=== PATIENT | female | born 1955 | race Caucasian/White ===

== ENCOUNTER 2017-04-06 12:18 | Emergency (ER) | payer OTHER, SELFPAY ==
[2017-04-06 12:22] VITALS: BP 198/96; PULSE 69; RESP 18; TEMP 36.8; O2SAT 99; BMI 41.8
--- NOTE | 2017-04-06 12:25 | RAD_ITS ---
STUDY: X-RAY CHEST REASON FOR EXAM: Female, 61 years old. Chest pain. Dizziness and nausea. TECHNIQUE: AP and lateral views of the chest. COMPARISON: None. FINDINGS: Elevation of the right hemidiaphragm. Mild increased markings at the right lung base suggestive of right basilar atelectasis. There is no demonstrated pleural abnormality. There is borderline cardiomegaly. Normal mediastinum and evelio. Normal visualized pulmonary arteries. There is atherosclerotic tortuosity of the aortic arch and descending thoracic aorta. There are diffuse degenerative changes of the visualized thoracic spine. Normal visualized ribs, clavicles, and shoulders. There is no demonstrated abnormality of the visualized soft tissue structures of the upper abdomen. RAD/Chest PA and Lateral IMPRESSION: Borderline cardiomegaly. Mild degree of increased markings at the right lung base suggestive of linear atelectasis. Electronically Signed: Davey Schmitz MD at 13:45 EST Tel [phone], Service support ,
--- NOTE | 2017-04-06 12:25 | EKG12_ITS ---
Test Reason : CP Blood Pressure : / mmHG Vent. Rate : 068 BPM Atrial Rate : 068 BPM P-R Int : 168 ms QRS Dur : 088 ms QT Int : 416 ms P-R-T Axes : 100 006 016 degrees QTc Int : 442 ms Normal sinus rhythm Normal ECG Confirmed by THEA RAYMOND ([id number]), photographic editor AISHWARYA SUNG ([id number]) on 04/10/2017 9:44:50 AM Referred By: CASIMIRO Confirmed By:THEA RAYMOND
[2017-04-06 13:02] LABS: Absolute Lymphocyte Count 1.95 X10^3/ul (0.83-4.51); Absolute Neutrophil Count 8.5 X10^3/uL (2.0-7.7); Basophil# 0.06 X10^3/uL; Basophil% 0.5 % (0-1); Eosinophil# 0.36 X10^3/uL; Eosinophils% 3.1 % (0-5); Hematocrit 43.7 % (37-47); Hemoglobin 14.2 g/dl (12.0-15.0); Lymphocyte # 1.95 X10^3/ul (4.0); Lymphocyte % 16.5 % (19-41); Mean Corp Hgb Conc 32.5 g/gl (32-36); Mean Corpuscular Hgb 29.2 pg (27.0-32.0); Mean Corpuscular Volume 89.7 fL (81-99); Mean Platelet Vol. 10.1 fl (6.2-12.0); Monocyte% 7.6 % (0-10); Neutrophil # 8.51 X10^3/uL (2.7-7.7); Neutrophil % 72.1 % (47-70); Platelet Count 276 K/mm3 (150-450); RBC Distribution Width CV 12.6 % (11.6-14.6); RBC Distribution Width SD 41.2 fl (35.1-43.9); Red Blood Count 4.87 M/mm3 (4.2-5.4); White Blood Count 11.8 K/mm3 (4.4-11.0)
[2017-04-06 13:04] LABS: POSITIVE COUNT NO; POSITIVE DIFFERENTIAL NO; POSITIVE MORPHOLOGY NO
[2017-04-06 13:20] LABS: Anion Gap 10 (5-15); BUN 23 mg/dL (7-18); Calcium,Total 9.2 mg/dL (8.5-10.1); Chloride 103 mmol/L (98-107); Creatinine, Serum 0.58 mg/dL (0.55-1.02); EST Glomerular Filtration Rate 113 mL/min (>60); Est Glom Filt Rate - Afr Amer 137 mL/min (>60); Estimated Creatinine Clearance 83.19 ml/min; Glucose 98 mg/dL (70-110); Potassium 3.6 mmol/L (3.5-5.1); Sodium Level 140 mmol/L (136-145)
--- NOTE | 2017-04-06 13:52 | NURSING ---
NO OLD EKGS
--- NOTE | 2017-04-06 14:16 | CT_ITS ---
STUDY: CT BRAIN WITHOUT CONTRAST REASON FOR EXAM: Female, 61 years old. Dizziness. Nausea and vomiting. Hypertension. RADIATION DOSAGE (If Supplied By Facility): CTDIvol = ( 44.99 ) mGy, DLP = ( 2042.94 ) mGycm TECHNIQUE: Transaxial CT imaging of the brain was performed without administration of intravenous contrast material. Individualized dose optimization techniques were used for this CT. COMPARISON: None. FINDINGS: Normal soft tissue structures. Normal calvarium. Normal size ventricles and extra-axial spaces for the patient's age. Normal white matter tracts of the cerebral hemispheres. There are small punctate calcifications of the basal ganglia which are seen in the aging brain as a normal variant. Normal brainstem. Normal cerebellum. There is no intracranial hemorrhage. There are no findings of an acute ischemic infarction. There is a 1.6 cm retention cyst or polyp along the anterior aspect of the left maxillary sinus. Mucosal thickening of left ethmoid sinus. CT/Brain/Head without Contrast IMPRESSION: No acute abnormality is seen. Electronically Signed: Davey Schmitz MD at 15:36 EST Tel [phone], Service support ,
[2017-04-06 14:31] VITALS: BP 145/77; PULSE 74; RESP 18; O2SAT 96
[2017-04-06] MEDS: Meclizine 12.5 MG Tablet 25 MG PO (14:40)
[2017-04-06] MEDS: Ondansetron 4 MG/2 ML Vial IV (14:40)
[2017-04-06] MEDS: 0.9% Normal Saline 1,000 ML 1000 ML IV (14:40)
[2017-04-06 15:09] VITALS: BP 141/83; PULSE 73; RESP 20; O2SAT 97
[2017-04-06 16:14] VITALS: BP 161/104; PULSE 87; RESP 18; O2SAT 98
--- NOTE | 2017-04-06 16:45 | ED.VISSUMM ---
- ER Visit Summary Date of Service: 04/06/17 Chief Complaint: Vertigo History of Present Illness: The patient is a [address] Gay. She reports that she has vertigo that began at 530 yesterday evening. Happened when she walked in the door to home. Last approximately an hour. She became very nauseated and diaphoretic with it. She vomited. No blood or emesis. Patient reports that she slept without difficulty last night and went to work today. 930 this morning she developed vertigo again while she was at rest. States that it is worsened by moving her head or standing up. She does feel off balance. She denies any slurred speech or double vision. No ear pain, ringing or roaring in her ears. No change in hearing. No headache. She has not had this previously. Physical Examination: Vitals: Stable. Afebrile. General: Well-nourished and well-developed. Head: Normocephalic atraumatic. Neck: Supple, no lymphadenopathy. No JVD. Nontender. Cardiovascular: Regular rate and rhythm. No murmurs. Respiratory: No respiratory distress. Clear to auscultation bilaterally. Abdominal: Soft, nontender, nondistended, normal bowel sounds. No guarding, rebound, or peritoneal signs. Back: Nontender. Extremities: Nontender, no edema. Skin: Normal color, no rash. Neurologic: Alert and oriented ?3. Cranial nerves II through XII are intact. Normal strength and sensation. Normal isyxoz-bwmo-mfbjux and erjt-pgsb-hagj bilaterally. No appreciable nystagmus. Psych: Normal affect. Test Results: EKG is sinus at 68 with no acute changes. Troponin is negative. Chem-7 is more for BUN of 23. CBC is marked for white count 11.8, segment neutrophils 72, lymphocytes of 17. Chest x-ray shows atelectasis with a poor inspiration. CT the brain shows no acute disease. Emergency Department Course and Treatment: Patient was treated with Antivert p.o. and Zofran IV. She reports that her vertigo has resolved. She is able to ambulate without any difficulty. Treatment Plan: I discussed with patient possible etiologies of vertigo. At this time I am unable to rule out a stroke. However, she is ambulate without any difficulty and feels well. She would like to go home. She is instructed if she has any worsening symptoms to return to the hospital and that she would likely require an MRI. Otherwise follow-up her primary care physician in 3-5 days for another exam. She be given prescription for Antivert and Zofran at home. Disposition: To home in improved and stable condition. Impression: 1. Vertigo, acute. This note was generated with [employer] dictation software. It may contain incorrect words, spelling, and punctuation that were not noted in review of the chart prior to signing ED Disposition - Plan for ED Patient: Chief Complaint: Dizziness Instructions: ED Vertigo Unspecified Prescriptions: Ondansetron [Zofran Odt] 4 mg PO Q8H PRN PRN #10 tablet PRN Reason: Nausea Meclizine HCl [Antivert] 25 mg PO 4X/DAY PRN PRN #20 tablet PRN Reason: Dizziness Referrals: Phillip Gay Chi, MD [Primary Care Provider] - 1-2 Days if not improving
[2017-04-06 17:24] VITALS: BP 149/88; PULSE 79; RESP 16; O2SAT 95
== END 2017-04-06 17:27 | disposition home or self-care (01) ==
PROVIDERS: Emergency Provider Emergency Medicine; Family Provider Family Medicine Geriatric Medicine; PCP Family Medicine Geriatric Medicine
DX: R42 Dizziness and giddiness (principal); J98.11 Atelectasis; I10 Essential (primary) hypertension; E78.00 Pure hypercholesterolemia, unspecified; G47.30 Sleep apnea, unspecified; Z79.899 Other long term (current) drug therapy
CPT/HCPCS: 70450; 71046; 80048; 84484; 85025; 93005; 96361; 96374; 99285; J7030; J2405

== ENCOUNTER 2017-05-02 09:28 | Inpatient (IN) | payer OTHER, SELFPAY ==
[2017-04-16 15:26] VITALS: BP 157/93; PULSE 81; RESP 16; TEMP 36.9; O2SAT 97; BMI 43.1
[2017-05-02] VITALS (8 sets, daily range): BP systolic 127–173; BP diastolic 64–98; PULSE 74–93; RESP 16–20; TEMP 36.3–36.9; O2SAT 92–98; BMI 43.1
[2017-05-02] MEDS: Celecoxib 200 MG Capsule 400 MG PO (10:05)
[2017-05-02] MEDS: oxyCODONE HCl Cr 10 MG Tablet PO (10:06)
[2017-05-02] MEDS: Acetaminophen 500 MG Tablet 1000 MG PO ×2 (10:06→20:51)
[2017-05-02] MEDS: Scopolamine 1mg/72hr Patch 1 PATCH TD (10:30)
[2017-05-02] MEDS: Lactated Ringers 1,000 ML 999 ML IV (10:35)
[2017-05-02] MEDS: Cefazolin 2 GM in 0.9% Normal Saline 100 ML IV (12:58)
--- NOTE | 2017-05-02 14:42 | PCM.OPRPT ---
Report of Operation Date of Procedure: 05/02/17 Pre-Operative Diagnosis: Left Primary Knee Osteoarthritis Post-Operative Diagnosis: Left Primary Knee Osteoarthritis Surgery/Procedure Performed:: Left posterior stabilized total knee replacement Description of Surgical Findings:: Stable knee with good patella tracking concrete swimming pool installer: Terell Middleton Type of Anesthesia:: Spinal Anesthesiologist: Mitchel Mchugh Special Medications: 2 g Ancef, 1 g TXA at incision, 1 g TXA closure, 10 mg Decadron, joint cocktail (5 mg Duramorph, 30 mL of 0.5% Ropivicaine, 1000 units of epinephrine, 30 mg of Toradol) Specimen's removed: Bony cuts Estimated Blood Loss (mL): 25 Fluids Replaced: 800 mL crystalloid Description of Procedure: Implants used: 1. Warner triathlon left posterior stabilized size 3 distal femoral component 2. Vikki triathlon universal tibial baseplate size 4 3. Vikki triathlon posterior stabilized X3 polyethylene insert 9 mm 4. Vikki triathlon X3 35 a patella Brief history operative indications: 81-year-old female who failed conservative treatment for left knee osteoarthritis. Patient's x-rays were consistent with subchondral sclerosis, valgus alignment, joint space narrowing and osteophyte formation. Risks and benefits of left total knee replacement were discussed the patient including but not limited to blood loss, DVTs, PEs, neurovascular damage, infection, general risk of anesthesia. Patient showed understanding and wished to proceed with left total knee replacement. Procedure: On the date of procedure patient's left lower extremity was marked in the preoperative area. The patient was then taken back to the operating room where the patient was placed on the table in the supine position. All bony prominences were identified a well-padded. Anesthesia assumed control of the C-spine and airway and remained controlled throughout the remainder of the procedure. A tourniquet was placed on the left upper thigh and the leg was prepped in a sterile fashion. The surgeon then scrubbed at this time .Upon reentering the room left lower extremity was draped in a standard orthopedic fashion. A timeout was then called and everyone agreed upon the side, the site, the procedure to be performed, patient's identity and antibiotics given. A midline skin incision was made and sharp dissection was taken down through skin subcutaneous tissue and fat. The standard medial parapatellar incision was made and the patella was subluxed laterally. The standard deep MCL release was done and the fat pad was resected. Next our attention was directed to the femur. The entry reamer was used to enter the femoral canal. A flexible intramedullary guide was used and the distal femoral cutting block was pinned into place and 10 mm of distal femur resection was completed. The knee was then placed in deep flexion in the standard Familiar sizing guide was used to place the femoral component in 3? external rotation based on the posterior condyles. A size 3 4-in-1 cutting block was selected and pinned into place. The anterior cut was then made and checked for notching. The subsequent anterior chamfer cuts, posterior condylar cuts and posterior chamfer cuts were made while ensuring the MCL and LCL were protected. Our attention was then turned to the tibia where the [employer] tibial cutting guide was used to make the appropriate tibial cut 90 degrees from the mechanical axis. A drop juan was then used to verify the cut. A size 4 tibial base plate was selected. the knee was flexed to 90 degrees and the soft tissues and posterior osteophytes were removed from the joint. A portion of the periarticular injection was then administered in the posterior medial knee. Our attention was then turned back to the femur where the notch cutting guide was impacted in the appropriate position, and pinned into place. The chisel and saw were then used to complete the notch cut. Rogeur was used to remove any residual osteophytes. The appropriate trials were then placed on the femur and tibia. A trial polyethylene was trialed to ensure proper balancing and stability of the knee. Patella tracking, was then verified and corrected appropriately as needed. The appropriate tibial internal rotation was then marked with a bovie. Our attention was then directed to the patella. The patella was everted and a flat resection was made. The lug holes were drilled and the patella trial was placed. Patellar tracking was checked and deemed appropriate. Once we were happy lug holes were drilled for the femur and trial components were removed. the tibia was subluxed and pinned into place and the keel was punched and the canal was reamed. Final components were verified and opened, and cement was mixed in a vacuum. Familiar Simplex cement was used. The wound was copiously irrigated with normal saline. When the cement was ready the components were cemented into place starting with the tibia, femur and finally the patella. The trial poly component was placed and the knee was placed in full extension. All excess cement was removed in the process. Once the cement had cured the tracking, alignment and balance were verified and a size 9mm polyethylene component was placed. Once the final components were placed a 500 mL dilute Betadine 3 minute lavage was performed and the wound was copiously irrigated with normal saline solution and the remainder of the periarticular injection was given. The wound was closed in a layer ramos fashion using #1 vicryl interrupted sutures for the arthrotomy, 2-0 interrupted Vicryl for the subcuticular layer and haven for final skin closure. A sterile compressive dressing was then placed. The patient was then awakened from anesthesia, transferred to the [place] and transferred to the PACU for recovery. Post op plan DVT ppx: ASA 325mg BID , thigh high compression stockings Follow up: in office in 2 weeks for wound check PT: to start POD #0 at hospital, outpatient PT should be arranged. My physician administrative personal assistant was a vital part of this case. He was important in appropriate retraction during the case, and protection of soft tissues during bony cuts. His intimate knowledge of the case and my steps aided in safe and expedient completion of the procedure as well as appropriate position of the leg during the case. He was also vital in assisting with closure under my direct supervision. Grafts/Implants Used: Warner triathlon total knee - Complications none - Admit VTE Documentation VTE Present on Admission: No VTE Mechan Device Prophylaxis: SCD's, Thigh High RANJAN Hose VTE Pharm Prophylaxis ordered?: Yes
--- NOTE | 2017-05-02 14:46 | OP.PCM_ITS ---
Report of Operation Date of Procedure: 05/02/17 Pre-Operative Diagnosis: Left Primary Knee Osteoarthritis Post-Operative Diagnosis: Left Primary Knee Osteoarthritis Surgery/Procedure Performed:: Left posterior stabilized total knee replacement Description of Surgical Findings:: Stable knee with good patella tracking client service coordinator: Terell Middleton Type of Anesthesia:: Spinal Anesthesiologist: Mitchel Mchugh Special Medications: 2 g Ancef, 1 g TXA at incision, 1 g TXA closure, 10 mg Decadron, joint cocktail (5 mg Duramorph, 30 mL of 0.5% Ropivicaine, 1000 units of epinephrine, 30 mg of Toradol) Specimen's removed: Bony cuts Estimated Blood Loss (mL): 25 Fluids Replaced: 800 mL crystalloid Description of Procedure: Implants used: 1. Sulphur triathlon left posterior stabilized size 3 distal femoral component 2. Vikki triathlon universal tibial baseplate size 4 3. Vikki triathlon posterior stabilized X3 polyethylene insert 9 mm 4. Vikki triathlon X3 35 a patella Brief history operative indications: 81-year-old female who failed conservative treatment for left knee osteoarthritis. Patient's x-rays were consistent with subchondral sclerosis, valgus alignment, joint space narrowing and osteophyte formation. Risks and benefits of left total knee replacement were discussed the patient including but not limited to blood loss, DVTs, PEs, neurovascular damage, infection, general risk of anesthesia. Patient showed understanding and wished to proceed with left total knee replacement. Procedure: On the date of procedure patient's left lower extremity was marked in the preoperative area. The patient was then taken back to the operating room where the patient was placed on the table in the supine position. All bony prominences were identified a well-padded. Anesthesia assumed control of the C- spine and airway and remained controlled throughout the remainder of the procedure. A tourniquet was placed on the left upper thigh and the leg was prepped in a sterile fashion. The surgeon then scrubbed at this time .Upon reentering the room left lower extremity was draped in a standard orthopedic fashion. A timeout was then called and everyone agreed upon the side, the site, the procedure to be performed, patient's identity and antibiotics given. A midline skin incision was made and sharp dissection was taken down through skin subcutaneous tissue and fat. The standard medial parapatellar incision was made and the patella was subluxed laterally. The standard deep MCL release was done and the fat pad was resected. Next our attention was directed to the femur. The entry reamer was used to enter the femoral canal. A flexible intramedullary guide was used and the distal femoral cutting block was pinned into place and 10 mm of distal femur resection was completed. The knee was then placed in deep flexion in the standard [employer] sizing guide was used to place the femoral component in 3? external rotation based on the posterior condyles. A size 3 4-in-1 cutting block was selected and pinned into place. The anterior cut was then made and checked for notching. The subsequent anterior chamfer cuts, posterior condylar cuts and posterior chamfer cuts were made while ensuring the MCL and LCL were protected. Our attention was then turned to the tibia where the [employer] tibial cutting guide was used to make the appropriate tibial cut 90 degrees from the mechanical axis. A drop juan was then used to verify the cut. A size 4 tibial base plate was selected. the knee was flexed to 90 degrees and the soft tissues and posterior osteophytes were removed from the joint. A portion of the periarticular injection was then administered in the posterior medial knee. Our attention was then turned back to the femur where the notch cutting guide was impacted in the appropriate position, and pinned into place. The chisel and saw were then used to complete the notch cut. Rogeur was used to remove any residual osteophytes. The appropriate trials were then placed on the femur and tibia. A trial polyethylene was trialed to ensure proper balancing and stability of the knee. Patella tracking, was then verified and corrected appropriately as needed. The appropriate tibial internal rotation was then marked with a bovie. Our attention was then directed to the patella. The patella was everted and a flat resection was made. The lug holes were drilled and the patella trial was placed. Patellar tracking was checked and deemed appropriate. Once we were happy lug holes were drilled for the femur and trial components were removed. the tibia was subluxed and pinned into place and the keel was punched and the canal was reamed. Final components were verified and opened, and cement was mixed in a vacuum. [employer] Simplex cement was used. The wound was copiously irrigated with normal saline. When the cement was ready the components were cemented into place starting with the tibia, femur and finally the patella. The trial poly component was placed and the knee was placed in full extension. All excess cement was removed in the process. Once the cement had cured the tracking, alignment and balance were verified and a size 9mm polyethylene component was placed. Once the final components were placed a 500 mL dilute Betadine 3 minute lavage was performed and the wound was copiously irrigated with normal saline solution and the remainder of the periarticular injection was given. The wound was closed in a layer ramos fashion using #1 vicryl interrupted sutures for the arthrotomy, 2-0 interrupted Vicryl for the subcuticular layer and haven for final skin closure. A sterile compressive dressing was then placed. The patient was then awakened from anesthesia, transferred to the [place] and transferred to the PACU for recovery. Post op plan DVT ppx: ASA 325mg BID , thigh high compression stockings Follow up: in office in 2 weeks for wound check PT: to start POD #0 at hospital, outpatient PT should be arranged. My physician therapist's assistant was a vital part of this case. He was important in appropriate retraction during the case, and protection of soft tissues during bony cuts. His intimate knowledge of the case and my steps aided in safe and expedient completion of the procedure as well as appropriate position of the leg during the case. He was also vital in assisting with closure under my direct supervision. Grafts/Implants Used: Sulphur triathlon total knee - Complications none - Admit VTE Documentation VTE Present on Admission: No VTE Mechan Device Prophylaxis: SCD's, Thigh High RANJAN Hose VTE Pharm Prophylaxis ordered?: Yes
--- NOTE | 2017-05-02 15:38 | RAD_ITS ---
STUDY: X-RAY - LEFT KNEE REASON FOR EXAM: Female, 61 years old. Postoperative evaluation of knee arthroplasty. TECHNIQUE: 2 view(s) of the knee. COMPARISON: Prior left knee radiographs of January 26, 2017 FINDINGS: The patient is status post a total knee arthroplasty. The standard femoral and tibial components are normally located without migration or disruption of the hardware. The patella is resurfaced and is anatomically located. Normal postoperative soft tissue changes. Anterior incision closed with haven. RAD/Knee 1 or 2 Views IMPRESSION: Status post total knee arthroplasty with no untoward bone, joint or hardware findings. Electronically Signed: Jeanette Batista MD at 16:42 EST , Service support ,
[2017-05-02] MEDS: Lactated Ringers 1,000 ML 125 ML IV (16:42)
[2017-05-02] MEDS: Ketorolac 15 MG/ML Vial IV (17:18)
[2017-05-02] MEDS: Pravastatin 40 MG Tablet PO (20:52)
[2017-05-02] MEDS: Senna/Docusate Sodium 1 Tablet 2 TABLET PO (20:52)
[2017-05-02] MEDS: Aspirin 325 MG Tablet PO (20:53)
[2017-05-02] MEDS: Lisinopril 40 MG Tablet PO (20:53)
[2017-05-02] MEDS: Cefazolin 1 GM/50 ML BAG IV (22:35)
[2017-05-03 02:38] VITALS: BP 136/75; PULSE 87; RESP 18; TEMP 36.6; O2SAT 96
[2017-05-03] MEDS: Cefazolin 1 GM/50 ML BAG IV (05:39)
[2017-05-03] MEDS: Acetaminophen 500 MG Tablet 1000 MG PO ×2 (05:39→13:53)
[2017-05-03 06:58] LABS: Hematocrit 37.7 % (37-47); Hemoglobin 12.2 g/dl (12.0-15.0); Mean Corp Hgb Conc 32.4 g/gl (32-36); Mean Corpuscular Hgb 28.6 pg (27.0-32.0); Mean Corpuscular Volume 88.3 fL (81-99); Mean Platelet Vol. 10.2 fl (6.2-12.0); Platelet Count 260 K/mm3 (150-450); RBC Distribution Width CV 12.3 % (11.6-14.6); RBC Distribution Width SD 39.2 fl (35.1-43.9); Red Blood Count 4.27 M/mm3 (4.2-5.4); White Blood Count 15.7 K/mm3 (4.4-11.0)
[2017-05-03 07:01] LABS: Scan Indicated on CBC? Y/N NO
--- NOTE | 2017-05-03 07:08 | PN.ORTHO_ITS ---
Subjective: The patient was sitting in bedside chair upon examination. Patient denies any chest pain, shortness of breath, dizziness, lightheadedness, nausea or vomiting , or calf pain. Pain is controlled on medications. No adverse overnight events. Overall patient is doing well and pain is very well controlled at this time. Patient did receive a block postoperatively. Patient does wish to go home upon discharge. Objective: Vital signs stable and afebrile. Patient is able to plantarflex and dorsiflex actively. Sensation is intact to light touch to saphenous, sural, superficial and deep peroneal, and tibial distribution. Dressing is clean dry and intact. Negative Homans bilaterally, negative signs and symptoms of DVT. - Physical Exam General: Alert, Oriented x3, Cooperative, No apparent distress Vital Signs Temp Pulse Resp BP Pulse Ox 98 F 87 18 136/75 H 96 05/03/17 02:38 05/03/17 02:38 05/03/17 02:38 05/03/17 02:38 05/03/17 02:38 Oxygen Delivery Method CPAP Weight: 107.048 kg Body Mass Index (BMI) 43.1 Intake and Output for Last 24 Hours 05/01/17 05/02/17 05/03/17 23:59 23:59 23:59 Intake Total 2267 / 2267 2278 / 2278 Output Total 700 / 700 Balance 2267 / 2267 1578 / 1578 Laboratory Tests Past 24 Hrs 05/03/17 05/03/17 06:30 06:30 WBC 15.7 H RBC 4.27 Hgb 12.2 Hct 37.7 MCV 88.3 MCH 28.6 MCHC 32.4 RDW 12.3 RDW Differential 39.2 Plt Count 260 MPV 10.2 Sodium Pending Potassium Pending Chloride Pending Carbon Dioxide Pending Anion Gap Pending BUN Pending Creatinine Pending Est GFR (MDRD) Af Amer Pending Est GFR (MDRD) Non-Af Pending BUN/Creatinine Ratio Pending Glucose Pending Calcium Pending Assessment/Plan 1. S/P left total knee arthroplasty POD #1 2. Continue Pain Medications: Tylenol and OxyIR 3. DVT Prophylaxis: Aspirin 325 mg twice daily 4. PT/OT: Weightbearing as tolerated 5. H & H: 12.2/37.7, asymptomatic 6. Leukocytosis: Currently 15.7, afebrile. Patient did receive Decadron intraoperatively 7. Encouraged Incentive Spirometry 8. Disposition: Plan will be for possible discharge home today if pain is controlled on medications and patient tolerates physical therapy. Prescriptions will be E scribed to drug trisha and Briseida. Patient will follow- up per postop instructions.
[2017-05-03 07:12] LABS: Anion Gap 9 (5-15); BUN 15 mg/dL (7-18); BUN/Creat Ratio 21.3 RATIO (10-20); Calcium,Total 8.7 mg/dL (8.5-10.1); Chloride 101 mmol/L (98-107); EST Glomerular Filtration Rate 89 mL/min (>60); Est Glom Filt Rate - Afr Amer 108 mL/min (>60); Estimated Creatinine Clearance 65.91 ml/min; Glucose 183 mg/dL (74-106); Potassium 4.1 mmol/L (3.5-5.1); Sodium Level 136 mmol/L (136-145)
--- NOTE | 2017-05-03 07:13 | DCINST_ITS ---
Discharge Diet: No Restrictions Discharge Activity: May Not Drive May shower in (days): 1 - Turned dressing away from water Ice area for (Minutes): 20 - every hour while awake. Weight Bearing Status: Weight bearing as tolerated Elevate: Operative Extremity Additional Activity Instructions:: Wear elastic stockings for 2 weeks after your surgery. Call your doctor if your incision/area has: Continuous Slow Oozing, Sudden Increased Bleeding, Increased Pain/ Swelling, Increased Redness, Foul Smelling Discharge Call your doctor if you observe: Fever of 101 or Higher, Coldness, Increased Pain, Numbness or Tingling, Change in Color, Calf discomfort, Uncontrolled pain Remove Dressing in (days):: 4 - Okay to remove dressing on May 07, 2017 Additional Instructions: Follow [facility] postop instructions Allergies/Adverse Reactions: Allergies No Known Allergies Allergy (Verified 04/16/17 15:15) Medications to take at Discharge Lisinopril [Zestril] 40 mg PO QHS 09/26/16 Pravastatin [Pravachol] 40 mg PO QHS 09/26/16 Acetaminophen [Tylenol] 1,000 mg PO Q8 #90 tab 05/03/17 Aspirin 325 mg PO BID #30 tab 05/03/17 Famotidine [Pepcid] 20 mg PO DAILY #30 tab 05/03/17 Oxycodone [Oxyir] 5 - 10 mg PO Q4H PRN PRN 7 Days #80 tablet 05/03/17 Senna/Docusate Sodium [Senokot-S] 2 tab PO BID #20 tab 05/03/17 The following prescriptions were given: Oxycodone [Oxyir] 5 - 10 mg PO Q4H PRN PRN 7 Days #80 tablet PRN Reason: Mod-Severe Pain (-12/19) Acetaminophen [Tylenol] 1,000 mg PO Q8 #90 tab Famotidine [Pepcid] 20 mg PO DAILY #30 tab Aspirin 325 mg PO BID #30 tab Senna/Docusate Sodium [Senokot-S] 2 tab PO BID #20 tab Primary Care Physician: Phillip Gay Chi, MD [Primary Care Provider] - Please Follow Up With: Physical therapy When: 05/07/17 @ 10:00 am Please Follow Up With: Terell Middleton PA-C When: 05/16/17 @ 9:45 am
[2017-05-03] MEDS: oxyCODONE 5 MG Tablet PO (08:26)
[2017-05-03] MEDS: Famotidine 20 MG Tablet PO (09:18)
[2017-05-03] MEDS: Senna/Docusate Sodium 1 Tablet 2 TABLET PO (09:19)
[2017-05-03] MEDS: Aspirin 325 MG Tablet PO (09:19)
[2017-05-03 09:20] VITALS: BP 165/76; PULSE 67; RESP 18; TEMP 36.8; O2SAT 98
--- NOTE | 2017-05-03 09:28 | CASEMGMT ---
JAI CONNER reviewed chart and note patient was adm for joint surgery. JAI CONNER met with patient to discuss transition planning and care coordination. The patient reports she lives with her spouse who will be staying home with her to help for the first week, then her dtrs will be there week 2 and son will come week 3. Patient reports she has a wheeled walker which she did bring with her to the hospital. Patient also reports a cpap and toilet riser. The patient intends to complete PT/OT at [facility]. The patient does have transportation and follow-up appnts are scheduled. Disposition Plan: Home with support of family and with follow-up plans in place. NAVID Rosado, RN-BC, CCM
[2017-05-03 14:00] VITALS: BP 151/57; BP 151/87; PULSE 65; RESP 18; TEMP 36.8; O2SAT 97
== END 2017-05-03 14:24 | disposition home or self-care (01) | DRG 470 ==
LOC: ACINP 09:29 → MS3 14:28
PROVIDERS: Admitting Provider Specialist; Family Provider Family Medicine Geriatric Medicine; PCP Family Medicine Geriatric Medicine; Visit Provider Specialist
PROC: 0SRD0J9 Replacement of Left Knee Joint with Synthetic Substitute, Cemented, Open Approach (ICD-10-PCS; CPT 27447; principal; 2017-05-02 11:15)
DX: M17.12 Unilateral primary osteoarthritis, left knee (principal); E78.00 Pure hypercholesterolemia, unspecified; G47.30 Sleep apnea, unspecified; I10 Essential (primary) hypertension; Z87.891 Personal history of nicotine dependence
CPT/HCPCS: 36415; 73560; 80048; 85027; 87081; 97110; 97162; 97165; 97535; 99251; J7120; G0463; J2405

== ENCOUNTER → 2017-09-07 08:35 | Outpatient (CLI) | payer OTHER, SELFPAY ==
[2017-09-07 12:35] LABS: Absolute Lymphocyte Count 1.54 X10^3/ul (0.83-4.51); Basophil# 0.05 X10^3/uL; Basophil% 0.7 % (0-1); Eosinophil# 0.28 X10^3/uL; Eosinophils% 3.8 % (0-5); Hematocrit 41.7 % (37-47); Hemoglobin 13.3 g/dl (12.0-15.0); Lymphocyte # 1.54 X10^3/ul (4.0); Lymphocyte % 20.9 % (19-41); Mean Corp Hgb Conc 31.9 g/gl (32-36); Mean Corpuscular Hgb 27.6 pg (27.0-32.0); Mean Corpuscular Volume 86.5 fL (81-99); Mean Platelet Vol. 10.7 fl (6.2-12.0); Monocyte# 0.51 X10^3/uL; Monocyte% 6.9 % (0-10); Neutrophil # 4.99 X10^3/uL (2.7-7.7); Neutrophil % 67.6 % (47-70); Platelet Count 275 K/mm3 (150-450); RBC Distribution Width CV 13.6 % (11.6-14.6); RBC Distribution Width SD 42.9 fl (35.1-43.9); Red Blood Count 4.82 M/mm3 (4.2-5.4); White Blood Count 7.4 K/mm3 (4.4-11.0)
[2017-09-07 12:38] LABS: POSITIVE COUNT NO; POSITIVE DIFFERENTIAL NO; POSITIVE MORPHOLOGY NO
[2017-09-07 12:50] LABS: ALB/GLOB Ratio 0.9 RATIO (0.9-2.4); AST(SGOT) 41 U/L (15-37); Alanine Aminotransfer ALT/SGPT 54 U/L (13-56); Albumin, Serum 3.8 g/dL (3.2-5.0); Alkaline Phosphatase 69 U/L (45-117); Anion Gap 8 (5-15); BUN 18 mg/dL (7-18); BUN/Creat Ratio 26.1 RATIO (10-20); Calcium,Total 9.4 mg/dL (8.5-10.1); Chloride 105 mmol/L (98-107); Creatinine, Serum 0.69 mg/dL (0.55-1.02); EST Glomerular Filtration Rate 91 mL/min (>60); Est Glom Filt Rate - Afr Amer 110 mL/min (>60); Globulin 4.1 g/dL (2.2-4.2); Glucose 100 mg/dL (74-106); Potassium 4.3 mmol/L (3.5-5.1); Protein, Total 7.9 g/dL (6.4-8.2); Sodium Level 139 mmol/L (136-145); Thyroid Stim Hormone (TSH) 0.79 uIU/mL (0.358-3.74)
[2017-09-08 08:01] LABS: Hep C Antibodies 0.1 s/co ratio (0.0-0.9)
== END ==
PROVIDERS: Family Provider Family Medicine Geriatric Medicine; PCP Family Medicine Geriatric Medicine; Visit Provider Family Medicine Geriatric Medicine
DX: I10 Essential (primary) hypertension (principal); Z13.89 Encounter for screening for other disorder
CPT/HCPCS: 36415; 80053; 84443; 85025; 86803

== ENCOUNTER → 2018-01-01 10:25 | Outpatient (CLI) | payer OTHER, SELFPAY ==
--- NOTE | 2018-01-01 10:29 | RAD_ITS ---
STUDY: X-RAY - LUMBAR SPINE REASON FOR EXAM: Female, 62 years old. Back pain TECHNIQUE: 4 view(s) of the lumbar spine were obtained. COMPARISON: Prior study of 11/02/2016 FINDINGS: Normal lumbar lordosis. There is no substantial scoliosis. There is a grade 2 anterolisthesis of L3 relative to L4, and a minimal grade 1 anterolisthesis of L4 relative to L5. Normal vertebral bodies and endplates. There is severe narrowing of the L3-4 disc space with sclerosis of the adjacent endplates. There is mild narrowing of the L2-3, L4-5, and L5-S1 disc spaces. There are bilateral degenerative facet changes throughout the mid to lower lumbar region. There are calcified plaques of the abdominal aorta. RAD/L/S Spine Min 4 Views IMPRESSION: Degenerative changes as detailed above, increased in severity from the previous study. Electronically Signed: Channing Donis MD at 23:24 EDT , Service support ,
== END ==
PROVIDERS: Family Provider Family Medicine Geriatric Medicine; PCP Family Medicine Geriatric Medicine; Referring Provider Orthopaedic Surgery; Visit Provider Orthopaedic Surgery
DX: M54.5 Low back pain (principal)
CPT/HCPCS: 72110

== ENCOUNTER → 2018-01-03 10:24 | Outpatient (CLI) | payer OTHER, SELFPAY ==
--- NOTE | 2018-01-03 10:26 | BI_ITS ---
MAMMOGRAPHY - BILATERAL SCREENING REASON FOR EXAM: Female, 62 years old. Routine annual screening examination. PERTINENT HISTORY: Aunt with breast cancer. TECHNIQUE: Digital bilateral breast ga (3D mammographic acquisition) in the CC and MLO projections. 2-D mediolateral oblique (MLO) and craniocaudad (CC) views of both breasts were obtained. CAD: Full Field Digital Mammography with Computer Added Detection was performed. COMPARISON: Comparison is made with prior study dated July 21, 2016 and July 10, 2014. FINDINGS: Breast Composition: The breasts are almost entirely fatty. There is a 8.1 mm x 8.6 mm well-defined nodular density in the retroareolar region of the left breast. Correlation with ultrasound is recommended. Stable small bilateral axillary lymph nodes. No other significant abnormalities are identified. BI/SCREENING MAMM (CAD), BILAT IMPRESSION: 8.1 mm x 8.6 mm well-defined nodular density in the retroareolar region of the left breast as described. Correlation with ultrasound is recommended. ASSESSMENT CATEGORY: BIRADS Category 0: Incomplete. Need additional imaging evaluation. A letter regarding these results will be sent to the patient by the facility within 30 days. Approximately 10% of breast cancers are not detected by mammography. A normal mammogram should not delay biopsy of a clinically suspicious abnormality. [id number] Electronically Signed: Davey Schmitz MD at 14:12 EDT Tel [phone], Service support ,
[2018-01-08 10:45] LABS: HPV APTIMA, High Risk Negative (Negative)
== END ==
PROVIDERS: Family Provider Family Medicine Geriatric Medicine; PCP Family Medicine Geriatric Medicine; Referring Provider Family Medicine Geriatric Medicine; Visit Provider Family Medicine Geriatric Medicine
DX: Z12.31 Encounter for screening mammogram for malignant neoplasm of breast (principal)
CPT/HCPCS: 77063; 77067; 87624; 88175; G0145

== ENCOUNTER → 2018-01-08 07:58 | Outpatient (CLI) | payer OTHER, SELFPAY ==
--- NOTE | 2018-01-08 08:09 | US_ITS ---
STUDY: ULTRASOUND BREAST - LEFT REASON FOR EXAM: Female, 62 years old. Abnormal screening mammogram. TECHNIQUE: Axial and longitudinal images of the LEFT breast were performed with a high resolution ultrasound transducer. COMPARISON: Comparison is made with prior mammogram dated January 03, 2018. FINDINGS: LEFT Breast: There is a 7 mm x 6 mm x 5 mm cyst with low-level echoes within it at the 12:00 position of the breast at 4 cm from nipple. This corresponds to the mammographic findings. This most likely represents an hemorrhagic cyst. A follow-up sonogram in 4 months is recommended for further evaluation. US/Breast Limited Unilateral IMPRESSION: The mammographic abnormality corresponds to a 7 mm x 6 mm x 5 mm cyst with low-level echoes. This most likely represents an hemorrhagic cyst. A follow-up sonogram is recommended in 4 months. ASSESSMENT CATEGORY: BIRADS Category 3: Probably Benign - Short-Interval Follow-up Suggested. A letter regarding these results will be sent to the patient by the facility within 30 days. Electronically Signed: Davey Schmitz MD at 8:52 EDT Tel [phone], Service support ,
== END ==
PROVIDERS: Family Provider Family Medicine Geriatric Medicine; PCP Family Medicine Geriatric Medicine; Referring Provider Family Medicine Geriatric Medicine; Visit Provider Family Medicine Geriatric Medicine
DX: R92.8 Other abnormal and inconclusive findings on diagnostic imaging of breast (principal)
CPT/HCPCS: 76642

== ENCOUNTER 2018-05-15 17:30 | Outpatient (RCR) | payer OTHER, SELFPAY ==
[2018-03-19 14:57] VITALS: BMI 43.1
--- NOTE | 2018-04-30 17:12 | HP.PTEVAL_ITS ---
Patient's Visit Information CHELSIE HERNANDEZ is a 62 year old F referred to Physical Therapy by Phillip Gay MD with a diagnosis of L sciatica. Date of Evaluation: 04/24/18 Physical Therapist: Ruddy Hill DPT - Visit Plan Frequency: 2x /Week Duration: 4 Weeks Plan: Start with US to lumbar spine/L hip. Neutral spine core stability, HS stretching (light), trial modalties to reduce symptoms - Subjective Findings: Pt. is here today for her initial evaluation with diagnosis of L sided sciatica. Pt. reports having increased pain for some time. Pt. reports pain in LLE down to her knee. Pt. denies N/T in either LE. Pt. 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 Pt. has increased pain with walknig, standing, work like movements, bending, twisting and lifting. 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 Pt. denies any mechanism of injury. Pt. has been to a chiropractor wtih minimal relief. Pt. has had a consult with ortho who recommended an L3-L4 and L4-L5 dcompression and fusion. Pt. did not desire to take this course of action at this point in time. Pt. has been having continued pain since. Pt. is hopeful to reduce symptoms in order to get back to all recreational and work activities without limitation. - Pain LLE Pain Intensity (Out of 10): 6 Pain Intensity Range: 4, 8 - Objective POSTURE: Pt. had generally flexed posture. Pt. is over wt. Pt. is has no lateral shift. Pt. had normal posture otherwise. PALPATION: Pt. has increased tenderness along her lumbar spine and gluteal region on L side. NEURO: Pt. has normal sensation in bilateral LEs. Pt. has 2+ achilles, but 1+ patellar DTR on L side. Pt. is able to rise on heels and toes without issues. MMT: RLE- 4/5 through. LLE- ankle 5/5 throughout;knee/hip 4/5 throghout. Core strength- poor. GAIT: Pt. ambulates with flexed posture, and increased lateral hip sway. STAIRS: heavy use of BHR. - Goals Goal 1:: Pt. to be I with HEP Goal Time Frame: 4-6 Weeks Goal 2:: Pt. to have increased core strength by 1/2 grade to reduce stress applid to lumbar spine. Goal Time Frame: 4-6 Weeks Goal 3:: Pt. to walk community level distances with normal gait pattern and 0- 2/10 pain in lumbar spine. Goal Time Frame: 4-6 Weeks Goal 4:: Pt. to sleep throughout the night without increase in symptoms. Goal Time Frame: 4-6 Weeks Goal 5:: Pt. to complete all work activities without increase in symptoms. Goal Time Frame: 4-6 Weeks - Rehabilitation Potential Physical Therapy Diagnosis: Pt. has signs and symptoms consistent with L sided sciatica. Pt. has increased pain with all movements of her symptoms. Pt. would benefit from PT to reduce stress applied at lumbar spine and increase core stability in order to get back to all recerational activities without issues. Rehabilitation Potential: Fair - Anticipated Interventions Patient/Client Instruction: Educate patient on: Condition, Plan of Care, Risk Factors, Benefits of Fitness Program For the Purpose of:: To improve decision making, To facilitate caregiver knowledge, To improve self management, To prevent re-injury, To improve ability to perform tasks related to life management, To improve tolerance to ADL's Therapeutic Exercise to Include: Strength training, Power training, Endurance training, Postural training, Flexibilty training, Gait and locomotor training, In an aquatic setting, Passive ROM, Active ROM, Dynamic Lumbar Stabilization For the Purpose of:: To decrease pain, To decrease swelling/inflammation, To increase ROM, To improve nutrient delivery to tissue, To increase oxygenation perfusion, To improve muscle performance and motor function Manual Therapy Techniques to Include: Trigger point massage, Passive ROM, Functional dry needling, Soft tissue mobilization For the Purpose of:: To decrease pain, To decrease swelling/inflammation, To increase ROM IF ES: Yes Cryotherapy (ice pack, ice massage): Yes Thermo therapy (hot pack): Yes Ultrasound (thermal/non thermal): Yes For the Purpose of:: To decrease pain, To decrease swelling/inflammation Thank you for the opportunity to evaluate your patient. For Medicare and Medicare HMO plans, please review the plan of care and approve it. It will need to be FAXED BACK to us at [phone] for Medicare purposes. For Medicare only, by signing this I certify the plan of care. Please let me know if there are questions or concerns regarding this plan of care. Physician Signature: Date:
--- NOTE | 2018-05-20 12:42 | HP.PTDCSUM_ITS ---
HP - PT D/C Summary It has been my pleasure to treat CHELSIE HERNANDEZ under orders from Phillip Gay MD, for the diagnosis of L sciatica for a total of 4 visit(s). Discharge Date: 05/15/18 Please see the following information for a summary of their discharge status. - Subjective Subjective: Pt. followed up with a neurologist who also recommended surgical intervention at this point in time. Pt. reprots having some relief with PT, but minimal. She continues to have increased pain in her leg and having her leg give out on her at times. - Pain LLE Pain Intensity (Out of 10): 6 - Overall Improvement % Improvement: 25 - Objective Objective/Function: pt. continues to have increased pain in her leg. Pt. has increased pain with walking. Pt. has increased postural awareness, but increased difficulty with walking and minimal change with core/BLE strength. Pt. desires to contiune with exercises on her own at this point in time. - Goals Goal 1:: Pt. to be I with HEP Goal Progress: Goal Met Goal 2:: Pt. to have increased core strength by 1/2 grade to reduce stress applid to lumbar spine. Goal Progress: Progressing Goal 3:: Pt. to walk community level distances with normal gait pattern and 0- 2/10 pain in lumbar spine. Goal Progress: Not Progressing Goal 4:: Pt. to sleep throughout the night without increase in symptoms. Goal Progress: Not Progressing Goal 5:: Pt. to complete all work activities without increase in symptoms. Goal Progress: Not Progressing - Plan Plan: Pt. to be DC from PT at this point intime and to follow up with physician to determine best course of action. - D/C Information Discharge Comments: Pt. was treated with neutral spine core stability, US and stretching. Pt. has been given exercises to complete independently. Pt. had minimal porgress with PT and plans to continue with HEP tessie her own and follow up with physician as needed. If there are questions or concerns regarding this patient's physical therapy, please feel free to call me at [phone]. Thank you for the referral of this patient. Sincerely, Ruddy Hill DPT
== END 2018-05-15 19:00 | disposition home or self-care (01) ==
LOC: PT 17:30
PROVIDERS: Family Provider Family Medicine Geriatric Medicine; PCP Family Medicine Geriatric Medicine; Visit Provider Family Medicine Geriatric Medicine
DX: M54.32 Sciatica, left side (principal)
CPT/HCPCS: 97035; 97110; 97161; 97530

== ENCOUNTER → 2018-06-14 07:46 | Outpatient (CLI) | payer OTHER, SELFPAY ==
[2018-06-04 13:25] VITALS: BMI 45.3
--- NOTE | 2018-06-14 07:48 | US_ITS ---
STUDY: ULTRASOUND BREAST - LEFT REASON FOR EXAM: Female, 62 years old. 4 month follow-up examination. TECHNIQUE: Axial and longitudinal images of the LEFT breast were performed with a high resolution ultrasound transducer. COMPARISON: Comparison is made with prior ultrasound left breast dated January 08, 2018. FINDINGS: LEFT Breast: There is a 6 mm x 6 mm x 6 mm mixed solid and cystic well-defined nodular density at the 12:00 position of the breast at 4 cm from the nipple. This is essentially unchanged. A biopsy is recommended at this time. US/Breast Limited Unilateral IMPRESSION: Stable findings. A biopsy is recommended at this time. ASSESSMENT CATEGORY: BIRADS Category 4: Suspicious - Biopsy Should Be Considered. A letter regarding these results will be sent to the patient by the facility within 30 days. Electronically Signed: Davey Schmitz, at 8:32 EDT , Service support ,
== END ==
PROVIDERS: Family Provider Family Medicine Geriatric Medicine; PCP Family Medicine Geriatric Medicine; Referring Provider Family Medicine Geriatric Medicine; Visit Provider Family Medicine Geriatric Medicine
DX: N60.02 Solitary cyst of left breast (principal)
CPT/HCPCS: 76642

== ENCOUNTER → 2018-06-25 | Outpatient (CLI) | payer OTHER, SELFPAY ==
--- NOTE | 2018-06-24 | BRBX_PTH ---
PATIENT: CHELSIE HERNANDEZ LOC: [facility] U#:[id number] AGE/SX: 62/F ROOM: RE06/25/[address]: Dr. Teo Cho MD : [id number] BED: DIS: 06/25/2018 SPEC #: [id number] RECD: 06/25/18 14:07 STATUS: LINUS BRIDGET #: [id number] MARISELA: 06/24/18 00:[address]: Teo Cho DEPT: SURGICAL PATHOLOGY RECD BY: Александр Gallegos ENTERED: 06/25/18 14:07 SP TYPE: BREAST BX OTHR DR: Dr. Phillip Gay MD Tissues: Left breast, NOS Procedures: Surgery Specimen Level IV HEADER OPERATION: Left breast biopsy PRE-OP DIAGNOSIS: Left breast abnormal ultrasound TISSUE SUBMITTED: Left breast tissue MICROSCOPIC DIAGNOSIS Left breast tissue, core biopsy: Fragments of fibroadipose tissue with fat necrosis. Negative for atypia or malignancy. Breast tissue is not identified in the submitted specimen. CORINA:kendy 06/26/18 COMMENT Correlation with clinical, radiologic findings and appropriate follow up are necessary. MICROSCOPIC DESCRIPTION Slides are reviewed. GROSS DESCRIPTION Received in fixative is one container labeled with the patient's name and designated left breast. The specimen consists of multiple fragments of chance-yellow fibroadipose tissue that in aggregate measure 0.7 x 0.4 x 0.1 cm. The entire specimen is submitted in one cassette. / CORINA:kendy 06/25/18 TC:5 CPT: 38332
[2018-06-24 12:51] VITALS: BMI 45.3
== END | disposition home or self-care (01) ==
LOC: LABSPEC 10:22
PROVIDERS: Family Provider Family Medicine Geriatric Medicine; PCP Family Medicine Geriatric Medicine; Referring Provider Surgery; Visit Provider Surgery
DX: R92.8 Other abnormal and inconclusive findings on diagnostic imaging of breast (principal)
CPT/HCPCS: 88305

== ENCOUNTER → 2018-09-17 | Outpatient (CLI) | payer OTHER, SELFPAY ==
[2018-09-17 12:45] VITALS: BMI 45.3
--- NOTE | 2018-09-17 12:52 | RAD_ITS ---
STUDY: X-RAY - LUMBAR SPINE REASON FOR EXAM: Female, 63 years old. Pain TECHNIQUE: 2 view(s) of the lumbar spine were obtained. COMPARISON: None FINDINGS: Normal vertebral body height at each level. Slight anterior listhesis L4-L5. Posterior juan and screw fixation L4-S1. Next line mild distended L3-L4. Slight scoliosis. No acute intra-abdominal process is evident. Prominent aortoiliac atherosclerotic calcifications. Lower ribs, upper medial pelvis and sacrum exhibit no acute process. RAD/Lumbar Spine 2 or 3 Views IMPRESSION: Surgical construct of the lumbar spine appears intact. Mild scoliosis. Mild disc narrowing L3-L4. Electronically Signed: Ji Chow MD at 14:29 EDT Tel , Service support ,
== END | disposition home or self-care (01) ==
LOC: HPRAD 12:51
PROVIDERS: Family Provider Family Medicine Geriatric Medicine; PCP Family Medicine Geriatric Medicine; Referring Provider Orthopaedic Surgery; Visit Provider Orthopaedic Surgery
DX: M54.16 Radiculopathy, lumbar region (principal); M43.10 Spondylolisthesis, site unspecified; R20.0 Anesthesia of skin; R20.2 Paresthesia of skin
CPT/HCPCS: 72100

== ENCOUNTER → 2018-10-22 10:18 | Outpatient (CLI) | payer OTHER, SELFPAY ==
[2018-10-22 10:17] VITALS: BMI 45.3
--- NOTE | 2018-10-22 10:21 | RAD_ITS ---
STUDY: X-RAY - LUMBAR SPINE REASON FOR EXAM: Female, 63 years old. Postop fusion TECHNIQUE: 2 view(s) of the lumbar spine were obtained. COMPARISON: Prior study of 09/17/2018 FINDINGS: Normal lumbar lordosis. There is no substantial scoliosis. There are posterior spinal fusion changes with rods and interpedicular screws from L3 to L5. There is a grade 1 anterolisthesis of L4 relative to L5. Disc spacers are present at the L3-4 and L4-5 levels. Normal vertebral bodies and endplates. There is mild narrowing of the L2-3, L3-4, and 4-5 disc spaces. There are calcified plaques of the abdominal aorta. RAD/Lumbar Spine 2 or 3 Views IMPRESSION: Posterior spinal fusion changes with rods and interpeduncular screws from L3 to L5. Disc spacers are present at the L3-4 and L4-5 levels. There is a grade 1 anterolisthesis of L4 relative to L5. There is mild narrowing of the L2-3, L3-4, and L4-5 levels. Findings are similar to the previous study. Electronically Signed: Channing Donis MD at 17:02 EDT , Service support ,
== END ==
PROVIDERS: Family Provider Family Medicine Geriatric Medicine; PCP Family Medicine Geriatric Medicine; Referring Provider Orthopaedic Surgery; Visit Provider Orthopaedic Surgery
DX: Z98.1 Arthrodesis status (principal)
CPT/HCPCS: 72100

== ENCOUNTER → 2018-10-28 | Outpatient (CLI) | payer OTHER, SELFPAY ==
[2018-08-06 08:49] VITALS: BMI 45.3
[2018-10-22 10:17] VITALS: BMI 45.3
--- NOTE | 2018-10-28 12:33 | VDLE_ITS ---
Reason For Study: EDEMA RIGHT LEFT GSV is normal. GSV is normal. CFV is compressible, spontaneous, phasic, CFV is compressible, spontaneous, phasic, competent and demonstrates normal competent, and demonstrates normal augmentation. augmentation. FV is compressible, spontaneous, phasic, FV is compressible, spontaneous, phasic, competent and demonstrates normal competent and demonstrates normal augmentation. augmentation. POP V is compressible, spontaneous, phasic, POP V is compressible, spontaneous, phasic, competent and demonstrates normal competent and demonstrates normal augmentation. augmentation. T/P Trunk is compressible. T/P Trunk is compressible. PTV is compressible. PTV is compressible. RT PerV is compressible. LT PerV is compressible. Procedure Exam performed in department. The exam was diagnostic. A preliminary report was called and/or faxed to Dr. Gay @ 1:25 pm. Interpretation Summary Deep veins of the lower extremities are bilaterally patent and compressible segmentally. There is no evidence of deep vein thrombosis on either side. Valvular competence appears intact within the proximal deep venous systems bilaterally. The great saphenous veins appear bilaterally patent and compressible segmentally. Ordering Physician: Phillip Gay Referring Physician: Phillip Gay Chi Performed By: Marley Julien, BILL, RVT
[2018-10-28 13:10] LABS: ALB/GLOB Ratio 0.9 RATIO (0.9-2.4); AST(SGOT) 80 U/L (15-37); Alanine Aminotransfer ALT/SGPT 69 U/L (13-56); Albumin, Serum 3.5 g/dL (3.2-5.0); Alkaline Phosphatase 72 U/L (45-117); Anion Gap 7 (5-15); BUN 16 mg/dL (7-18); BUN/Creat Ratio 24.7 RATIO (10-20); Calcium,Total 9.2 mg/dL (8.5-10.1); Chloride 107 mmol/L (98-107); Creatinine, Serum 0.65 mg/dL (0.55-1.02); EST Glomerular Filtration Rate 98 mL/min (>60); Est Glom Filt Rate - Afr Amer 118 mL/min (>60); Globulin 4.1 g/dL (2.2-4.2); Glucose 125 mg/dL (74-106); Potassium 4.4 mmol/L (3.5-5.1); Protein, Total 7.6 g/dL (6.4-8.2); Sodium Level 139 mmol/L (136-145)
== END | disposition home or self-care (01) ==
LOC: LAB.FUTURE 11:40 → CVS 12:31
PROVIDERS: Family Provider Family Medicine Geriatric Medicine; PCP Family Medicine Geriatric Medicine; Referring Provider Family Medicine Geriatric Medicine; Visit Provider Family Medicine Geriatric Medicine
DX: I10 Essential (primary) hypertension (principal); R60.0 Localized edema
CPT/HCPCS: 36415; 80053; 84443; 93970

== ENCOUNTER → 2018-10-31 | Outpatient (CLI) | payer OTHER, SELFPAY ==
[2018-10-22 10:17] VITALS: BMI 45.3
[2018-10-31 12:27] LABS: Absolute Lymphocyte Count 1.54 X10^3/uL (0.83-4.51); Absolute Neutrophil Count 7.2 X10^3/uL (2.0-7.7); Basophil# 0.05 X10^3/uL; Basophil% 0.5 % (0-1); Eosinophil# 0.22 X10^3/uL; Eosinophils% 2.3 % (0-5); Hematocrit 40.7 % (37-47); Hemoglobin 13.2 g/dL (12.0-15.0); Lymphocyte # 1.54 X10^3/ul (4.0); Lymphocyte % 15.9 % (19-41); Mean Corp Hgb Conc 32.4 g/dL (32-36); Mean Corpuscular Hgb 27.7 pg (27.0-32.0); Mean Corpuscular Volume 85.3 fL (81-99); Mean Platelet Vol. 10.8 fl (6.2-12.0); Monocyte# 0.65 X10^3/uL; Monocyte% 6.7 % (0-10); NRBC Flagged by Analyzer 0 % (0-5); Neutrophil # 7.22 X10^3/uL (2.7-7.7); Neutrophil % 74.4 % (47-70); Platelet Count 252 K/mm3 (150-450); RBC Distribution Width CV 13.2 % (11.6-14.6); RBC Distribution Width SD 41.6 fl (35.1-43.9); Red Blood Count 4.77 M/mm3 (4.2-5.4); White Blood Count 9.7 K/mm3 (4.4-11.0)
== END | disposition home or self-care (01) ==
LOC: POLAB3 11:21
PROVIDERS: Family Provider Family Medicine Geriatric Medicine; PCP Family Medicine Geriatric Medicine; Visit Provider Family Medicine Geriatric Medicine
DX: I10 Essential (primary) hypertension (principal)
CPT/HCPCS: 85025

== ENCOUNTER 2018-11-06 11:00 | Outpatient (RCR) | payer OTHER, SELFPAY ==
[2018-10-22 10:17] VITALS: BMI 45.3
--- NOTE | 2018-10-29 11:31 | HP.PTEVAL_ITS ---
Patient's Visit Information CHELSIE HERNANDEZ is a 63 year old F referred to Physical Therapy by Hodan Fang MD with a diagnosis of s/p L3-L5 lami/fusion 07/22/18. Date of Evaluation: 10/29/18 Physical Therapist: ISIAH Guido - Visit Plan Frequency: 1-2x /Week Duration: 4 Weeks Plan: 1-2X/ week plus I HEP/ gum memebership if pt choses for L hip and knee strength, core stability, postural exercises with HEP and modalities if needed. - Subjective Findings: Pt had back surgery July 22, 2018 and L TKR last Apr. Major complaint is leg weakness. She has been on the cane since her knee surgery. She has no restrictions at this point and said to do what she needs to do..... said to work her way up. 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 SHe is not sure when she will be going back to work. Main goals: walk without the cane and increase LE strength. She is able to get up out of a chair witout the use of her arms. Stairs: she goes down sideways. SHe hgoes step 2 pattern. She feels that her R knee is bent and throwing off her gait. SHe needs a TKR on the R side. Her back gets stiff at night.... it takes her about 30 min in the morning to feel to where she can function. - Objective Trunk AROM: flexion 50%, ext 50%, SB B 50%. Gait: walks with decrease stance time on the L LE, increase valgus on the R side. LE MMT: R hip flex 4+/5 and L hip flex 4-/5, R knee ext 4/5 and L 4-/5, R knee flex 4-/5 and L 4-/5, Able to 3/4 normal ROM bridge, R hip abd 4/5 and L 3+/5. Pt is able to heel and toe raise with UE support. Step: needs UE support to ascend the stairs with 2 hand rails with a step 2 pattern. SLR B negative. Tight HS, gastrc B - Goals Goal 1:: I HEP Goal Time Frame: 4-6 Weeks Goal 2:: Be able to go up and down the stairs recip with a railing Goal Time Frame: 4-6 Weeks Goal 3:: Be able to walk 150 feet + without her cane with SBA and no LOB. Goal Time Frame: 4-6 Weeks Goal 4:: Increase L LE strength by 1/2 muscle grade ( At time of eval: LE MMT: R hip flex 4+/5 and L hip flex 4-/5, R knee ext 4/5 and L 4-/5, R knee flex 4-/5 and L 4-/5, Able to 3/4 normal ROM bridge, R hip abd 4/5 and L 3+/5. Pt is able to heel and toe raise with UE support). Goal Time Frame: 4-6 Weeks - Rehabilitation Potential Rehabilitation Potential: Good - Anticipated Interventions Patient/Client Instruction: Educate patient on: Condition, Plan of Care For the Purpose of:: To decrease pain, To increase ROM, To improve nutrient delivery to tissue, To improve muscle performance and motor function, To improve ability to perform ADL's, To increase tolerance to activity/condition/position, To improve performance and independence with ADL's, To improve gait and loc omotor functions, To improve health of tissue, To increase flexibility/ROM Therapeutic Exercise to Include: Strength training, Endurance training, Balance training, Postural training, Flexibilty training, Gait and locomotor training, Active ROM, Dynamic Lumbar Stabilization For the Purpose of:: To decrease pain, To increase ROM, To improve nutrient delivery to tissue, To improve muscle performance and motor function, To improve ability to perform ADL's, To increase tolerance to activity/condition/position, To improve ability of physical actions for home/community/work/leisure, To improve gait and locomotor functions, To improve health of tissue, To increase flexibility/ROM Functional Training to Include: Gait training For the Purpose of:: To improve gait and locomotor functions, To improve safety with gait Thank you for the opportunity to evaluate your patient. For Medicare and Medicare HMO plans, please review the plan of care and approve it. It will need to be FAXED BACK to us at [phone] for Medicare purposes. For Medicare only, by signing this I certify the plan of care. Please let me know if there are questions or concerns regarding this plan of care. Physician Signature: D ate:
--- NOTE | 2018-12-23 15:44 | HP.PTDCNRP_ITS ---
HP - Discharge Summary (1) - Patient Information CHELSIE HERNANDEZ was seen in my office for initial evaluation on 10/29/18. The following Plan of Care was established for this patient: Initial Frequency: 1-2x /Week Initial Duration: 4 Weeks - Anticipated Interventions Patient/Client Instruction: Educate patient on: Condition, Plan of Care For the Purpose of:: To decrease pain, To increase ROM, To improve nutrient del angelica to tissue, To improve muscle performance and motor function, To improve ability to perform ADL's, To increase tolerance to activity/condition/position, To improve performance and independence with ADL's, To improve gait and locomotor functions, To improve health of tissue, To increase flexibility/ROM Therapeutic Exercise to Include: Strength training, Endurance training, Balance training, Postural training, Flexibilty training, Gait and locomotor training, Active ROM, Dynamic Lumbar Stabilization For the Purpose of:: To decrease pain, To increase ROM, To improve nutrient delivery to tissue, To improve muscle performance and motor function, To improve ability to perform ADL's, To increase tolerance to activity/condition/position, To improve ability of physical actions for home/community/work/leisure, To improve gait and locomotor functions, To improve health of tissue, To increase flexibility/ROM Functional Training to Include: Gait training For the Purpose of:: To improve gait and locomotor functions, To improve safety with gait This patient was last seen in our office 11/06/18. Pertinent comments regarding their Physical therapy will appear below: DAVID PT At this point I will be discontinuing this patient from physical therapy. I would be happy to see this patient again in the future if found appropriate by the physician. Thank you! Michelle Rojas, MPT
== END 2018-11-06 19:00 | disposition home or self-care (01) ==
LOC: PT 11:00
PROVIDERS: Family Provider Family Medicine Geriatric Medicine; PCP Family Medicine Geriatric Medicine; Referring Provider Orthopaedic Surgery; Visit Provider Orthopaedic Surgery
DX: Z98.1 Arthrodesis status (principal)
CPT/HCPCS: 97110; 97161

== ENCOUNTER → 2019-01-06 | Outpatient (CLI) | payer OTHER, SELFPAY ==
[2018-06-24 12:51] VITALS: BMI 45.3
[2018-10-22 10:17] VITALS: BMI 45.3
--- NOTE | 2019-01-06 10:04 | BI_ITS ---
MAMMOGRAPHY - BILATERAL DIAGNOSTIC REASON FOR EXAM: Female, 63 years old. Six-month follow-up examination for prior left breast biopsy. PERTINENT HISTORY: Aunt with breast cancer. TECHNIQUE: Digital bilateral breast ga (3D mammographic acquisition) in the CC and MLO projections. 2-D mediolateral oblique (MLO) and craniocaudad (CC) views of both breasts were obtained. CAD: Full Field Digital Mammography with Computer Added Detection was performed. COMPARISON: Comparison is made with prior mammogram dated January 03, 2018 FINDINGS: Breast Composition: The breasts are almost entirely fatty. There are no dominant masses or suspicious calcifications. A tissue clip marker is seen within a tiny well-defined nodule in the retroareolar region nodule has decreased in size as compared to prior study. No other significant abnormalities are identified. BI/DIAG MAMM W/CAD, BILAT IMPRESSION: Status post left breast biopsy. The nodular density has decreased in size. One year follow-up recommended. (A) ASSESSMENT CATEGORY: BIRADS Category 2: Benign. A letter regarding these results will be sent to the patient by the facility within 30 days. Approximately 10% of breast cancers are not detected by mammography. A normal mammogram should not delay biopsy of a clinically suspicious abnormality. Electronically Signed: Davey Schmitz, at 12:58 EDT , Service support ,
== END | disposition home or self-care (01) ==
LOC: OPBI 09:55
PROVIDERS: Family Provider Family Medicine Geriatric Medicine; PCP Family Medicine Geriatric Medicine; Referring Provider Surgery; Visit Provider Surgery
DX: R92.8 Other abnormal and inconclusive findings on diagnostic imaging of breast (principal)
CPT/HCPCS: 77062; 77066; G0279

== ENCOUNTER → 2019-01-21 | Outpatient (CLI) | payer OTHER, SELFPAY ==
[2018-10-22 10:17] VITALS: BMI 45.3
--- NOTE | 2019-01-21 10:30 | RAD_ITS ---
STUDY: X-RAY - LUMBAR SPINE REASON FOR EXAM: Female, 63 years old. Pain TECHNIQUE: 2 view(s) of the lumbar spine were obtained. COMPARISON: None FINDINGS: No evidence for acute fracture or subluxation.. Grade 1 spondylolisthesis at L4-5 and L5-S1 association with narrowing of the disc spaces. There is also postop change status post bilateral laminectomy and posterior fusion at L4-5 and L5-S1. Mild narrowing of L3-4 disc space. RAD/Lumbar Spine 2 or 3 Views IMPRESSION: Status post bilateral laminectomy and posterior fusion at L4-5 and L5-S1. Degenerative changes Electronically Signed: Han Zaldivar MD at 22:52 EST , Service support ,
== END | disposition home or self-care (01) ==
LOC: HPRAD 10:25
PROVIDERS: Family Provider Family Medicine Geriatric Medicine; PCP Family Medicine Geriatric Medicine; Referring Provider Orthopaedic Surgery; Visit Provider Orthopaedic Surgery
DX: Z98.1 Arthrodesis status (principal)
CPT/HCPCS: 72100

== ENCOUNTER → 2019-01-29 10:03 | Outpatient (CLI) | payer OTHER, SELFPAY ==
[2019-01-29 08:08] VITALS: BMI 45.3
--- NOTE | 2019-01-29 10:15 | RAD_ITS ---
STUDY: X-RAY - RIGHT KNEE REASON FOR EXAM: Female, 63 years old. Pain. TECHNIQUE: 4 view(s) of the knee. COMPARISON: None. FINDINGS: There is osteophytosis of the distal femur and proximal tibia, more severe laterally. Otherwise normal visualized distal femur. Normal visualized proximal tibia and fibula. There is arthrosis of the proximal tibiofibular articulation. There is no demonstrated fracture. There is mild degenerative arthrosis of the medial femorotibial compartment. There is moderate to severe degenerative arthrosis of the lateral femorotibial compartment with moderate joint space narrowing. There is moderate degenerative arthrosis of the patellofemoral articulation. There is no demonstrated joint effusion. The soft tissue structures are unremarkable. RAD/Knee 4 or More Views IMPRESSION: Degenerative disease as described above. Electronically Signed: Lorna Del Real MD at 1:31 EST , Service support ,
== END ==
PROVIDERS: Family Provider Family Medicine Geriatric Medicine; PCP Family Medicine Geriatric Medicine; Referring Provider Orthopaedic Surgery; Visit Provider Orthopaedic Surgery
DX: M25.561 Pain in right knee (principal)
CPT/HCPCS: 73564

== ENCOUNTER 2019-02-25 13:32 | Observation (INO) | payer OTHER, SELFPAY ==
[2019-01-29 08:08] VITALS: BMI 45.3
[2019-02-10 15:10] VITALS: BMI 40.8
[2019-02-18 14:30] VITALS: BP 187/93; PULSE 73; RESP 16; TEMP 37.2; O2SAT 95; BMI 43.8
--- NOTE | 2019-02-18 14:38 | SDCEKG_ITS ---
Test Reason : Blood Pressure : / mmHG Vent. Rate : 071 BPM Atrial Rate : 071 BPM P-R Int : 168 ms QRS Dur : 092 ms QT Int : 392 ms P-R-T Axes : 027 017 019 degrees QTc Int : 425 ms Normal sinus rhythm Normal ECG Confirmed by GARLAND MANRIQUEZ, ADEN ([id number]), editor publications DEMETRIO GUERRA ([id number]) on 02/24/2019 11:55:36 AM Referred By: Noah Cam Confirmed By:ADEN HAQUE MD
[2019-02-18 15:02] LABS: Hematocrit 40.2 % (37-47); Hemoglobin 13.1 g/dL (12.0-15.0); Mean Corp Hgb Conc 32.6 g/dL (32-36); Mean Corpuscular Hgb 28.4 pg (27.0-32.0); Mean Platelet Vol. 10.9 fl (6.2-12.0); Platelet Count 273 K/mm3 (150-450); RBC Distribution Width CV 12.5 % (11.6-14.6); RBC Distribution Width SD 39.8 fl (35.1-43.9); Red Blood Count 4.62 M/mm3 (4.2-5.4); White Blood Count 9.7 K/mm3 (4.4-11.0)
[2019-02-18 15:28] LABS: Anion Gap 5 (5-15); BUN 15 mg/dL (7-18); BUN/Creat Ratio 23.4 RATIO (10-20); Calcium,Total 9.7 mg/dL (8.5-10.1); Chloride 105 mmol/L (98-107); Creatinine, Serum 0.64 mg/dL (0.55-1.02); EST Glomerular Filtration Rate 99 mL/min (>60); Est Glom Filt Rate - Afr Amer 120 mL/min (>60); Estimated Creatinine Clearance 70.24 ml/min; Glucose 85 mg/dL (74-106); Potassium 3.8 mmol/L (3.5-5.1); Sodium Level 138 mmol/L (136-145)
--- NOTE | 2019-02-24 15:58 | HP.PCM_ITS ---
History and Physical Date of Admission: 02/24/19 Intake Vital Signs 01/29/19 Height 5 ft 4 in 01/29/19 Weight: 238 lb 01/29/19 Body Mass Index (BMI) 40.8 Intake Visit Reasons: RIGHT KNEE Accompanied by: Is patient in pain?: Yes Allergies No Known Allergies Allergy (Verified 01/21/19 12:19) [facility] Medical History (Updated 06/20/18 @ 08:35 by Yoselin Ferrell) Acid reflux (Acute) Sleep apnea (Acute) Numbness and tingling (Acute) Fatigue (Acute) Arthritis (Acute) Back problem (Acute) Abnormal ultrasound of breast (Acute) Nerve pain (Acute) Hypertension (Chronic) Surgical History (Updated 06/20/18 @ 08:33 by Yoselin Ferrell) Hx of cholecystectomy (Acute) History of total left knee replacement (TKR) (Acute) Family History (Updated 06/20/18 @ 08:34 by Yoselin Ferrell) Father Heart disease Hypertension Brother Heart disease Hypertension Sister Cancer sarcoma Hypertension CVA (cerebral vascular accident) Mother Hypertension Social History (Updated 01/29/19 @ 10:57 by Noah Cam DO) adopted: No household members: spouse housing: house number of children: 2 current occupational status: employed, 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 Clark right knee pain Details: Parts of this documentation were recorded by a scribe, this documentation accurately reflects the service provided and the decisions made by me, Noah Cam DO 01/29/19 0759. CHELSIE HERNANDEZ is a 63 year old F here today for right knee pain. She is ambulating with a cane today for stability due to knee pain and secondary to her recent L3-L5 laminectomy with instrumented fusion dos 07/22/[address] Clark. She does not have any recent images of the right knee. She had a left TKA by Dr Echavarria in 04/2017 and is unable to return to him. She has constant pain and was told this knee would need replacing as well. She has been doing PT and HEP since 11/2018. She has been getting steroid injections in the right knee by Dr Gay and her last one was ROS Musc Reports as per HPI, Reports abnormal walking, Reports joint pain, Reports deformity, Reports limited joint movement, Reports stiffness Skin/Breast Reports system reviewed and no additional complaints, except as docu Neuro Yes system reviewed and no additional complaints, except as docu, Yes abnormal walking Ortho Exam Right Knee Skin/Wound: No erythema, No ecchymosis, No swelling Homans Sign: No Knee ROM: Yes ROM-Extension -20 to 0, Yes ROM-Flexion 0-140 (110) Examination: Yes Med jt line tenderness, Yes Lat jt line tenderness, Yes TTP inf pole patella Stability: NML: Anterior Drawer, NML: Posterior Drawer, NML: Valgus 0 (fixed), NML: Varus 0 (fixed) Apprehension with Lateral Translation: No Patella Grind: Yes KNEE: valgus deformity, Supplemental Info 01/29/2019 x-ray right knee: Bone on bone arthritis with valgus deformity Assessment & Plan Problems 1. Primary osteoarthritis of right knee M17.11 2. Class 3 severe obesity due to excess calories without serious comorbidity with body mass index (BMI) of 40.0 to 44.9 in adult E66.01; Z68.41 Plan Explained that she is at the limit for BMI. We can proceed with TKA. Reviewed the Iovera treatment and patient would like to proceed if approved by her insurance. She will be able to go home the day after surgery is her pain is managed and if possible we will have her to go right to outpatient PT. Instructed to d/c all ibuprofen one week prior to surgery but she can use tylenol. Risks, benefits and alternatives of surgery reviewed including but not limited to bleeding, infection, nerve, artery and/or tissue damage, fracture, VTE, mechanical feel of the knee, continued pain, stiffness and expected post- operative course. Follow up post op or sooner if pain, swelling, numbness or associated symptoms, or concerns develop. All questions answered. Patient in agreement of plan. Will forward a copy to Dr. clark. Thank you for this kind referral Orders Orders: Knee 4 or More Views Today M25.561 Plan Detail Goals Decrease pain Improve ROM Improve gait Barriers Anterolisthesis Coding Level of Care Code 16451 Diagnoses Primary osteoarthritis of right knee M17.11 ??Osteoarthritis type: primary Class 3 severe obesity due to excess calories without serious comorbidity with body mass index (BMI) of 40.0 to 44.9 in adult E66.01; Z68.41 ??Body mass index: BMI 40.0-44.9 ??Obesity type: due to excess calories ??Serious obesity comorbidity presence: without serious comorbidity ??Obesity classification: adult class 3 (BMI >= 40) I have re-examined the patient. There are no clinical changes since date of exam
[2019-02-25] VITALS (13 sets, daily range): BP systolic 138–158; BP diastolic 64–91; PULSE 72–88; RESP 16–20; TEMP 36.3–36.9; O2SAT 88–100; BMI 43.8
[2019-02-25 06:01] LABS: Bedside Glucose 267 mg/dL (70-110)
[2019-02-25] MEDS: Lactated Ringers 1,000 ML 100 ML IV (06:16)
[2019-02-25] MEDS: Magnesium Sulfate 4gm/100mL 4 GM/100 ML IV.SOLN. IV (06:17)
[2019-02-25] MEDS: Gabapentin 600 MG Tablet PO (06:19)
[2019-02-25] MEDS: Celecoxib 200 MG Capsule 400 MG PO (06:20)
[2019-02-25] MEDS: Acetaminophen 500 MG Tablet 1000 MG PO ×3 (06:20→21:31)
[2019-02-25] MEDS: Insulin Lispro 100 UNIT/ML INSULN.PEN SC (06:22)
[2019-02-25] MEDS: Scopolamine 1mg/72hr Patch 1 PATCH TRANSDERM. (06:22)
[2019-02-25] MEDS: Lactated Ringers 1,000 ML 125 ML IV ×2 (09:15→13:03)
[2019-02-25] MEDS: Betamethasone/Betamethasone 30 MG/5 ML Vial (09:28)
[2019-02-25] MEDS: Bupivacaine Mpf 0.5% 30 ML VIAL (09:28)
[2019-02-25] MEDS: Epinephrine (1 mg/ml) 1 MG/ML VIAL (09:28)
[2019-02-25] MEDS: 0.9% Normal Saline (Pres. free 10 ML Vial (09:29)
--- NOTE | 2019-02-25 10:06 | RAD_ITS ---
STUDY: X-RAY - RIGHT KNEE REASON FOR EXAM: Female, 63 years old. Total knee replacement. TECHNIQUE: 2 view(s) of the knee. COMPARISON: Comparison is made with prior study dated January 29, 2019. FINDINGS: Normal visualized distal femur. Normal visualized proximal tibia and fibula. Normal proximal tibiofibular articulation. The patient is status post total knee replacement of the constrained type. There is good alignment. Postoperative soft tissue changes. RAD/Knee 1 or 2 Views IMPRESSION: Status post total knee replacement. There is good alignment. Postoperative soft tissue changes. Electronically Signed: Davey Schmitz, at 12:06 EST , Service support ,
--- NOTE | 2019-02-25 10:13 | OP.PCM_ITS ---
Report of Operation Date of Procedure: 02/25/19 Description of Surgical Findings:: preoperative diagnosis: Right knee DJD with severe flexion contracture and valgus deformity Postoperative diagnosis: Same Procedure: Right total knee arthroplasty Implant: Vikki triathlon cemented 8 femoral PS component size 4, cemented tibial universal baseplate size 5, cemented asymmetric patella size 35, polyethylene X3 size 9 TS Anesthesia: General with adductor canal block Tourniquet time: 85 minutes at 300 mmHg Complications: None Estimated blood loss: 50 cc Indication for procedure: This is a 63-year-old female with long standing degenerative joint disease of the knee who has failed conservative treatment and wished to proceed with elective total knee arthroplasty. He did have severe flexion contracture and valgus deformity and was made aware of risks risk benefits and alternatives were reviewed including; risk of bleeding, infection, nerve artery and tissue damage, continued pain, postoperative stiffness, venous thromboembolism, need for postoperative rehabilitation, mechanical feel to the knee, and expected postoperative course. Procedure: The patient was met in the preoperative holding area. The operative extremity was identified by both patient and physician and was marked. Patient was met by anesthesia. An adductor canal block was placed by anesthesia postoperatively. The patient was brought back to the operating room on a wheeled cart and transferred to the operating table in the supine position. Anesthesia was started. A well-padded tourniquet was placed on the operative extremity. The patient was prepped and draped in the usual sterile fashion. A timeout was called to ensure the proper patient procedure and extremity were being contemplated. An Esmarch was used to exsanguinate the extremity. The tourniquet was inflated. A 10 blade scalpel was used to make a midline incision down through the skin and subcutaneous tissue. Skin retractors placed. Bovie was used to perform meticulous hemostasis. full-thickness flaps were elevated medial and lateral along the joint capsule. A deep blade scalpel was used to perform a medial parapatellar arthrotomy. The knee was brought to full extension. A Bovie was used to release the soft tissues off the most proximal aspect of the medial tibial plateau a three-quarter inch curved osteotome was also used for this process. The infrapatellar fat pad was excised. The fat pad was excised partially anterior lateral portion the anterior medial was elevated from the femur. the patella was everted. The knee was brought into flexion. An intramedullary drill was used followed by flexible intramedullary guide juan. The distal femoral cutting block was placed and set to remove 12 mm of bone and 5 degrees of valgus. The block was secured with pins and an oscillating saw was used to complete the distal femoral cut. During this, and all bony cuts retractors were used to protect the collateral ligaments. At this point a femoral sizer was used to measure the AP dimension of the femur. The sizer block was pinned parallel to the epicondylar axis. the sizing block was removed and the appropriately sized 4-in-1 cutting block was placed over the previously made pinholes. It was checked with an claribel wing and the block was secured with pins. An oscillating saw was used to complete the anterior cut followed by the posterior cut followed by the posterior chamfer cut followed by the anterior chamfer cut. The block was removed as well as the fragments. A ronguer was used to remove excess osteophytes. The medial and lateral meniscus were excised as well as the ACL. A box cutting guide was attached to the distal end of the femur and pinned into place. The blunt end of an osteotome was placed over the tibial plateau and a reciprocating saw was used on the matthews for the box cut. An osteotome was used at the base of the box. The cutting guide was removed and a Eder and a Bovie were used to remove the bone and PCL from the box. A rasp was also used. At this point a PCL retractor was placed and an intramedullary drill was passed down the tibial canal followed by a solid intramedullary guide juan. The tibial cutting block was attached and set to remove 9 mm of bone from the high side. This was checked with an external alignment drop juan for slope and tilt. It was pinned into place. An oscillating saw was used to complete the tibial plateau cut and the block was removed. A large osteotome was used to elevate the fragment and a Genny and a Bovie were used to free the fragment from the surrounding soft tissue. A rongeur was once again used to remove osteophytes a lamina communications administrator was used to evaluate the posterior capsular structures. A three-quarter inch curved osteotome was used to remove posterior osteophytes. A spacer block was inserted in both extension and flexion to ensure adequate spacing. Trials were inserted full extension and flexion were achieved in varus and valgus stability throughout range of motion were seen, balancing techniques were performed. Including release of the popliteus and IT band pie crusting. Trials were inserted and there was tightness with extension so for additional millimeters were cut off the distal femur chamfer cuts were recut and the box was deepened we then re-trialed with post PS and TS inserts and TS insert provide the best stability in mid flexion and this was chosen. at this point the attention was turned towards the patella. A caliper was used to ensure sufficient bone stock to remove 10 mm of bone. A reamer was used to perform this task. Lug holes were made for the appropriate-sized patella. The patella trial was inserted and there was good patellar tracking with knee range of motion. The tibial baseplate was allowed to float into rotation and was marked on the tibial plateau with a Bovie. Trials were removed. The tibial baseplate was then sized and its preparation was completed with a fin punch and drill for universal baseplate. The knee was thoroughly irrigated. A posterior capsular injection was performed with our standard cocktail. The knee was brought into flexion and irrigated again. The tibial baseplate was cemented. Excess cement was removed with curettes. The femoral component was cemented. The polyethylene component was inserted. The knee was brought into full extension and placed on a bump. The patellar component was cemented. At this point a Betadine rinse was placed and thoroughly irrigated after a few minutes. At this point all gloves were changed. The knee was thoroughly irrigated the joint capsule was closed with #1 Ethibond. Tourniquet was let down followed by 0 Vicryl and 2-0 Vicryl in the subcutaneous tissues. followed by haven in the skin. Dressing was applied in the form of Xeroform 4 x 4 ABD web roll and an Aravind wrap from the foot to the groin. The patient tolerated the procedure well, all counts were correct patient was brought back to the PACU in stable condition.
[2019-02-25 10:45] LABS: Bedside Glucose 150 mg/dL (70-110)
[2019-02-25] MEDS: Cefazolin 1 GM/50 ML BAG IV ×2 (11:00→19:01)
[2019-02-25] MEDS: oxyCODONE HCl Cr 10 MG Tablet PO ×2 (13:03→21:24)
[2019-02-25] MEDS: 0.9% Saline Lock 10 ML Syringe IV (14:30)
[2019-02-25] MEDS: Ketorolac 30 MG/ML Syringe IV (14:30)
[2019-02-25] MEDS: Pravastatin 40 MG Tablet PO (21:32)
[2019-02-25] MEDS: Lisinopril 40 MG Tablet PO (21:32)
[2019-02-25] MEDS: Senna/Docusate Sodium 1 Tablet 2 TABLET PO (21:32)
[2019-02-26] MEDS: Cefazolin 1 GM/50 ML BAG IV (02:38)
[2019-02-26 02:46] VITALS: BP 151/80; PULSE 69; RESP 18; TEMP 36.7; O2SAT 96
[2019-02-26] MEDS: Acetaminophen 500 MG Tablet 1000 MG PO ×2 (05:18→13:14)
[2019-02-26 05:40] LABS: Hematocrit 34.6 % (37-47); Hemoglobin 11.2 g/dL (12.0-15.0); Mean Corp Hgb Conc 32.4 g/dL (32-36); Mean Corpuscular Hgb 28.9 pg (27.0-32.0); Mean Corpuscular Volume 89.2 fL (81-99); Mean Platelet Vol. 10.5 fl (6.2-12.0); Platelet Count 249 K/mm3 (150-450); RBC Distribution Width CV 12.4 % (11.6-14.6); RBC Distribution Width SD 40.6 fl (35.1-43.9); Red Blood Count 3.88 M/mm3 (4.2-5.4); White Blood Count 11.5 K/mm3 (4.4-11.0)
[2019-02-26 06:45] LABS: Anion Gap 5 (5-15); BUN 15 mg/dL (7-18); BUN/Creat Ratio 19.7 RATIO (10-20); Calcium,Total 8.9 mg/dL (8.5-10.1); Chloride 106 mmol/L (98-107); Creatinine, Serum 0.76 mg/dL (0.55-1.02); EST Glomerular Filtration Rate 81 mL/min (>60); Est Glom Filt Rate - Afr Amer 98 mL/min (>60); Estimated Creatinine Clearance 59.15 ml/min; Glucose 156 mg/dL (74-106); Potassium 4.6 mmol/L (3.5-5.1); Sodium Level 138 mmol/L (136-145)
[2019-02-26] MEDS: oxyCODONE 5 MG Tablet PO ×2 (07:25→12:46)
[2019-02-26] MEDS: APIXABAN 2.5 MG TABLET PO (07:25)
[2019-02-26] MEDS: Senna/Docusate Sodium 1 Tablet 2 TABLET PO (07:37)
[2019-02-26 08:45] VITALS: BP 152/82; PULSE 70; RESP 18; TEMP 37.2; O2SAT 97
--- NOTE | 2019-02-26 09:45 | CASEMGMT ---
RN DALILA Face to Face with patient for initial transition planning/care coordination assessment. RN CM introduced self and role at [facility]. Patient lying in bed, alert and oriented, at bedside. Patient willing to participate in assessment and is able to answer all questions appropriately. Care providers, pharmacy, and demographics verified. Patient wishes to discharge home and is setup with outpatient therapy at [facility]. Patient states she has no further needs or concerns at this time. CM to follow for discharge planning needs that may arise. PCP: Victor Hugo Specialists: nacho Cam Pharmacy: [facility] Retail Insurance: [id number] Prescription Benefit: yes Living Will/HPOA: none LNOK: Living Arrangements: Patient lives in 1 story home with 1 step to enter the home. Patient independent at home prior to surgery. Transportation: self/ DME/HHC: Patient has cane, walker, raised toilet, grab bars, and cpap at home. Patient denies previous HHC. Patient has outpatient therapy setup at [facility] for 02/27/19. Disposition Plan: Patient to discharge home with outpatient therapy, family support, and follow-up plans in place. Shaista SHOEMAKER, RN, CM
--- NOTE | 2019-02-26 12:23 | DCINST_ITS ---
Discharge Diet: No Restrictions Weight Bearing Status: Weight bearing as tolerated Call your doctor if you observe: Shortness of breath, Chest pain Additional Instructions: ice and elevate next week while not ambulating. Encourage ambulation weightbearing as tolerated. Encourage FULL knee extension and flexion 1 time EVERY time you get up and down and MULTIPLE times per day. Begin showering postop day #3. Remove the dressing prior to shower gently wash with warm water and antibacterial soap then pat dry place ABD pad and RANJAN hose over top. This is to be done daily. do not submerge for 3 weeks. If not showering daily must clean incision and change dressing daily. Do not allow animals near incision keep clean. Follow anticoagulation recommendations. Start physical therapy as directed in the hospital. call Dr. Cam with any concerns. Allergies/Adverse Reactions: Allergies No Known Allergies Allergy (Verified 02/25/19 06:27) Medications to take at Discharge Lisinopril [Zestril] 40 mg PO QHS 09/26/16 Pravastatin [Pravachol] 40 mg PO QHS 09/26/16 aspirin 81 mg tablet,delayed release 81 mg PO DAILY 06/20/18 cholecalciferol (vitamin D3) 50 mcg (2,000 unit) capsule 2,000 unit PO DAILY 06/20/18 multivitamin 1 tab PO DAILY 06/20/18 Calcium (Elemental) [Os-See 500] 500 mg PO DAILY@0800 02/18/19 Acetaminophen [Tylenol] 1,000 mg PO Q6H PRN #100 tab 02/26/19 Apixaban [Eliquis] 2.5 mg PO BID #28 tab 02/26/19 Oxycodone [Oxyir] 5 - 10 mg PO Q4H PRN PRN #60 tablet 02/26/19 The following prescriptions were given: Apixaban [Eliquis] 2.5 mg PO BID #28 tab Transmission Status: Pending to [facility] Oxycodone [Oxyir] 5 - 10 mg PO Q4H PRN PRN #60 tablet PRN Reason: Pain Score 4-10/10 Transmission Status: Sent to [facility] Acetaminophen [Tylenol] 1,000 mg PO Q6H PRN #100 tab Transmission Status: Pending to [facility] Primary Care Physician: Victor Hugo,Phillip Chi, MD [Primary Care Provider] - Test Results: Test results from this visit will be discussed in further detail at your follow- up appointment, if applicable. Please Follow Up With: Noah Cam DO - 2 weeks
--- NOTE | 2019-02-26 12:25 | DS.PCM_ITS ---
Discharge Date and Diagnosis Date of Admission: 02/25/19 Date of Discharge: 02/26/19 - Secondary Discharge Diagnosis Chronic Problems (Last Reviewed 06/24/18 @ 12:51 by Candi Porter) Anterolisthesis (Chronic) L3 on L4-Grade 2 L4 on L5-Grade 1 Hypertension (Chronic) Hospital Course and Treatment Summary of Care Provided: The patient is a 63 year old F who has long history of degenerative joint disease to the knee who has failed conservative treatment and wished to undergo elective total knee arthroplasty. Patient underwent the aformentioned procedure on the admission date without any intraoperative complications. Patient did receive pre-and postoperative antibiotics which were discontinued within 23 hours postoperatively. Patient did receive spinal anesthesia as well as an adductor canal block postoperatively. pain was controlled with IV and transition to p.o. pain medication Patient will be discharged home with oxycodone and will continue Tylenol as well. Patient had minimal intraoperative blood loss and 2gm tranexamic acid was administered there was no need for postoperative blood transfusion Patients vital signs remained stable. Patient was started on both mechanical and chemical DVT per prophylaxis postoperatively in the form of SCDs RANJAN hose and Eliquis 2.5 mg twice daily for which she will continue for 2 additional weeks post hospital discharge. Aravind removed post op day number one and thigh high ranjan hose placed over top of the meplix silver dressing. This should be removed 72 hrs post operatively and showering begun daily at that time with warm water and antibacterial soap. not to submerge for 3 weeks. To change dressing daily after first dressing change. Patient will follow-up in the office in 2 weeks. No intrahospital complications. Subjective: Alert and oriented no acute distress denies fevers chills nausea vomiting shortness of breath chest pain - Physical Exam Vitals/I&O's: Vital Signs Temp Pulse Resp BP Pulse Ox 98.9 F 70 18 152/82 H 97 02/26/19 08:45 02/26/19 08:45 02/26/19 08:45 02/26/19 08:45 02/26/19 08:45 Oxygen Flow Rate (L/min) 2 Oxygen Delivery Method Room Air Weight: 239 lb 10.279 oz Body Mass Index (BMI) 43.8 Finger Stick Blood Glucose 150 Intake and Output for Last 24 Hours 12/16/19 12/17/19 12/18/19 23:59 23:59 23:59 Intake Total 3082.92 / 3812.92 1125.83 / 1125.83 Output Total 700 / 700 Balance 2382.92 / 3112.92 1125.83 / 1125.83 General: Alert, Oriented x3, Cooperative, No apparent distress Extremities: - - Dressing clean dry and intact compartment soft neurovascular intact Laboratory Results 02/26/19 05:26: WBC 11.5 H, RBC 3.88 L, Hgb 11.2 L, Hct 34.6 L, MCV 89.2, MCH 28.9, MCHC 32.4, RDW Std Deviation 40.6, RDW Coeff of Molly 12.4, Plt Count 249, MPV 10.5 02/26/19 05:26: Sodium 138, Potassium 4.6, Chloride 106, Carbon Dioxide 27.0, Anion Gap 5, BUN 15, Creatinine 0.76, Estim Creat Clear Calc 59.15, Est GFR (MDRD) Af Amer 98, Est GFR (MDRD) Non-Af 81, BUN/Creatinine Ratio 19.7, Glucose 156 H, Calcium 8.9 Current Medications Acetaminophen (Tylenol) 1,000 mg PO Q8 [facility] Last Admin: 02/26/19 05:18 Dose: 1,000 mg Documented by: Apixaban (Eliquis) 2.5 mg PO BID [facility] Last Admin: 02/26/19 07:25 Dose: 2.5 mg Documented by: Hydromorphone HCl (Dilaudid Inj) 0.5 mg IV Q2H PRN PRN PRN Reason: .BREAKTHROUGH PAIN (>4/10) Insulin Human Lispro (Humalog Micheletikpen (Bkc)) 1 - 6 unit SC Q4H PRN PRN; Protocol PRN Reason: BG>/= 180, SEE PROTOCOL Last Admin: 02/25/19 06:22 Dose: 3 units Documented by: Ketorolac Tromethamine (Toradol) 30 mg IV Q6H PRN PRN PRN Reason: Pain Score 1-5/10 Stop: 02/27/19 10:08 Last Admin: 02/25/19 14:30 Dose: 30 mg Documented by: Lisinopril (Zestril) 40 mg PO QHS [facility] Last Admin: 02/25/19 21:32 Dose: 40 mg Documented by: Oxycodone HCl (Oxyir) 5 - 10 mg PO Q4H PRN PRN PRN Reason: Pain Score 4-10/10 Last Admin: 02/26/19 07:25 Dose: 5 mg Documented by: Pravastatin Sodium (Pravachol) 40 mg PO QHS [facility] Last Admin: 02/25/19 21:32 Dose: 40 mg Documented by: Senna/Docusate Sodium (Senokot-S, Sharon-Colace) 2 tablet PO BID [facility] Last Admin: 02/26/19 07:37 Dose: 2 tablet Documented by: Sodium Chloride () 10 - 40 ml IV UD PRN PRN Reason: SALINE FLUSH Last Admin: 02/25/19 14:30 Dose: 6 ml Documented by: Discharge Diet: No Restrictions Weight Bearing Status: Weight bearing as tolerated Call your doctor if you observe: Shortness of breath, Chest pain Home Medications: Medications to take at Discharge Lisinopril [Zestril] 40 mg PO QHS 09/26/16 Pravastatin [Pravachol] 40 mg PO QHS 09/26/16 aspirin 81 mg tablet,delayed release 81 mg PO DAILY 06/20/18 cholecalciferol (vitamin D3) 50 mcg (2,000 unit) capsule 2,000 unit PO DAILY 06/20/18 multivitamin 1 tab PO DAILY 06/20/18 Calcium (Elemental) [Os-See 500] 500 mg PO DAILY@0800 02/18/19 Acetaminophen [Tylenol] 1,000 mg PO Q6H PRN #100 tab 02/26/19 Apixaban [Eliquis] 2.5 mg PO BID #28 tab 02/26/19 Oxycodone [Oxyir] 5 - 10 mg PO Q4H PRN PRN #60 tablet 02/26/19 Following Prescrptions Were Given to Patient: Apixaban [Eliquis] 2.5 mg PO BID #28 tab Transmission Status: Pending to [facility] #30 Oxycodone [Oxyir] 5 - 10 mg PO Q4H PRN PRN #60 tablet PRN Reason: Pain Score 4-10/10 Transmission Status: Sent to [facility] #30 Acetaminophen [Tylenol] 1,000 mg PO Q6H PRN #100 tab Transmission Status: Pending to [facility] #30 Primary Care Physician: Phillip Gay Chi, MD [Primary Care Provider] - Please Follow Up With: Noah Cam DO - 2 weeks Additional Instructions: ice and elevate next week while not ambulating. Encourage ambulation weightbearing as tolerated. Encourage FULL knee extension and flexion 1 time EVERY time you get up and down and MULTIPLE times per day. Begin showering postop day #3. Remove the dressing prior to shower gently wash with warm water and antibacterial soap then pat dry place ABD pad and RANJAN hose over top. This is to be done daily. do not submerge for 3 weeks. If not showering daily must clean incision and change dressing daily. Do not allow animals near incision keep clean. Follow anticoagulation recommendations. Start physical therapy as directed in the hospital. call Dr. Cam with any concerns. Medical Necessity - Tobacco Use Smoking Status: Former smoker Tobacco Use: Non-smoker Meaningful Use Info Meaningful Use Diagnoses (Choose all that apply): None applicable
[2019-02-26 13:34] VITALS: BP 123/78; PULSE 84; RESP 18; TEMP 36.7; O2SAT 95
== END 2019-02-26 13:35 | disposition home or self-care (01) ==
LOC: SDC 13:37 → MS3 13:37
PROVIDERS: Anesthesiology; Admitting Provider Orthopaedic Surgery; Family Provider Family Medicine Geriatric Medicine; PCP Family Medicine Geriatric Medicine; Referring Provider Orthopaedic Surgery; Visit Provider Orthopaedic Surgery
PROC: (CPT 27447; principal; 2019-02-25 07:05)
DX: M17.11 Unilateral primary osteoarthritis, right knee (principal); M21.061 Valgus deformity, not elsewhere classified, right knee; K21.9 Gastro-esophageal reflux disease without esophagitis; G47.30 Sleep apnea, unspecified; M19.90 Unspecified osteoarthritis, unspecified site; I10 Essential (primary) hypertension; E66.01 Morbid (severe) obesity due to excess calories; E78.00 Pure hypercholesterolemia, unspecified; Z87.891 Personal history of nicotine dependence; Z79.899 Other long term (current) drug therapy; Z79.82 Long term (current) use of aspirin; Z68.41 Body mass index [BMI] 40.0-44.9, adult; Z71.3 Dietary counseling and surveillance
CPT/HCPCS: 27447; 64447; 36415; 73560; 80048; 82962; 85027; 87081; 93005; 94762; 96361; 96365; 96366; 96367; 96376; 97110; 97116; 97162; 97166; 97530; 99218; 99251; C1776; J7120; A4216; G0378; G0463; J0702; J2405; J3490

== ENCOUNTER 2019-04-01 08:37 | Day surgery (SDC) | payer OTHER, SELFPAY ==
[2019-03-31 07:55] VITALS: BMI 43.8
[2019-04-01] VITALS (11 sets, daily range): BP systolic 134–157; BP diastolic 65–80; PULSE 67–76; RESP 16; TEMP 36.3–36.9; O2SAT 92–98; BMI 43.5
[2019-04-01] MEDS: Lactated Ringers 1,000 ML 100 ML IV (10:01)
[2019-04-01] MEDS: Cefazolin 2 GM in 0.9% Normal Saline 100 ML IV (10:35)
[2019-04-01] MEDS: Bupiv/Epi 0.25% 30 ML Vial (10:44)
[2019-04-01] MEDS: MethylPREDNISolone Acetate 80 MG/ML Vial (10:44)
--- NOTE | 2019-04-01 10:54 | PCM.DC.ORTHO ---
Discharge Diet: No Restrictions Discharge Activity: Return to Normal Activity Weight Bearing Status: Weight bearing as tolerated Call your doctor if you observe: Shortness of breath, Chest pain Additional Instructions: Encourage full knee flexion and extension regularly. Start physical therapy immediately. May shower and return to activities as normal. Keep pain controlled with medications as discussed with Dr. Cam in order to keep full range of motion. Ice and elevate next 72 hours. Follow-up with Dr. Cam and call with any questions or concerns. Allergies/Adverse Reactions: Allergies No Known Allergies Allergy (Verified 04/01/19 09:30) Medications to take at Discharge Lisinopril [Zestril] 40 mg PO QHS 09/26/16 Pravastatin [Pravachol] 40 mg PO QHS 09/26/16 aspirin 81 mg tablet,delayed release 81 mg PO DAILY 06/20/18 cholecalciferol (vitamin D3) 50 mcg (2,000 unit) capsule 2,000 unit PO DAILY 06/20/18 multivitamin 1 tab PO DAILY 06/20/18 Calcium (Elemental) [Os-See 500] 500 mg PO DAILY@0800 02/18/19 Acetaminophen [Tylenol] 1,000 mg PO Q6H PRN #100 tab 02/26/19 naproxen 250 mg tablet 250 mg PO BID PRN #60 tab 03/10/19 oxycodone 5 mg capsule 5 mg PO Q6H PRN #56 cap 03/10/19 Acetaminophen [Tylenol Extra Strength] 1,000 mg PO Q6H PRN #100 tab 04/01/19 Meloxicam [Mobic] 15 mg PO DAILY #30 tab 04/01/19 Oxycodone [Oxyir] 5 mg PO Q4H PRN PRN #60 tablet 04/01/19 The following prescriptions were given: Meloxicam [Mobic] 15 mg PO DAILY #30 tab Transmission Status: Pending to [facility] #30 Oxycodone [Oxyir] 5 mg PO Q4H PRN PRN #60 tablet PRN Reason: Pain Score 6-10/10 Transmission Status: Sent to [facility] #30 Acetaminophen [Tylenol Extra Strength] 1,000 mg PO Q6H PRN #100 tab Transmission Status: Pending to [facility] #30 Primary Care Physician: Phillip Gay Chi, MD [Primary Care Provider] - Test Results: Test results from this visit will be discussed in further detail at your follow-up appointment, if applicable. Please Follow Up With: Noah Cam DO - 4 weeks
--- NOTE | 2019-04-01 10:55 | OP.PCM_ITS ---
Report of Operation Date of Procedure: 04/01/19 Description of Surgical Findings:: Preoperative diagnosis: Arthrofibrosis right knee Postoperative diagnosis: Same Procedure: Manipulation under anesthesia [with intra-articular steroid injection] Anesthesia: General EBL: None Complications: None Condition: Able to PACU Indication for procedure: This is a 63 old female who underwent total knee arthroplasty approximately 6 weeks ago who is failed to gain her range of motion wish to undergo an elective manipulation under anesthesia to increase range of motion. risk benefits and alternatives were reviewed including risk of bleeding infection nerve, artery, bone, tissue damage, blood clot need for further surger y and continued pain. Procedure: Patient was met in the preoperative holding area once again the operative extremity was identified by both patient and physician and was marked. Patient was brought back to the operating room anesthesia was started. A timeout was called into the proper patient procedure and extremity were being contemplated. The operative range of motion was 5 extension and achieving [100 ]degrees flexion. After patient was adequately anesthetized extension manipulation was performed followed by patellar mobilization followed by gradual flexion scar tissue was palpated being released with no concerning signs for tendon rupture or fracture. Postoperative range of motion was much improved with [near full ]extension and 120 degrees of flexion.
--- NOTE | 2019-04-01 10:57 | PCM.HP.BLA ---
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 CHELSIE HERNANDEZ is a 63 year old F here today for 02/25/19 right TKA, she continues to work through PT but has some stiffness. She has full extension but lacks 120 degrees of flexion. She is ambulating with a cane but can do through the house without it. She does state that her PT has been much less aggressive than her previous therapy and she has no consistency in treatments or therapists. ROS Kenneth Reports as per HPI, Reports abnormal walking, Reports joint pain, Reports joint swelling, Reports limited joint movement Skin/Breast Reports system reviewed and no additional complaints, except as docu Neuro Yes as per HPI, Yes abnormal walking Ortho Exam Right Knee Date of Surgery: 02/25/19 Skin/Wound: Yes healed Knee ROM: Yes ROM-Extension -20 to 0 (8), No ROM-Flexion 0-140 (105) Stability: NML: Valgus 30, NML: Varus 30 KNEE: contralateral knee flexion is 118 Supplemental Info 01/29/2019 x-ray right knee: Bone on bone arthritis with valgus deformity Assessment & Plan Problems 1. Orthopedic aftercare Z47.89 2. Stiffness of right knee M25.661 3. 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 Reviewed the pre-operative plans with the patient. The patient understands all the risks and does wish to proceed with written consent. Follow up in a month or sooner if pain, swelling, numbness or associated symptoms, or concerns develop. All questions answered. Patient in agreement of plan. 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 There are no clinical changes since date of exam
== END 2019-04-01 12:11 | disposition home or self-care (01) ==
LOC: SDC 08:38 → AC 08:40
PROVIDERS: PCP Family Medicine Geriatric Medicine; Referring Provider Orthopaedic Surgery; Visit Provider Orthopaedic Surgery
PROC: (CPT 27570; principal; 2019-04-01 11:05)
DX: M24.661 Ankylosis, right knee (principal); I10 Essential (primary) hypertension; G47.33 Obstructive sleep apnea (adult) (pediatric); E78.00 Pure hypercholesterolemia, unspecified; Z96.651 Presence of right artificial knee joint; Z87.891 Personal history of nicotine dependence; Z79.82 Long term (current) use of aspirin; Z79.891 Long term (current) use of opiate analgesic; Z79.899 Other long term (current) drug therapy
CPT/HCPCS: 20610; 27570; J7120; J2405

== ENCOUNTER → 2019-04-28 | Outpatient (CLI) | payer OTHER, SELFPAY ==
[2019-04-28 07:54] VITALS: BMI 43.5
--- NOTE | 2019-04-28 11:49 | RAD_ITS ---
STUDY: X-RAY - RIGHT KNEE REASON FOR EXAM: Female, 63 years old. POST OP CHECK TECHNIQUE: 4 view(s) of the knee. COMPARISON: 02/25/2019 FINDINGS: Stable appearance of right knee arthroplasty. No evidence of acute hardware failure or loosening. No fracture or dislocation. There is prominent lateral patellar tilt. RAD/Knee 4 or More Views IMPRESSION: No acute osseous findings. Stable right knee arthroplasty. Prominent patellar tilt Electronically Signed: Zeb Jalloh DO at 10:01 EST Tel , Service support ,
== END | disposition home or self-care (01) ==
LOC: HPRAD 11:49
PROVIDERS: PCP Family Medicine Geriatric Medicine; Referring Provider Orthopaedic Surgery; Visit Provider Orthopaedic Surgery
DX: M25.661 Stiffness of right knee, not elsewhere classified (principal); Z47.89 Encounter for other orthopedic aftercare
CPT/HCPCS: 73564

== ENCOUNTER 2019-04-29 14:30 | Outpatient (RCR) | payer MEDICARE, OTHER, SELFPAY ==
[2019-01-29 08:08] VITALS: BMI 45.3
[2019-02-25 06:28] VITALS: BMI 43.8
--- NOTE | 2019-02-27 11:58 | HP.PTEVAL_ITS ---
Patient's Visit Information CHELSIE HERNANDEZ is a 63 year old F referred to Physical Therapy by Noah Cam DO with a diagnosis of R TKA. Date of Evaluation: 02/27/19 Physical Therapist: Alonzo Nair, PT, ATC - Visit Plan Frequency: 2-3x /Week Duration: 2-4 Months Plan: R knee PROM/Mobs, stretching and strengthening, balance and proprio, bike, and HEP - Subjective Findings: DOS: 02/25/19. Pt reports having R knee pain for an extended period of time. Pt reports she finally had R TKA performed. Pt reports she had been in minimal pain until today. Pt reports she was told her knee was in very bad shape prior to surgery. Pt reports she is glad to have had the surgery at this time. Pt reports she has pain, but the pain is totally different now. Pt reports numbness surrounding her incisions, no other. Pt reports sleep difficulty secondary to pain. Pt reports she is currently retired at this time. R knee pain remains at a constant 4/10. Pt reports [place], only one step to get into her house which she must use her walker for support. - Pain R TKA Pain Intensity (Out of 10): 0 Pain Intensity Range: 4 - Objective Neuro: B LE sensation is WNL to light touch. Observation: Incision covered with bandage. Moderate swelling noted. Girth at joint line: L knee 40 cm, R knee 44 .5 cm. ROM: L knee 0-10-110, R knee 0-20-80 degrees. MMT: L knee 5/5 throughout - Goals Goal 1:: Decrease R knee pain x 50% to aid with sleep Goal Time Frame: 6-8 Weeks Goal 2:: Increase R knee ROM x 20 degrees to aid with restoring normal gait pattern Goal Time Frame: 6-8 Weeks Goal 3:: Increase R knee strength x 1 grade to aid with stair negotiation Goal Time Frame: 6-8 Weeks Goal 4:: I with HEP Goal Time Frame: 6-8 Weeks - Rehabilitation Potential Physical Therapy Diagnosis: R knee pain, weakness, and limited ROM secondary to R TKA Rehabilitation Potential: Good - Anticipated Interventions Patient/Client Instruction: Educate patient on: Condition, Plan of Care For the Purpose of:: To improve self management Therapeutic Exercise to Include: Strength training, Endurance training, Balance training, Flexibilty training, Gait and locomotor training, Passive ROM, Active ROM, Dynamic Lumbar Stabilization For the Purpose of:: To decrease pain, To increase ROM, To improve muscle performance and motor function Cryotherapy (ice pack, ice massage): Yes For the Purpose of:: To decrease pain Thank you for the opportunity to evaluate your patient. For Medicare and Medicare HMO plans, please review the plan of care and approve it. It will need to be FAXED BACK to us at [phone] for Medicare purposes. For Medicare only, by signing this I certify the plan of care. Please let me know if there are questions or concerns regarding this plan of care. Physician Signature: Date:
--- NOTE | 2019-03-26 11:02 | HP.PTREVAL ---
Noah Cam, DO, It has been my pleasure to treat CHELSIE HERNANDEZ over the last 11 visits for R TKA - 02/25/19. Please see the progress note below for an update on the physical therapy plan of care! Subjective: Minor pain this date Objective/Function: L knee pain 04/21. L knee ROM: 0-15-105. L knee MMT: / throughout Plan Plan: R knee PROM/Mobs, stretching and strengthening, balance and proprio, bike, and HEP Goals Goal 1:: Decrease R knee pain x 50% to aid with sleep Goal Time Frame: 6-8 Weeks Goal 2:: Increase R knee ROM x 20 degrees to aid with restoring normal gait pattern Goal Time Frame: 6-8 Weeks Goal 3:: Increase R knee strength x 1 grade to aid with stair negotiation Goal Time Frame: 6-8 Weeks Goal 4:: I with HEP Goal Time Frame: 6-8 Weeks Anticipated Interventions Patient/Client Instruction: Educate patient on: Condition, Plan of Care For the Purpose of:: To improve self management Therapeutic Exercise to Include: Strength training, Endurance training, Balance training, Flexibilty training, Gait and locomotor training, Passive ROM, Active ROM, Dynamic Lumbar Stabilization For the Purpose of:: To decrease pain, To increase ROM, To improve muscle performance and motor function Cryotherapy (ice pack, ice massage): Yes For the Purpose of:: To decrease pain Please do not hesitate to contact me at [phone] by phone or if you have questions or concerns regarding this new plan of care! Sincerely, Alonzo Nair, PT, ATC
--- NOTE | 2019-04-25 10:35 | HP.PTREVAL_ITS ---
Noah Cam, DO, It has been my pleasure to treat CHELSIE HERNANDEZ over the last 19 visits for R TKA - 02/25/19. Please see the progress note below for an update on the physical therapy plan of care! Subjective: I am sore today Objective/Function: Pt reports R knee pain ranges 4-6/10. R knee MMT: 4+/5 throughout. R knee ROM: 0-15-120. Pt is progressing well toward Rx goals Plan Plan: Cont with strengthening and stretching Goals Goal 1:: Decrease R knee pain x 50% to aid with sleep Goal Time Frame: 6-8 Weeks Goal 2:: Increase R knee ROM x 20 degrees to aid with restoring normal gait p attern Goal Time Frame: 6-8 Weeks Goal 3:: Increase R knee strength x 1 grade to aid with stair negotiation Goal Time Frame: 6-8 Weeks Goal 4:: I with HEP Goal Time Frame: 6-8 Weeks Anticipated Interventions Patient/Client Instruction: Educate patient on: Condition, Plan of Care For the Purpose of:: To improve self management Therapeutic Exercise to Include: Strength training, Endurance training, Balance training, Flexibilty training, Gait and locomotor training, Passive ROM, Active ROM, Dynamic Lumbar Stabilization For the Purpose of:: To decrease pain, To increase ROM, To improve muscle performance and motor function Cryotherapy (ice pack, ice massage): Yes For the Purpose of:: To decrease pain Please do not hesitate to contact me at [phone] by phone or if you have questions or concerns regarding this new plan of care! Sincerely, Alonzo Nair, PT, ATC
--- NOTE | 2019-06-12 18:30 | HP.PT.NRP ---
CHELSIE HERNANDEZ was seen in my office for initial evaluation on 02/27/19. The following Plan of Care was established for this patient: Initial Frequency: 2-3x /Week Initial Duration: 2-4 Months Patient/Client Instruction: Educate patient on: Condition, Plan of Care For the Purpose of:: To improve self management Therapeutic Exercise to Include: Strength training, Endurance training, Balance training, Flexibilty training, Gait and locomotor training, Passive ROM, Active ROM, Dynamic Lumbar Stabilization For the Purpose of:: To decrease pain, To increase ROM, To improve muscle performance and motor function Cryotherapy (ice pack, ice massage): Yes For the Purpose of:: To decrease pain This patient was last seen in our office . Pertinent comments regarding their Physical therapy will appear below: Pt has had 20 PT visits for her R knee pain through the date of 04/29/2019. Pt has not returned through todays date and is therefore discontinued at this time. At this point I will be discontinuing this patient from physical therapy. I would be happy to see this patient again in the future if found appropriate by the physician. Thank you! Alonzo Nair, PT, ATC
== END 2019-04-29 19:00 | disposition home or self-care (01) ==
LOC: PT 14:30
PROVIDERS: Family Provider Family Medicine Geriatric Medicine; PCP Family Medicine Geriatric Medicine; Referring Provider Orthopaedic Surgery; Visit Provider Orthopaedic Surgery
DX: Z98.890 Other specified postprocedural states (principal)
CPT/HCPCS: 97110; 97140; 97161; 97164

== ENCOUNTER → 2019-05-08 | Outpatient (CLI) | payer OTHER, SELFPAY ==
[2019-04-28 07:54] VITALS: BMI 43.5
[2019-05-08 11:59] LABS: Absolute Lymphocyte Count 1.87 X10^3/uL (0.83-4.51); Absolute Neutrophil Count 5.1 X10^3/uL (2.0-7.7); Basophil# 0.09 X10^3/uL; Basophil% 1.1 % (0-1); Eosinophil# 0.22 X10^3/uL; Eosinophils% 2.8 % (0-5); Hematocrit 42.5 % (37-47); Hemoglobin 13.3 g/dL (12.0-15.0); Lymphocyte # 1.87 X10^3/ul (4.0); Lymphocyte % 23.9 % (19-41); Mean Corp Hgb Conc 31.3 g/dL (32-36); Mean Corpuscular Hgb 27.4 pg (27.0-32.0); Mean Corpuscular Volume 87.6 fL (81-99); Mean Platelet Vol. 10.7 fl (6.2-12.0); Monocyte# 0.53 X10^3/uL; Monocyte% 6.8 % (0-10); NRBC Flagged by Analyzer 0 % (0-5); Neutrophil # 5.11 X10^3/uL (2.7-7.7); Neutrophil % 65.1 % (47-70); Platelet Count 322 K/mm3 (150-450); RBC Distribution Width CV 12.8 % (11.6-14.6); RBC Distribution Width SD 41.2 fl (35.1-43.9); Red Blood Count 4.85 M/mm3 (4.2-5.4); White Blood Count 7.8 K/mm3 (4.4-11.0)
[2019-05-08 12:15] LABS: ALB/GLOB Ratio 0.9 RATIO (0.9-2.4); AST(SGOT) 77 U/L (15-37); Alanine Aminotransfer ALT/SGPT 81 U/L (13-56); Albumin, Serum 3.9 g/dL (3.2-5.0); Alkaline Phosphatase 78 U/L (45-117); Anion Gap 4 (5-15); BUN 21 mg/dL (7-18); BUN/Creat Ratio 29.6 RATIO (10-20); Calcium,Total 9.7 mg/dL (8.5-10.1); Chloride 106 mmol/L (98-107); Creatinine, Serum 0.71 mg/dL (0.55-1.02); EST Glomerular Filtration Rate 88 mL/min (>60); Est Glom Filt Rate - Afr Amer 106 mL/min (>60); Globulin 4.3 g/dL (2.2-4.2); Glucose 109 mg/dL (74-106); Potassium 4.5 mmol/L (3.5-5.1); Protein, Total 8.2 g/dL (6.4-8.2); Sodium Level 139 mmol/L (136-145); Thyroid Stim Hormone (TSH) 0.82 uIU/mL (0.358-3.74)
== END | disposition home or self-care (01) ==
LOC: POLAB3 10:50
PROVIDERS: PCP Family Medicine Geriatric Medicine; Visit Provider Family Medicine Geriatric Medicine
DX: I10 Essential (primary) hypertension (principal)
CPT/HCPCS: 36415; 80053; 84443; 85025

== ENCOUNTER → 2019-05-12 | Outpatient (CLI) | payer OTHER, SELFPAY ==
[2019-04-28 07:54] VITALS: BMI 43.5
[2019-05-14 05:06] LABS: HEPATITIS B SURFACE AG Negative (Negative); Hepatitis A AB, Total Negative (Negative); Hepatitis A IgM Antibody Negative (Negative); Hepatitis B Core AB IgM Negative (Negative); Hepatitis B Core Ab Total Negative (Negative); Hepatitis C Ab <0.1 s/co ratio (0.0-0.9)
[2019-05-14 11:36] LABS: Hep B Surface Antibodies Non Reactive (.)
== END | disposition home or self-care (01) ==
LOC: POLAB3 13:54
PROVIDERS: PCP Family Medicine Geriatric Medicine; Visit Provider Family Medicine Geriatric Medicine
DX: R74.8 Abnormal levels of other serum enzymes (principal)
CPT/HCPCS: 36415; 86704; 86705; 86706; 86708; 86709; 86803; 87340

== ENCOUNTER → 2019-05-19 | Outpatient (CLI) | payer OTHER, SELFPAY ==
[2019-04-28 07:54] VITALS: BMI 43.5
--- NOTE | 2019-05-19 10:43 | US_ITS ---
STUDY: ABDOMINAL ULTRASOUND - RIGHT UPPER QUADRANT REASON FOR VISIT: Female, 63 years old FATTY LIVER -- CHOLECYSTECTOMY 35 YEARS AGO TECHNIQUE: Ultrasound evaluation of the right upper quadrant was performed with real-time and static valdes-scale imaging. TECHNICAL QUALITY: Adequate. COMPARISON: None. FINDINGS: Liver: The liver measures 20.4 cm. There is increased echogenicity consistent with fatty infiltration. The bile ducts are within normal limits. There is hepatic color flow. The direction of portal flow is hepatopetal. There is no demonstrated mass lesion. Gallbladder: Cholecystectomy. Common Bile Duct (C.B.D.): The common bile duct measures 7 mm. Pancreas: Normal size of the head, body and tail of the pancreas. There is normal echogenicity of the pancreas. There is no demonstrated pancreatic mass or cyst. Right Kidney: Normal size of the right kidney. The right kidney measures 12.6 x 6.0 x 4.4 cm. Normal renal cortex. The right cortex measures 1.5 cm. There is no demonstrated renal mass or cyst. There is no right hydronephrosis. US/Abdomen Limited IMPRESSION: Hepatomegaly and fatty liver. Electronically Signed: Ishmael Goss MD at 12:04 EDT Tel , Service support ,
== END | disposition home or self-care (01) ==
LOC: US 10:41
PROVIDERS: PCP Family Medicine Geriatric Medicine; Referring Provider Family Medicine Geriatric Medicine; Visit Provider Family Medicine Geriatric Medicine
DX: K76.0 Fatty (change of) liver, not elsewhere classified (principal)
CPT/HCPCS: 76705

== ENCOUNTER → 2019-06-09 | Outpatient (CLI) | payer OTHER, SELFPAY ==
[2019-04-28 07:54] VITALS: BMI 43.5
[2019-06-09 12:47] LABS: AST(SGOT) 60 U/L (15-37); Alanine Aminotransfer ALT/SGPT 77 U/L (13-56); Albumin, Serum 3.9 g/dL (3.2-5.0); Alkaline Phosphatase 82 U/L (45-117); Anion Gap 4 (5-15); BUN 18 mg/dL (7-18); BUN/Creat Ratio 25.4 RATIO (10-20); Calcium,Total 9.7 mg/dL (8.5-10.1); Chloride 104 mmol/L (98-107); Creatinine, Serum 0.71 mg/dL (0.55-1.02); EST Glomerular Filtration Rate 88 mL/min (>60); Est Glom Filt Rate - Afr Amer 106 mL/min (>60); Glucose 118 mg/dL (74-106); Potassium 4.2 mmol/L (3.5-5.1); Protein, Total 7.9 g/dL (6.4-8.2); Sodium Level 137 mmol/L (136-145)
== END | disposition home or self-care (01) ==
LOC: POLAB3 10:00
PROVIDERS: PCP Family Medicine Geriatric Medicine; Visit Provider Family Medicine Geriatric Medicine
DX: R74.8 Abnormal levels of other serum enzymes (principal)
CPT/HCPCS: 36415; 80053

== ENCOUNTER → 2019-08-19 09:41 | Outpatient (CLI) | payer MEDICARE, OTHER, SELFPAY ==
[2019-04-28 07:54] VITALS: BMI 43.5
--- NOTE | 2019-08-19 09:42 | RAD_ITS ---
HISTORY: POST FUSION FOLLOW UP ADDITIONAL HISTORY: None provided. TECHNIQUE: Lumbar spine 2 views Number of images including paperwork: 2 COMPARISON: 01/21/2019 FINDINGS: VERTEBRAE: No acute fracture. VERTEBRAL ALIGNMENT: No traumatic subluxation. Anterolisthesis at L3-4 and L4-5 for similar. DISKS AND JOINTS: Laminectomies and posterior spinal fusion with posterior rods, pedicle screws and disc spacers noted at L3-L5. Mild disc space narrowing at L2-3. SOFT TISSUES: Vascular calcifications. RAD/Lumbar Spine 2 or 3 Views IMPRESSION: Degenerative and postoperative changes appear similar. at 0256 Reported and signed by: Kaylin Mendoza MD Electronically Signed: Kaylin Mendoza MD at 2:56 EDT Tel , Service support ,
== END ==
PROVIDERS: PCP Family Medicine Geriatric Medicine; Referring Provider Orthopaedic Surgery; Visit Provider Orthopaedic Surgery
DX: M54.5 Low back pain (principal)
CPT/HCPCS: 72100

== ENCOUNTER → 2019-09-05 | Outpatient (CLI) | payer MEDICARE, OTHER, SELFPAY ==
[2019-08-19 09:54] VITALS: BMI 43.5
--- NOTE | 2019-09-05 12:16 | RAD_ITS ---
STUDY: X-RAY - RIGHT WRIST REASON FOR EXAM: Female, 64 years old. CONSTANT PAIN X 1 WEEK, PT STATES RECEIVED SHOTS FOR CARPAL TUNNEL TECHNIQUE: 3 view(s) of the wrist were obtained. COMPARISON: None. FINDINGS: Normal visualized distal radius and ulna. Normal radiocarpal articulation. Normal distal radioulnar articulation. Normal carpal bones. Normal carpal articulations. Normal carpometacarpal articulation of the thumb. Normal second through fifth carpometacarpal articulations. Normal visualized metacarpal bones. The soft tissue structures are unremarkable. RAD/Wrist min 3 Views IMPRESSION: Normal x-ray examination of the wrist. Electronically Signed: Igor Celestin MD at 12:49 EDT , Service support ,
--- NOTE | 2019-09-05 12:20 | RAD_ITS ---
STUDY: X-RAY - LEFT WRIST REASON FOR EXAM: Female, 64 years old. CONSTANT PAIN X 1 WEEK, PT STATES RECEIVED SHOTS FOR CARPAL TUNNEL TECHNIQUE: 3 view(s) of the wrist were obtained. COMPARISON: None. FINDINGS: Normal visualized distal radius and ulna. Normal radiocarpal articulation. Normal distal radioulnar articulation. Normal carpal bones. Normal carpal articulations. Normal carpometacarpal articulation of the thumb. Normal second through fifth carpometacarpal articulations. Normal visualized metacarpal bones. The soft tissue structures are unremarkable. RAD/Wrist min 3 Views IMPRESSION: Normal x-ray examination of the wrist. Electronically Signed: Igor Celestin MD at 12:49 EDT , Service support ,
== END | disposition home or self-care (01) ==
LOC: RAD 12:14
PROVIDERS: PCP Family Medicine Geriatric Medicine; Referring Provider Family Medicine Geriatric Medicine; Visit Provider Family Medicine Geriatric Medicine
DX: M25.531 Pain in right wrist (principal); M25.532 Pain in left wrist
CPT/HCPCS: 73110

== ENCOUNTER → 2019-09-16 | Outpatient (CLI) | payer MEDICARE, OTHER, SELFPAY ==
[2019-08-19 09:54] VITALS: BMI 43.5
[2019-09-16 17:58] LABS: Ferritin 216 ng/mL (8-252)
[2019-09-18 17:44] LABS: ANTINUCLEAR ANTIBODIES DIRECT Negative (Negative)
[2019-09-18 18:18] LABS: Anti-Smooth Muscle ABS 17 Units (0-19); Ceruloplasmin 26.2 mg/dL (19.0-39.0)
[2019-09-18 18:19] LABS: Alpha Antitrypsin Serum 126 mg/dL (101-187)
== END | disposition home or self-care (01) ==
PROVIDERS: PCP Family Medicine Geriatric Medicine; Referring Provider Internal Medicine Gastroenterology; Visit Provider Internal Medicine Gastroenterology
DX: K75.9 Inflammatory liver disease, unspecified (principal)
CPT/HCPCS: 36415; 82103; 82390; 82728; 83516; 86038

== ENCOUNTER → 2019-10-08 | Outpatient (CLI) | payer MEDICARE, OTHER, SELFPAY ==
[2019-10-08 09:13] VITALS: BMI 43.5
--- NOTE | 2019-10-08 09:18 | RAD_ITS ---
STUDY: X-RAY - LEFT KNEE REASON FOR EXAM: Female, 64 years old. Increasing knee pain. TECHNIQUE: 4 view(s) of the knee. COMPARISON: Left knee, 05/02/2017. FINDINGS: There is a total knee replacement. The prosthetic components are intact and articulate normally with each other. There is no evidence of loosening from the underlying bone. There is no evidence of osseous fracture or destructive osseous pathology. Resolution of soft tissue air and removal of skin clips seen on the previous study. There are atherosclerotic calcifications. RAD/Knee 4 or More Views IMPRESSION: Left total knee arthroplasty without acute abnormality. Electronically Signed: Momo Oseguera DO at 17:03 EDT Tel [phone], Service support ,
== END | disposition home or self-care (01) ==
LOC: HPRAD 09:18
PROVIDERS: PCP Family Medicine Geriatric Medicine; Referring Provider Orthopaedic Surgery; Visit Provider Orthopaedic Surgery
DX: M25.562 Pain in left knee (principal)
CPT/HCPCS: 73564

== ENCOUNTER → 2019-10-24 | Outpatient (CLI) | payer MEDICARE, OTHER, SELFPAY ==
[2019-08-19 09:54] VITALS: BMI 43.5
[2019-10-08 09:13] VITALS: BMI 43.5
[2019-10-24 12:56] LABS: Absolute Lymphocyte Count 2.31 X10^3/uL (0.83-4.51); Absolute Neutrophil Count 5.8 X10^3/uL (2.0-7.7); Basophil# 0.07 X10^3/uL; Basophil% 0.8 % (0-1); Eosinophil# 0.17 X10^3/uL; Eosinophils% 1.9 % (0-5); Hematocrit 42.4 % (37-47); Hemoglobin 13.9 g/dL (12.0-15.0); Lymphocyte # 2.31 X10^3/ul (4.0); Lymphocyte % 25.5 % (19-41); Mean Corp Hgb Conc 32.8 g/dL (32-36); Mean Corpuscular Hgb 29.5 pg (27.0-32.0); Mean Platelet Vol. 10.4 fl (6.2-12.0); Monocyte# 0.66 X10^3/uL; Monocyte% 7.3 % (0-10); NRBC Flagged by Analyzer 0 % (0-5); Neutrophil # 5.83 X10^3/uL (2.7-7.7); Neutrophil % 64.3 % (47-70); Platelet Count 264 K/mm3 (150-450); RBC Distribution Width CV 12.3 % (11.6-14.6); RBC Distribution Width SD 41.1 fl (35.1-43.9); Red Blood Count 4.71 M/mm3 (4.2-5.4); White Blood Count 9.1 K/mm3 (4.4-11.0)
--- NOTE | 2019-10-24 13:07 | NEURO ---
NCS and/or EMG Patient Report Ordering Doctor: Phillip Gay Chi DATE OF SERVICE: 10/24/19 Indication: Intermittent numbness and tingling of the fingers and palms of both hands over the last 6 months. Symptoms most prominent during sleep. This has improved following steroid injection of the carpal tunnel bilaterally. Evaluate for entrapment neuropathy. Findings: Nerve conduction studies were performed in the right and left upper extremities. The right median motor study recording the abductor pollicis brevis showed a normal amplitude, normal distal latency and normal conduction velocity. The right ulnar motor study recording the abductor digiti minimi showed a normal amplitude, normal distal latency and normal conduction velocity. No conduction block or focal slowing was present across the elbow. The right median sensory response recording digit two showed a normal amplitude, prolonged latency and mildly slowed conduction velocity. The right ulnar sensory response recording digit five showed a normal amplitude, latency and conduction velocity. The right radial sensory response recording over the extensor snuff box showed a normal amplitude, latency and conduction velocity. The left median motor study recording the abductor pollicis brevis showed a normal amplitude, normal distal latency and normal conduction velocity. The left ulnar motor study recording the abductor digiti minimi showed a normal amplitude, normal distal latency and normal conduction velocity. No conduction block or focal slowing was present across the elbow. The left median sensory response recording digit two showed a normal amplitude, latency and conduction velocity. The left ulnar sensory response recording digit five showed a normal amplitude, latency and conduction velocity. The left radial sensory response recording over the extensor snuff box showed a normal amplitude, latency and conduction velocity. As routine median motor and sensory studies have a false negative rate of 25%, additional internal comparison studies were done to assess for possible median neuropathy at the wrist. Right median-ulnar mixed palmar latencies showed a normal median latency compared to the ulnar. Left median-ulnar mixed palmar latencies showed a normal median latency compared to the ulnar. Needle EMG of the right upper extremity and cervical paraspinal muscles was performed. No denervation was seen in any muscle. The right abductor pollicis brevis muscle demonstrated mildly increased polyphasia, but was otherwise normal with regard to motor unit morphology. All other examined muscles (deltoid, biceps, triceps, first dorsal interosseous) revealed normal motor unit morphology, activation and recruitment patterns. Needle EMG of the left abductor pollicis brevis muscle was performed. No denervation was seen. Motor units were normal morphology, with normal activation and recruitment pattern. Impression: This is a mildly abnormal study. 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 There is no definitive electrophysiologic evidence of median neuropathy across the left wrist. Please note, the slightly slowed conduction velocities seen throughout the examination are likely the effect of reduced limb temperature. Feng Humphries D.O.
[2019-10-24 13:15] LABS: Partial Thromboplast Time 27.4 Seconds (24.1-36.2); Prothrombin Time (Protime)PT. 13.1 SECONDS (11.7-14.9)
[2019-10-24 13:21] LABS: ALB/GLOB Ratio 0.9 RATIO (0.9-2.4); AST(SGOT) 42 U/L (15-37); Alanine Aminotransfer ALT/SGPT 69 U/L (13-56); Albumin, Serum 3.8 g/dL (3.2-5.0); Alkaline Phosphatase 63 U/L (45-117); Anion Gap 4 (5-15); BUN 13 mg/dL (7-18); BUN/Creat Ratio 19.1 RATIO (10-20); Calcium,Total 9.6 mg/dL (8.5-10.1); Chloride 102 mmol/L (98-107); Cholesterol 211 mg/dL (200); Creatinine, Serum 0.68 mg/dL (0.55-1.02); EST Glomerular Filtration Rate 92 mL/min (>60); Est Glom Filt Rate - Afr Amer 111 mL/min (>60); Ferritin 90 ng/mL (8-252); Globulin 4.1 g/dL (2.2-4.2); Glucose 84 mg/dL (74-106); High Density Lipoprotein 47 mg/dL; Iron 72 ug/dL (50-170); Iron Binding Capacity,Total 340 ug/dL (250-450); Potassium 4.1 mmol/L (3.5-5.1); Protein, Total 7.9 g/dL (6.4-8.2); Sodium Level 138 mmol/L (136-145); Thyroid Stim Hormone (TSH) 0.78 uIU/mL (0.358-3.74); Triglycerides 222 mg/dL; Very Low Density Lipoprotein 44 mg/dL (5-40)
[2019-10-24 14:10] LABS: Vitamin B12 699 pg/mL (211-911); Vitamin D,25 Hydroxy 56.4 ng/mL
[2019-10-24 14:26] LABS: Hemoglobin A1c 6.1 % (3.8-5.6)
[2019-10-28 20:54] LABS: Vitamin B1, Thiamine 157.4 nmol/L (66.5-200.0)
== END | disposition home or self-care (01) ==
PROVIDERS: PCP Family Medicine Geriatric Medicine; Referring Provider Family Medicine Geriatric Medicine; Visit Provider Family Medicine Geriatric Medicine
DX: E53.8 Deficiency of other specified B group vitamins (principal); E61.1 Iron deficiency; E78.5 Hyperlipidemia, unspecified; R73.9 Hyperglycemia, unspecified; R79.1 Abnormal coagulation profile; E55.9 Vitamin D deficiency, unspecified; R20.2 Paresthesia of skin; E07.9 Disorder of thyroid, unspecified; E51.9 Thiamine deficiency, unspecified
CPT/HCPCS: 36415; 80053; 80061; 82306; 82607; 82728; 83036; 83540; 83550; 84425; 84443; 85025; 85610; 85730; 95885; 95886; 95913

== ENCOUNTER → 2019-11-10 | Outpatient (CLI) | payer MEDICARE, OTHER, SELFPAY ==
[2019-10-08 09:13] VITALS: BMI 43.5
[2019-11-10 17:55] LABS: Absolute Lymphocyte Count 2.38 X10^3/uL (0.83-4.51); Absolute Neutrophil Count 7.1 X10^3/uL (2.0-7.7); Basophil# 0.08 X10^3/uL; Basophil% 0.8 % (0-1); Eosinophil# 0.17 X10^3/uL; Eosinophils% 1.6 % (0-5); Hemoglobin 14.1 g/dL (12.0-15.0); Lymphocyte # 2.38 X10^3/ul (4.0); Mean Corp Hgb Conc 32.8 g/dL (32-36); Mean Corpuscular Hgb 29.8 pg (27.0-32.0); Mean Corpuscular Volume 90.9 fL (81-99); Mean Platelet Vol. 11.5 fl (6.2-12.0); Monocyte# 0.64 X10^3/uL; Monocyte% 6.2 % (0-10); NRBC Flagged by Analyzer 0 % (0-5); Neutrophil # 7.05 X10^3/uL (2.7-7.7); Platelet Count 316 K/mm3 (150-450); RBC Distribution Width CV 12.5 % (11.6-14.6); RBC Distribution Width SD 41.5 fl (35.1-43.9); Red Blood Count 4.73 M/mm3 (4.2-5.4); White Blood Count 10.4 K/mm3 (4.4-11.0)
[2019-11-10 18:07] LABS: ALB/GLOB Ratio 0.8 RATIO (0.9-2.4); AST(SGOT) 45 U/L (15-37); Alanine Aminotransfer ALT/SGPT 61 U/L (13-56); Albumin, Serum 3.8 g/dL (3.2-5.0); Alkaline Phosphatase 67 U/L (45-117); Anion Gap 5 (5-15); BUN 17 mg/dL (7-18); BUN/Creat Ratio 19.9 RATIO (10-20); Calcium,Total 9.5 mg/dL (8.5-10.1); Chloride 100 mmol/L (98-107); Creatinine, Serum 0.85 mg/dL (0.55-1.02); EST Glomerular Filtration Rate 71 mL/min (>60); Est Glom Filt Rate - Afr Amer 86 mL/min (>60); Globulin 4.6 g/dL (2.2-4.2); Glucose 93 mg/dL (74-106); Potassium 3.7 mmol/L (3.5-5.1); Protein, Total 8.4 g/dL (6.4-8.2); Sodium Level 135 mmol/L (136-145); Thyroid Stim Hormone (TSH) 0.76 uIU/mL (0.358-3.74); Vitamin D,25 Hydroxy 53.6 ng/mL
== END | disposition home or self-care (01) ==
LOC: POLAB3 16:41
PROVIDERS: PCP Family Medicine Geriatric Medicine; Visit Provider Family Medicine Geriatric Medicine
DX: E55.9 Vitamin D deficiency, unspecified (principal); I10 Essential (primary) hypertension
CPT/HCPCS: 36415; 80053; 82306; 84443; 85025

== ENCOUNTER 2020-01-29 09:30 | Outpatient (RCR) | payer MEDICARE, OTHER, SELFPAY ==
[2019-10-08 09:13] VITALS: BMI 43.5
--- NOTE | 2019-10-15 16:34 | HP.PTEVAL_ITS ---
Patient's Visit Information CHELSIE HERNANDEZ is a 64 year old F referred to Physical Therapy by Dr. Franc Echavarria MD with a diagnosis of Left Knee Pain. Date of Evaluation: 10/15/19 Physical Therapist: Candi Florence DPT - Visit Plan Frequency: 2x /Week Duration: 4 Weeks Plan: Aquatics- focus on hip and core strength/stabilization s/p bilateral TKR and Lumbar Fusion in the past 2 years - Subjective Left TKR 2017 then a spinal fusion lumbar in July 2018 and then had her right knee done Feb 2019. The issue she is still having is her left knee- Dr. Echavarria and Dr. Jasso for 2nd opinion. She has no pain sitting or standing but when s he walks she can't put weight on it and it feels weak. Its not painful it just feels tired. She has had a cane for a long time. She has had therapy- last time was March or Apr for the right knee. When she does stairs she feels weak and unsure for the first 2-3 then she will hold on to the rail and go up reciprocally. Feels like the whole knee is weak- she has no radiating pain. Tried walking a trail and it was really sore and she had a cortisone injection- arthritis cream and aleve. When she walks a lot it does get sore around the knee cap Worst: 11/19. Has not had x-ray of her hip but has had x-rays of her knee- but it shows nothing. Sleep: not disturbed. wants her to go to water therapy. Does have tingling in her left leg- not changing. Has never fallen but it does feel like its going to buckle. PMHx/Meds: see scanned in chart. - Objective Posture: FH, RS, increased kyphosis- can correct but does not maintain. Gait: antalgic- decreased stance on the left LE with poor heel/toe pattern and increased hip drop. HR/TR: able with UE a. SLS: 3 sec then LOB. Palpatoin: tender along distal patella. Sensation: WNL. ROM: WFL in all planes of the lumbar and LE. Strength: Ankle: 5/5, Knee: 5/5, Hip: 3+/5 in all ranges. Flex: HS: mild, Gastroc: mild. Special Test: Scour: negative, [place]: negative - Goals Goal 1:: Patient will be I with HEP and progression Goal Time Frame: 4-6 Weeks Goal 2:: Patient will ambulate >300 feet with a normalized gait pattern and LRD Goal Time Frame: 4-6 Weeks Goal 3:: Patient will asc/desc 8 stairs recip with 1 HR Goal Time Frame: 4-6 Weeks Goal 4:: Patient will report no pain for 1 week Goal Time Frame: 4-6 Weeks - Rehabilitation Potential Physical Therapy Diagnosis: Patient presents with hypomobility- she has decreased ROM, strength and muscular endurance leading to abnormal gait and decreased ability to perform all ADL's. Rehabilitation Potential: Good - Anticipated Interventions Patient/Client Instruction: Educate patient on: Benefits of Fitness Program Therapeutic Exercise to Include: Strength training, Endurance training, Body mechanics, Postural training, Flexibilty training, Gait and locomotor training, Neuromotor development, In an aquatic setting, Dynamic Lumbar Stabilization, Scapular Strength/Stabilization For the Purpose of:: To improve muscle performance and motor function Thank you for the opportunity to evaluate your patient. For Medicare and Medicare HMO plans, please review the plan of care and approve it. It will need to be FAXED BACK to us at [phone] for Medicare purposes. For Medicare only, by signing this I certify the plan of care. Please let me know if there are questions or concerns regarding this plan of care. Physician Signature: Date:
--- NOTE | 2019-11-20 17:07 | HP.PTREVAL ---
Dr. Franc Echavarria MD, It has been my pleasure to treat CHELSIE HERNANDEZ over the last 11 visits for Left Knee Pain. Please see the progress note below for an update on the physical therapy plan of care! Subjective: Patient reports that she was very painful when she first started she could barely lift her leg and now she is able to lift it easily. She feels that she is 50% better and feel maybe wants to transition to land based program. Objective/Function: Posture: FH, RS, increased kyphosis- can correct but does not maintain. Gait: slightly antalgic- decreased stance on the left LE with decreased heel/toe pattern and increased hip drop. HR/TR: able with UE a. SLS: 5 sec then LOB. Palpatoin: tender along distal patella. Sensation: WNL. ROM: WFL in all planes of the lumbar and LE. Strength: Ankle: 5/5, Knee: 5/5, Hip: 4/5 in all ranges. Flex: HS: mild, Gastroc: mild. Special Test: Scour: negative, [place]: negative Plan Plan: Continue aquatic therapy 3x a week for 3 additional weeks working towards HEP with probable progression to land Goals Goal 1:: Patient will be I with HEP and progression Goal Time Frame: 4-6 Weeks Goal Progress: Progressing Goal 2:: Patient will ambulate >300 feet with a normalized gait pattern and LRD Goal Time Frame: 4-6 Weeks Goal Progress: Progressing Goal 3:: Patient will asc/desc 8 stairs recip with 1 HR Goal Time Frame: 4-6 Weeks Goal Progress: Progressing Goal 4:: Patient will report no pain for 1 week Goal Time Frame: 4-6 Weeks Goal Progress: Progressing Anticipated Interventions Patient/Client Instruction: Educate patient on: Benefits of Fitness Program Therapeutic Exercise to Include: Strength training, Endurance training, Body mechanics, Postural training, Flexibilty training, Gait and locomotor training, Neuromotor development, In an aquatic setting, Dynamic Lumbar Stabilization, Scapular Strength/Stabilization For the Purpose of:: To improve muscle performance and motor function Please do not hesitate to contact me at [phone] by phone or if you have questions or concerns regarding this new plan of care! Sincerely, Candi Florence DPT
--- NOTE | 2019-12-17 16:19 | HP.PTREVAL ---
Dr. Franc Echavarria MD, It has been my pleasure to treat CHELSIE HERNANDEZ over the last 20 visits for Left Knee Pain. Please see the progress note below for an update on the physical therapy plan of care! Subjective: Pt. reports I really feel like I am doing better. She is back to standing for longer periods of time, cooking dinner and with walking in stores, but still has increased pain the longer she stands. HEP compliant. Objective/Function: Pt. has good ROM of her L knee. MMT: pt. had good strength of her knee musculature: 4+/5 flex/ext, but her hip is weakner, 3/5 weith hip abd, 4/5 with hip flexion, 4/5 hip extension. This also fatigues rapidly. Gait: Pt. walks with a single point cane with good pattern, slight R hip drop. Without her cane she has marked L hip weakness and R hip drop. STAIRS: 2 HR with difficulty with LLE controlled lowering. She still has pain limiteind further gait as well. I would like her to continue with hip/core strengtheing on both land and aquatics. Plan Plan: Extending POC, slowly progressing from aquatics to land. I suggest doing aquatic x2 per week, land x1 for next two weeks and progressing to land as able. I would like her to continue with hip/core strengtheing on both land and aquatics. Start with hip strenghthening, careful with squats, stairs, but progress with them as able. Goals Goal 1:: Patient will be I with HEP and progression Goal Time Frame: 4-6 Weeks Goal Progress: Progressing Goal 2:: Patient will ambulate >300 feet with a normalized gait pattern and LRD Goal Time Frame: 4-6 Weeks Goal Progress: Progressing Goal 3:: Patient will asc/desc 8 stairs recip with 1 HR Goal Time Frame: 4-6 Weeks Goal Progress: Progressing Goal 4:: Patient will report no pain for 1 week Goal Time Frame: 4-6 Weeks Goal Progress: Progressing Anticipated Interventions Patient/Client Instruction: Educate patient on: Benefits of Fitness Program Therapeutic Exercise to Include: Strength training, Endurance training, Body mechanics, Postural training, Flexibilty training, Gait and locomotor training, Neuromotor development, In an aquatic setting, Dynamic Lumbar Stabilization, Scapular Strength/Stabilization For the Purpose of:: To improve muscle performance and motor function Please do not hesitate to contact me at [phone] by phone or if you have questions or concerns regarding this new plan of care! Sincerely, JOHANNA YeungT
--- NOTE | 2019-12-31 16:28 | HP.PTREVAL ---
Dr. Franc Echavarria MD, It has been my pleasure to treat CHELSIE HERNANDEZ over the last 26 visits for Left Knee Pain. Please see the progress note below for an update on the physical therapy plan of care! Subjective: Patient reports that the knee is a little sore but its its continually getting better. No pain but more just stiffness and sore and is progressing due to the weather. Feels that she is not walking properly- if she doesn't get early her back hurts. Objective/Function: Pt. has good ROM of her L knee. MMT: pt. had good strength of her knee musculature: 4+/5 flex/ext, but her hip is weakner, 4-/5 with hip abd, 4/5 with hip flexion, 4/5 hip extension. This also fatigues rapidly. Gait: Pt. walks with a single point cane with good pattern, slight R hip drop. Without her cane she has marked L hip weakness and R hip drop. STAIRS: 2 HR with difficulty with LLE controlled lowering. Plan Plan: Progression to Land Based PT 2x a week for 4 weeks. Goals Goal 1:: Patient will be I with HEP and progression Goal Time Frame: 4-6 Weeks Goal Progress: Progressing Goal 2:: Patient will ambulate >300 feet with a normalized gait pattern and LRD Goal Time Frame: 4-6 Weeks Goal Progress: Progressing Goal 3:: Patient will asc/desc 8 stairs recip with 1 HR Goal Time Frame: 4-6 Weeks Goal Progress: Progressing Goal 4:: Patient will report no pain for 1 week Goal Time Frame: 4-6 Weeks Goal Progress: Progressing Anticipated Interventions Patient/Client Instruction: Educate patient on: Benefits of Fitness Program Therapeutic Exercise to Include: Strength training, Endurance training, Body mechanics, Postural training, Flexibilty training, Gait and locomotor training, Neuromotor development, In an aquatic setting, Dynamic Lumbar Stabilization, Scapular Strength/Stabilization For the Purpose of:: To improve muscle performance and motor function Please do not hesitate to contact me at [phone] by phone or if you have questions or concerns regarding this new plan of care! Sincerely, Candi Florence DPT
--- NOTE | 2020-01-29 10:23 | HP.PTDCSUM ---
It has been my pleasure to treat CHELSIE HERNANDEZ referred by Dr. Franc Echavarria MD, with the diagnosis of Left Knee Pain for a total of 34 visit(s). Discharge Date: Please see the following information for a summary of their discharge status. Subjective: Patient reports that she is feeling great- she has improved greatly. She wants to get rid of the cane but she is nervous about getting rid of it. Left leg Pain Intensity (Out of 10): 0 Lumbar Spine Pain Intensity (Out of 10): 0 % Improvement: 85 Objective/Function: Pt. has good ROM of her L knee. MMT: pt. had good strength of her knee musculature: 5/5 flex/ext, but her hip is weakner, 4+/5 with hip abd, 4+/5 with hip flexion, 4+/5 hip extension. Gait: Pt. walks with a single point cane with good pattern, slight R hip drop. Without her cane she has marked L hip weakness and R hip drop. STAIRS: 1 HR with good recip pattern Goal 1:: Patient will be I with HEP and progression Goal Progress: Goal Met Goal 2:: Patient will ambulate >300 feet with a normalized gait pattern and LRD Goal Progress: Progressing Goal 3:: Patient will asc/desc 8 stairs recip with 1 HR Goal Progress: Goal Met Goal 4:: Patient will report no pain for 1 week Goal Progress: Goal Met Plan: Discharge to I home exercise program If there are questions or concerns regarding this patient's physical therapy, please feel free to call me at [phone]. Thank you for the referral of this patient. Sincerely, Candi Florence DPT
== END 2020-01-29 19:00 | disposition home or self-care (01) ==
LOC: PT 09:30
PROVIDERS: PCP Family Medicine Geriatric Medicine; Referring Provider Specialist; Visit Provider Specialist
DX: Z96.652 Presence of left artificial knee joint (principal)
CPT/HCPCS: 97110; 97113; 97162; 97164

== ENCOUNTER → 2020-02-11 09:55 | Outpatient (CLI) | payer MEDICARE, OTHER, SELFPAY ==
[2019-10-08 09:13] VITALS: BMI 43.5
--- NOTE | 2020-02-11 09:58 | BI_ITS ---
MAMMOGRAPHY - BILATERAL SCREENING REASON FOR EXAM: Female, 64 years old. Routine annual screening examination. PERTINENT HISTORY: Aunt with breast cancer. History of prior left ultrasound-guided breast biopsy. TECHNIQUE: Digital bilateral breast ortiz (3D mammographic acquisition) in the CC and MLO projections. 2-D mediolateral oblique (MLO) and craniocaudad (CC) views of both breasts were obtained. CAD: Full Field Digital Mammography with Computer Added Detection was performed. COMPARISON: Comparison is made with prior study dated 01/06/2019 and 01/03/2018. FINDINGS: Breast Composition: The breasts are almost entirely fatty. There are no dominant masses or suspicious calcifications. A tissue clip marker is once again seen in the anterior retroareolar region of the left breast. This is unchanged. Stable small benign appearing bilateral axillary lymph nodes. No other significant abnormalities are identified. There has been no significant change since the prior study. BI/SCREEN MAMM (CAD) W/ORTIZ BILAT IMPRESSION: Stable bilateral screening mammogram. Yearly follow-up mammogram recommended. (A) ASSESSMENT CATEGORY: BIRADS Category 2: Benign. A letter regarding these results will be sent to the patient by the facility within 30 days. Approximately 10% of breast cancers are not detected by mammography. A normal mammogram should not delay biopsy of a clinically suspicious abnormality. [id number] Electronically Signed: Davey Schmitz, at 11:14 EST , Service support ,
--- NOTE | 2020-02-11 10:10 | BD_ITS ---
STUDY: DUAL ENERGY X-RAY ABSORPTIOMETRY / DXA REASON FOR EXAM: Female, 64 years old. Age of shabnam 48. Pat is 221.4# and 61 and quot; a loss of 2 and quot; per pat. Past hx of smoking quit @ 8 yrs ago. Takes 600 mg caclium and a multi-vit. Exercises moderatly. Hx of a lumbar fusion. TECHNIQUE: Bone Mineral Density (BMD) measurements of lumbar spine and bilateral hips were obtained. COMPARISON: None. FINDINGS: Lumbar Spine (L1-L4): g/cm2 (1.263) / T-score (0.8) / Z-score (2.4) Findings are suggestive of normal bone density with a low fracture risk. Left Femur Total: g/cm2 (1.083) / T-score (0.6) / Z-score (1.8) Left Femoral Neck: g/cm2 (1.05 2) / T-score (0.1) / Z-score (1.6) Right Femur Total: g/cm2 (1.088) / T-score (0.6) / Z-score (1.9) Right Femoral Neck: g/cm2 (0.959) / T-score (-0.6) / Z-score (0.9) BD/Dexa Bone Density Study IMPRESSION: The patient is considered normal as outlined below according to World Saleem Organization (WHO) criteria with a low fracture risk. Reference Information: The T-score is the number of standard deviations above or below the standard which is normal for young adults at their peak bone mineral density. The World Health Organization (WHO) interprets the T-scores as follows: Above -1 Normal bone density Between -1 and -2.5 Osteopenia Equal to / or below -2.5 Osteoporosis As a practical clinical guideline, osteopenia may be graded as follows: Mild -1 through -1.5 Moderate -1.6 through -2.0 Severe -2.1 through -2.4 The Z-score is the number of standard deviations above or below age-matched controls. A Z-score of less than -1.5 would be considered abnormal. References: 1. NIH Osteoporosis and Related Bone Diseases www osteo.org 2. International Society for Clinical Densitometry www iscd.org 3. National Osteoporosis Foundation www nof.org Electronically Signed: Davey Schmitz, at 15:46 EST , Service support ,
== END ==
PROVIDERS: PCP Family Medicine Geriatric Medicine; Referring Provider Family Medicine Geriatric Medicine; Visit Provider Family Medicine Geriatric Medicine
DX: Z78.0 Asymptomatic menopausal state (principal); Z12.31 Encounter for screening mammogram for malignant neoplasm of breast
CPT/HCPCS: 77063; 77067; 77080

== ENCOUNTER → 2020-02-25 10:23 | Outpatient (CLI) | payer MEDICARE, OTHER, SELFPAY ==
[2019-10-08 09:13] VITALS: BMI 43.5
[2020-02-25 13:02] LABS: AST(SGOT) 15 U/L (15-37); Alanine Aminotransfer ALT/SGPT 27 U/L (13-56); Alkaline Phosphatase 67 U/L (45-117); Bilirubin, Direct 0.09 mg/dL (0.00-0.30); GGTP 32 U/L (5-55); Globulin 4.4 g/dL (2.2-4.2); Protein, Total 8.4 g/dL (6.4-8.2)
[2020-02-26 10:56] LABS: AFP, Tumor Marker 2.3 ng/mL (0.0-8.3)
== END ==
PROVIDERS: PCP Family Medicine Geriatric Medicine; Referring Provider Internal Medicine Gastroenterology; Visit Provider Internal Medicine Gastroenterology
DX: K76.0 Fatty (change of) liver, not elsewhere classified (principal)
CPT/HCPCS: 36415; 80076; 82105; 82977

== ENCOUNTER → 2020-03-10 10:11 | Outpatient (CLI) | payer MEDICARE, OTHER, SELFPAY ==
[2019-10-08 09:13] VITALS: BMI 43.5
--- NOTE | 2020-03-10 10:45 | MRI_ITS ---
STUDY: MRI ABDOMEN WITH AND WITHOUT CONTRAST REASON FOR EXAM: Female, 64 years old. liver fibrosis -- f/u US, no pain , abn labs TECHNIQUE: Standardized fat and water weighted pulse sequences were obtained in all 3 orthogonal planes post contrast administration. IV dotarem 19ml was administered for the contrast portion of the examination. COMPARISON: Ultrasound 05/19/2019 FINDINGS: The visualized lung bases are unremarkable. The visualized portions of the heart are within normal limits. Normal liver. There are surgical clips in the gallbladder fossa consistent with a prior cholecystectomy. Normal spleen. Normal pancreas. Normal bilateral adrenal glands. Normal right kidney. Normal left kidney. Normal visualized stomach. Small diverticulum of second portion the duodenum. Normal colon. There is non-visualization of the appendix. Normal abdominal aorta. Normal inferior vena cava. Normal retroperitoneum. Normal abdominal wall. Normal osseous structures. MRI/MRI Abd WITH and W/O Contrast IMPRESSION: Normal unenhanced and enhanced MRI of the abdomen. Electronically Signed: Ji Calero MD at 12:33 EST Tel , Service support ,
[2020-03-10 10:51] LABS: CREATININE FINGERSTICK 0.9 mg/dL (0.55-1.02)
== END ==
PROVIDERS: PCP Family Medicine Geriatric Medicine; Referring Provider Internal Medicine Gastroenterology; Visit Provider Internal Medicine Gastroenterology
DX: C22.8 Malignant neoplasm of liver, primary, unspecified as to type (principal)
CPT/HCPCS: 74183; A9575

== ENCOUNTER → 2020-05-10 14:09 | Outpatient (CLI) | payer MEDICARE, SELFPAY ==
[2019-10-08 09:13] VITALS: BMI 43.5
[2020-05-10 16:24] LABS: Absolute Lymphocyte Count 2.39 X10^3/uL (0.83-4.51); Absolute Neutrophil Count 5.2 X10^3/uL (2.0-7.7); Basophil% 1.2 % (0-1); Eosinophils% 3.5 % (0-5); Hematocrit 38.6 % (37-47); Lymphocyte # 2.39 X10^3/ul (4.0); Lymphocyte % 27.6 % (19-41); Mean Corp Hgb Conc 36.3 g/dL (32-36); Mean Corpuscular Hgb 33.3 pg (27.0-32.0); Mean Corpuscular Volume 91.7 fL (81-99); Mean Platelet Vol. 11.6 fl (6.2-12.0); Monocyte# 0.61 X10^3/uL; NRBC Flagged by Analyzer 0 % (0-5); Neutrophil # 5.22 X10^3/uL (2.7-7.7); Neutrophil % 60.2 % (47-70); Platelet Count 209 K/mm3 (150-450); RBC Distribution Width CV 15.6 % (11.6-14.6); RBC Distribution Width SD 41.8 fl (35.1-43.9); Red Blood Count 4.21 M/mm3 (4.2-5.4); White Blood Count 8.7 K/mm3 (4.4-11.0)
[2020-05-10 16:50] LABS: ALB/GLOB Ratio 0.9 RATIO (0.9-2.4); AST(SGOT) 27 U/L (15-37); Alanine Aminotransfer ALT/SGPT 30 U/L (13-56); Albumin, Serum 4.1 g/dL (3.2-5.0); Alkaline Phosphatase 81 U/L (45-117); Anion Gap 8 (5-15); BUN 20 mg/dL (7-18); BUN/Creat Ratio 26.6 RATIO (10-20); Calcium,Total 9.8 mg/dL (8.5-10.1); Chloride 100 mmol/L (98-107); Creatinine, Serum 0.75 mg/dL (0.55-1.02); EST Glomerular Filtration Rate 82 mL/min (>60); Est Glom Filt Rate - Afr Amer 99 mL/min (>60); Globulin 4.4 g/dL (2.2-4.2); Glucose 79 mg/dL (74-106); Potassium 3.9 mmol/L (3.5-5.1); Protein, Total 8.5 g/dL (6.4-8.2); Sodium Level 138 mmol/L (136-145); Thyroid Stim Hormone (TSH) 0.97 uIU/mL (0.358-3.74)
== END ==
PROVIDERS: PCP Family Medicine Geriatric Medicine; Visit Provider Family Medicine Geriatric Medicine
DX: E55.9 Vitamin D deficiency, unspecified (principal); I10 Essential (primary) hypertension; N39.0 Urinary tract infection, site not specified
CPT/HCPCS: 36415; 80053; 82306; 84443; 85025; 87086; 87088

== ENCOUNTER 2020-10-26 07:30 | Outpatient (RCR) | payer MEDICARE, OTHER, SELFPAY ==
[2020-08-25 10:30] VITALS: BMI 39.9
--- NOTE | 2020-09-01 13:04 | HP.PTEVAL_ITS ---
Patient's Visit Information CHELSIE HERNANDEZ is a 65 year old F referred to Physical Therapy by Dr. Noah Cam DO with a diagnosis of Left Trochanteric Bursitis, Left Hip Advance OA. Date of Evaluation: 09/01/20 Physical Therapist: Candi Florence DPT - Visit Plan Frequency: 2-3x /Week Duration: 4 Weeks Plan: Focus on Troch Bursitis per MD- ultrasound, massage gun, core and LE strength/stabilization, stretching and functional mobility. HEP Given IE:TA Contraction, Bridge, Hip adduction, standing TA- decrease pelvic sway. - Subjective Patient reports that she has PT last fall- kept up through [employer]- was getting worse- went to PCP- who sent her to [facility]- they took x-ray and told her she had a bad left hip and needs to have a hip replacement. Wanted to have it done in [place] so she went to see Dr. Jasso who told her she thinks its bursitis. Gave her a cortisone injection and wanted her to start PT. Over the weekend she did start sleeping better and thinks it maybe helping her but walking is still very painful. Pain is located on the left hip over the bursa and around the whole left knee. The knee has hurt for 3 years and has been checked out and there is nothing wrong with it. Agg: walking, up doing things, laundry, stairs, pulling weeds, standing. Eases: sitting down the pain goes away. When she sits it goes away pretty quickly but depends on the chair. Worst: 10/10 Best: 0/10. Sleep: was hard to be on that side but is better now- when she laid on that side it was very pain. Describes the pain as dull and achy. Burning in the knee. Has a lot of numbness at the end of the day- mostly in her knee to her hip but does radiate to her toes. Right leg has no N/T or pain to report. Did have a spinal fusion 2 years ago- the only time her back bothers her is when she is bent over in the garden- when she had symptoms prior it was only in the left leg. Has had an x-ray on both hip and knee- has not had an MRI. Has been ambulating with a cane for the past 3 years in her left hand- would like to get rid of it. PMHx/Meds: see chart from Dr. Jasso no changes- has had a TKR in the left (3 years ago-Dr. Echavarria) - Objective Posture: FH, RS, increased kyphosis- can correct with verbal and tactile cues but is unable to maintain. Gait: severely antalgic- decreased stance on the left with- severe Trendelenberg and lateral hip translation. HR/TR: able with UE A. SLS: 10 sec with UE A reports severe pain with hip drop. Sensation/Reflex: WNL. Palpation: tender along greater troch and into the ITBand to the lateral knee. ROM: Lumbar: WFL Hip: Flexion: limited to 90 degrees, Extn: 10 degrees, Abd: 60 degrees, IR/ER: not tested due to pain but limited. Knee: 0-100 degrees, Ankle: WFL. Strength: Core: fair, Hip: 4-/5 with pain, Knee: 4+/5 Ankle: 5/5. Flex: HS: severe, Gastroc: moderate,. Special Test: scour: positive, TEMO: positive - Goals Goal 1:: Patient will be I with HEP and progression Goal Time Frame: 4-6 Weeks Goal 2:: Patient will ambulate >300 feet with a normalized gait pattern LRD Goal Time Frame: 4-6 Weeks Goal 3:: Patient will SLS for 3 sec without hip drop or LOB Goal Time Frame: 4-6 Weeks Goal 4:: Patient will report no pain than 4/10 pain for 1 week Goal Time Frame: 4-6 Weeks Goal 5:: Patient will maintain proper posture t/o tx session to demo increased core s/s Goal Time Frame: 4-6 Weeks - Rehabilitation Potential Physical Therapy Diagnosis: Patient presents with hypmobility- she has decreased painfree ROM, LE and core strength/stabilization, proprioception, flex and muscular endurance leading to abnormal gait pattern and increased pain with ADL's. Rehabilitation Potential: Fair - Anticipated Interventions Patient/Client Instruction: Educate patient on: Benefits of Fitness Program Therapeutic Exercise to Include: Strength training, Endurance training, Balance training, Agility training, Body mechanics, Postural training, Flexibilty training, Gait and locomotor training, Neuromotor development, Dynamic Lumbar Stabilization, Scapular Strength/Stabilization For the Purpose of:: To improve muscle performance and motor function TENS: Yes Cryotherapy (ice pack, ice massage): Yes Thermo therapy (hot pack): Yes Ultrasound (thermal/non thermal): Yes Thank you for the opportunity to evaluate your patient. For Medicare and Medicare HMO plans, please review the plan of care and approve it. It will need to be FAXED BACK to us at [phone] for Medicare purposes. For Medicare only, by signing this I certify the plan of care. Please let me know if there are questions or concerns regarding this plan of care. Physician Signature: Date:
--- NOTE | 2020-10-04 07:55 | HP.PTREVAL ---
Dr. Noah Cam, DO, It has been my pleasure to treat CHELSIE HERNANDEZ over the last 13 visits for Left Trochanteric Bursitis, Left Hip Advance OA. Please see the progress note below for an update on the physical therapy plan of care! Subjective: Patient reports that she is getting better. She is still waking up early with pains in the hip and is unable to go back to sleep. If she is on it at a lot it still bothers her. Her knee is the most painful. But its getting but she still feels that she has a ways to go. Worst: 09/18 She was active over the weekend. Best: 03/21 burning in the knee. She thinks continuation of therapy would be helpful to do more exercise and get stronger. Objective/Function: Posture: FH, RS, increased kyphosis- can correct with verbal and tactile cues but is unable to maintain. Gait: Mildly antalgic- decreased stance on the left with- mild Trendelenberg and lateral hip translation. HR/TR: able with UE A. SLS: 10 sec with UE A reports mild discomfort with hip drop- can correct hip drop with verbal cues. Sensation/Reflex: WNL. Palpation: tender along medial and lateral joint line of the knee. ROM: Lumbar: WFL Hip: Flexion: limited to 110 degrees, Extn: 10 degrees, Abd: 60 degrees, IR/ER: not tested due to pain but limited. Knee: 0-110 degrees, Ankle: WFL. Strength: Core: fair, Hip: 4/5 with pain, Knee: flexion: 4+/5 extension: 5/5 Ankle: 5/5. Flex: HS: moderate, Gastroc: moderate,. Special Test: scmoreno: positive, TEMO: positive Plan Plan: 10/04/2020: Re-evaluation- continue to focus on progression to land HEP including machines. Possible transition to pool next re-evaluation for pool HEP. Focus on Troch Bursitis per MD- ultrasound, massage gun, core and LE strength/stabilization, stretching and functional mobility. Goals Goal 1:: Patient will be I with HEP and progression Goal Time Frame: 4-6 Weeks Goal Progress: Progressing Goal 2:: Patient will ambulate >300 feet with a normalized gait pattern LRD Goal Time Frame: 4-6 Weeks Goal Progress: Progressing Goal 3:: Patient will SLS for 3 sec without hip drop or LOB Goal Time Frame: 4-6 Weeks Goal Progress: Progressing Goal 4:: Patient will report no pain than 4/10 pain for 1 week Goal Time Frame: 4-6 Weeks Goal Progress: Progressing Goal 5:: Patient will maintain proper posture t/o tx session to demo increased core s/s Goal Time Frame: 4-6 Weeks Goal Progress: Progressing Anticipated Interventions Patient/Client Instruction: Educate patient on: Benefits of Fitness Program Therapeutic Exercise to Include: Strength training, Endurance training, Balance training, Agility training, Body mechanics, Postural training, Flexibilty training, Gait and locomotor training, Neuromotor development, Dynamic Lumbar Stabilization, Scapular Strength/Stabilization For the Purpose of:: To improve muscle performance and motor function TENS: Yes Cryotherapy (ice pack, ice massage): Yes Thermo therapy (hot pack): Yes Ultrasound (thermal/non thermal): Yes Please do not hesitate to contact me at [phone] by phone or if you have questions or concerns regarding this new plan of care! Sincerely, JOHANNA FoxT
--- NOTE | 2020-10-26 08:49 | HP.PTDCSUM ---
It has been my pleasure to treat CHELSIE HERNANDEZ referred by Dr. Noah Cam DO, with the diagnosis of Left Trochanteric Bursitis, Left Hip Advance OA for a total of 19 visit(s). Discharge Date: 10/26/20 Please see the following information for a summary of their discharge status. Subjective: Pt feels 80% improved. She has a membership and she wants to do a combo of AT and floor exercises. She also has her HEP exercises as well. Pt is aware of posture and does correct herself. She has a massage gun and she finds that helps her stiffness. L knee Pain Intensity (Out of 10): 4 L hip Pain Intensity (Out of 10): 3 % Improvement: 80 Objective/Function: Pt still has increased stance time on the L LE with gait. Pt is able to go up and down the stairs recip with 2 handrails without difficulty Goal 1:: Patient will be I with HEP and progression Goal Progress: Goal Met Goal 2:: Patient will ambulate >300 feet with a normalized gait pattern LRD Goal Progress: Progressing Goal 3:: Patient will SLS for 3 sec without hip drop or LOB Goal Progress: Goal Met Goal 4:: Patient will report no pain than 4/10 pain for 1 week Goal Progress: Goal Met Goal 5:: Patient will maintain proper posture t/o tx session to demo increased core s/s Goal Progress: Progressing Plan: DC PT to I [facility] Discharge Comments: DC PT to HEP and [facility] If there are questions or concerns regarding this patient's physical therapy, please feel free to call me at [phone]. Thank you for the referral of this patient. Sincerely, Michelle Rojas, MPT Balance/Gait/Functional tests - Balance/Special Test Scores Lower Extremity Functional Score: 43
== END 2020-10-26 19:00 | disposition home or self-care (01) ==
LOC: PT 07:30
PROVIDERS: PCP Family Medicine Geriatric Medicine; Referring Provider Orthopaedic Surgery; Visit Provider Orthopaedic Surgery
DX: M16.12 Unilateral primary osteoarthritis, left hip (principal); M70.62 Trochanteric bursitis, left hip; M76.32 Iliotibial band syndrome, left leg
CPT/HCPCS: 97035; 97110; 97140; 97162; 97164; 97530

== ENCOUNTER → 2020-11-11 13:49 | Outpatient (CLI) | payer MEDICARE, OTHER, SELFPAY ==
[2020-11-11 14:59] LABS: Absolute Lymphocyte Count 2.59 X10^3/uL (0.83-4.51); Absolute Neutrophil Count 5.4 X10^3/uL (2.0-7.7); Basophil% 1.1 % (0-1); Eosinophil# 0.26 X10^3/uL; Eosinophils% 2.9 % (0-5); Hematocrit 41.6 % (37-47); Hemoglobin 13.8 g/dL (12.0-15.0); Lymphocyte # 2.59 X10^3/ul (0.83-4.51); Lymphocyte % 28.5 % (19-41); Mean Corp Hgb Conc 33.2 g/dL (32-36); Mean Corpuscular Hgb 29.4 pg (27.0-32.0); Mean Corpuscular Volume 88.5 fL (81-99); Mean Platelet Vol. 11.1 fl (6.2-12.0); Monocyte# 0.68 X10^3/uL; Monocyte% 7.5 % (0-10); NRBC Flagged by Analyzer 0 % (0-5); Neutrophil # 5.43 X10^3/uL (2.7-7.7); Neutrophil % 59.8 % (47-70); Platelet Count 300 K/mm3 (150-450); RBC Distribution Width SD 39.3 fl (35.1-43.9); White Blood Count 9.1 K/mm3 (4.4-11.0)
[2020-11-11 15:27] LABS: ALB/GLOB Ratio 1.1 RATIO (0.9-2.4); AST(SGOT) 21 U/L (15-37); Alanine Aminotransfer ALT/SGPT 31 U/L (13-56); Albumin, Serum 4.3 g/dL (3.2-5.0); Alkaline Phosphatase 64 U/L (45-117); Anion Gap 7 (5-15); BUN 22 mg/dL (7-18); BUN/Creat Ratio 36.9 RATIO (10-20); Calcium,Total 9.7 mg/dL (8.5-10.1); Chloride 104 mmol/L (98-107); EST Glomerular Filtration Rate 107 mL/min (>60); Est Glom Filt Rate - Afr Amer 129 mL/min (>60); Globulin 3.8 g/dL (2.2-4.2); Glucose 81 mg/dL (74-106); Protein, Total 8.1 g/dL (6.4-8.2); Sodium Level 138 mmol/L (136-145); Thyroid Stim Hormone (TSH) 1.06 uIU/mL (0.358-3.74)
[2020-11-11 15:33] LABS: Vitamin D,25 Hydroxy 58.3 ng/mL
== END ==
PROVIDERS: PCP Family Medicine Geriatric Medicine; Visit Provider Family Medicine Geriatric Medicine
DX: E55.9 Vitamin D deficiency, unspecified (principal); I10 Essential (primary) hypertension
CPT/HCPCS: 36415; 80053; 82306; 84443; 85025

== ENCOUNTER → 2020-11-19 15:41 | Outpatient (CLI) | payer MEDICARE, OTHER, SELFPAY ==
--- NOTE | 2020-11-19 15:43 | CT_ITS ---
INDICATION: CT templating for left PRIYANK EXAMINATION: CT BONE - CT Lower Extremity W/O Contrast Injection TECHNIQUE: Helically acquired images were obtained of the hips and knees. 2-D reformats were performed by the technologist. A radiation dose optimization technique was used for this scan. IV Contrast dosage and agent: None. COMPARISON: None. FINDINGS: SOFT TISSUES: Sigmoid diverticulosis without finding to suggest diverticulitis. Normal appearing appendix. No radiopaque foreign body. BONES/JOINTS: No acute fracture or subluxation. Normal alignment. Severe left hip joint space narrowing with subchondral sclerosis, subcortical cysts, and osteophytes on both sides of the joint. Mild remodeling. Mild right hip DJD. Posterior lumbar fusion partially visualized. Bilateral TKA with patellar resurfacing. CT/Extremity Lower without Contra IMPRESSION: Severe left hip DJD detailed above. Electronically Signed: Randy Cline MD at 2:55 EDT Tel , Service support ,
== END ==
PROVIDERS: PCP Family Medicine Geriatric Medicine; Referring Provider Orthopaedic Surgery; Visit Provider Orthopaedic Surgery
DX: M16.12 Unilateral primary osteoarthritis, left hip (principal)
CPT/HCPCS: 73700

== ENCOUNTER → 2020-11-25 16:44 | Outpatient (CLI) | payer MEDICARE, OTHER, SELFPAY ==
[2020-11-25 17:51] LABS: Anion Gap 4 (5-15); BUN 25 mg/dL (7-18); BUN/Creat Ratio 35.5 RATIO (10-20); Calcium,Total 9.8 mg/dL (8.5-10.1); Chloride 103 mmol/L (98-107); EST Glomerular Filtration Rate 88 mL/min (>60); Est Glom Filt Rate - Afr Amer 107 mL/min (>60); Glucose 94 mg/dL (74-106); Sodium Level 136 mmol/L (136-145)
== END ==
PROVIDERS: PCP Family Medicine Geriatric Medicine; Visit Provider Family Medicine Geriatric Medicine
DX: I10 Essential (primary) hypertension (principal)
CPT/HCPCS: 36415; 80048

== ENCOUNTER → 2020-11-30 09:38 | Outpatient (CLI) | payer MEDICARE, OTHER, SELFPAY ==
--- NOTE | 2020-11-30 09:40 | US_ITS ---
STUDY: ABDOMINAL ULTRASOUND - RIGHT UPPER QUADRANT REASON FOR VISIT: Female, 65 years old FATTY LIVER TECHNIQUE: Ultrasound evaluation of the right upper quadrant was performed with real-time and static valdes-scale imaging. TECHNICAL QUALITY: Adequate. COMPARISON: Comparison is made with prior study dated 05/19/2019. FINDINGS: Liver: The liver is enlarged and measures 20.2 cm. There is increased echogenicity consistent with fatty infiltration. The bile ducts are within normal limits. There is hepatic color flow. The direction of portal flow is hepatopetal. There is no demonstrated mass lesion. Gallbladder: The patient is status post cholecystectomy. Common Bile Duct (C.B.D.): The common bile duct measures 9 mm. Pancreas: Normal size of the head, body and tail of the pancreas. There is normal echogenicity of the pancreas. There is no demonstrated pancreatic mass or cyst. Right Kidney: Normal size of the right kidney. The right kidney measures 11.4 cm x 5.3 cm x 4.9 cm. Normal renal cortex. The right cortex measures 1.4 cm. There is no demonstrated renal mass or cyst. There is no right hydronephrosis. US/Abdomen Limited IMPRESSION: Hepatomegaly and diffuse fatty infiltration of the liver. Electronically Signed: Davey Schmitz MD at 15:05 EDT , Service support ,
== END ==
PROVIDERS: PCP Family Medicine Geriatric Medicine; Referring Provider Internal Medicine Gastroenterology; Visit Provider Internal Medicine Gastroenterology
DX: K76.0 Fatty (change of) liver, not elsewhere classified (principal)
CPT/HCPCS: 76705

== ENCOUNTER 2020-12-14 05:26 | Day surgery (SDC) | payer MEDICARE, OTHER, SELFPAY ==
--- NOTE | 2020-12-01 12:20 | EKG12_ITS ---
Test Reason : PRE OP Blood Pressure : / mmHG Vent. Rate : 061 BPM Atrial Rate : 061 BPM P-R Int : 178 ms QRS Dur : 088 ms QT Int : 396 ms P-R-T Axes : 046 046 042 degrees QTc Int : 398 ms Normal sinus rhythm Normal ECG Confirmed by VINCE MANRIQUEZ, OLGA ([id number]), legal editor DEMETRIO GUERRA ([id number]) on 12/02/2020 1:49:59 PM Referred By: Noah Cam Confirmed By:OLGA CLARKE MD
[2020-12-01 13:13] LABS: Absolute Lymphocyte Count 2.42 X10^3/uL (0.83-4.51); Absolute Neutrophil Count 5.5 X10^3/uL (2.0-7.7); Basophil# 0.07 X10^3/uL; Basophil% 0.8 % (0-1); Eosinophil# 0.28 X10^3/uL; Eosinophils% 3.2 % (0-5); Hematocrit 39.5 % (37-47); Hemoglobin 13.3 g/dL (12.0-15.0); Lymphocyte # 2.42 X10^3/ul (0.83-4.51); Lymphocyte % 27.3 % (19-41); Mean Corp Hgb Conc 33.7 g/dL (32-36); Mean Corpuscular Hgb 29.3 pg (27.0-32.0); Mean Platelet Vol. 10.8 fl (6.2-12.0); Monocyte# 0.63 X10^3/uL; Monocyte% 7.1 % (0-10); NRBC Flagged by Analyzer 0 % (0-5); Neutrophil # 5.45 X10^3/uL (2.7-7.7); Neutrophil % 61.4 % (47-70); Platelet Count 279 K/mm3 (150-450); RBC Distribution Width CV 11.8 % (11.6-14.6); RBC Distribution Width SD 37.6 fl (35.1-43.9); Red Blood Count 4.54 M/mm3 (4.2-5.4); White Blood Count 8.9 K/mm3 (4.4-11.0)
[2020-12-01 13:24] LABS: Prothrombin Time (Protime)PT. 12.4 SECONDS (11.7-14.9)
[2020-12-01 13:25] LABS: Partial Thromboplast Time 30.8 Seconds (24.1-36.2)
[2020-12-02 15:46] LABS: Fructosamine 240 umol/L (0-285)
[2020-12-14] VITALS (12 sets, daily range): BP systolic 107–156; BP diastolic 53–86; PULSE 59–65; RESP 14–18; TEMP 35.7–36.1; O2SAT 94–100; BMI 39.9
[2020-12-14 05:56] LABS: Bedside Glucose 183 mg/dL (70-110)
[2020-12-14] MEDS: Gabapentin 600 MG Tablet PO (06:09)
[2020-12-14] MEDS: Acetaminophen 500 MG Tablet 1000 MG PO ×2 (06:09→14:53)
[2020-12-14] MEDS: Celecoxib 200 MG Capsule 400 MG PO (06:09)
[2020-12-14] MEDS: Scopolamine 1mg/72hr Patch 1 PATCH TD (06:10)
[2020-12-14] MEDS: Lactated Ringers 1,000 ML 999 ML IV (06:12)
[2020-12-14] MEDS: Insulin Lispro 100 UNIT/ML INSULN.PEN SC (06:12)
--- NOTE | 2020-12-14 07:22 | PCM.HP.BLA ---
History and Physical Date of Admission: 12/14/20 Date of Service: 11/01/20 MR#:[id number]: CHELSIE HERNANDEZ [facility] #:[id number]:[id number] Provider:Dr. Noah Cam DOAge/Sex: 65/F [facility]Signed with Addenda ADDENDUM by Dr. Noah Cam DO on 11/01/20 at 1156 Assessment and Plan Assessment and Plan (1) Osteoarthritis of left hip: Status: Acute Qualifiers: Osteoarthritis type: primary Qualified Code(s): M16.12 - Unilateral primary osteoarthritis, left hip (2) Fusion of lumbar spine: Status: Acute (3) Obesity due to excess calories: Status: Acute Qualifiers: Obesity classification: adult class 3 (BMI >= 40) Serious obesity comorbidity presence: without serious comorbidity Body mass index: BMI 40.0-44.9 Qualified Code(s): E66.01 - Morbid (severe) obesity due to excess calories; Z68.41 - Body mass index [BMI]40.0-44.9, adult Plan: We did discuss the fact that her BMI is over 40 and this increases her risk for complications postoperatively and counseled on weight loss. Plan Details Goals & Barriers: Goals Decrease pain Improve ROM Improve gait Barriers Anterolisthesis 11/01/20 1156<Electronically signed by Noah Cam DO>Date Noah Cam DO cc: ~*Signed Intake Vital Signs 11/01/20 10:08 Height 5 ft 1.81 in Weight: 218 lb 4 oz BMI 40.1 Intake Visit Reasons: LEFT HIP Chief Complaint: rt total knee Allergies No Known Allergies Allergy (Verified 10/08/19 09:31) Medications lisinopril 40 mg PO QHS 09/26/16 [History Confirmed 11/01/20] pravastatin 40 mg PO QHS 09/26/16 [History Confirmed 11/01/20] aspirin 81 mg tablet,delayed release 81 mg PO DAILY 06/20/18 [History Confirmed 11/01/20] cholecalciferol (vitamin D3) 50 mcg (2,000 unit) capsule 2,000 unit PO DAILY 06/20/18 [History Confirmed 11/01/20] multivitamin 1 tab PO DAILY 06/20/18 [History Confirmed 11/01/20] calcium carbonate 500 mg PO DAILY@0800 02/18/19 [History Confirmed 11/01/20] acetaminophen 1,000 mg PO Q6H PRN #100 tab 02/26/19 [Rx Confirmed 11/01/20] acetaminophen 1,000 mg PO Q6H PRN #100 tab 04/01/19 [Rx Confirmed 11/01/20] metoprolol tartrate 25 mg tablet 25 mg PO tab 11/01/20 [History Confirmed 11/01/20] PFSH Medical History Abnormal ultrasound of breast Acid reflux Arthritis Back problem Fatigue Hypertension Nerve pain Numbness and tingling Sleep apnea Surgical History History of lumbar fusion History of lumbar laminectomy History of total left knee replacement (TKR) Hx of cholecystectomy Family History Father Heart disease Hypertension Brother Heart disease Hypertension Sister Cancer sarcoma Hypertension CVA (cerebral vascular accident) Mother Hypertension Social History adopted: No household members: spouse housing: house number of children: 2 current occupational status: employed and retired 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 Noah Cam, 11/01/20 0806. CHELSIE HERNANDEZ is a 65 year old F here today for a follow up on her left hip pain. Patient states she has done her PT and her knee pain is better but she still has hip pain. Patient states she can now sleep at night were she could not before. Patient has the most pian after walking. She states she she has some groin pain while getting in and out of the car. Patient has groin pain and posterior hip pain with combined abduction and external rotation. Patient states she does not have any radiating pain any more the lateral thigh and knee pain has improved with physical therapy. Patient denies all numbness and tingling. Patient states she does have some Popping and clicking during stretching in PT. Ortho Exam General General: Yes no acute distress Neurologic: Yes alert and Yes oriented x3 Psychologic: Yes reasonable and appropriate Left Hip Skin/Wound: No Ecchymosis, No soft tissue swelling and No Erythema Hip: Absent eccymosis, soft tissue swelling, erythema or tender to palpate - HIP: 40 deg of external, 5 deg internal rotation abduction and combined external roation cause groin and posterolateal hip pain. Supplemental Info 08/18/2020 x-ray left hip: advanced hip arthrosis posterior instrumentation noted of the lower lumbar spine L3-L5 Coding Level of Care Code Off vis,est,level 3 Diagnoses Osteoarthritis of left hip M16.12 Osteoarthritis type: primary Fusion of lumbar spine M43.26 Obesity due to excess calories E66.01; Z68.41 Obesity classification: adult class 3 (BMI >= 40) Serious obesity comorbidity presence: without serious comorbidity Body mass index: BMI 40.0-44.9 Assessment and Plan Assessment and Plan (1) Osteoarthritis of left hip: Status: Acute Qualifiers: Osteoarthritis type: primary Qualified Code(s): M16.12 - Unilateral primary osteoarthritis, left hip (2) Fusion of lumbar spine: Status: Acute (3) Obesity due to excess calories: Status: Acute Qualifiers: Obesity classification: adult class 3 (BMI >= 40) Serious obesity comorbidity presence: without serious comorbidity Body mass index: BMI 40.0-44.9 Qualified Code(s): E66.01 - Morbid (severe) obesity due to excess calories; Z68.41 - Body mass index [BMI]40.0-44.9, adult Plan - Dr. Noah Cam, DO: Patient's trochanteric bursitis and iliotibial band symptoms have improved. She now only has pain around the hip particularly posteriorly we did discuss that this is slightly atypical however she does have advanced arthrosis of the hip and do feel she would benefit from a left total hip arthroplasty. She understands her can be residual pain stemming from her back. We did discuss continued nonoperative versus operative interventions including risk of total hip arthroplasty Risks, benefits and alternatives of surgery reviewed including but not limited to bleeding, infection, nerve, artery and/or tissue damage, fracture, VTE, leg length discrepancy, dislocation, need for hip precautions, continued pain and expected post-operative course. Patient would like to schedule surgery first week in December we will need medical clearance and request surgical date of December 14, 2020, per her request to get things in order. Patient will follow up 2 weeks postop she will refrain from any NSAIDs 1 week prior to surgery. We will need CT scan for MAKOplasty Plan Details Goals & Barriers: Goals Decrease pain Improve ROM Improve gait Barriers Anterolisthesis 11/01/20 6785<Electronically signed by Noah Cam DO>Date Noah Cam DO Cosigner Signature:Date (if applicable) CC: ~I have re-examined the patient. There are no clinical changes since date of exam
[2020-12-14] MEDS: Cefazolin 2 GM in 0.9% Normal Saline 100 ML IV (07:27)
--- NOTE | 2020-12-14 07:30 | FEM_PTH ---
PATIENT: CHELSIE HERNANDEZ [place] [facility] [place][id number] AGE/SX: 65/F ROOM: RE12/14/[address]: Dr. Noah Cam DO : 1955 BED: DIS: 12/14/2020 SPEC #: [id number] RECD: 12/14/20 10:59 STATUS: LINUS REQ #: [id number] MARISELA: 12/14/20 07:[address]: Noah Cam DEPT: SURGICAL PATHOLOGY RECD BY: Monika Alarcon ENTERED: 12/14/20 13:18 SP TYPE: FEM HEAD OTHR DR: Dr. Phillip Gay MD Tissues: Femoral region, NOS Procedures: Decalcification bone/plaque Surgery Specimen Level IV HEADER OPERATION: ERAS, total hip replacement robotic arm assist PRE-OP DIAGNOSIS: Osteoarthritis left hip TISSUE SUBMITTED: Left femoral head MICROSCOPIC DIAGNOSIS Left femoral head, total hip replacement/resection: Femoral head with degenerative osteoarthritic changes. Fragments of dense fibroconnective tissue. CORINA:kendy 12/17/2020 MICROSCOPIC DESCRIPTION Slides are reviewed. GROSS DESCRIPTION Received is one container labeled with the patient's name and designated left femoral head. The specimen consists of a chance femoral head with portion of femoral neck. The femoral head measures 4.5 x 4.5 x 4 cm and the portion of femoral neck measures up to 1 cm in length. The articular surface displays prominent osteophyte formation, eburnation and bone erosion. Also present in the specimen container are multiple irregular fragments of bone reamings and pink-yellow soft tissue measuring in aggregate 9 x 9 x 2 cm. Orange Picker sections are submitted in two cassettes as follows: 1 - soft tissue, 2 - bone after decalcification. / CORINA:kendy 12/14/2020 :5 CPT: 79054, 45189
[2020-12-14] MEDS: Lactated Ringers 1,000 ML 125 ML IV ×2 (08:45→11:00)
--- NOTE | 2020-12-14 10:03 | RAD_ITS ---
STUDY: X-RAY - PELVIS AND LEFT HIP REASON FOR EXAM: Female, 65 years old. New left total hip arthroplasty. TECHNIQUE: 2 views of the pelvis and hip. COMPARISON: 08/18/2020. FINDINGS: There is a total hip arthroplasty in anatomic alignment with expected post-operative findings. There are no complications noted. RAD/Hip Min 2 Views (Portable) IMPRESSION: Placement of total hip arthroplasty in anatomic alignment without complications. Electronically Signed: Zhang Ann MD at 11:18 EDT , Service support ,
--- NOTE | 2020-12-14 10:13 | PCM.OPRPT ---
Report of Operation Date of Procedure: 12/14/20 Description of Surgical Findings:: Preoperative diagnosis: Left hip DJD Postoperative diagnosis: Same Procedure: CT-guided Makoplasty assisted left total hip arthroplasty Implants: Vikki Accolade II stem size 4, 132 degree neck angle 0 neck length 52 mm Trident II acetabular shell with 20 mm cancellous screw 36 mm ceramic head Anesthesia: Spinal EBL: 200 cc Complications: None Condition: Stable to PACU Indication for procedure: This is a 65-year-old female who has had long-standing arthrosis of the hip who has failed conservative treatment and wished to undergo total hip arthroplasty. We did discuss operative versus nonoperative intervention including risks of bleeding, infection , nerve artery tissue damage, need for further surgery, fracture, leg length discrepancy dislocation blood clot and need for postoperative physical therapy and postoperative expectations. An informed consent was signed. Procedure: Patient was met in the preoperative holding area once again the operative extremity was identified by both patient and physician and was marked. Patient was met by anesthesia . Anesthesia was started. patient was then positioned in the lateral decubitus position on a well-padded pegboard with an axillary roll. All bony prominences were checked and padded. The patient was prepped and draped in the usual sterile fashion. A timeout was called to ensure the proper patient procedure and extremity were being contemplated. Anatomic landmarks were palpated and marked for a standard posterior lateral approach. Prior to this the ASIS was palpated and 3 fingerbreadths proximal to this 3 pins were placed at a 45 degree angle into the iliac crest with good purchase, stab incisions were made with a 15 blade into the skin prior to placement. The Makoplasty array was then secured. A 10 blade scalpel was used to make a posterior incision through the skin and subcutaneous tissue. retractors were used and electrocautery was used to maintain meticulous hemostasis and dissect full-thickness flaps until the gluteal fascia was reached. The gluteal fascia was incised in line with the gluteal fibers. The bursal tissue was then freed from the underside and a Charnley retractor was placed. The femoral trochanteric checkpoint was placed and leg length was assessed using the trochanteric checkpoint and an EKG lead that was placed on the knee prior to prepping the leg .the fat pad was then elevated off of the external rotators with electrocautery and the external rotators were dissected off of the greater trochanter including the piriformis and were tagged with #1 Ethibond for later repair. The joint capsule opened with posterior trapdoor technique. The hip was surgically dislocated. The measurement on the preoperative CT from the top of the lesser trochanter to the femoral neck cut was marked Hohmann was placed around the lesser trochanter. A neck cutting guide was used to sanchez the neck with a Bovie and an oscillating saw was used complete the femoral neck cut. The femoral head was then removed and sized. We then turned our attention to the acetabulum. A Bovie was used to make a perforation in the anterior joint capsule and a Knowles retractor was placed this was repeated in the 6 o'clock position and a wide zachary was placed there. With a long handled knife the labral and pulvinar tissue were removed. We then registered the acetabulum with the pointing array and confirmed our landmarks. Once the socket was thoroughly prepared and labral tissue and pulvinar was removed we single reamed with the robotic arm. We then used the robotic arm to position the acetabular implant and impacted it into place under robotic guidance. We then proceeded to place a posterior superior screw by drilling first measuring and inserting the screw. We then inserted a trial liner. And turned our attention back to the femur at this point a femoral elevator was used. As well as a pointed wide Hohmann around the lesser trochanter and a Hohmann to help retract the gluteus medius. A box chisel was used to remove excess lateral neck followed by a canal finder and a lateralizing reamer. This was followed by sequential broaches. Attention was made of the version within the canal based on preoperative templating. Once the final broach was seated we then trialed reduced the hip it was determined that a 132 degree neck angle with a 0 neck length was the appropriate size. We then checked stability with shuck testing as well as flexion and internal rotation. then proceeded with hip extension and checked leg lengths at the knees and heels as well as with the trochanteric checkpoint and knee EKG lead. At this point trials were removed. A liner was inserted to the cup. The femoral stem was inserted. We re-trialed and then proceeded to impact the femoral head onto the Ehsan taper. We then surgically reduce the hip check stability again and leg lengths and were satisfied. Betadine rinse was allowed to sit for 5 minutes while everyone changed their gloves. Thorough irrigation was performed. Followed by closure of the external rotators with #2 FiberWire followed by closure of gluteal fascia with #1 Ethibond. 0 Vicryl fat stitches and 2-0 Vicryl subcutaneous stitches and haven in the skin. A pulls were placed in the pin sites over the iliac crest with Xeroform 4 x 4 and OpSite. dressing was applied to incisional area with Mepilex Ag and an abduction pillow was placed. Patient tolerated the procedure well there was no intraoperative complications all counts were correct and the patient was brought back to the PACU in stable condition
--- NOTE | 2020-12-14 10:17 | EX.PCM.DISCH ---
Discharge Instructions Activity Weight Bearing Status: Full weight bearing Dressing / Incision Call your doctor if you observe: Shortness of breath and Chest pain Change Dressing in: 3 days Additional Dressing/Incision Instructions:: Do not shower 72hrs. Begin daily showering warm water antibacterial soap postop day #3( 72hrs Post-operatively) and then daily. Leave the dressing on for 72 hours postoperatively then may remove prior to first shower and change dressing daily after this until no drainage for 2 consecutive days then may leave open to air. Follow hip precautions that were reviewed in hospital. Wear compression stockings, may remove at night. Start physical therapy as directed in hospital. Follow prescriptions instructions do not take any other pain medication or differ dosing without consulting your physician. Do not take oral NSAIDs until blood thinner has been completed , then may begin the day after completion if needed . Call Dr. Cam's office with any concerns. Follow Up Care Please Follow Up With: Noah Cam DO When: 2 weeks Test Results: Test results from this visit will be discussed in further detail at your follow-up appointment, if applicable. Discharge Plan Admission Attending Provider: Noah Cam Primary Care Provider: Phillip Gay Chi Discharge Orders/Prescriptions Prescriptions: New acetaminophen [acetaminophen] 500 MG tablet 1,000 mg PO Q6H PRN Qty: 100 RF: 0 cephalexin [cephalexin] 500 MG capsule 1,000 mg PO Q8 Qty: 4 RF: 0 Eliquis 2.5 MG tablet 2.5 mg PO BID Qty: 42 RF: 0 oxycodone 5 mg capsule 5 mg PO Q4H PRN (Reason: pain) 7 Days Qty: 60 RF: 0 Continued cholecalciferol (vitamin D3) 2,000 unit capsule 2,000 unit PO DAILY RF: 0 multivitamin tablet 1 tab PO DAILY RF: 0 metoprolol tartrate 25 mg tablet 25 mg PO BID RF: 0 pravastatin 40 MG tablet 40 mg PO QHS RF: 0 calcium carbonate 500 MG tablet 500 mg PO DAILY@0800 RF: 0 valsartan-hydrochlorothiazide 320-12.5 mg Tablet 1 tab PO DAILY RF: 0 Held aspirin [Adult Low Dose Aspirin] 81 mg tablet,delayed release (DR/EC) 81 mg PO DAILY RF: 0 Hold Instructions: Resume on 12/16/20. Referrals / Follow Up: Phillip Gay Chi, MD [Primary Care Provider] - Disposition Disposition (needs filled in before D/C Order can be placed): Home, Self Care
[2020-12-14 10:55] LABS: Bedside Glucose 139 mg/dL (70-110)
[2020-12-14] MEDS: Cefazolin 1 GM/50 ML BAG IV (14:53)
[2020-12-14] MEDS: Ondansetron 4 MG/2 ML Vial IV (14:58)
== END 2020-12-14 15:33 | disposition home or self-care (01) ==
LOC: SDC 05:26 → AC 05:26
PROVIDERS: Anesthesiology; PCP Family Medicine Geriatric Medicine; Referring Provider Orthopaedic Surgery; Visit Provider Orthopaedic Surgery
PROC: 8E0Y0CZ Robotic Assisted Procedure of Lower Extremity, Open Approach (ICD-10-PCS; CPT 27130; principal; 2020-12-14 07:00)
DX: M16.12 Unilateral primary osteoarthritis, left hip (principal); E66.01 Morbid (severe) obesity due to excess calories; Z68.41 Body mass index [BMI] 40.0-44.9, adult; K21.9 Gastro-esophageal reflux disease without esophagitis; G47.00 Insomnia, unspecified; I10 Essential (primary) hypertension; M99.03 Segmental and somatic dysfunction of lumbar region; M54.30 Sciatica, unspecified side; M99.05 Segmental and somatic dysfunction of pelvic region; R20.2 Paresthesia of skin; R53.83 Other fatigue; M70.62 Trochanteric bursitis, left hip; K74.60 Unspecified cirrhosis of liver; K76.0 Fatty (change of) liver, not elsewhere classified; E78.00 Pure hypercholesterolemia, unspecified; Z79.82 Long term (current) use of aspirin; Z79.899 Other long term (current) drug therapy; Z87.891 Personal history of nicotine dependence
CPT/HCPCS: 01214; 27130; S2900; 36415; 73502; 82962; 82985; 83735; 85025; 85610; 85730; 86850; 86900; 86901; 87077; 87081; 88305; 88307; 88311; 93005; 97162; C1776; J7120; J2405

== ENCOUNTER → 2021-01-25 08:09 | Outpatient (CLI) | payer MEDICARE, OTHER, SELFPAY ==
--- NOTE | 2021-01-25 08:10 | US_ITS ---
STUDY: ABDOMINAL ULTRASOUND - ELASTOGRAPHY REASON FOR VISIT: Female, 65 years old. Fatty infiltration of the liver. TECHNIQUE: Liver stiffness measurements were obtained on a [place] RS 85 ultrasound machine using a CA 1-7 probe following the SRU guidelines. 3 measurements were obtained using a 2-D-SWE method. The IQR/M was 23% suggesting a quality data set. TECHNICAL QUALITY: Adequate. COMPARISON: Comparison is made with the prior examination of 11/30/2020. FINDINGS: Liver: Is no evidence of hepatomegaly. Fatty infiltration of the liver. Median liver stiffness measured 13 kPa. US/Elastography Parenchyma/Organ IMPRESSION: Liver stiffness measures 13 kPa compatible with F3 Metavir score. Electronically Signed: Davey Schmitz MD at 9:17 EST , Service support ,
== END ==
PROVIDERS: PCP Family Medicine Geriatric Medicine; Referring Provider Internal Medicine Gastroenterology; Visit Provider Internal Medicine Gastroenterology
DX: K76.0 Fatty (change of) liver, not elsewhere classified (principal); K74.00 Hepatic fibrosis, unspecified; Z96.642 Presence of left artificial hip joint
CPT/HCPCS: 76981; 97110

== ENCOUNTER 2021-01-28 11:30 | Outpatient (RCR) | payer MEDICARE, OTHER, SELFPAY ==
--- NOTE | 2020-12-17 12:04 | HP.PTEVAL ---
Patient's Visit Information CHELSIE HERNANDEZ is a 65 year old F referred to Physical Therapy by Dr. oNah Cam DO with a diagnosis of L THR S/P 12-14-20. Date of Evaluation: 12/17/20 Physical Therapist: ISIAH Guido - Visit Plan Frequency: 2-3x /Week Duration: 6 Weeks Plan: 2-3X/ week for 4-6 weeks for L knee and hip strength, functional activities, gait training, balance with HEP. HEP: Bridges AA SLR, QS, AP , and GS. Pt agrees to CBD study (JM82) - Subjective Pt Had L THR on 12-14-2020. She went home that day. She is doing well at home. She is doing better now than before the surgery. Pt is on a walker now and thinking she could start using the cane. She is taking pain meds and water pill. She gets up at night to go to the bathroom. She is taking 1 every 4 hours with Tylenol. She is not driving. She has one step out the door and then one step down from their and uses the walker. She is sleeping in her bed. She sees the Dr in one week from Sunday. No fever chills or signs of infection. HEP: AP, GS, SLR, HS. Pt reports that they did a posterior hip so no crossing legs, no bending forward, no standing and pivioting and reviewed these precautions with the patient. - Pain L hip pain Pain Intensity (Out of 10): 2 Pain Intensity Range: 4 Comment: with walking - Objective Gait: walking with front wheeled walker with decrease stance time on the L LE... L knee ext -10 degrees from full extension and L knee [id number] degrees. L hip flexion AAROM to 90 degrees, Arom L hip flex to 75 degrees, hip ext AROM -19 degrees from neutral. L hip ext and flex 3-/5 (pt struggles to get her L leg onto the mat table indep), L knee flex and ext 4-/5. Pt is able to do 1/2 normal ROM bridge. Pt is able to do 10 SLR but she has increase cramping.... TUG 27.64. WOMAC 70/96 and 27.09. Sit to stand: pt uses arms to get up and out of a chair - Balance/Special Test Scores Lower Extremity Functional Score: 16 WOMAC Total Score: 70 WOMAC Percentatge: 27.0900 - Goals Goal 1:: I HEP Goal Time Frame: 6-8 Weeks Goal 2:: Be able to walk with least restrictive device with normal gait pattern Goal Time Frame: 6-8 Weeks Goal 3:: Be able to go up and down the stairs recip with one hand rails without pain or signs of weakness Goal Time Frame: 6-8 Weeks Goal 4:: Be able to get out of a chair with no hands 10/10 times with ease Goal Time Frame: 6-8 Weeks - Rehabilitation Potential Rehabilitation Potential: Excellent - Anticipated Interventions Patient/Client Instruction: Educate patient on: Condition, Plan of Care For the Purpose of:: To decrease pain, To increase ROM, To improve nutrient delivery to tissue, To improve muscle performance and motor function, To improve ability to perform ADL's, To increase tolerance to activity/condition/position, To improve performance and independence with ADL's, To decrease level of supervision to perform tasks, To improve ability of physical actions for home/community/work/leisure, To improve gait and locomotor functions, To improve health of tissue, To decrease soft tissue restriction, To increase flexibility/ROM, To improve balance Therapeutic Exercise to Include: Strength training, Endurance training, Balance training, Postural training, Flexibilty training, Gait and locomotor training, Neuromotor development, Passive ROM, Active ROM For the Purpose of:: To decrease pain, To decrease swelling/inflammation, To increase ROM, To improve nutrient delivery to tissue, To improve muscle performance and motor function, To improve ability to perform ADL's, To increase tolerance to activity/condition/position, To improve performance and independence with ADL's, To improve ability of physical actions for home/community/work/leisure, To improve gait and locomotor functions, To improve health of tissue, To decrease soft tissue restriction, To increase flexibility/ROM, To improve balance Functional Training to Include: Gait training For the Purpose of:: To improve gait and locomotor functions, To improve safety with gait Thank you for the opportunity to evaluate your patient. For Medicare and Medicare HMO plans, please review the plan of care and approve it. It will need to be FAXED BACK to us at [phone] for Medicare purposes. For Medicare only, by signing this I certify the plan of care. Please let me know if there are questions or concerns regarding this plan of care. Physician Signature: Date:
--- NOTE | 2021-01-12 12:02 | HP.PTREVAL ---
Dr. Noah Cam, DO, It has been my pleasure to treat CHELSIE HERNANDEZ over the last 10 visits for L THR S/P 12-14-20. Please see the progress note below for an update on the physical therapy plan of care! Subjective: Pt is just starting to walk around rooms now without the cane. She feels that she is getting stronger. Objective/Function: Pt did fatigue on the new machines today. Stairs: up and down recip with 1 handrail with increase weakness present on the L when ascending the steps. Sit to stand without hands: X 10 with ease Plan Plan: Continue with stairs, sit to stands, and addition of gym equipment as well as gait mechanics. 2-3X/ week for 4-6 weeks for L knee and hip strength, functional activities, gait training, balance with HEP. HEP: Bridges IVETT LARIOS, VISHNU, AP , and GS. Pt agrees to CBD study (JM82) Balance/Gait/Functional tests - Balance/Special Test Scores Lower Extremity Functional Score: 41 WOMAC Total Score: 70 WOMAC Percentage: 27.0900 Goals Goal 1:: I HEP Goal Time Frame: 6-8 Weeks Goal Progress: Progressing Goal 2:: Be able to walk with least restrictive device with normal gait pattern Goal Time Frame: 6-8 Weeks Goal Progress: Progressing Goal 3:: Be able to go up and down the stairs recip with one hand rails without pain or signs of weakness Goal Time Frame: 6-8 Weeks Goal 4:: Be able to get out of a chair with no hands 10/10 times with ease Goal Time Frame: 6-8 Weeks Goal Progress: Goal Met Anticipated Interventions Patient/Client Instruction: Educate patient on: Condition, Plan of Care For the Purpose of:: To decrease pain, To increase ROM, To improve nutrient delivery to tissue, To improve muscle performance and motor function, To improve ability to perform ADL's, To increase tolerance to activity/condition/position, To improve performance and independence with ADL's, To decrease level of supervision to perform tasks, To improve ability of physical actions for home/community/work/leisure, To improve gait and locomotor functions, To improve health of tissue, To decrease soft tissue restriction, To increase flexibility/ROM, To improve balance Therapeutic Exercise to Include: Strength training, Endurance training, Balance training, Postural training, Flexibilty training, Gait and locomotor training, Neuromotor development, Passive ROM, Active ROM For the Purpose of:: To decrease pain, To decrease swelling/inflammation, To increase ROM, To improve nutrient delivery to tissue, To improve muscle performance and motor function, To improve ability to perform ADL's, To increase tolerance to activity/condition/position, To improve performance and independence with ADL's, To improve ability of physical actions for home/community/work/leisure, To improve gait and locomotor functions, To improve health of tissue, To decrease soft tissue restriction, To increase flexibility/ROM, To improve balance Functional Training to Include: Gait training For the Purpose of:: To improve gait and locomotor functions, To improve safety with gait Please do not hesitate to contact me at [phone] by phone or if you have questions or concerns regarding this new plan of care! Sincerely, Michelle Rojas MPT
--- NOTE | 2021-01-28 12:07 | HP.PTDCSUM ---
It has been my pleasure to treat CHELSIE HERNANDEZ referred by Dr. Noah Cam DO, with the diagnosis of L THR S/P 12-14-20 for a total of 15 visit(s). Discharge Date: 01/28/21 Please see the following information for a summary of their discharge status. Subjective: Pt reports that she has no pain. She reports that walking long distances is still tough but she thinks that she just needs to keep doing it. L hip pain Pain Intensity (Out of 10): 2 L knee pain Pain Intensity (Out of 10): 4 % Improvement: 90 Objective/Function: Stairs: up and down recip with one hand rail. Pt walks I with slight antalgiv gait with no AD. Pt is able to set up and get on and off the equip I. 112 L hip flex and 10 hip ext. 23.8 hip flex and 19.5 hip ext MMT Goal 1:: I HEP Goal Progress: Goal Met Goal 2:: Be able to walk with least restrictive device with normal gait pattern Goal Progress: Goal Met Goal 3:: Be able to go up and down the stairs recip with one hand rails without pain or signs of weakness Goal 4:: Be able to get out of a chair with no hands 10/10 times with ease Goal Progress: Goal Met Plan: DC PT to [facility] Discharge Comments: DC PT To HEP If there are questions or concerns regarding this patient's physical therapy, please feel free to call me at [phone]. Thank you for the referral of this patient. Sincerely, Michelle Rojas, MPT Balance/Gait/Functional tests - Balance/Special Test Scores Lower Extremity Functional Score: 46 WOMAC Total Score: 25 WOMAC Percentage: 73.9600
== END 2021-01-28 19:00 | disposition home or self-care (01) ==
LOC: PT 11:30
PROVIDERS: PCP Family Medicine Geriatric Medicine; Referring Provider Orthopaedic Surgery; Visit Provider Orthopaedic Surgery
DX: Z47.1 Aftercare following joint replacement surgery (principal); Z96.642 Presence of left artificial hip joint
CPT/HCPCS: 97110; 97161

== ENCOUNTER → 2021-02-11 09:44 | Outpatient (CLI) | payer MEDICARE, OTHER, SELFPAY ==
--- NOTE | 2021-02-11 09:53 | BI_ITS ---
MAMMOGRAPHY - BILATERAL SCREENING REASON FOR EXAM: Female, 65 years old. Routine annual screening examination. PERTINENT HISTORY: Aunts with breast cancer. TECHNIQUE: Digital bilateral breast ortiz (3D mammographic acquisition) in the CC and MLO projections. 2-D mediolateral oblique (MLO) and craniocaudad (CC) views of both breasts were obtained. CAD: Full Field Digital Mammography with Computer Added Detection was performed. COMPARISON: Comparison is made with prior study dated 02/11/2020 and 01/06/2019. FINDINGS: Breast Composition: The breasts are almost entirely fatty. There are no dominant masses or suspicious calcifications. Stable benign-appearing bilateral axillary lymph nodes. A tissue clip marker is once again seen in the anterior retroareolar region of the left breast. No other significant abnormalities are identified. There has been no significant change since the prior study. BI/SCRN MAMM (CAD)W/ORTIZ BILAT IMPRESSION: Stable bilateral screening mammogram. Yearly follow-up mammogram recommended. (A) ASSESSMENT CATEGORY: BIRADS Category 2: Benign. A letter regarding these results will be sent to the patient by the facility within 30 days. Approximately 10% of breast cancers are not detected by mammography. A normal mammogram should not delay biopsy of a clinically suspicious abnormality. [id number] Electronically Signed: Davey Schmitz MD at 10:37 EST , Service support ,
== END ==
PROVIDERS: PCP Family Medicine Geriatric Medicine; Referring Provider Family Medicine Geriatric Medicine; Visit Provider Family Medicine Geriatric Medicine
DX: Z12.31 Encounter for screening mammogram for malignant neoplasm of breast (principal)
CPT/HCPCS: 77063; 77067

== ENCOUNTER 2021-03-16 11:02 | Outpatient (CLI) | payer MEDICARE, OTHER, SELFPAY ==
[2021-03-16 12:07] LABS: Hematocrit 39.3 % (37-47); Hemoglobin 12.8 g/dL (12.0-15.0); Mean Corp Hgb Conc 32.6 g/dL (32-36); Mean Platelet Vol. 10.3 fl (6.2-12.0); Platelet Count 299 K/mm3 (150-450); RBC Distribution Width CV 12.3 % (11.6-14.6); RBC Distribution Width SD 38.5 fl (35.1-43.9); Red Blood Count 4.57 M/mm3 (4.2-5.4); White Blood Count 8.5 K/mm3 (4.4-11.0)
[2021-03-16 12:18] LABS: Partial Thromboplast Time 29.7 Seconds (24.1-36.2); Prothrombin Time (Protime)PT. 12.5 SECONDS (11.7-14.9)
[2021-03-16 12:42] LABS: AST(SGOT) 16 U/L (15-37); Alanine Aminotransfer ALT/SGPT 30 U/L (13-56); Alkaline Phosphatase 62 U/L (45-117); Anion Gap 6 (5-15); BUN 24 mg/dL (7-18); BUN/Creat Ratio 33.6 RATIO (10-20); Calcium,Total 10.1 mg/dL (8.5-10.1); Chloride 102 mmol/L (98-107); Creatinine, Serum 0.72 mg/dL (0.55-1.02); EST Glomerular Filtration Rate 87 mL/min (>60); Est Glom Filt Rate - Afr Amer 105 mL/min (>60); Globulin 4.1 g/dL (2.2-4.2); Glucose 107 mg/dL (74-106); Potassium 4.1 mmol/L (3.5-5.1); Protein, Total 8.1 g/dL (6.4-8.2); Sodium Level 139 mmol/L (136-145)
[2021-03-17 10:25] LABS: AFP, Tumor Marker 1.5 ng/mL (0.0-8.3)
== END 2021-03-16 23:59 | disposition short-term general hospital (02) ==
LOC: MTLAB 11:03
PROVIDERS: PCP Family Medicine Geriatric Medicine; Referring Provider Internal Medicine Gastroenterology; Visit Provider Internal Medicine Gastroenterology
DX: K74.00 Hepatic fibrosis, unspecified (principal); K76.0 Fatty (change of) liver, not elsewhere classified
CPT/HCPCS: 36415; 80053; 82105; 85027; 85610; 85730

== ENCOUNTER → 2021-09-07 | Outpatient (CLI) | payer MEDICARE, OTHER, SELFPAY ==
--- NOTE | 2021-09-07 17:38 | MRI_ITS ---
EXAM: MR LUMBAR SPINE WITHOUT AND WITH INTRAVENOUS CONTRAST CLINICAL INDICATION: lumbarsacral radiculopaty TECHNIQUE: Multiplanar and multisequence MR images of the lumbar spine without and with intravenous contrast. This report was created using [employer] report [employer] technology. CONTRAST: IV 20mL DOTAREM COMPARISON: XR Sep 05 2021 10:05am FINDINGS: VERTEBRAE: See below. SPINAL CORD: Unremarkable. Normal position and signal intensity of the conus medullaris. SOFT TISSUES: Unremarkable. DISCS/SPINAL CANAL/NEURAL FORAMINA: L1-L2: L1-2: There is bilateral facet arthropathy. Loss of intervertebral disc height. There is endplate spondylosis of the vertebral body. Unremarkable central canal. Unremarkable intervertebral neuroforamina. L2-L3: L2-3: There is bilateral facet arthropathy. Loss of intervertebral disc height. There is endplate spondylosis of the vertebral body. Left paracentral disc herniation. Mild spinal stenosis. Severe narrowing of the left intervertebral neuroforamina. Compression of exiting left L2 nerve root. L3-L4: L3-4: There is bilateral facet arthropathy. Loss of intervertebral disc height. There is endplate spondylosis of the vertebral body. Unremarkable central canal. Unremarkable intervertebral neuroforamina. Disc spacers in place. Pedicle screws and spinal fixation hardware in place. L4-L5: L4-5: There is bilateral facet arthropathy. Loss of intervertebral disc height. There is endplate spondylosis of the vertebral body. Unremarkable central canal. Unremarkable intervertebral neuroforamina. Stabilized grade 1 anterolisthesis of L4 on L5. Disc spacers in place. Pedicle screws and spinal fixation hardware in place. L5-S1: There is bilateral facet arthropathy. Loss of intervertebral disc height. There is endplate spondylosis of the vertebral body. Unremarkable central canal. Unremarkable intervertebral neuroforamina. MRI/Spine Lumbar W/WO Contrast IMPRESSION: 1. L2-3: There is bilateral facet arthropathy. Loss of intervertebral disc height. There is endplate spondylosis of the vertebral body. Left paracentral disc herniation. Mild spinal stenosis. Severe narrowing of the left intervertebral neuroforamina. Compression of exiting left L2 nerve root. 2. Multilevel degenerative changes, as described above. Electronically Signed: Alonzo Ellison MD at 21:05 EDT ,
[2021-09-07 18:00] LABS: CREATININE FINGERSTICK < 0.9 mg/dL (0.55-1.02); EGFR FINGERSTICK > 60.0000 mL/min (>60)
== END | disposition home or self-care (01) ==
LOC: MRI 17:38
PROVIDERS: PCP Family Medicine Geriatric Medicine; Referring Provider Orthopaedic Surgery; Visit Provider Orthopaedic Surgery
DX: M54.17 Radiculopathy, lumbosacral region (principal); I10 Essential (primary) hypertension
CPT/HCPCS: 72158; A9575

== ENCOUNTER → 2021-12-14 | Outpatient (CLI) | payer MEDICARE, OTHER, SELFPAY ==
[2021-12-14 08:34] LABS: Hemoglobin 13.9 g/dL (12.0-15.0); Mean Corp Hgb Conc 34.8 g/dL (32-36); Mean Corpuscular Hgb 30.3 pg (27.0-32.0); Mean Corpuscular Volume 87.1 fL (81-99); Platelet Count 265 K/mm3 (150-450); RBC Distribution Width SD 38.7 fl (35.1-43.9); Red Blood Count 4.59 M/mm3 (4.2-5.4); White Blood Count 6.1 K/mm3 (4.4-11.0)
[2021-12-14 08:47] LABS: Partial Thromboplast Time 28.9 Seconds (24.1-36.2); Prothrombin Time (Protime)PT. 12.9 SECONDS (11.7-14.9)
[2021-12-14 09:12] LABS: AST(SGOT) 20 U/L (15-37); Alanine Aminotransfer ALT/SGPT 31 U/L (13-56); Alkaline Phosphatase 47 U/L (45-117); Anion Gap 6 (5-15); BUN 18 mg/dL (7-18); BUN/Creat Ratio 25.2 RATIO (10-20); Calcium,Total 9.6 mg/dL (8.5-10.1); Chloride 105 mmol/L (98-107); Cholesterol 156 mg/dL (200); Creatinine, Serum 0.72 mg/dL (0.55-1.02); EST Glomerular Filtration Rate 87 mL/min (>60); Est Glom Filt Rate - Afr Amer 105 mL/min (>60); Glucose 120 mg/dL (74-106); High Density Lipoprotein 40 mg/dL; Potassium 4.1 mmol/L (3.5-5.1); Sodium Level 140 mmol/L (136-145); Triglycerides 309 mg/dL; Very Low Density Lipoprotein 62 mg/dL (5-40)
[2021-12-15 10:38] LABS: AFP, Tumor Marker 1.6 ng/mL (0.0-9.2)
== END | disposition home or self-care (01) ==
LOC: LAB 08:13
PROVIDERS: PCP Family Medicine Geriatric Medicine; Referring Provider Internal Medicine Gastroenterology; Visit Provider Internal Medicine Gastroenterology
DX: K74.00 Hepatic fibrosis, unspecified (principal)
CPT/HCPCS: 36415; 80053; 80061; 82105; 85027; 85610; 85730

== ENCOUNTER → 2022-01-05 | Outpatient (CLI) | payer MEDICARE, OTHER, SELFPAY ==
[2022-01-05 13:54] LABS: Vitamin D,25 Hydroxy 58.4 ng/mL
== END | disposition home or self-care (01) ==
LOC: POLAB3 09:15
PROVIDERS: PCP Family Medicine Geriatric Medicine; Visit Provider Family Medicine Geriatric Medicine
DX: I10 Essential (primary) hypertension (principal); E55.9 Vitamin D deficiency, unspecified
CPT/HCPCS: 36415; 82306; 84443

== ENCOUNTER → 2022-02-13 | Outpatient (CLI) | payer MEDICARE, OTHER, SELFPAY ==
--- NOTE | 2022-02-13 10:40 | BI_ITS ---
MAMMOGRAPHY - BILATERAL SCREENING REASON FOR EXAM: Female, 66 years old. Routine annual screening examination. PERTINENT HISTORY: Aunts with breast cancer. TECHNIQUE: Digital bilateral breast ortiz (3D mammographic acquisition) in the CC and MLO projections. 2-D mediolateral oblique (MLO) and craniocaudad (CC) views of both breasts were obtained. CAD: Full Field Digital Mammography with Computer Added Detection was performed. COMPARISON: Comparison is made with prior study of 02/11/2021 and 02/11/2020. FINDINGS: Breast Composition: The breasts are almost entirely fatty. There are no dominant masses or suspicious calcifications. A tissue clip marker is once again seen in the anterior superior midportion of the left breast. Stable benign-appearing bilateral axillary nodes. No other significant abnormalities are identified. There has been no significant change since the prior study. BI/SCRN MAMM (CAD)W/ORTIZ BILAT IMPRESSION: Stable bilateral screening mammogram. Yearly follow-up mammogram recommended. (A) ASSESSMENT CATEGORY: BIRADS Category 2: Benign. A letter regarding these results will be sent to the patient by the facility within 30 days. Approximately 10% of breast cancers are not detected by mammography. A normal mammogram should not delay biopsy of a clinically suspicious abnormality. [id number] Electronically Signed: Davey Schmitz MD at 11:59 EST ,
== END | disposition home or self-care (01) ==
LOC: OPBI 10:39
PROVIDERS: PCP Family Medicine Geriatric Medicine; Visit Provider Family Medicine Geriatric Medicine
DX: Z12.31 Encounter for screening mammogram for malignant neoplasm of breast (principal); Z80.3 Family history of malignant neoplasm of breast
CPT/HCPCS: 77063; 77067

== ENCOUNTER → 2022-06-07 | Outpatient (CLI) | payer MEDICARE, OTHER, SELFPAY ==
[2022-06-07 12:44] LABS: Prothrombin Time (Protime)PT. 12.5 SECONDS (11.7-14.9)
[2022-06-07 12:45] LABS: Partial Thromboplast Time 28.3 Seconds (24.1-36.2)
[2022-06-07 13:43] LABS: AST(SGOT) 26 U/L (15-37); Alanine Aminotransfer ALT/SGPT 36 U/L (13-56); Albumin, Serum 4.1 g/dL (3.2-5.0); Alkaline Phosphatase 45 U/L (45-117); Bilirubin, Direct 0.14 mg/dL (0.00-0.30); GGTP 21 U/L (5-55); Globulin 4.1 g/dL (2.2-4.2); Protein, Total 8.2 g/dL (6.4-8.2)
[2022-06-08 09:42] LABS: AFP, Tumor Marker < 1.8 ng/mL (0.0-9.2)
== END | disposition home or self-care (01) ==
LOC: MTLAB 11:21
PROVIDERS: PCP Family Medicine Geriatric Medicine; Referring Provider Internal Medicine Gastroenterology; Visit Provider Internal Medicine Gastroenterology
DX: K76.0 Fatty (change of) liver, not elsewhere classified (principal); K74.00 Hepatic fibrosis, unspecified
CPT/HCPCS: 36415; 80076; 82105; 82977; 85610; 85730

== ENCOUNTER → 2022-07-06 | Outpatient (CLI) | payer MEDICARE, OTHER, SELFPAY ==
[2022-07-06 13:15] LABS: Absolute Lymphocyte Count 1.93 X10^3/uL (0.83-4.51); Absolute Neutrophil Count 5.6 X10^3/uL (2.0-7.7); Basophil% 1.2 % (0-1); Eosinophil# 0.24 X10^3/uL; Eosinophils% 2.8 % (0-5); Hematocrit 40.9 % (37-47); Hemoglobin 13.4 g/dL (12.0-15.0); Lymphocyte # 1.93 X10^3/ul (0.83-4.51); Lymphocyte % 22.3 % (19-41); Mean Corp Hgb Conc 32.8 g/dL (32-36); Mean Corpuscular Volume 88.5 fL (81-99); Monocyte# 0.75 X10^3/uL; Monocyte% 8.7 % (0-10); NRBC Flagged by Analyzer 0 % (0-5); Neutrophil # 5.58 X10^3/uL (2.7-7.7); Neutrophil % 64.4 % (47-70); Platelet Count 273 K/mm3 (150-450); RBC Distribution Width SD 38.5 fl (35.1-43.9); Red Blood Count 4.62 M/mm3 (4.2-5.4); White Blood Count 8.7 K/mm3 (4.4-11.0)
[2022-07-06 13:34] LABS: Vitamin D,25 Hydroxy 73.4 ng/mL
[2022-07-06 13:52] LABS: ALB/GLOB Ratio 1.1 RATIO (0.9-2.4); AST(SGOT) 25 U/L (15-37); Alanine Aminotransfer ALT/SGPT 35 U/L (13-56); Alkaline Phosphatase 47 U/L (45-117); Anion Gap 5 (5-15); BUN 24 mg/dL (7-18); BUN/Creat Ratio 31.3 RATIO (10-20); Calcium,Total 9.9 mg/dL (8.5-10.1); Chloride 104 mmol/L (98-107); Creatinine, Serum 0.77 mg/dL (0.55-1.02); EST Glomerular Filtration Rate 80 mL/min (>60); Est Glom Filt Rate - Afr Amer 96 mL/min (>60); Globulin 3.8 g/dL (2.2-4.2); Glucose 116 mg/dL (74-106); Potassium 4.1 mmol/L (3.5-5.1); Protein, Total 7.8 g/dL (6.4-8.2); Sodium Level 137 mmol/L (136-145); Thyroid Stim Hormone (TSH) 0.48 uIU/mL (0.358-3.74)
== END | disposition home or self-care (01) ==
LOC: POLAB3 09:21
PROVIDERS: PCP Family Medicine Geriatric Medicine; Visit Provider Family Medicine Geriatric Medicine
DX: I10 Essential (primary) hypertension (principal); E55.9 Vitamin D deficiency, unspecified
CPT/HCPCS: 36415; 80053; 82306; 84443; 85025

== ENCOUNTER → 2023-02-12 | Outpatient (CLI) | payer MEDICARE, OTHER, SELFPAY ==
[2023-02-12 10:56] LABS: Absolute Lymphocyte Count 2.02 X10^3/uL (0.83-4.51); Absolute Neutrophil Count 5.9 X10^3/uL (2.0-7.7); Basophil# 0.09 X10^3/uL; Eosinophil# 0.19 X10^3/uL; Eosinophils% 2.2 % (0-5); Hematocrit 44.6 % (37-47); Hemoglobin 14.1 g/dL (12.0-15.0); Lymphocyte # 2.02 X10^3/ul (0.83-4.51); Lymphocyte % 23.1 % (19-41); Mean Corp Hgb Conc 31.6 g/dL (32-36); Mean Corpuscular Hgb 28.1 pg (27.0-32.0); Mean Platelet Vol. 10.5 fl (6.2-12.0); Monocyte# 0.55 X10^3/uL; Monocyte% 6.3 % (0-10); NRBC Flagged by Analyzer 0 % (0-5); Neutrophil # 5.86 X10^3/uL (2.7-7.7); Neutrophil % 66.8 % (47-70); Platelet Count 321 K/mm3 (150-450); RBC Distribution Width CV 12.1 % (11.6-14.6); RBC Distribution Width SD 39.8 fl (35.1-43.9); Red Blood Count 5.01 M/mm3 (4.2-5.4); White Blood Count 8.8 K/mm3 (4.4-11.0)
[2023-02-12 13:03] LABS: Vitamin D,25 Hydroxy 73.5 ng/mL
[2023-02-12 14:04] LABS: AST(SGOT) 22 U/L (15-37); Alanine Aminotransfer ALT/SGPT 32 U/L (13-56); Alkaline Phosphatase 54 U/L (45-117); Anion Gap 8 (5-15); BUN 22 mg/dL (7-18); BUN/Creat Ratio 24.7 RATIO (10-20); Calcium,Total 9.8 mg/dL (8.5-10.1); Chloride 102 mmol/L (98-107); Creatinine, Serum 0.89 mg/dL (0.55-1.02); EST Glomerular Filtration Rate 67 mL/min (>60); Est Glom Filt Rate - Afr Amer 81 mL/min (>60); Globulin 4.2 g/dL (2.2-4.2); Glucose 120 mg/dL (74-106); Potassium 3.9 mmol/L (3.5-5.1); Protein, Total 8.2 g/dL (6.4-8.2); Sodium Level 136 mmol/L (136-145); Thyroid Stim Hormone (TSH) 0.58 uIU/mL (0.358-3.74)
== END | disposition home or self-care (01) ==
PROVIDERS: PCP Family Medicine Geriatric Medicine; Visit Provider Family Medicine Geriatric Medicine
DX: I10 Essential (primary) hypertension (principal); E55.9 Vitamin D deficiency, unspecified
CPT/HCPCS: 36415; 80053; 82306; 84443; 85025

== ENCOUNTER → 2023-02-22 | Outpatient (CLI) | payer MEDICARE, OTHER, SELFPAY ==
--- NOTE | 2023-02-22 07:40 | BI_ITS ---
MAMMOGRAPHY - BILATERAL SCREENING REASON FOR EXAM: Female, 67 years old. Routine annual screening examination. PERTINENT HISTORY: Aunt with breast cancer. TECHNIQUE: Digital bilateral breast ortiz (3D mammographic acquisition) in the CC and MLO projections. 2-D mediolateral oblique (MLO) and craniocaudad (CC) views of both breasts were obtained. CAD: Full Field Digital Mammography with Computer Added Detection was performed. COMPARISON: Comparison is made with prior study dated February 13, 2022 and February 11, 2021. FINDINGS: Breast Composition: The breasts are almost entirely fatty. There are no dominant masses or suspicious calcifications. Stable fat-containing axillary lymph nodes. A tissue clip marker is once again seen in the anterior superior midportion of the left breast. No other significant abnormalities are identified. There has been no significant change since the prior study. BI/SCRN MAMM (CAD)W/ORTIZ BILAT IMPRESSION: Stable bilateral screening mammogram. Yearly follow-up mammogram recommended. (A) ASSESSMENT CATEGORY: BIRADS Category 2: Benign. A letter regarding these results will be sent to the patient by the facility within 30 days. Approximately 10% of breast cancers are not detected by mammography. A normal mammogram should not delay biopsy of a clinically suspicious abnormality. [id number] Electronically Signed: Davey Schmitz MD at 9:19 EST ,
== END | disposition home or self-care (01) ==
LOC: OPBI 07:38
PROVIDERS: PCP Family Medicine Geriatric Medicine; Referring Provider Family Medicine Geriatric Medicine; Visit Provider Family Medicine Geriatric Medicine
DX: Z12.31 Encounter for screening mammogram for malignant neoplasm of breast (principal)
CPT/HCPCS: 77063; 77067

== ENCOUNTER → 2023-02-23 | Outpatient (CLI) | payer MEDICARE, OTHER, SELFPAY ==
--- NOTE | 2023-02-23 09:09 | US_ITS ---
STUDY: ABDOMINAL ULTRASOUND - RIGHT UPPER QUADRANT; ELASTOGRAPHY REASON FOR VISIT: Female, 67 years old. Fatty infiltration of the liver. TECHNIQUE: Ultrasound evaluation of the right upper quadrant was performed with real-time and static valdes-scale imaging. Point quantification shear wave elastography was performed (Actifio). TECHNICAL QUALITY: Adequate. COMPARISON: Comparison is made with prior study dated November 30, 2020. FINDINGS: Liver: The liver is enlarged and measures 19.1 cm. There is increased echogenicity consistent with fatty infiltration. The bile ducts are within normal limits. There is hepatic color flow. The direction of portal flow is hepatopetal. There is no demonstrated mass lesion. Median liver stiffness measured 7.1 kPa. Gallbladder: The patient is status post cholecystectomy. Common Bile Duct (C.B.D.): The common bile duct measures 7.1 mm. Pancreas: There is normal echogenicity of the visualized pancreas. There is no demonstrated pancreatic mass or cyst. Right Kidney: Normal size of the right kidney. The right kidney measures 11.7 cm x 5.7 cm x 4.2 cm. Normal renal cortex. The right cortex measures 1.5 cm. There is no demonstrated renal mass or cyst. There is no right hydronephrosis. US/ABD Limited w/ Elastography IMPRESSION: 1. Liver stiffness measures 7.1 kPa compatible with F2-F3 (Mild to moderate liver fibrosis) Metavir score. Electronically Signed: Davey Schmitz MD at 11:10 EST ,
[2023-02-23 11:29] LABS: International Normalized Ratio 0.9; Prothrombin Time (Protime)PT. 11.9 SECONDS (11.7-14.9)
[2023-02-23 11:30] LABS: Partial Thromboplast Time 27.5 Seconds (24.1-36.2)
[2023-02-23 11:46] LABS: AST(SGOT) 24 U/L (15-37); Alanine Aminotransfer ALT/SGPT 31 U/L (13-56); Albumin, Serum 4.1 g/dL (3.2-5.0); Alkaline Phosphatase 43 U/L (45-117); Bilirubin, Direct 0.13 mg/dL (0.00-0.30); Globulin 4.1 g/dL (2.2-4.2); Protein, Total 8.2 g/dL (6.4-8.2)
[2023-02-24 04:07] LABS: AFP, Tumor Marker < 1.8 ng/mL (0.0-9.2)
== END | disposition home or self-care (01) ==
PROVIDERS: PCP Family Medicine Geriatric Medicine; Referring Provider Internal Medicine Gastroenterology; Visit Provider Internal Medicine Gastroenterology
DX: K76.0 Fatty (change of) liver, not elsewhere classified (principal); K74.00 Hepatic fibrosis, unspecified; E66.9 Obesity, unspecified
CPT/HCPCS: 36415; 76705; 76981; 80076; 82105; 85610; 85730

== ENCOUNTER → 2023-08-14 | Outpatient (CLI) | payer MEDICARE, OTHER, SELFPAY ==
[2023-08-14 11:24] LABS: Absolute Lymphocyte Count 1.99 X10^3/uL (0.83-4.51); Absolute Neutrophil Count 5.5 X10^3/uL (2.0-7.7); Basophil# 0.09 X10^3/uL; Eosinophils% 4.6 % (0-5); Hematocrit 39.6 % (37-47); Hemoglobin 12.9 g/dL (12.0-15.0); Lymphocyte # 1.99 X10^3/ul (0.83-4.51); Lymphocyte % 22.9 % (19-41); Mean Corp Hgb Conc 32.6 g/dL (32-36); Mean Corpuscular Hgb 28.9 pg (27.0-32.0); Mean Corpuscular Volume 88.6 fL (81-99); Mean Platelet Vol. 10.4 fl (6.2-12.0); Monocyte# 0.65 X10^3/uL; Monocyte% 7.5 % (0-10); NRBC Flagged by Analyzer 0 % (0-5); Neutrophil # 5.54 X10^3/uL (2.7-7.7); Neutrophil % 63.8 % (47-70); Platelet Count 282 K/mm3 (150-450); RBC Distribution Width SD 39.1 fl (35.1-43.9); Red Blood Count 4.47 M/mm3 (4.2-5.4); White Blood Count 8.7 K/mm3 (4.4-11.0)
[2023-08-14 11:52] LABS: Vitamin D,25 Hydroxy 73.5 ng/mL
[2023-08-14 12:06] LABS: AST(SGOT) 19 U/L (15-37); Alanine Aminotransfer ALT/SGPT 26 U/L (13-56); Albumin, Serum 3.8 g/dL (3.2-5.0); Alkaline Phosphatase 51 U/L (45-117); Anion Gap 6 (5-15); BUN 22 mg/dL (7-18); BUN/Creat Ratio 29.5 RATIO (10-20); Calcium,Total 9.8 mg/dL (8.5-10.1); Chloride 105 mmol/L (98-107); Creatinine, Serum 0.75 mg/dL (0.55-1.02); EST Glomerular Filtration Rate 82 mL/min (>60); Est Glom Filt Rate - Afr Amer 99 mL/min (>60); Globulin 3.9 g/dL (2.2-4.2); Glucose 112 mg/dL (74-106); Potassium 3.8 mmol/L (3.5-5.1); Protein, Total 7.7 g/dL (6.4-8.2); Sodium Level 137 mmol/L (136-145); Thyroid Stim Hormone (TSH) 0.68 uIU/mL (0.358-3.74)
== END | disposition home or self-care (01) ==
LOC: LAB 10:58
PROVIDERS: PCP Family Medicine Geriatric Medicine; Referring Provider Family Medicine Geriatric Medicine; Visit Provider Family Medicine Geriatric Medicine
DX: I10 Essential (primary) hypertension (principal); E55.9 Vitamin D deficiency, unspecified
CPT/HCPCS: 36415; 80053; 82306; 84443; 85025

== ENCOUNTER → 2024-02-21 | Outpatient (CLI) | payer MEDICARE, OTHER, SELFPAY ==
[2024-02-21 12:56] LABS: Vitamin D,25 Hydroxy 61.7 ng/mL
[2024-02-21 13:12] LABS: ALB/GLOB Ratio 0.9 RATIO (0.9-2.4); AST(SGOT) 41 U/L (15-37); Alanine Aminotransfer ALT/SGPT 28 U/L (13-56); Albumin, Serum 4.1 g/dL (3.2-5.0); Alkaline Phosphatase 53 U/L (45-117); Anion Gap 7 (5-15); BUN 26 mg/dL (7-18); BUN/Creat Ratio 30.2 RATIO (10-20); Chloride 100 mmol/L (98-107); Cholesterol 159 mg/dL (200); Creatinine, Serum 0.86 mg/dL (0.55-1.02); EST Glomerular Filtration Rate 69 mL/min (>60); Est Glom Filt Rate - Afr Amer 84 mL/min (>60); Globulin 4.5 g/dL (2.2-4.2); Glucose 117 mg/dL (74-106); High Density Lipoprotein 44 mg/dL; Potassium 4.4 mmol/L (3.5-5.1); Protein, Total 8.6 g/dL (6.4-8.2); Sodium Level 137 mmol/L (136-145); Thyroid Stim Hormone (TSH) 0.732 uIU/mL (0.358-3.740); Triglycerides 278 mg/dL; Very Low Density Lipoprotein 56 mg/dL (5-40)
== END | disposition home or self-care (01) ==
LOC: POLAB3 11:29
PROVIDERS: PCP Family Medicine Geriatric Medicine; Visit Provider Family Medicine Geriatric Medicine
DX: I10 Essential (primary) hypertension (principal); E78.5 Hyperlipidemia, unspecified; E55.9 Vitamin D deficiency, unspecified
CPT/HCPCS: 36415; 80053; 80061; 82306; 84443

== ENCOUNTER → 2024-02-26 | Outpatient (CLI) | payer MEDICARE, OTHER, SELFPAY ==
--- NOTE | 2024-02-26 12:11 | BI_ITS ---
MAMMOGRAPHY - BILATERAL SCREENING REASON FOR EXAM: Female, 68 years old. Routine annual screening examination. PERTINENT HISTORY: Aunts with breast cancer. Prior left ultrasound-guided breast biopsy. TECHNIQUE: Digital bilateral breast ortiz (3D mammographic acquisition) in the CC and MLO projections. 2-D mediolateral oblique (MLO) and craniocaudad (CC) views of both breasts were obtained. CAD: Full Field Digital Mammography with Computer Added Detection was performed. COMPARISON: Comparison is made with prior study February 22, 2023 and February 13, 2022. FINDINGS: Breast Composition: The breasts are almost entirely fatty. There are no dominant masses or suspicious calcifications. Stable bilateral fat-containing axillary lymph nodes. A tissue clip marker is once again seen in the anterior superior midportion of the left breast. No other significant abnormalities are identified. There has been no significant change since the prior study. BI/SCRN MAMM (CAD)W/ORTIZ BILAT IMPRESSION: Stable bilateral screening mammogram. Yearly follow-up mammogram recommended. (A) ASSESSMENT CATEGORY: BIRADS Category 2: Benign. A letter regarding these results will be sent to the patient by the facility within 30 days. Approximately 10% of breast cancers are not detected by mammography. A normal mammogram should not delay biopsy of a clinically suspicious abnormality. [id number] Electronically Signed: Davey Schmitz MD at 12:49 EST ,
== END | disposition home or self-care (01) ==
LOC: OPBI 12:09
PROVIDERS: PCP Family Medicine Geriatric Medicine; Referring Provider Family Medicine Geriatric Medicine; Visit Provider Family Medicine Geriatric Medicine
DX: Z12.31 Encounter for screening mammogram for malignant neoplasm of breast (principal)
CPT/HCPCS: 77063; 77067

== ENCOUNTER → 2024-04-29 | Outpatient (CLI) | payer MEDICARE, OTHER, SELFPAY ==
--- NOTE | 2024-04-29 10:39 | MRI_ITS ---
PROCEDURE: SPINE LUMBAR W/WO CONTRAST REASON FOR EXAM: Unable to lift leg; radiculopathy.w TECHNIQUE: Lumbar spine MRI without and with intravenous gadolinium-based contrast. CONTRAST: 20 mL Clariscan. COMPARISON: 09/07/2021 MRI. 04/10/2024 radiograph. FINDINGS: Vertebrae: Lumbar vertebral body heights are preserved. Bone marrow signal is unremarkable. Alignment: L3 through L5 posterior fusion Conus Medullaris: Normally positioned. L1-2: Facet arthropathy. No significant central or neural foraminal stenosis. L2-3: Grade 1 anterolisthesis and facet arthropathy resulting in [id number] central stenosis. Mild right moderate left neural foraminal stenosis. L3-4: Fused with grade 1 anterolisthesis and facet arthropathy. No significant central or neural foraminal stenosis. L4-5: Fused. Grade 1 anterolisthesis and facet arthropathy. No significant central or neural foraminal stenosis. L5-S1: Large right extraforaminal disc protrusion extending 17.5 cm laterally and displacing the exited L5 nerve root. Left extraforaminal disc protrusion extending 8 mm laterally mildly displacing the exited left L5 nerve root. Sacrum: Visualized upper sacrum and SI joints are unremarkable. Fluid signal within the erector spinae muscles at the level of L4 on L5 which may be postsurgical or represent muscle strain. No drainable fluid collection. Posterior midline surgical incision.. Postcontrast images: Unremarkable MRI/Spine Lumbar W/WO Contrast IMPRESSION: L5-S1: Large right extraforaminal disc protrusion displacing the exited L5 nerv e root. Left extraforaminal disc protrusion mildly displacing the exited left L5 nerve root. L2-3: Grade 1 anterolisthesis and facet arthropathy resulting in [id number] azul central stenosis. Mild right moderate left neural foraminal stenosis. Otherwise, no high-grade central or neural foraminal stenosis at the other visu alized levels. L3 through L5 posterior fusion. Reading Location: [place] [id number]
== END | disposition home or self-care (01) ==
PROVIDERS: PCP Family Medicine Geriatric Medicine; Referring Provider Orthopaedic Surgery Orthopaedic Surgery of the Spine; Visit Provider Orthopaedic Surgery Orthopaedic Surgery of the Spine
DX: M43.16 Spondylolisthesis, lumbar region (principal); M48.061 Spinal stenosis, lumbar region without neurogenic claudication; Z98.1 Arthrodesis status
CPT/HCPCS: 72158; A9575

== ENCOUNTER → 2024-09-08 | Outpatient (CLI) | payer MEDICARE, OTHER, SELFPAY ==
[2024-09-08 11:43] LABS: Absolute Lymphocyte Count 1.93 X10^3/uL (0.83-4.51); Absolute Neutrophil Count 8.5 X10^3/uL (2.0-7.7); Basophil% 0.9 % (0-1); Eosinophil# 0.27 X10^3/uL; Eosinophils% 2.3 % (0-5); Hematocrit 40.7 % (37-47); Hemoglobin 13.5 g/dL (12.0-15.0); Lymphocyte # 1.93 X10^3/ul (0.83-4.51); Lymphocyte % 16.5 % (19-41); Mean Corp Hgb Conc 33.2 g/dL (32-36); Mean Corpuscular Hgb 29.2 pg (27.0-32.0); Mean Corpuscular Volume 88.1 fL (81-99); Mean Platelet Vol. 11.1 fl (6.2-12.0); Monocyte# 0.83 X10^3/uL; Monocyte% 7.1 % (0-10); NRBC Flagged by Analyzer 0 % (0-5); Neutrophil % 72.8 % (47-70); Platelet Count 291 K/mm3 (150-450); RBC Distribution Width CV 12.3 % (11.6-14.6); RBC Distribution Width SD 39.6 fl (35.1-43.9); Red Blood Count 4.62 M/mm3 (4.2-5.4); White Blood Count 11.7 K/mm3 (4.4-11.0)
[2024-09-08 12:39] LABS: ALB/GLOB Ratio 1.3 RATIO (0.9-2.4); AST(SGOT) 36 U/L (<=31); Alanine Aminotransfer ALT/SGPT 29 U/L (<=34); Albumin, Serum 4.5 g/dL (3.4-4.8); Alkaline Phosphatase 58 U/L (35-104); Anion Gap 13 (5-15); BUN 27 mg/dL (4-19); BUN/Creat Ratio 33.9 RATIO (10-20); Carbon Dioxide 22.8 mmol/L (21.0-32.0); Chloride 101 mmol/L (98-108); Creatinine, Serum 0.79 mg/dL (0.70-1.20); EST Glomerular Filtration Rate 81 (>60); Globulin 3.4 g/dL (2.2-4.2); Glucose 116 mg/dL (70-99); Potassium 4.6 mmol/L (3.3-5.1); Protein, Total 7.9 g/dL (5.9-8.4); Sodium Level 137 mmol/L (133-145); Thyroid Stim Hormone (TSH) 0.821 uIU/mL (0.300-4.200); Vitamin D,25 Hydroxy 61.1 ng/mL (30-100)
== END | disposition home or self-care (01) ==
LOC: LAB 10:44
PROVIDERS: PCP Family Medicine Geriatric Medicine; Referring Provider Family Medicine Geriatric Medicine; Visit Provider Family Medicine Geriatric Medicine
DX: I10 Essential (primary) hypertension (principal); E55.9 Vitamin D deficiency, unspecified
CPT/HCPCS: 36415; 80053; 82306; 84443; 85025

== ENCOUNTER 2024-10-10 08:30 | Outpatient (RCR) | payer MEDICARE, OTHER, SELFPAY ==
--- NOTE | 2024-09-10 11:04 | HP.PTEVAL_ITS ---
Patient's Visit Information Visit Information Visit Information: CHELSIE HERNANDEZ is a 69 year old F referred to Physical Therapy by Dr. Marco Xie MD with a diagnosis of Back and leg pain. Date of Evaluation: 09/10/24 Physical Therapist: ISIAH Guido Visit Plan Frequency: 2x /Week Duration: 2 Months Plan: Main goal is to improve R hip flexion ROM and strength and neutral spine core stability with HEP 2X/ week for 8 weeks for R hip active ROM/PROM, strength starting in supine and progressing to against gravity, stairs, Neutral spine core stability, gait training with HEP HEP: LTR, bridges Subjective Subjective: Pt has compressed nerves in her back. Dr Macedo said very bad compression. She has been doing pain management. She is doing this to hopefully that she does not have to have surgery. Her R hip looks good but she has a hard time lifting her R leg up the step and in and out of the car and Dr Macedo said it is due to her back. She has had a spinal fusion in the past. The injections do help some. Dr Macedo recommends surgery. She wanted to try therapy. Her biggest complaint is to get her R leg in and out of car and steps. Her R hip gives out and does not have much stamina. The longer she walks the more tired her R hip gets. She had an injection 2 weeks ago and it is a lot better since then. Her goal is to get stronger and do the exercises at home. She has no N&T in the R leg. She is sleeping better since the injection. Pain R hip pain: Pain Intensity (Out of 10): 0 Objective Objective: Gait: pt walks with decrease stance time on the R LE and flexed trunk and R hip drop She is able to heel and toe raise with some UE assist Trunk AROM: flex 50%, ext to neutral LE MMT: R hip flex 9.2 and L 14.5 R knee ext 24.7 and L 20.5 R knee flexion 10.3 and L 12.4 + SLUMP test B with the R being worse than the L LTR tight to B sides Decreased active hip flexion on the R in sitting, standing and supine. The right his is tighter but also more painful Balance/Special Test Scores Oswestry Low Back Score: 16 Goals Goal 1:: I HEP Goal Time Frame: 8-12 Weeks Goal 2:: Decrease back and R hip pain by 50% walking back into the clinic Goal Time Frame: 8-12 Weeks Goal 3:: Increase R hip flexion strength (at the time of the eval: R hip flex 9.2 and L 14.5) Goal Time Frame: 8-12 Weeks Goal 4:: Be able to to raise R hip easier into the car or up the steps Goal Time Frame: 8-12 Weeks Rehabilitation Potential Rehabilitation Potential: Good Anticipated Interventions Patient/Client Instruction: Educate patient on: Condition and Plan of Care For the Purpose of:: To decrease pain, To decrease swelling/inflammation, To increase ROM, To improve nutrient delivery to tissue, To improve muscle performance and motor function, To improve ability to perform ADL's, To increase tolerance to activity/condition/position, To improve performance and independence with ADL's, To improve gait and locomotor functions, To improve health of tissue, To decrease soft tissue restriction and To increase flexibilit y/ROM Therapeutic Exercise to Include: Strength training, Endurance training, Flexibilty training, Gait and locomotor training, Neuromotor development, Passive ROM, Active ROM, Dynamic Lumbar Stabilization and Scapular Strength/Stabilization For the Purpose of:: To decrease pain, To increase ROM, To improve nutrient delivery to tissue, To improve muscle performance and motor function, To improve ability to perform ADL's, To increase tolerance to activity/condition/position, To improve performance and independence with ADL's, To improve ability of physical actions for home/community/work/leisure, To improve gait and locomotor functions, To improve health of tissue, To decrease soft tissue restriction and To increase flexibility/ROM Functional Training to Include: Gait training For the Purpose of:: To improve gait and locomotor functions and To improve safety with gait Manual Therapy Techniques to Include: Passive ROM For the Purpose of:: To decrease pain, To increase ROM, To improve nutrient delivery to tissue, To improve muscle performance and motor function, To improve health of tissue, To decrease soft tissue restriction and To increase flexibility/ROM Text: Thank you for the opportunity to evaluate your patient. For Medicare and Medicare HMO plans, please review the plan of care and approve it. It will need to be FAXED BACK to us at [phone] for Medicare purposes. For Medicare only, by signing this I certify the plan of care. Please let me know if there are questions or concerns regarding this plan of care. Physician Signature: Date:
--- NOTE | 2024-10-10 09:53 | HP.PTDCSUM ---
Discharge Summary D/C summary: It has been my pleasure to treat CHELSIE HERNANDEZ referred by Dr. Marco Xie MD, with the diagnosis of Back and leg pain for a total of 9 visit(s). Discharge Date: 10/10/24 Please see the following information for a summary of their discharge status. Subjective Subjective: If pt does anything then she will pay for it over the next few days. Dr said she needs surgery and they were going to go in the side and goes above and below the fusion. She will schedule her surgery on Sunday. Pain R hip pain: Pain Intensity (Out of 10): 0 LB: Pain Intensity (Out of 10): 3 Overall Improvement % Improvement: 50 Objective Objective/Function: R hip flex 13.3 and L 14.5 Goals Goal 1:: I HEP Goal Progress: Goal Met Goal 2:: Decrease back and R hip pain by 50% walking back into the clinic Goal Progress: Goal Met Goal 3:: Increase R hip flexion strength (at the time of the eval: R hip flex 9.2 and L 14.5) Goal 4:: Be able to to raise R hip easier into the car or up the steps Goal Progress: Not Progressing Plan Plan: DC PT to HEP D/C Information Discharge Comments: DC PT to HEP d/c sentence: If there are questions or concerns regarding this patient's physical therapy, please feel free to call me at [phone]. Thank you for the referral of this patient. Sincerely, Michelle Rojas, MPT Balance/Gait/Functional tests Balance/Special Test Scores Oswestry Low Back Score: 18 Improvement % Improvement: 50
== END 2024-10-10 19:00 | disposition home or self-care (01) ==
LOC: PT 08:30
PROVIDERS: PCP Family Medicine Geriatric Medicine; Referring Provider Anesthesiology Pain Medicine; Visit Provider Anesthesiology Pain Medicine
DX: M54.9 Dorsalgia, unspecified (principal); M79.609 Pain in unspecified limb
CPT/HCPCS: 97110; 97162

== ENCOUNTER → 2025-01-01 | Outpatient (CLI) | payer MEDICARE, OTHER, SELFPAY ==
[2025-01-01 11:57] LABS: Hematocrit 38.3 % (37-47); Hemoglobin 13.2 g/dL (12.0-15.0); Immature Granulocytes Count 0.040 X10^3/uL (0.0-0.0); Mean Corp Hgb Conc 34.5 g/dL (32-36); Mean Corpuscular Volume 85.9 fL (81-99); Mean Platelet Vol. 10.5 fl (6.2-12.0); NRBC Flagged by Analyzer 0 % (0-5); Platelet Count 290 K/mm3 (150-450); RBC Distribution Width CV 12.0 % (11.6-14.6); RBC Distribution Width SD 37.5 fl (35.1-43.9); Red Blood Count 4.46 M/mm3 (4.2-5.4); White Blood Count 6.8 K/mm3 (4.4-11.0)
[2025-01-01 12:07] LABS: Partial Thromboplast Time 26.4 Seconds (24.1-36.2); Prothrombin Time (Protime)PT. 13.2 SECONDS (11.7-14.9)
[2025-01-01 13:43] LABS: AST(SGOT) 50 U/L (<=31); Alanine Aminotransfer ALT/SGPT 47 U/L (<=34); Albumin, Serum 4.5 g/dL (3.4-4.8); Alkaline Phosphatase 47 U/L (35-104); Anion Gap 12 (5-15); BUN 26 mg/dL (4-19); BUN/Creat Ratio 37.7 RATIO (10-20); Calcium,Total 10.3 mg/dL (7.6-11.0); Carbon Dioxide 27.3 mmol/L (21.0-32.0); Chloride 100 mmol/L (98-108); Globulin 3.1 g/dL (2.2-4.2); Glucose 151 mg/dL (70-99); Potassium 4.0 mmol/L (3.3-5.1)
== END | disposition home or self-care (01) ==
LOC: POLAB3 11:42
PROVIDERS: PCP Family Medicine Geriatric Medicine; Visit Provider Family Medicine Geriatric Medicine
DX: I10 Essential (primary) hypertension (principal); D68.8 Other specified coagulation defects
CPT/HCPCS: 36415; 80053; 85025; 85610; 85730

== ENCOUNTER → 2025-01-20 | Outpatient (CLI) | payer MEDICARE, OTHER, SELFPAY ==
--- NOTE | 2025-01-20 14:40 | CT_ITS ---
PROCEDURE: SPINE LUMBAR WITHOUT CONTRAST 01/20/2025 REASON FOR EXAM: SURGERY PLANNING Pain with ambulation. Prior surgery. TECHNIQUE: Procedure Code: CTSPL Modality: CT Procedure: SPINE LUMBAR WITHOUT CONTRAST Coronal and Sagittal reconstruction series were provided. One or more dose reduction techniques were used (e.g., Automated exposure control, adjustment of the mA and/or kV according to patient size, use of iterative reconstruction technique COMPARISON: Prior MRI of the lumbar spine dated May 01, 2024. RADIATION DOSE SUMMARY: CTDlvol: 40.21 mGy DLP: 1239.06 mGycm FINDINGS: Vertebrae: The patient is status post laminectomy and fusion at the L3-L4 and L4 L5 levels with intrapedicular screw and juan fixation. Prosthetic disc at the L3-L4 and L4-L5 levels. Alignment: Unremarkable L1-2: Mild degree of disc space narrowing. No significant stenosis seen. L2-3: Marked degree of disc space narrowing and disc degeneration with subchondral sclerosis. Anterior spondylosis. Intrapedicular screws are seen at the L3 level. Spondylosis. Moderate degree of central canal stenosis. L3-4: Status post laminectomy and intrapedicular screw fixation. Prosthetic disc is seen. No significant stenosis seen. L4-5: Status post laminectomy and fusion with prosthetic disc. Marked degree of disc space narrowing. Mild anterior listhesis of L4 on L5. findings suggestive of a large right paracentral disc herniation causing compression of the L5 nerve root. L5-S1: Mild degree of disc space narrowing. Sacrum: Unremarkable CT/Spine Lumbar without Contrast IMPRESSION: Multiple findings as discussed above. Reading Location: [facility]
== END | disposition home or self-care (01) ==
LOC: CT 14:35
PROVIDERS: PCP Family Medicine Geriatric Medicine; Referring Provider Orthopaedic Surgery Orthopaedic Surgery of the Spine; Visit Provider Orthopaedic Surgery Orthopaedic Surgery of the Spine
DX: Z01.818 Encounter for other preprocedural examination (principal); M43.16 Spondylolisthesis, lumbar region; M51.369 Other intervertebral disc degeneration, lumbar region without mention of lumbar back pain or lower extremity pain; M16.11 Unilateral primary osteoarthritis, right hip; M48.062 Spinal stenosis, lumbar region with neurogenic claudication
CPT/HCPCS: 72131

== ENCOUNTER 2025-01-26 12:59 | Inpatient (IN) | payer MEDICARE, OTHER, SELFPAY ==
--- NOTE | 2025-01-12 12:36 | PAT.ANESEVAL ---
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 When Was Last Pacemaker Check QUESTION #4 FULL TEXT: You/Your Family Experience fever (hyperthermia) with Anesthesia Last Oral Intake Last Oral intake: Last Oral Intake NPO since Meds taken in AM with sips of water? Meds patient instructed to take am of surgery PONV PONV - rubber stamp die inspector: PONV - rubber stamp die inspector Female Yes 01/12/25 10:13 HX of Motion Sickness No 01/12/25 10:13 HX of N/V After Surgery No 01/12/25 10:13 Non-Smoker Yes 01/12/25 10:13 Duration of Surgery greater Yes 01/12/25 10:13 than 60 minutes Number of Risk Factors 3 01/12/25 10:13 PONV Score Moderate Risk 01/12/25 10:13 Height & Weight Height & Weight: Anesthesia: Height & Weight Height 5 ft 2 in 10/09/24 08:25 Respiratory Assessment Respiratory Assessment - rubber stamp die inspector: Respiratory Tract Infection Hx - rubber stamp die inspector Hx Respiratory Tract Infection No 01/12/25 10:13 STOP Sleep Apnea STOP Sleep Apnea - rubber stamp die inspector: STOP Sleep Apnea - rubber stamp die inspector Hx Hypertension Yes: CONTROLLED WITH MED 01/12/25 10:13 Hx Sleep Apnea Yes 01/12/25 10:13 CPAP Yes 01/12/25 10:13 BIPAP No 01/12/25 10:13 Do you snore loudly (louder than talking or can be heard Do you often feel tired/ fatigued/ sleepy during daytime? Has anyone observed you stop breathing during sleep? STOP Results Positive 01/12/25 10:13 QUESTION #5 FULL TEXT : Do you snore loudly (louder than talking or can be heard through closed doors)? 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 Specify any problems Hx of Preganancy in last 3 No 01/12/25 10:13 Months Nurse Filling Out Transfusion DSCHRIBER 01/12/25 10:13 & Questions: Date: 01/12/25 01/12/25 10:13 Time: 10:14 01/12/25 10:13 Patient unable to answer at this time (ie. confused, unrespo /Reproduction History /Reproductive History - rubber stamp die inspector: /Reproductive Hx- rubber stamp die inspector Hx Now No 01/12/25 10:13 Gestational Age (in weeks): EDC: Hx Hx Para Hx Section SAB No 01/12/25 10:13 [facility], [facility] Medical History (Updated 01/12/25 @ 10:19 by Reanna Parra) Post-menopausal History of steroid therapy Syncope Shortness of breath on exertion Leg length discrepancy Wears glasses Fatty liver High cholesterol Former smoker CPAP (continuous positive airway pressure) dependence History of pain when walking Leg cramps Numbness and tingling Fatigue Arthritis Back problem Abnormal ultrasound of breast Nerve pain Hypertension Home Medications ?Medication ?Instructions ?Recorded ?Last Taken ?Type pravastatin 40 mg tablet 40 mg PO QHS CHOLESTEROL 09/26/16 02/24/19 22:00 History cholecalciferol (vitamin D3) 50 2,000 unit PO DAILY SUPPLEMENT 06/20/18 02/24/19 08:00 History mcg (2,000 unit) capsule multivitamin 1 tab PO DAILY SUPPLEMENT 06/20/18 02/24/19 08:00 History calcium carbonate 500 mg PO DAILY@0800 SUPPLEMENT 02/18/19 02/24/19 08:00 History metoprolol tartrate 25 mg tablet 25 mg PO BID BP 11/01/20 12/14/20 05:00 History valsartan 320 1 tab PO DAILY BP 11/30/20 Unknown History mg-hydrochlorothiazide 12.5 mg tablet thistle weed 1 cap PO BID SUPPLEMENT 09/05/21 Unknown History gabapentin 600 mg tablet 600 mg PO BID NERVE PAIN 04/10/24 Unknown History Allergy/AdvReac Type Severity Reaction Status Date / Time No Known Allergies Allergy Verified 01/12/25 10:09 Family History Father Heart disease Hypertension Brother Heart disease Hypertension Sister Cancer sarcoma Hypertension CVA (cerebral vascular accident) Mother Hypertension Surgical History (Updated 01/12/25 @ 10:19 by Reanna Parra) History of left hip replacement Hx of colonoscopy Hx of knee surgery Hx of total knee replacement History of lumbar fusion History of lumbar laminectomy Hx of cholecystectomy History of total left knee replacement (TKR) Social History adopted: No household members: spouse housing: house number of children: 2 current occupational status: employed and retired 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 Normal sinus rhythm 61 bpm. Normal EKG. 01/01/2025. Sinus rhythm 75 bpm. Intra-atrial conduction delay. Recommendation Anesthesia Recommendation Anesthesia recommendation: OPTIMIZED for anesthesia
[2025-01-13 10:34] LABS: Magnesium 1.9 mg/dL (1.5-2.2)
[2025-01-26] VITALS (20 sets, daily range): BP systolic 130–184; BP diastolic 63–105; PULSE 67–85; RESP 12–18; TEMP 36.1–36.9; O2SAT 91–99; BMI 40.3
--- OUTSIDE RECORDS SUMMARY | 2025-01-26 05:34 | XMS RPT_ITS | CCD ---
Author Organization [facility] Care Team Providers Care Welfare Supervisor Name Role Phone Edyta MANRIQUEZ, Rae Floyd Unavailable JAI Narayan RN, Lorelei Raymond Unavailable Unavailabl e JAI Narayan RN, Lorelei A Unavailable Unavailabl e PROVIDER, UNKNOWN Admitting Unavailable PROVIDER, UNKNOWN Attending Unavailable AMARJIT VERNON Referring Unavailable CANDIDO NOVAK Primary Care Unavailable Edyta MANRIQUEZ, Rae Floyd Unavailable [phone] Victor Hugo, Dr. Phillip Guerrero Primary Care Provider Victor Hugo, Dr. Phillip Guerrero Referring Provider Dr. Seb Nolasco Attending Provider Dr. Deon Santos Attending Provider Victor Hugo, Dr. Phillip Guerrero Primary Care Provider Victor Hugo, Dr. Phillip Guerrero Referring Provider Dr. Seb Nolasco Attending Provider Victor Hugo, Dr. Phillip Guerrero Primary Care Provider Victor Hugo, Dr. Phillip Guerrero Referring Provider Dr. Seb Nolasco Attending Provider Victor Hugo MANRIQUEZ, Dr. Phillip Guerrero Primary Care Provider Victor Hugo MANRIQUEZ, Dr. Phillip Guerrero Attending Provider Victor Hugo MANRIQUEZ, Dr. Phillip Guerrero Referring Provider Rojas MANRIQUEZ, Dr. Lara Attending Provider Rojas MANRIQUEZ, Dr. Lara Referring Provider Raciel MANRIQUEZ, Dr. Aceves Attending Provider Rojas MANRIQUEZ, Dr. Lara Attending Provider [phone] Rojas MANRIQUEZ, Dr. Lara Referring Provider Remington MANRIQUEZ, Dr. Hollis Attending Provider Rojas MANRIQUEZ, Dr. Lara Attending Provider Rojas MANRIQUEZ, Dr. Lara Referring Provider Macedo, Bunny Attending Unavailable Macedo, Bunny Admitting Unavailable Macedo, Bunny Referring Unavailable Weeman, Mitchel Consulting Unavailable Victor Hugo, Phillip Chi Primary Care Unavailable Victor Hugo, Phillip Chi Primary Care Unavailable Macedo, Bunny Attending Unavailable Macedo, Bunny Referring Unavailable Victor Hugo, Phillip Chi Attending Unavailable Victor Hugo, Phillip Chi Primary Care Unavailable Victor Hugo, Phillip Chi Referring Unavailable Victor Hugo, Phillip Chi Primary Care Unavailable Noah Cam Attending Unavailable Victor Hugo, Phillip Chi Primary Care Unavailable Tom, [place] Attending Unavailable Victor Hugo, Phillip Chi Referring Unavailable Macedo, Bunny Attending Unavailable Victor Hugo, Phillip Chi Primary Care Unavailable Victor Hugo, Phillip Chi Referring Unavailable Macedo, Bunny Attending Unavailable Victor Hugo, Phillip Chi Primary Care Unavailable Victor Hugo, Phillip Chi Referring Unavailable Macedo, Bunny Attending Unavailable Victor Hugo, Phillip Chi Primary Care Unavailable Victor Hugo, Phillip Chi Referring Unavailable Macedo, Bunny Attending Unavailable Victor Hugo, Phillip Chi Primary Care Unavailable Victor Hugo, Phillip Chi Primary Care Unavailable Tom, [place] Attending Unavailable Victor Hugo, Phillip Chi Referring Unavailable Victor Hugo, Phillip Chi Attending Unavailable Victor Hugo, Phillip Chi Primary Care Unavailable Macedo, Bunny Referring Unavailable Macedo, Bunny Attending Unavailable Victor Hugo, Phillip Chi Primary Care Unavailable Basali, Ayman Attending Unavailable Victor Hugo, Phillip Chi Primary Care Unavailable Basali, Ayman Referring Unavailable Victor Hugo, Phillip Chi Referring Unavailable Victor Hugo, Phillip Chi Attending Unavailable Victor Hugo, Phillip Chi Primary Care Unavailable Victor Hugo, Phillip Chi Attending Unavailable Victor Hugo, Phillip Chi Primary Care Unavailable Allergies Allergy Classification Reported Allergen(s) Allergy Type Date of Onset Reaction(s) Facility (7 sources) predniSONE; Translations: [PREDNISONE] drug allergy 07-26-2016 [facility] Work Phone: Medications Current Medications Medication Drug Class(es) Dates Sig (Normalized) Sig (Original) calcium carbonate 1250 mg oral tablet (10 sources) Start: 02-18-2019 take 1 tablet by mouth once daily Calcium Carbonate 500 MG tablet Active 500 mg PO DAILY@0800 February 18, 2019 1:00am cholecalciferol 0.05 mg oral capsule (10 sources) Vitamin D Start: 06-20-2018 take 1 capsule by mouth once daily Cholecalciferol (Vitamin D3) 2,000 unit capsule Active 2000 U PO DAILY June 20, 2018 12:00am gabapentin 600 mg oral tablet (18 sources) Anti-epileptic Agent Start: 04-10-2024 Gabapentin 600 mg tablet Active mg PO April 10, 2024 1:00am Start: 09-01-2022 End: 04-10-2024 Gabapentin 300 mg capsule Discontinued NMA PO September 01, 2022 12:00am April 10, 2024 10:46am Start: 09-01-2022 Gabapentin Act brendan CAP PO August 31, 2022 11:00pm Start: 01-03-2018 End: 06-04-2018 take 1 capsule by mouth three times daily Gabapentin 300 mg capsule Discontinued 300 mg PO THREE TIMES A DAY January 03, 2018 12:00am June 04, 2018 1:22pm hydroCHLOROthiazide 12.5 mg / valsartan 320 mg oral tablet (10 sources) Thiazide Diuretic, Angiotensin 2 Receptor Uriah Start: 11-30-2020 Valsartan-Hydrochlorothiazid e 320-12.5 mg Tablet Active 1 {tbl} PO DAILY November 30, 2020 12:00am Start: 11-30-2020 take 1 tablet by [place] th once daily Valsartan-Hydrochlorothiazide Active 1 T ABLET PO DAILY November 29, 2020 11:00pm metoprolol tartrate 25 mg oral tablet (10 sources) beta-Adrenergic Uriah Start: 11-01-2020 take 1 tablet by mouth twice daily Metoprolol Tartrate 25 mg tablet Active 25 mg PO TWICE A DAY November 01, 2020 12:00am Multivitamin preparation (7 sources) Start: 06-20-2018 take 1 tablet by mouth once daily Multivitamin Active 1 TABLET PO DAILY June 19, 2018 11:00pm Start: 06-20-2018 take 1 tablet by [place] th once daily Multivitamin Active 1 TABLET PO DAILY June 20, 2018 12:00am Multivitamin tablet (3 sources) Start: 06-20-2018 Multivitamin t ablet Active 1 {tbl} PO DAILY June 20, 2018 12:00am pravastatin sodium 40 mg oral tablet (16 sources) HMG-CoA Reductase Inhibitor Start: 09-26-2016 take 1 tablet by mouth at bedtime Pravastatin 40 MG tablet Active 40 mg PO AT BEDTIME September 26, 2016 12:00am CHOLESTEROL thistle weed (10 sources) Start: 09-05-2021 thistle weed A ctive PO DAILY September 04, 2021 11:00pm Start: 09-05-2021 thistle weed A ctive PO DAILY September 05, 2021 12:00am Completed/Discontinued Medications Medication Drug Class(es) Dates Sig (Normalized) Sig (Original) 8 hr acetaminophen 650 mg extended release oral tablet (20 sources) Start: 09-05-2021 End: 09-01-2022 take 1 tablet by mouth every twelve hours Acetaminophen 650 mg tablet extended release Discontinued 650 mg PO Q12H September 05, 2021 12:00am September 01, 2022 9:50am Start: 12-14-2020 End: 09-05-2021 take 2 tablets by mouth every six hours as needed Acetaminophen 500 MG tablet Discontinued 1000 mg PO EVERY 6 HOURS NEEDED 100 0 December 14, 2020 12:00am September 05, 2021 9:55am Start: 12-14-2020 End: 09-05-2021 take 1000 mg by mouth every six hours as needed Acetaminophen Discontinued 1000 MG PO EVERY 6 HOURS NEEDED 100 December 13, 2020 11:00pm September 05, 2021 8:55am Start: 05-03-2017 End: 01-03-2018 take 2 tablets by mouth every eight hours Acetaminophen 500 MG tablet Discontinued 1000 mg PO EVERY 8 HOURS 90 0 May 03, 2017 1:00am January 03, 2018 9:47am Start: 05-03-2017 End: 01-03-2018 take 1000 mg by mouth every eight hours Acetaminophen Discontinued 1000 MG PO EVERY 8 HOURS 90 May 03, 2017 12:00am January 03, 2018 8:47am apixaban 2.5 mg oral tablet (10 sources) Factor Xa Inhibitor Start: 12-14-2020 End: 01-24-2021 take 1 tablet by mouth twice daily in the morning Apixaban (Eliquis) 2.5 MG tablet Discontinued 2.5 mg PO TWICE A DAY 42 0 December 14, 2020 12:00am January 24, 2021 11:25am Begin the morning after surgery aspirin 81 mg delayed release oral tablet (20 sources) Nonsteroidal Anti-inflammatory Drug Start: 06-20-2018 End: 09-05-2021 Aspirin (Adult Low Dose Aspirin) 81 mg tablet,delayed release (DR/EC) Discontinued 81 mg PO DAILY June 20, 2018 12:00am September 05, 2021 9:56am On Hold: Resume on 12/16/20. Start: 05-03-2017 End: 06-20-2018 take 1 tablet by mouth twice daily Aspirin 325 MG tablet Discontinued 325 mg PO TWICE A DAY 30 0 May 03, 2017 1:00am June 20, 2018 8:31am take 1 tablet by [place] th once daily ADULT ASPIRIN EC LOW STRENGTH 81 MG TBEC One tablet by mouth daily ASPIRIN [id number] Lorelei Narayan RN RN take 1 tablet by [place] th once daily ADULT ASPIRIN EC LOW STRENGTH 81 MG TBEC One tablet by mouth daily ASPIRIN [id number] Lorelei Narayan RN RN cephalexin 500 mg oral capsule (10 sources) Cephalosporin Antibacterial Start: 12-14-2020 End: 01-24-2021 Cephalexin 500 MG capsule Discontinued 1000 mg PO EVERY 8 HOURS 4 0 December 14, 2020 12:00am January 24, 2021 11:25am take 2 tabs at 9:00 pm and 2 tabs after 5 am when you wake up Start: 12-14-2020 End: 01-24-2021 Cephalexin Discontinued 1000 MG PO EVERY 8 HOURS 4 December 13, 2020 11:00pm January 24, 2021 10:25am take 2 tabs at 9:00 pm and 2 tabs after 5 am when you wake up docusate sodium 50 mg / sennosides, mcfp 8.6 mg oral tablet (10 sources) Start: 05-03-2017 End: 01-03-2018 Sennosides-Docusate Sodium 1 TABLET tablet Discontinued 2 {tbl} PO TWICE A DAY May 03, 2017 1:00am January 03, 2018 9:47am Take until first bowel movement, then as needed Start: 05-03-2017 End: 01-03-2018 Sennosides-Docusate Sodium D iscontinued 2 TABLET PO TWICE A DAY May 03, 2017 12:00am January 03, 2018 8:47am Take until first bowel movement, then as needed famotidine 20 mg oral tablet (10 sources) Histamine-2 Receptor Antagonist Start: 05-03-2017 End: 01-03-2018 take 1 tablet by mouth once daily Famotidine 20 MG tablet Discontinued 20 mg PO DAILY 30 0 May 03, 2017 1:00am January 03, 2018 9:47am lisinopril 40 mg oral tablet (6 sources) Angiotensin Converting Enzyme Inhibitor take 1 tablet by mouth once daily LISINOPRIL 40 MG TABS One tablet by mouth daily LISINOPRIL [id number] Lorelei Narayan RN RN meloxicam 15 mg oral tablet (20 sources) Nonsteroidal Anti-inflammatory Drug Start: 12-31-2020 End: 09-05-2021 take 1 tablet by mouth once daily Meloxicam (Mobic) 15 mg tablet Discontinued 15 mg PO DAILY 30 0 December 31, 2020 12:00am September 05, 2021 9:56am Do not start this medication until the completion of your postoperative blood thinner Start: 04-01-2019 End: 11-01-2020 take 1 tablet by mouth once daily Meloxicam 15 MG tablet Discontinued 15 mg PO DAILY 30 0 April 01, 2019 1:00am November 01, 2020 9:38am naproxen 250 mg oral tablet (10 sources) Nonsteroidal Anti-inflammatory Drug Start: 03-10-2019 End: 11-01-2020 take 1 tablet by mouth twice daily as needed for pain Naproxen 250 mg tablet Discontinued 250 mg PO TWICE A DAY as needed for pain 60 0 March 10, 2019 1:00am November 01, 2020 9:39am do NOT start until you are done with post op Eliquis rx oxyCODONE hydrochloride 5 mg oral capsule (20 sources) Opioid Agonist Start: 12-27-2020 End: 01-03-2021 take 1 tablet by mouth every four hours as needed for pain Oxycodone 5 mg tablet Discontinued 5 mg PO Q4H as needed for Pain Score 6-10/10 42 7 0 December 27, 2020 January 02, 2021 12:00am January 03, 2021 12:01am Other acute postprocedural pain Start: 12-14-2020 End: 09-05-2021 take 1 capsule by mouth every four hours as needed for pain Oxycodone 5 mg capsule Discontinued 5 mg PO Q4H as needed for pain 60 7 0 January 07, 2021 September 05, 2021 9:55am Other acute postprocedural pain Other acute postprocedural pain Start: 04-01-2019 End: 11-01-2020 take 1-2 tablets by mouth every four hours as needed for pain Oxycodone 5 MG tablet Discontinued 5 mg PO EVERY 4 HOURS NEEDED as needed for Pain Score 6-10/10 60 0 April 01, 2019 November 01, 2020 9:39am Other acute postprocedural pain 1-2 tabs by mouth every 4 hrs as needed for pain Start: 03-10-2019 End: 11-01-2020 take 1-2 tablets by mouth every six hours as needed for pain Oxycodone 5 mg capsule Discontinued 5 mg PO EVERY 6 HOURS as needed for pain 56 0 March 10, 2019 November 01, 2020 9:39am Other acute postprocedural pain 1-2 tabs every 6 hrs as needed for pain Start: 05-03-2017 End: 01-03-2018 take 5-10 mg by mouth every four hours as needed for pain Oxycodone 5 MG tablet Discontinued 5 - 10 mg PO EVERY 4 HOURS NEEDED as needed for Mod-Severe Pain (4-10/10) 80 7 0 May 03, 2017 1:00am January 03, 2018 9:47am Presence of left artificial knee joint Problems Active Problems Problem Classification Problem Date Documented Date Episodic/Chronic Disorders of lipid metabolism (6 sources) Hypercholesterolemia; Translations: [Disorder of bile acid and cholesterol metabolism, unspecified] Onset: 07-26-2016 07-26-2016 Chronic Esophageal disorders (10 sources) Gastroesophageal reflux disease; Translations: [Gastro-esophageal reflux disease without esophagitis] 02-24-2019 Chronic Essential hypertension (17 sources) Hypertensive disorder; Translations: [Essential (primary) hypertension] Onset: 07-26-2016 07-26-2016 Chronic Comment on above: RECENTLY STARTED 2ND MED, 3 WEEKS AGO Malaise and fatigue (10 sources) Fatigue; Translations: [Other fatigue] 02-24-2019 Episodic Osteoarthritis (20 sources) Osteoarthritis of left hip joint; Translations: [Unilateral primary osteoarthritis, left hip] Onset: 01-20-2025 11-01-2020 Chronic Other acquired deformities (10 sources) Spondylolisthesis; Translations: [Spondylolisthesis, site unspecified] 05-06-2018 Episodic Comment on above: L3 on L4-Grade 2L4 o n L5-Grade 1 Other acquired deformities (5 sources) Lumbar spondylolisthesis; Translations: [Spondylolisthesis, lumbar region] 04-10-2024 Episodic Other acquired deformities (4 sources) Leg length inequality; Translations: [Unequal limb length (acquired), unspecified site] 10-09-2024 Episodic Other acquired deformities (2 sources) Spondylolisthesis, lumbar region; Translations: [Spondylolisthesis, lumbar region] Onset: 05-12-2024 Episodic Other aftercare (10 sources) Follow-up status; Translations: [Encounter for other orthopedic aftercare] 01-24-2021 Episodic Other bone disease and musculoskeletal deformities (20 sources) Segmental and somatic dysfunction; Translations: [Segmental and somatic dysfunction of lumbar region] 05-06-2018 Episodic Other connective tissue disease (10 sources) History of total knee arthroplasty; Translations: [Presence of left artificial knee joint] 02-24-2019 Chronic Comment on above: 05/03/17 Other connective tissue disease (10 sources) Trochanteric bursitis; Translations: [Trochanteric bursitis, left hip] 08-25-2020 Episodic Other connective tissue disease (10 sources) Neuralgia; Translations: [Neuralgia and neuritis, unspecified] 02-24-2019 Episodic Comment on above: Left leg Other connective tissue disease (3 sources) History of lumbar fusion; Translations: [Arthrodesis status] 04-10-2024 Episodic Other nervous system disorders (10 sources) Acute postoperative pain; Translations: [Other acute postprocedural pain] 12-14-2020 Episodic Other nervous system disorders (10 sources) Numbness and tingling sensation of skin; Translations: [Anesthesia of skin] 02-24-2019 Episodic Other nutritional; endocrine; and metabolic disorders (6 sources) Overweight; Translations: [Overweight] Onset: 07-26-2016 07-26-2016 Chronic Other nutritional; endocrine; and metabolic disorders (5 sources) Obesity; Translations: [Other obesity due to excess calories] 11-01-2020 Chronic Other nutritional; endocrine; and metabolic disorders (5 sources) Obesity caused by energy imbalance; Translations: [Other obesity due to excess calories] 11-01-2020 Chronic Residual codes; unclassified (10 sources) Sleep apnea; Translations: [Sleep apnea, unspecified] 02-24-2019 Chronic Residual codes; unclassified (5 sources) H/O: urinary anomaly; Translations: [Personal history of other specified conditions] 09-01-2022 Episodic Residual codes; unclassified (5 sources) History of clinical finding in subject; Translations: [Personal history of other specified conditions] 09-01-2022 Episodic Spondylosis; intervertebral disc disorders; other back problems (8 sources) Inflammation of sacroiliac joint; Translations: [Sacroiliitis, not elsewhere classified] 05-02-2024 Chronic Unclassified (4 sources) Screening for malignant neoplasm of colon ; Translations: [Encounter for screening for malignant neoplasm of colon] Onset: 07-26-2016 07-26-2016 Unclassified (2 sources) Other intervertebral disc degeneration, lumbar region without mention of lumbar back pain or lower extremity pain; Translations: [Other intervertebral disc degeneration, lumbar region without mention of lumbar back pain or lower extremity pain] Onset: 04-11-2024 Unclassified (1 source) Low back pain, unspecified; Translations: [Low back pain, unspecified] Onset: 04-11-2024 Past or Other Problems Problem Classification Problem Date Documented Date Episodic/Chronic Allergic reactions (6 sources) Urticaria; Translations: [Urticaria, unspecified] Onset: 07-26-2016 07-26-2016 Episodic Anal and rectal conditions (3 sources) Anal and rectal polyp; Translations: [Rectal polyp] Onset: 10-02-2016 10-02-2016 Episodic Biliary tract disease (6 sources) Gallstone; Translations: [Calculus of gallbladder without cholecystitis without obstruction] Onset: 07-26-2016 07-26-2016 Episodic Other connective tissue disease (1 source) Arthrodesis status; Translations: [Arthrodesis status] Onset: 04-11-2024 Episodic Other lower respiratory disease (1 source) Lung mass; Translations: [Other nonspecific abnormal finding of lung field] Onset: 10-05-2016 10-05-2016 Episodic Other non-traumatic joint disorders (1 source) Pain in right hip; Translations: [Pain in right hip] Onset: 04-11-2024 Episodic Other screening for suspected conditions (not mental disorders or infectious disease) (11 sources) Ultrasonography of breast abnormal; Translations: [Other abnormal and inconclusive findings on diagnostic imaging of breast] Onset: 03-29-2024 06-20-2018 Episodic Spondylosis; intervertebral disc disorders; other back problems (20 sources) Radiculopathy, lumbar region; Translations: [Lumbosacral radiculopathy] Onset: 05-13-2018 Episodic Results Test Name Value Interpretation Reference Range Facility Spine Lumbar without Contras ton 01-20-2025 Spine Lumbar without Contrast [facility] [address] [place], [place] [address] Spine Lumbar without Contrast MR#: [id number] Acct: [id number] Name: CHELSIE HERNANDEZ Rep #: [id number] : 1955 F 69 From: Davey shannon MD PCP: Dr. Phillip Novak MD Status: REG CLI Study: Spine Lumbar without Contrast Date of Exam: Exam# [id number] Ordering Dr: Bunny Macedo MD PROCEDURE: SPINE LUMBAR WITHOUT CONTRAST 01/20/2025 REASON FOR EXAM: SURGERY PLANNING Pain with ambulation. Prior surgery. TECHNIQUE: Procedure Code: CTSPL Modality: CT Procedure: SPINE LUMBAR WITHOUT CONTRAST Coronal and Sagittal reconstruction series were provided. One or more dose reduction techniques were used (e.g., Automated exposure control, adjustment of the mA and/or kV according to patient size, use of iterative reconstruction technique COMPARISON: Prior MRI of the lumbar spine dated May 01, 2024. RADIATION DOSE SUMMARY: CTDlvol: 40.21 mGy DLP: 1239.06 mGycm FINDINGS: Vertebrae: The patient is status post laminectomy and fusion at the L3-L4 and L4 L5 levels with intrapedicular screw and juan fixation. Prosthetic disc at the L3-L4 and L4-L5 levels. Alignment: Unremarkable L1-2: Mild degree of disc space narrowing. No significant stenosis seen. L2-3: Marked degree of disc space narrowing and disc degeneration with subchondral sclerosis. Anterior spondylosis. Intrapedicular screws are seen at the L3 level. Spondylosis. Moderate degree of central canal stenosis. L3-4: Status post laminectomy and intrapedicular screw fixation. Prosthetic disc is seen. No significant stenosis seen. L4-5: Status post laminectomy and fusion with prosthetic disc. Marked degree of disc space narrowing. Mild anterior listhesis of L4 on L5. findings suggestive of a large right paracentral disc herniation causing compression of the L5 nerve root. L5-S1: Mild degree of disc space narrowing. Sacrum: Unremarkable CT/Spine Lumbar without Contrast IMPRESSION: Multiple findings as discussed above. Reading Location: [id number] CC: Dr. Bunny Macedo MD; Dr. 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 Bunny Macedo MD Age/Sex: 69/F Location: [facility] Status: Signed Intake Vital Signs 10/09/24 08:25 01/16/25 13:03 Height 5 ft 2 in 5 ft 2 in Weight: 220 lb 220 lb BMI 40.2 40.2 Intake Visit Reasons: lumbar spine Chief Complaint: lumbar spine pre op Accompanied by: Daughter Is patient in pain?: Yes Pain scale (1-10): 6 Allergies No Known Allergies Allergy (Verified 01/16/25 13:06) Medications ???Medication ???Instructions ???Recorded ???Confirmed ???Type pravastatin 40 mg tablet 40 mg PO QHS CHOLESTEROL 09/26/16 01/16/25 History cholecalciferol (vitamin D3) 50 2,000 unit PO DAILY SUPPLEMENT 01/2801/16/25 History mcg (2,000 unit) capsule multivitamin 1 tab PO DAILY SUPPLEMENT 06/20/18 01/16/25 History calcium carbonate 500 mg PO DAILY@0800 SUPPLEMENT 01/16/25 History metoprolol tartrate 25 mg tablet 25 mg PO BID BP 11/01/20 01/16/25 History valsartan 320 1 tab PO DAILY BP 11/30/20 5 History mg-hydrochlorothiazide 12.5 mg tablet thistle weed 1 cap PO BID SUPPLEMENT 09/05/21 1 03/18/24 History gabapentin 600 mg tablet 600 mg PO BID NERVE PAIN 04/10/24 01/16/25 History Have you fallen in the past year?: No PFSH Medical History Post-menopausal History of steroid therapy Syncope Shortness of breath on exertion Leg length discrepancy Wears glasses Fatty liver High cholesterol Former smoker CPAP (continuous positive airway pressure) dependence History of pain when walking Leg cramps Numbness and tingling Fatigue Arthritis Back problem Abnormal ultrasound of breast Nerve pain Hypertension Surgical History History of left hip replacement Hx of colonoscopy Hx of knee surgery Hx of total knee replacement History of lumbar fusion History of lumbar laminectomy Hx of cholecystectomy History of total left knee replacement (TKR) Family History Father Heart disease Hypertension Brother Heart disease Hypertension Sister Cancer sarcoma Hypertension CVA (cerebral vascular accident) Mother Hypertension Social History adopted: No household members: spouse housing: house number of children: 2 current occupational status: employed and retired 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 Bunny Macedo MD 01/16/25 [id number]. Part of today???s visit was documented by Florence Willis MA, acting as scribe. CHELSIE HERNANDEZ is a 69 year old F here today for lumbar spine pre op for L5-S1 ALIF, L2-3 OLIF, L2-S1 revision posterior spinal instrumented fusion, removal of previous hardware scheduled for 01-26-25. Patient states that her pain is a 6 today. She would like to know the general recovery. The patient is a 69-year-old female presenting with lumbar spinal stenosis and degenerative disc disease. She reports significant pain, particularly at night, ongoing since March, with some relief from a steroid injection received on December 02. The pain is primarily in the lower back and pelvis, with no radiation below the knee, and worsens with activities like lifting her leg or climbing stairs. She has a history of spinal fusion from L3 to L5, with imaging showing degeneration and stenosis above the fusion. The patient also has pre-diabetes, with a hemoglobin A1c of 6.3, and is monitored by her primary care physician. She denies diabetes and smoking. Hypertension was noted to be elevated on the morning of the visit, possibly due to stress. - Musculoskeletal: Reports significant pain in the lower back and pelvis, worsens with leg lifting and climbing stairs. Denies pain below the knee. - Endocrine: Reports pre-diabetes, denies diabetes. - Cardiovascular: Reports elevated blood pressure, denies chest pain or palpitations. Attestation: Documentation on this patient encounter was supported using ambient scribe technology/ (more content not included)... Normal [facility] MRSA/SAID NASAL SCREENon MRSA+SAID SCRN Reason for Exam: [place] ulices MRSA MRSA Negative S. AUREUS S. aureus Negative Normal [facility] Comment on above: Performed By: #### B TSPAT, L501.9920, M100.653 #### [facility] [address] [place], [place], [id number] Hemoglobin A1con 01-13-2025 HbA1c (Bld) [Mass fraction] 6.3 % High <=5.6 [facility] Comment on above: Result Comment: Norm al < 5.7 % Prediabetic 5.7 - 6.4 % Diabetic >or= 6.5 % Please note range changes. Performed By: #### B TSPAT, L501.9985, M100.650 #### [facility] [address] [place], [place], [id number] Magnesiumon 01-13-2025 Magnesium [Mass/Vol] 1.9 mg/dL Normal 1.5-2.2 [facility] Comment on above: Performed By: #### B TSPAT, L501.9985, M100.651 #### [facility] [address] [place], [address] Type AND Screen - PAT ONLYon 01-13-2025 ABO and Rh group Nom (Bld) Blood group A Rh(D) positive Normal [facility] Comment on above: Order Comment: Surge ry Date: 01/26/25 Reason for Laboratory Test PREOP [id number] No N N S 1200 ANTERIOR LUMBAR FUSION Performed By: #### B TSPAT, L501.9985, M100.651 #### [facility] [address] [place], [address] MR/PAT.ANEon 01-12-2025 MR/PAT.ANE [facility] Medical Records Department [address] [place] [address] PAT - Anesthesia 01/12/25 1236 MR#: [id number] Acct: [id number] Name: CHELSIE HERNANDEZ Rep #: [id number] : 1955 69 From: Mitchel Mchugh MD PCP: Dr. Phillip Novak MD Status:PRE IN Y Race: C Location: [facility] Pre-Assessment Diagnosis/Proposed Procedure Planned Operative Procedure(s): ANTERIOR LUMBAR INTERBODY FUSION L5-S1 OBLIQUE LUMBAR INTERBODY FUSION L2-3 REVISION POSTERIOR SPINAL INSTRUMENTED FUSION L2-3 L3-4 L4-5 L5-S1 REMOVAL OF PREVIOUS HARDWARE Anesthesia History Anesthesia History - senior integration architect: Anesthesia History - senior integration architect Hx Hospitalization No 01/12/25 10:13 Any Problems With Anesthesia No 01/12/25 10:13 Cholinesterase deficiency No 01/12/25 10:13 You/Your Family Experience No 01/12/25 10:13 fever (hyperthermia) with Relationship Recent Exposure to Contagious No 02/29/24 15:54 Disease Does patient have nerve No 01/12/25 10:13 stimulator Patient instructed to have device shut off --Does patient have Pacemaker or ICD? When Was Last Pacemaker Check QUESTION #4 FULL TEXT: You/Your Family Experience fever (hyperthermia) with Anesthesia Last Oral Intake Last Oral intake: Last Oral Intake NPO since Meds taken in AM with sips of water? Meds patient instructed to take am of surgery PONV PONV - senior integration architect: PONV - senior integration architect Female Yes 01/12/25 10:13 HX of Motion Sickness No 01/12/25 10:13 HX of N/V After Surgery No 01/12/25 10:13 Non-Smoker Yes 01/12/25 10:13 Duration of Surgery greater Yes 01/12/25 10:13 than 60 minutes Number of Risk Factors 3 01/12/25 10:13 PONV Score Moderate Risk 01/12/25 10:13 Height Weight Height Weight: Anesthesia: Height Weight Height 5 ft 2 in 10/09/24 08:25 Respiratory Assessment Respiratory Assessment - senior integration architect: Respiratory Tract Infection Hx - senior integration architect Hx Respiratory Tract Infection No 01/12/25 10:13 STOP Sleep Apnea STOP Sleep Apnea - senior integration architect: STOP Sleep Apnea - senior integration architect Hx Hypertension Yes: CONTROLLED WITH MED 01/12/25 10:13 Hx Sleep Apnea Yes 01/12/25 10:13 CPAP Yes 01/12/25 10:13 BIPAP No 01/12/25 10:13 Do you snore loudly (louder than talking or can be heard Do you often feel tired/ fatigued/ sleepy during daytime? Has anyone observed you stop breathing during sleep? STOP Results Positive 01/12/25 10:13 QUESTION #5 FULL TEXT : Do you snore loudly (louder than talking or can be heard through closed doors)? 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 confused, unrespo /Reproduction History /Reproductive History - senior integration architect: /Reproductive Hx- senior integration architect Hx Now No 01/12/25 10:13 Gestational Age (in weeks): EDC: Hx Hx Para Hx Section SAB No 01/12/25 10:13 [facility] Medical History (Updated 01/12/25 @ 10:19 by Reanna Parra) Post-menopausal History of steroid therapy Syncope Shortness of breath on exertion Leg length discrepancy Wears glasses Fatty liver High cholesterol Former smoker CPAP (continuous positive airway pressure) dependence History of pain when walking Leg cramps Numbness and tingling Fatigue Arthritis Back problem Abnormal ultrasound of breast Nerve pain Hypertension Home Medications ???Medication ???Instructions ???Recorded ???Last Taken ???Type pravastatin 40 mg tablet 40 mg PO QHS CHOLESTEROL 09/26/16 02/24/19 22:00 History cholecalciferol (vitamin D3) 50 2,000 unit PO DAILY SUPPLEMENT 01/2802/24/19 08:00 History (more content not included)... Normal [facility] CBC W/Diff, Automatedon 10-2 Absolute Lymph 1.77 X10 3/uL Normal 0.83-4.51 [facility] Comment on above: Performed By: #### L 500.4050, L100.0100, L300.3900, L300.4310 #### [facility] [address] [place], [place], [id number] Absolute Neut 4.2 X10 3/uL Normal 2.0-7.7 [facility] Comment on above: Performed By: #### L 500.4050, L100.0100, L300.3900, L300.4310 #### [facility] [address] [place], [address] Basophils/100 WBC (Bld) 1.0 % Normal 0-1 [facility] Comment on above: Performed By: #### L 500.4050, L100.0100, L300.3900, L300.4310 #### [facility] [address] [place], [address] Eosinophils/100 WBC (Bld) 4.4 % Normal 0-5 [facility] Comment on above: Performed By: #### L 500.4050, L100.0100, L300.3900, L300.4310 #### [facility] [address] [place], [address] Erythrocyte distribution width (RBC) [Ratio] 12.0 % Normal 11.6-14.6 [facility] Comment on above: Performed By: #### L 500.4050, L100.0100, L300.3900, L300.4310 #### [facility] [address] [place], [address] Hematocrit (Bld) [Volume fraction] 38.3 % Normal 37-47 [facility] Comment on above: Performed By: #### L 500.4050, L100.0100, L300.3900, L300.4310 #### [facility] [address] [place], [address] Hemoglobin (Bld) [Mass/Vol] 13.2 g/dL Normal 12.0-15.0 [facility] Comment on above: Performed By: #### L 500.4050, L100.0100, L300.3900, L300.4310 #### [facility] [address] [place], [address] IG% 0.600 Normal 0.0-0.9 [facility] Comment on above: Result Comment: IG% - Immature Granulocytes (promyelocytes, myelocytes and metamyelocytes) > 1% indicates that a LEFT SHIFT is Present. Performed By: #### L 500.4050, L100.0100, L300.3900, L300.4310 #### [facility] [address] [place], [address] Lymphocytes/100 WBC (Bld) 25.9 % Normal 19-41 [facility] Comment on above: Performed By: #### L 500.4050, L100.0100, L300.3900, L300.4310 #### [facility] [address] [place], [address] MCH (RBC) [Entitic mass] 29.6 pg Normal 27.0-32.0 [facility] Comment on above: Performed By: #### L 500.4050, L100.0100, L300.3900, L300.4310 #### [facility] [address] [place], [address] MCHC (RBC) [Mass/Vol] 34.5 g/dL Normal 32-36 [facility] Comment on above: Performed By: #### L 500.4050, L100.0100, L300.3900, L300.4310 #### [facility] [address] [place], [address] MCV (RBC) [Entitic vol] 85.9 fL Normal 81-99 [facility] Comment on above: Performed By: #### L 500.4050, L100.0100, L300.3900, L300.4310 #### [facility] [address] [place], [address] Monocytes/100 WBC (Bld) 7.3 % Normal 0-10 [facility] Comment on above: Performed By: #### L 500.4050, L100.0100, L300.3900, L300.4310 #### [facility] [address] [place], [address] Neutrophils/100 WBC (Bld) 60.8 % Normal 47-70 [facility] Comment on above: Performed By: #### L 500.4050, L100.0100, L300.3900, L300.4310 #### [facility] [address] [place], [address] Nucleated RBC (Bld) [#/Vol] 0 10*3/uL Normal 0-5 [facility] Comment on above: Performed By: #### L 500.4050, L100.0100, L300.3900, L300.4310 #### [facility] [address] [place], [address] Platelet mean volume (Bld) [Entitic vol] 10.5 fL Normal 6.2-12.0 [facility] Comment on above: Performed By: #### L 500.4050, L100.0100, L300.3900, L300.4310 #### [facility] [address] [place], [address] Platelets (Bld) [#/Vol] 290 10*3/uL Normal 150-450 [facility] Comment on above: Performed By: #### L 500.4050, L100.0100, L300.3900, L300.4310 #### [facility] [address] [place], [address] RBC (Bld) [#/Vol] 4.46 10*6/uL Normal 4.2-5.4 [facility] Comment on above: Performed By: #### L 500.4050, L100.0100, L300.3900, L300.4310 #### [facility] [address] [place], [address] RDW SD 37.5 fl Normal 35.1-43.9 [facility] Comment on above: Performed By: #### L 500.4050, L100.0100, L300.3900, L300.4310 #### [facility] [address] [place], [address] WBC (Bld) [#/Vol] 6.8 10*3/uL Normal 4.4-11.0 [facility] Comment on above: Performed By: #### L 500.4050, L100.0100, L300.3900, L300.4310 #### [facility] [address] [place], [address] Comprehensive Metabolic Prof ilon 01-01-2025 Albumin [Mass/Vol] 4.5 g/dL Normal 3.4-4.8 [facility] Comment on above: Performed By: #### L 500.4050, L100.0100, L300.3900, L300.4310 #### [facility] [address] [place], [address] Albumin/Globulin [Mass ratio] 1.4 {ratio} Normal 0.9-2.4 [facility] Comment on above: Performed By: #### L 500.4050, L100.0100, L300.3900, L300.4310 #### [facility] [address] [place], [address] ALK PHOS 47 U/L Normal 35-104 [facility] Comment on above: Performed By: #### L 500.4050, L100.0100, L300.3900, L300.4310 #### [facility] [address] [place], [address] ALT [Catalytic activity/Vol] 47 U/L High <=34 [facility] Comment on above: Performed By: #### L 500.4050, L100.0100, L300.3900, L300.4310 #### [facility] [address] [place], [address] AST [Catalytic activity/Vol] 50 U/L High <=31 [facility] Comment on above: Performed By: #### L 500.4050, L100.0100, L300.3900, L300.4310 #### [facility] [address] [place], [address] Bilirubin [Mass/Vol] 0.42 mg/dL Normal 0.00-1.30 [facility] Comment on above: Performed By: #### L 500.4050, L100.0100, L300.3900, L300.4310 #### [facility] [address] [place], [address] BUN/CRE 37.7 RATIO High 10-20 [facility] Comment on above: Performed By: #### L 500.4050, L100.0100, L300.3900, L300.4310 #### [facility] [address] [place], [address] Calcium [Mass/Vol] 10.3 mg/dL Normal 7.6-11.0 [facility] Comment on above: Performed By: #### L 500.4050, L100.0100, L300.3900, L300.4310 #### [facility] [address] [place], [address] Chloride [Moles/Vol] 100 mmol/L Normal 98-108 [facility] Comment on above: Performed By: #### L 500.4050, L100.0100, L300.3900, L300.4310 #### [facility] [address] [place], [address] CO2 [Moles/Vol] 27.3 mmol/L Normal 21.0-32.0 [facility] Comment on above: Performed By: #### L 500.4050, L100.0100, L300.3900, L300.4310 #### [facility] [address] [place], [address] Creatinine [Mass/Vol] 0.69 mg/dL Low 0.70-1.20 [facility] Comment on above: Performed By: #### L 500.4050, L100.0100, L300.3900, L300.4310 #### [facility] [address] [place], [address] GAP 12 Normal 5-15 [facility] Comment on above: Performed By: #### L 500.4050, L100.0100, L300.3900, L300.4310 #### [facility] [address] [place], [address] GFR/1.73 sq M.predicted among non-blacks MDRD (S/P/Bld) [Vol rate/Area] 93 mL/min/{1.73_m2} Normal >60 [facility] Comment on above: Result Comment: mL/m in/1.73m2 CKD-EPI Creatinine Equation (2020) Performed By: #### L 500.4050, L100.0100, L300.3900, L300.4310 #### [facility] [address] [place], [address] Globulin (S) [Mass/Vol] 3.1 g/dL Normal 2.2-4.2 [facility] Comment on above: Performed By: #### L 500.4050, L100.0100, L300.3900, L300.4310 #### [facility] [address] [place], [address] Glucose [Mass/Vol] 151 mg/dL High 70-99 [facility] Comment on above: Performed By: #### L 500.4050, L100.0100, L300.3900, L300.4310 #### [facility] [address] [place], [address] Potassium [Moles/Vol] 4.0 mmol/L Normal 3.3-5.1 [facility] Comment on above: Performed By: #### L 500.4050, L100.0100, L300.3900, L300.4310 #### [facility] [address] [place], [address] Sodium [Moles/Vol] 139 mmol/L Normal 133-145 [facility] Comment on above: Performed By: #### L 500.4050, L100.0100, L300.3900, L300.4310 #### [facility] [address] [place], [address] T PROT 7.6 g/dL Normal 5.9-8.4 [facility] Comment on above: Performed By: #### L 500.4050, L100.0100, L300.3900, L300.4310 #### [facility] [address] [place], [address] Urea nitrogen [Mass/Vol] 26 mg/dL High 4-19 [facility] Comment on above: Performed By: #### L 500.4050, L100.0100, L300.3900, L300.4310 #### [facility] [address] [place], [address] Partial Thromboplast Timeon 01-01-2025 aPTT Coag (Bld) [Time] 26.4 s Normal 24.1-36.2 [facility] Comment on above: Performed By: #### L 500.4050, L100.0100, L300.3900, L300.4310 #### [facility] [address] [place], [address] Prothrombin Time w/INRon INR Coag (PPP) [Relative time] 1.0 {INR} Normal [facility] Comment on above: Performed By: #### L 500.4050, L100.0100, L300.3900, L300.4310 #### [facility] [address] [place], [address] PT Coag (PPP) [Time] 13.2 s Normal 11.7-14.9 [facility] Comment on above: Performed By: #### L 500.4050, L100.0100, L300.3900, L300.4310 #### [facility] [address] [place], [place], [id number] PT D/C Summary (1)on 025 PT D/C Summary (1) [facility] [address] [place] [address] / REHABILITATION SERVICES DISCHARGE SUMMARY MR#: [id number] Acct: [id number] Name: CHELSIE HERNANDEZ Rep #: [id number] : 1955 69 From: Michelle Rojas MPT Referring Dr.: Dr. Marco Xie MD Status: REG RCR Insurance: MEDICARE PART A B [facility] Discharge Summary D/C summary: It has been my pleasure to treat CHELSIE HERNANDEZ referred by Dr. Marco Xie MD, with the diagnosis of Back and leg pain for a total of 9 visit(s). Discharge Date: 10/10/24 Please see the following information for a summary of their discharge status. Subjective Subjective: If pt does anything then she will pay for it over the next few days. said she needs surgery and they were going to go in the side and goes above and below the fusion. She will schedule her surgery on Sunday. Pain R hip pain: Pain Intensity (Out of 10): 0 LB: Pain Intensity (Out of 10): 3 Overall Improvement % Improvement: 50 Objective Objective/Function: R hip flex 13.3 and L 14.5 Goals Goal 1:: I HEP Goal Progress: Goal Met Goal 2:: Decrease back and R hip pain by 50% walking back into the clinic Goal Progress: Goal Met Goal 3:: Increase R hip flexion strength (at the time of the eval: R hip flex 9.2 and L 14.5) Goal 4:: Be able to to raise R hip easier into the car or up the steps Goal Progress: Not Progressing Plan Plan: DC PT to HEP D/C Information Discharge Comments: DC PT to HEP d/c sentence: If there are questions or concerns regarding this patient's physical therapy, please feel free to call me at [phone]. Thank you for the referral of this patient. Sincerely, Michelle Rojas, ISIAH Balance/Gait/Functional tests Balance/Special Test Scores Oswestry Low Back Score: 18 Improvement % Improvement: 50 10/10/24 0953 CC: Dr. Marco Xie MD; Dr. Phillip Novak MD Signed Normal [facility] Orthopedic Visit Reporton Orthopedic Visit Report [facility] [address] [place] [address] OFFICE VISIT Date of Service: 10/09/24 MR#: [id number] Acct: [id number] Name: CHELSIE HERNANDEZ Rep #: [id number] : 1955 Provider: Dr. Bunny Macedo MD Age/Sex: 69/F Location: [facility] Status: Signed Intake Vital Signs 04/10/24 09:33 10/09/24 08:25 Height 5 ft 2 in 5 ft 2 in Weight: 220 lb BMI 40.2 Intake Visit Reasons: LUMBAR SPINE Chief Complaint: Physicla therapy follow up Accompanied by: Self Is patient in pain?: Yes Pain scale (1-10): 4 Allergies No Known Allergies Allergy (Verified 10/09/24 08:28) Medications ???Medication ???Instructions ???Recorded ???Confirmed ???Type pravastatin 40 mg tablet 40 mg PO QHS CHOLESTEROL 09/26/16 10/09/24 History cholecalciferol (vitamin D3) 50 2,000 unit PO DAILY 06/20/1810/09 History mcg (2,000 unit) capsule multivitamin 1 tab PO DAILY 06/20/18 10/09/24 H istory calcium carbonate 500 mg PO DAILY@0800 02/18/1909/11 History metoprolol tartrate 25 mg tablet 25 mg PO BID 11/01/20 10/09/24 His tory valsartan 320 1 tab PO DAILY 11/30/20 10/09/24 H istory mg-hydrochlorothiazide 12.5 mg tablet thistle weed PO DAILY 09/05/21 10/09/24 History gabapentin 600 mg tablet mg PO 04/10/24 10/09/24 History Have you fallen in the past year?: No PFSH Medical History (Updated 10/09/24 @ 09:06 by Diann Reno, JAI) Leg length discrepancy Wears glasses History of steroid therapy Ambulates with cane Cirrhosis Fatty liver High cholesterol Former smoker CPAP (continuous positive airway pressure) dependence History of pain when walking Leg cramps Acid reflux Sleep apnea Numbness and tingling Fatigue Arthritis Back problem Abnormal ultrasound of breast Nerve pain Hypertension Surgical History History of left hip replacement Hx of colonoscopy Hx of knee surgery Hx of total knee replacement History of lumbar fusion History of lumbar laminectomy Hx of cholecystectomy History of total left knee replacement (TKR) Family History Father Heart disease Hypertension Brother Heart disease Hypertension Sister Cancer sarcoma Hypertension CVA (cerebral vascular accident) Mother Hypertension Social History adopted: No household members: spouse housing: house number of children: 2 current occupational status: employed and retired 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 Bunny Macedo MD 10/09/24 0825. Part of today???s visit was documented by Florence Willis MA and Diann Reno RN, acting as scribe. CHELSIE HERNANDEZ is a 69 year old F here today for follow up after physical therapy. Patient has been doing physical therapy at [facility]. She has done about 6 sessions of physical therapy for her l ower back. Patient states that she can't maintain the pin in her lower back through physical therapy. Her pain level is about a 4 today in the lower back. Patient states that the Physical therapy did help her lower back, but she is still have continuation of lower back pain. The pain sometimes feels like someone is taking there fist and bunching the lower back, other days it feels like a dull ache. Patient states that she is completely done with physical therapy tomorrow, that she would like to discuss surgery options. She reports trouble going up and down stairs due to pain and weakness in her right leg. The pain in the right leg is anterior and lateral and extends to the knee. She did receive a caudal injections in August which she reports was helpful in alleviating the pain that goes into her left thigh. She does not feel the need to use a cane or walker. She has a fusion at L3-L5. Past medical history is significant for hypertension and hypercholesteremia. She denies a history of diabetes, heart or lung problems. She denies a history of strokes. She does not take a blood thinner. The patient is a 69-year-old female presenting with lumbar spine arthritis and right leg pain. The patient has a history of lumbar spine arthritis, which has been exacerbated by a previous lumbar fusion surgery fro (more content not included)... Normal [facility] Inital Evaluation (1) - PTon 09-10-2024 Inital Evaluation (1) - PT [facility] [address] [place] [address] [address] [place] [address] / REHABILITATION SERVICES INITIAL EVALUATION MR#: [id number] Acct: [id number] Name: CHELSIE HERNANDEZ Rep #: [id number] : 1955 69 From: Michelle JOYCE Referring Dr.: Dr. Marco Xie MD Status: REG RCR Insurance: MEDICARE PART A B [facility] Patient's Visit Information Visit Information Visit Information: CHELSIE HERNANDEZ is a 69 year old F referred to Physical Therapy by Dr. Marco Xie MD with a diagnosis of Back and leg pain. Date of Evaluation: 09/10/24 Physical Therapist: ISIAH Guido Visit Plan Frequency: 2x /Week Duration: 2 Months Plan: Main goal is to improve R hip flexion ROM and strength and neutral spine core stability with HEP 2X/ week for 8 weeks for R hip active ROM/PROM, strength starting in supine and progressing to against gravity, stairs, Neutral spine core stability, gait training with HEP HEP: laura SOSA Subjective Subjective: Pt has compressed nerves in her back. Dr Macedo said very bad compression. She has been doing pain management. She is doing this to hopefully that she does not have to have surgery. Her R hip looks good but she has a hard time lifting her R leg up the step and in and out of the car and Dr Macedo said it is due to her back. She has had a spinal fusion in the past. The injections do help some. Dr Macedo recommends surgery. She wanted to try therapy. Her biggest complaint is to get her R leg in and out of car and steps. Her R hip gives out and does not have much stamina. The longer she walks the more tired her R hip gets. She had an injection 2 weeks ago and it is a lot better since then. Her goal is to get stronger and do the exercises at home. She has no N T in the R leg. She is sleeping better since the injection. Pain R hip pain: Pain Intensity (Out of 10): 0 Objective Objective: Gait: pt walks with decrease stance time on the R LE and flexed trunk and R hip drop She is able to heel and toe raise with some UE assist Trunk AROM: flex 50%, ext to neutral LE MMT: R hip flex 9.2 and L 14.5 R knee ext 24.7 and L 20.5 R knee flexion 10.3 and L 12.4 + SLUMP test B with the R being worse than the L LTR tight to B sides Decreased active hip flexion on the R in sitting, standing and supine. The right his is tighter but also more painful Balance/Special Test Scores Oswestry Low Back Score: 16 Goals Goal 1:: I HEP Goal Time Frame: 8-12 Weeks Goal 2:: Decrease back and R hip pain by 50% walking back into the clinic Goal Time Frame: 8-12 Weeks Goal 3:: Increase R hip flexion strength (at the time of the eval: R hip flex 9.2 and L 14.5) Goal Time Frame: 8-12 Weeks Goal 4:: Be able to to raise R hip easier into the car or up the steps Goal Time Frame: 8-12 Weeks Rehabilitation Potential Rehabilitation Potential: Good Anticipated Interventions Patient/Client Instruction: Educate patient on: Condition and Plan of Care For the Purpose of:: To decrease pain, To decrease swelling/inflammation, To increase ROM, To improve nutrient delivery to tissue, To improve muscle performance and motor function, To improve ability to perform ADL's, To increase tolerance to activity/condition/positio n, To improve performance and independence with ADL's, To improve gait and locomotor functions, To improve health of tissue, To decrease soft tissue restriction and To increase flexibility/ROM Therapeutic Exercise to Include: Strength training, Endurance training, Flexibilty training, Gait and locomotor training, Neuromotor development, Passive ROM, Active ROM, Dynamic Lumbar Stabilization and Scapular Strength/Stabilization For the Purpose of:: To decrease pain, To increase ROM, To improve nutrient delivery to tissue, To improve muscle performance and motor function, To improve ability to perform ADL's, To increase tolerance to activity/condition/positio n, To improve performance and independence with ADL's, To improve ability of physical actions for home/community/work/leisur e, To improve gait and locomotor functions, To improve health of tissue, To decrease soft tissue restriction and To increase flexibility/ROM Functional Training to Include: Gait training For the Purpose of:: To improve gait and locomotor functions and To improve safety with gait Manual Therapy Techniques to Include: Passive ROM For the Purpose of:: To decrease pain, To increase ROM, To improve nutrient delivery to tissue, To improve muscle performance and motor function, To improve health of tissue, To decrease soft tissue restriction and To increase flexibility/ROM Text: Thank you for the opportunity to evaluate your patient. For Medicare and Medicare HMO plans, please review the plan of care and approve it. It will need to be FAXED BACK to us at [phone] for Medicare purp (more content not included)... Normal [facility] Absolute lymphocyte countOrd ered By: Phillip Novak on 09-08-2024 Lymphocytes Auto (Unsp spec) [#/Vol] 1.93 10*3/uL 0.83-4.51 [facility] Absolute neutrophil countOrd ered By: Phillip Novak on 09-08-2024 Neutrophils (Bld) [#/Vol] 8.5 10*3/uL High 2.0-7.7 [facility] Anion gap in Serum or Plasma Ordered By: Phillip Novak on 09-08-2024 Anion gap [Moles/Vol] 13 mmol/L 5-15 [facility] Automated lymphocyte count a s percentage of total leukocytesOrdered By: Phillip Novak on 09-08-2024 Lymphocytes/100 WBC Auto (Unsp spec) 16.5 % Low 19-41 [facility] BUN/creatinine ratioOrdered By: Phillip Novak on 09-08-2024 Urea nitrogen/Creatinine [Mass ratio] 33.9 mg/mg High 10-20 [facility] Basophil percentageOrdered B y: Phillip Novak on 09-08-2024 Basophils/100 WBC (Bld) 0.9 % 0-1 [facility] Bilirubin, totalOrdered By: Phillip Novak on 09-08-2024 Bilirubin [Mass/Vol] 0.40 mg/dL 0.00-1.30 [facility] CBC W/Diff, Automatedon 08-12 Absolute Lymph 1.93 X10 3/uL Normal 0.83-4.51 [facility] Comment on above: Performed By: #### B TSPAT, L5.9985, M100.65 #### [facility] [address] [place], [address] Absolute Neut 8.5 X10 3/uL High 2.0-7.7 [facility] Comment on above: Performed By: #### B TSPAT, L501.9985, M100.65 #### [facility] [address] [place], [address] Basophils/100 WBC (Bld) 0.9 % Normal 0-1 [facility] Comment on above: Performed By: #### B TSPAT, L501.9985, M100.65 #### [facility] [address] [place], [address] Eosinophils/100 WBC (Bld) 2.3 % Normal 0-5 [facility] Comment on above: Performed By: #### B TSPAT, L501.9984, . #### [facility] [address] [place], [address] Erythrocyte distribution width (RBC) [Ratio] 12.3 % Normal 11.6-14.6 [facility] Comment on above: Performed By: #### B TSPAT, L501.9984, . #### [facility] [address] [place], [address] Hematocrit (Bld) [Volume fraction] 40.7 % Normal 37-47 [facility] Comment on above: Performed By: #### B TSPAT, L5.9984, . #### [facility] [address] [place], [address] Hemoglobin (Bld) [Mass/Vol] 13.5 g/dL Normal 12.0-15.0 [facility] Comment on above: Performed By: #### B TSPAT, L5, . #### [facility] [address] [place], [address] IG% 0.400 Normal 0.0-0.9 [facility] Comment on above: Result Comment: IG% - Immature Granulocytes (promyelocytes, myelocytes and metamyelocytes) > 1% indicates that a LEFT SHIFT is Present. Performed By: #### B TSPAT, L5.9984, .65 #### [facility] [address] [place], [address] Lymphocytes/100 WBC (Bld) 16.5 % Low 19-41 [facility] Comment on above: Performed By: #### B TSPAT, L501.9984, .65 #### [facility] [address] [place], [address] MCH (RBC) [Entitic mass] 29.2 pg Normal 27.0-32.0 [facility] Comment on above: Performed By: #### B TSPAT, L501.9984, M100.65 #### [facility] [address] [place], [address] MCHC (RBC) [Mass/Vol] 33.2 g/dL Normal 32-36 [facility] Comment on above: Performed By: #### B TSPAT, L501.9984, M100.65 #### [facility] [address] [place], [address] MCV (RBC) [Entitic vol] 88.1 fL Normal 81-99 [facility] Comment on above: Performed By: #### B TSPAT, L501.9984, M100.65 #### [facility] [address] [place], [address] Monocytes/100 WBC (Bld) 7.1 % Normal 0-10 [facility] Comment on above: Performed By: #### B TSPAT, L501.9984, M100.65 #### [facility] [address] [place], [address] Neutrophils/100 WBC (Bld) 72.8 % High 47-70 [facility] Comment on above: Performed By: #### B TSPAT, L501.9984, M100.65 #### [facility] [address] [place], [address] Nucleated RBC (Bld) [#/Vol] 0 10*3/uL Normal 0-5 [facility] Comment on above: Performed By: #### B TSPAT, L501.9984, M100.65 #### [facility] [address] [place], [address] Platelet mean volume (Bld) [Entitic vol] 11.1 fL Normal 6.2-12.0 [facility] Comment on above: Performed By: #### B TSPAT, L501.9984, M100.651 #### [facility] [address] [place], [address] Platelets (Bld) [#/Vol] 291 10*3/uL Normal 150-450 [facility] Comment on above: Performed By: #### B TSPAT, L501.9985, M100.651 #### [facility] [address] [place], [address] RBC (Bld) [#/Vol] 4.62 10*6/uL Normal 4.2-5.4 [facility] Comment on above: Performed By: #### B TSPAT, L501.9985, M100.651 #### [facility] [address] [place], [address] RDW SD 39.6 fl Normal 35.1-43.9 [facility] Comment on above: Performed By: #### B TSPAT, L501.9985, M100.651 #### [facility] [address] [place], [address] WBC (Bld) [#/Vol] 11.7 10*3/uL High 4.4-11.0 [facility] Comment on above: Performed By: #### B TSPAT, L501.9985, M100.651 #### [facility] [address] [place], [address] Carbon dioxide, total [Moles /volume] in Central venous bloodOrdered By: Phillip Novak on 09-08-2024 CO2 [Moles/Vol] 22.8 mmol/L 21.0-32.0 [facility] Chloride assayOrdered By: Volodymyr Novak on 09-08-2024 Chloride [Moles/Vol] 101 mmol/L 98-108 [facility] Comprehensive Metabolic Prof ilon 09-08-2024 Albumin [Mass/Vol] 4.5 g/dL Normal 3.4-4.8 [facility] Comment on above: Performed By: #### B TSPAT, L501.9985, M100.65 #### [facility] [address] [place], [address] Albumin/Globulin [Mass ratio] 1.3 {ratio} Normal 0.9-2.4 [facility] Comment on above: Performed By: #### B TSPAT, L501.99, M100.65 #### [facility] [address] [place], [address] ALK PHOS 58 U/L Normal 35-104 [facility] Comment on above: Performed By: #### B TSPAT, L501.99, M100.65 #### [facility] [address] [place], [address] ALT [Catalytic activity/Vol] 29 U/L Normal <=34 [facility] Comment on above: Result Comment: Hemo lysis present, Results??could be affected. ?? Performed By: #### B TSPAT, L501.9984, M100.65 #### [facility] [address] [place], [address] AST [Catalytic activity/Vol] 36 U/L High <=31 [facility] Comment on above: Result Comment: Hemo lysis present, Results??could be affected. ?? Performed By: #### B TSPAT, L501.9984, M100.65 #### [facility] [address] [place], [address] Bilirubin [Mass/Vol] 0.40 mg/dL Normal 0.00-1.30 [facility] Comment on above: Performed By: #### B TSPAT, L501.9985, M100.65 #### [facility] [address] [place], [address] BUN/CRE 33.9 RATIO High 10-20 [facility] Comment on above: Performed By: #### B TSPAT, L501.9985, M100.651 #### [facility] [address] [place], [address] Calcium [Mass/Vol] 10.0 mg/dL Normal 7.6-11.0 [facility] Comment on above: Performed By: #### B TSPAT, L501.9985, M100.651 #### [facility] [address] [place], [address] Chloride [Moles/Vol] 101 mmol/L Normal 98-108 [facility] Comment on above: Performed By: #### B TSPAT, L501.9985, M100.651 #### [facility] [address] [place], [address] CO2 [Moles/Vol] 22.8 mmol/L Normal 21.0-32.0 [facility] Comment on above: Performed By: #### B TSPAT, L501.9985, M100.651 #### [facility] [address] [place], [address] Creatinine [Mass/Vol] 0.79 mg/dL Normal 0.70-1.20 [facility] Comment on above: Performed By: #### B TSPAT, L501.9985, M100.651 #### [facility] [address] [place], [address] GAP 13 Normal 5-15 [facility] Comment on above: Performed By: #### B TSPAT, L501.9985, M100.651 #### [facility] [address] [place], [address] GFR/1.73 sq M.predicted among non-blacks MDRD (S/P/Bld) [Vol rate/Area] 81 mL/min/{1.73_m2} Normal >60 [facility] Comment on above: Result Comment: mL/m in/1.73m2 CKD-EPI Creatinine Equation (2020) Performed By: #### B TSPAT, L501.9984, M100.65 #### [facility] [address] [place], [address] Globulin (S) [Mass/Vol] 3.4 g/dL Normal 2.2-4.2 [facility] Comment on above: Performed By: #### B TSPAT, L5.9984, .65 #### [facility] [address] [place], [address] Glucose [Mass/Vol] 116 mg/dL High 70-99 [facility] Comment on above: Performed By: #### B TSPAT, L501.9984, .65 #### [facility] [address] [place], [address] Potassium [Moles/Vol] 4.6 mmol/L Normal 3.3-5.1 [facility] Comment on above: Result Comment: Hemo lysis present, Results??could be affected. ?? Performed By: #### B TSPAT, L5.9984, .65 #### [facility] [address] [place], [address] Sodium [Moles/Vol] 137 mmol/L Normal 133-145 [facility] Comment on above: Performed By: #### B TSPAT, L5.9984, .65 #### [facility] [address] [place], [address] T PROT 7.9 g/dL Normal 5.9-8.4 [facility] Comment on above: Performed By: #### B TSPAT, L501.9984, .65 #### [facility] [address] [place], [address] Urea nitrogen [Mass/Vol] 27 mg/dL High 4-19 [facility] Comment on above: Performed By: #### B TSPAT, L501.9985, M100.651 #### [facility] [address] [place], [address] Eosinophil percentageOrdered By: Phillip Novak on 09-08-2024 Eosinophils/100 WBC (Bld) 2.3 % 0-5 [facility] Erythrocyte distribution wid th ratioOrdered By: Phillip Victor Hugo on 09-08-2024 Erythrocyte distribution width (RBC) [Ratio] 12.3 % 11.6-14.6 [facility] Erythrocyte distribution wid th standard deviationOrdered By: [facility] on 09-08-2024 Erythrocyte distribution width (RBC) [Ratio] 39.6 fl 35.1-43.9 [facility] Glomerular filtration rate ( GFR) estimation/1.73 sq m using serum, plasma, or whole bOrdered By: [facility] on 09-08-2024 GFR/1.73 sq M.predicted among non-blacks MDRD (S/P/Bld) [Vol rate/Area] 81 mL/min/{1.73_m2} >60 [facility] Comment on above: mL/min/1.73m2 CKD-EP I Creatinine Equation (2020) Hematocrit Auto (Bld) [Volum e fraction]Ordered By: Phillip Victor Hugo 09-08-2024 Hematocrit (Bld) [Volume fraction] 40.7 % 37-47 [facility] Hemoglobin measurementOrdere d By: Phillip Victor Hugo 09-08-2024 Hemoglobin (Bld) [Mass/Vol] 13.5 g/dL 12.0-15.0 [facility] Immature granulocytes/100 WB C Auto (Bld)Ordered By: Phillip Novak 09-08-2024 Immature granulocytes/100 WBC (Bld) 0.400 % 0.0-0.9 [facility] Comment on above: IG% - Immature Granu locytes (promyelocytes, myelocytes and metamyelocytes) > 1% indicates that a LEFT SHIFT is Present. Laboratory - Chemistry and C hemistry - challengeOrdered By: Phillip Victor Hugo 09-08-2024 AST [Catalytic activity/Vol] 36 U/L High <32 [facility] Comment on above: Hemolysis present, R esults could be affected. MCV (mean corpuscular volume ) determinationOrdered By: Phillip Novak on 09-08-2024 MCV (RBC) [Entitic vol] 88.1 fL 81-99 [facility] Mean corpuscular hemoglobin (MCH) determinationOrdered By: Phillip Novak on 09-08-2024 MCH (RBC) [Entitic mass] 29.2 pg 27.0-32.0 [facility] Mean corpuscular hemoglobin concentration (MCHC) determinationOrdered By: Phillip Novak on 09-08-2024 MCHC (RBC) [Mass/Vol] 33.2 g/dL 32-36 [facility] Mean platelet volume determi nationOrdered By: Phillip Novak on 09-08-2024 Platelet mean volume (Bld) [Entitic vol] 11.1 fL 6.2-12.0 [facility] Monocyte percentageOrdered B y: Phillip Novak on 09-08-2024 Monocytes/100 WBC (Bld) 7.1 % 0-10 [facility] Neutrophil percentageOrdered By: Phillip Novak on 09-08-2024 Neutrophils/100 WBC (Bld) 72.8 % High 47-70 [facility] Nucleated red blood cell per centageOrdered By: Phillip Novak on 09-08-2024 Nucleated RBC/100 WBC (Bld) [Ratio] 0 % 0-5 [facility] Platelet countOrdered By: Volodymyr Novak on 09-08-2024 Platelets (Bld) [#/Vol] 291 10*3/uL 150-450 [facility] Potassium measurement (mass/ volume)Ordered By: Phillip Novak on 09-08-2024 Potassium (Unsp spec) [Mass/Vol] 4.6 mmol/L 3.3-5.1 [facility] Comment on above: Hemolysis present, R esults could be affected. RBC Auto (Bld) [#/Vol]Ordere d By: Phillip Novak on 09-08-2024 RBC (Bld) [#/Vol] 4.62 10*6/uL 4.2-5.4 [facility] Serum creatinine measurement (mass/volume)Ordered By: Phillip Novak on 09-08-2024 Creatinine [Mass/Vol] 0.79 mg/dL 0.70-1.20 [facility] Serum globulin measurementOr dered By: Phillip Novak on 09-08-2024 Globulin (S) [Mass/Vol] 3.4 g/dL 2.2-4.2 [facility] Serum glucose measurement (m ass/volume)Ordered By: Phillip Novak on 09-08-2024 Glucose [Mass/Vol] 116 mg/dL High 70-99 [facility] Serum or plasma alanine jackson otransferase (ALT) measurementOrdered By: Phillip Novak on 09-08-2024 ALT [Catalytic activity/Vol] 29 U/L <35 [facility] Comment on above: Hemolysis present, R esults could be affected. Serum or plasma albumin lala urement (mass/volume)Ordered By: Phillip Novak on 09-08-2024 Albumin [Mass/Vol] 4.5 g/dL 3.4-4.8 [facility] Serum or plasma albumin/glob ulin mass ratioOrdered By: Phillip Novak on 09-08-2024 Albumin/Globulin [Mass ratio] 1.3 {ratio} 0.9-2.4 [facility] Serum or plasma alkaline kvng sphatase measurementOrdered By: Phillip Novak on 09-08-2024 ALP [Catalytic activity/Vol] 58 U/L 35-104 [facility] Serum or plasma calcium lala urement (mass/volume)Ordered By: Phillip Novak on 09-08-2024 Calcium [Mass/Vol] 10.0 mg/dL 7.6-11.0 [facility] Serum or plasma urea nitroge n measurement (mass/volume)Ordered By: Phillip Novak on 09-08-2024 Urea nitrogen [Mass/Vol] 27 mg/dL High 4-19 [facility] Sodium levelOrdered By: Phillip Novak on 09-08-2024 Sodium [Moles/Vol] 137 mmol/L 133-145 [facility] TSH DL <= 0.005 mIU/L QnOrde red By: Phillip Novak on 09-08-2024 TSH Qn 0.821 uIU/mL 0.300-4.20 0 [facility] Thyroid Stim Hormone (TSH)on 09-08-2024 TSH 0.821 uIU/mL Normal 0.300-4.20 0 [facility] Comment on above: Performed By: #### B TSPAT, L501.9985, M100.651 #### [facility] [address] [place], [address] Total proteinOrdered By: Phillip Novak on 09-08-2024 Protein [Mass/Vol] 7.9 g/dL 5.9-8.4 [facility] Vitamin D,25 Hydroxyon 09-08 Vitamin D 25-OH 61.1 ng/mL Normal 30-100 [facility] Comment on above: Result Comment: Rupal min D Status Deficiency: <20 ng/mL (50nmol/L) Insufficiency: 20-30 ng/mL (50-75 nmol/L) Sufficiency: 30-100 ng/mL (75-250 nmol/L) Toxicity: >100 ng/mL (>250 nmol/L) Performed By: #### B TSPAT, L501.9985, M100.652 #### [facility] [address] [place], [address] White blood cell (WBC) count Ordered By: Phillip Novak on 09-08-2024 WBC (Bld) [#/Vol] 11.7 10*3/uL High 4.4-11.0 [facility] Orthopedic Visit Reporton Orthopedic Visit Report [facility] [address] [place] [address] [address] [place] [address] OFFICE VISIT Date of Service: 05/02/24 MR#: [id number] Acct: [id number] Name: CHELSIE HERNANDEZ Rep #: [id number] : 1955 Provider: Dr. Bunny aMcedo MD Age/Sex: 68/F Location: [facility] Status: Signed Intake Vital Signs 04/10/24 09:33 Height 5 ft 2 in Intake Visit Reasons: LUMBAR SPINE Chief Complaint: MRI Review Accompanied by: Self Is patient in pain?: Yes Allergies No Known Allergies Allergy (Verified 05/02/24 07:31) Medications ???Medication ???Instructions ???Recorded ???Confirmed ???Type pravastatin 40 mg tablet 40 mg PO QHS CHOLESTEROL 09/26/16 05/02/24 History cholecalciferol (vitamin D3) 50 2,000 unit PO DAILY 06/20/1805/02 History mcg (2,000 unit) capsule multivitamin 1 tab PO DAILY 06/20/18 05/02/24 H istory calcium carbonate 500 mg PO DAILY@0800 02/18/1904/13 History metoprolol tartrate 25 mg tablet 25 mg PO BID 11/01/20 05/02/24 His catracho valsartan 320 1 tab PO DAILY 11/30/20 05/02/24 H istory mg-hydrochlorothiazide 12.5 mg tablet thistle weed PO DAILY 09/05/21 05/02/24 History gabapentin 600 mg tablet mg PO 04/10/24 05/02/24 History Have you fallen in the past year?: No PFSH Medical History Wears glasses History of steroid therapy Ambulates with cane Cirrhosis Fatty liver High cholesterol Former smoker CPAP (continuous positive airway pressure) dependence History of pain when walking Leg cramps Acid reflux Sleep apnea Numbness and tingling Fatigue Arthritis Back problem Abnormal ultrasound of breast Nerve pain Hypertension Surgical History History of left hip replacement Hx of colonoscopy Hx of knee surgery Hx of total knee replacement History of lumbar fusion History of lumbar laminectomy Hx of cholecystectomy History of total left knee replacement (TKR) Family History Father Heart disease Hypertension Brother Heart disease Hypertension Sister Cancer sarcoma Hypertension CVA (cerebral vascular accident) Mother Hypertension Social History adopted: No household members: spouse housing: house number of children: 2 current occupational status: employed and retired 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 Bunny Macedo MD 05/02/24 [id number]. Part of today???s visit was documented by Miroslava Lutz ATC, acting as scribe. CHELSIE HERNANDEZ is a 68 year old F here today for lumbar spine MRI review. Patient states if she goes to get out of the car her pain is about a 10 but if she is just sitting the pain is not too bad. Patient states the pain is about the same as it was at her last visit. Patient is taking dual Advil and Tylenol for the pain. Patient denies any recent injections. Last injections was February 13. Says that she thinks the injection was below her fusion. Her worst pain is in right anterior thigh when stepping up. 04/10/2024: CHELSIE HERNANDEZ is a 68 year old F here today for low back pain. She advises she had a spinal fusion at [facility] with Dr. Fang in 2016 or 2017 which was helpful but she began to experience pain going down her left leg about 2 years later. She then had her left hip replaced hoping that would alleviate her pain but then started having nerve pain in her left hamstring and glute. She was given injections from pain management which was effective. She began to experience right lateral thigh in January of 2024 and had a low back injection February 12, 2024 which she was hoping would be helpful in her right leg pain but it has slowly worsened. She states the pain injection was helpful with her left leg pain. She describes the right leg pain as a dull achy pain that extends into her right hip and low back. She states her pain increases with weight bearing. She also c/o numbness and tingling in her right outer thigh as well as her left inner thigh. She would like Xrays and to be advised. Had left PRIYANK with Dr. Cam on 12/14/2020. She complains of pain in the front of her right leg but does not go below the knee. She complains of jolt of nerve pain over the medial aspect (more content not included)... Normal [facility] Spine Lumbar W/WO Contraston 04-29-2024 Spine Lumbar W/WO Contrast [facility] Imaging Services [address] [place] [address] Spine Lumbar W/WO Contrast MR#: [id number] Acct: [id number] Name: CHELSIE HERNANDEZ Rep #: [id number] : 1955 F 68 From: Berlin Berrios MD PCP: Dr. Phillip Noavk MD Status: REG CLI Study: Spine Lumbar W/WO Contrast Date of Exam: 04/12 11/03 Exam# [id number] Ordering Dr: Bunny Macedo MD PROCEDURE: SPINE LUMBAR W/WO CONTRAST REASON FOR EXAM: Unable to lift leg; radiculopathy.w TECHNIQUE: Lumbar spine MRI without and with intravenous gadolinium-based contrast. CONTRAST: 20 mL Clariscan. COMPARISON: 09/07/2021 MRI. 04/10/2024 radiograph. FINDINGS: Vertebrae: Lumbar vertebral body heights are preserved. Bone marrow signal is unremarkable. Alignment: L3 through L5 posterior fusion Conus Medullaris: Normally positioned. L1-2: Facet arthropathy. No significant central or neural foraminal stenosis. L2-3: Grade 1 anterolisthesis and facet arthropathy resulting in wficvbkz-gr-vpkmzx central stenosis. Mild right moderate left neural foraminal stenosis. L3-4: Fused with grade 1 anterolisthesis and facet arthropathy. No significant central or neural foraminal stenosis. L4-5: Fused. Grade 1 anterolisthesis and facet arthropathy. No significant central or neural foraminal stenosis. L5-S1: Large right extraforaminal disc protrusion extending 17.5 cm laterally and displacing the exited L5 nerve root. Left extraforaminal disc protrusion extending 8 mm laterally mildly displacing the exited left L5 nerve root. Sacrum: Visualized upper sacrum and SI joints are unremarkable. Fluid signal within the erector spinae muscles at the level of L4 on L5 which may be postsurgical or represent muscle strain. No drainable fluid collection. Posterior midline surgical incision.. Postcontrast images: Unremarkable MRI/Spine Lumbar W/WO Contrast IMPRESSION: L5-S1: Large right extraforaminal disc protrusion displacing the exited L5 nerve root. Left extraforaminal disc protrusion mildly displacing the exited left L5 nerve root. L2-3: Grade 1 anterolisthesis and facet arthropathy resulting in dpsnhyhf-nm-wwvlum central stenosis. Mild right moderate left neural foraminal stenosis. Otherwise, no high-grade central or neural foraminal stenosis at the other visualized levels. L3 through L5 posterior fusion. Reading Location: [id number] CC: Dr. Bunny Macedo MD; Dr. 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 Phillip Novak MD Status: DEP AMB Study: HIP, UNI W/ Pelvis 2-3 Views Date of Exam: Exam# [id number] Ordering Dr: Noah Cam DO PROCEDURE: HIP, UNI W/ PELVIS 2-3 VIEWS REASON FOR EXAM: Right hip pain. TECHNIQUE: Three-view right hip to include the AP pelvis COMPARISON: None. RAD/HIP, UNI W/ Pelvis 2-3 Views IMPRESSION: Prominent degenerative changes and postsurgical changes are seen of the visualized lower lumbar spine. A partially visualized left total hip prosthesis is seen, without apparent complication. Mild sacroiliac joint degenerative changes are noted. The right hip joint demonstrates mild degenerative changes, including prominent lateral acetabular osteophytosis. No significant degree of joint space narrowing is noted. No evidence of femoral head osteonecrosis. No acute fracture or dislocation is seen. Reading Location: [id number] CC: Dr. Noah Cam DO; Dr. 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 Noah alvares DO Age/Sex: 68/F Location: [facility] Status: Signed Intake Vital Signs 04/10/24 09:33 Height 5 ft 2 in Weight: 217 lb BMI 39.6 Intake Visit Reasons: RIGHT HIP Chief Complaint: Right hip Sports Physiotherapist Required: No Accompanied by: Self Is patient in pain?: No Allergies No Known Allergies Allergy (Verified 04/11/24 10:00) Medications ???Medication ???Instructions ???Recorded ???Confirmed ???Type pravastatin 40 mg tablet 40 mg PO QHS CHOLESTEROL 09/26/16 04/11/24 History cholecalciferol (vitamin D3) 50 2,000 unit PO DAILY 06/20/1804/11 History mcg (2,000 unit) capsule multivitamin 1 tab PO DAILY 06/20/18 04/11/24 H istory calcium carbonate 500 mg PO DAILY@0800 02/18/1903/14 History metoprolol tartrate 25 mg tablet 25 mg PO BID 11/01/20 04/11/24 His tory valsartan 320 1 tab PO DAILY 11/30/20 04/11/24 H istory mg-hydrochlorothiazide 12.5 mg tablet thistle weed PO DAILY 09/05/21 04/11/24 History gabapentin 600 mg tablet mg PO 04/10/24 04/11/24 History Have you fallen in the past year?: No PFSH Medical History (Updated 04/11/24 @ 10:[address] Noah Cam DO) Wears glasses History of steroid therapy Ambulates with cane Cirrhosis Fatty liver High cholesterol Former smoker CPAP (continuous positive airway pressure) dependence History of pain when walking Leg cramps Acid reflux Sleep apnea Numbness and tingling Fatigue Arthritis Back problem Abnormal ultrasound of breast Nerve pain Hypertension Surgical History (Updated 04/10/24 @ 12:[address] 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 Noah Cam, DO 04/11/24 [id number]. Part of today???s visit was documented by [ ], acting as scribe. CHELSIE HERNANDEZ is a 68 year old F known to me as I previously replaced her left hip and right knee who has medical history significant but not limited to obesity, history of lumbar fusion, lumbosacral radiculopathy, nerve pain, GERD here today for evaluation of her right hip. Recent with visit with Dr. Macedo spine surgery currently being worked up ordered a new MRI lumbar spine at last visit not yet to be completed. Dull pain started 02/2024, mostly right low back/buttock anterior and lateral distal thigh. no groin pain. she does not think it is her hip. she had groing pain before her left hip replacement and this does not feel the same. of note recently she decribes similiar symptomson her left which swittched to the right haver he back injecitons. Will have severe pain during night after falling asleep. Pain exacerbated with laying on back, getting in car, or bending over, walking and stairs. RLE weakness, when getting in car will need to lift right leg and can give out when using stairs. Tingling in left inner thigh and burning posterolateral. Denies injuries. Hx right knee replacement. Denies injection to right hip. Sitting in certain position can be helpful. Tylenol as needed can be helpful. Does therapy at home occasionally that is helpful. Urinary frequency but denies loss of bladder or bowel control. Does not use assistive devices. Ortho Exam General General: Yes no acute distress and Yes well groomed Neurologic: Yes alert and Yes oriented x3 Psychologic: Yes reasonable and appropriate Right Hip Skin: Yes CDI, No Ecchymosis and No Erythema Special Tests: Yes TTP Greater sciatic notch HIP: ER (more content not included)... Normal [facility] L/S Spine Min 4 Viewson - L/S Spine Min 4 Views [facility] Imaging Services [address] [place] [address] L/S Spine Min 4 Views MR#: [id number] Acct: [id number] Name: CHELSIE HERNANDEZ Rep #: [id number] : 1955 F 68 From: Han Guardado DO PCP: Dr. Phillip Novak MD Status: DEP AMB Study: L/S Spine Min 4 Views Date of Exam: 04/10/24 Exam# [id number] Ordering Dr: Lesly Floyd PROCEDURE: L/S SPINE MIN 4 VIEWS REASON FOR EXAM: Back pain TECHNIQUE: Lumbar spine series with flexion and extension views. COMPARISON: None. FINDINGS: Slight dextrocurvature involving the mid lumbar spine. Posterior fusion hardware seen at the L3 through L5 levels, with intervertebral disc spacer devices. Negative for hardware failure. There is grade 1 anterolisthesis of L3 on L4 and L4 on L5, without abnormal motion. Grade 1 anterolisthesis of L2 on L3, with marked degenerative disc and endplate changes, without abnormal motion. No lumbar spine fractures or dislocations are identified. Left hip arthroplasty. Anatomic alignment of the bilateral SI joints. Vascular calcifications are noted. Moderate amounts of fecal retention. RAD/L/S Spine Min 4 Views IMPRESSION: 1. Dextrocurvature involving the mid lumbar spine. 2. Posterior fusion hardware involving the L3 through L5 levels, with intervertebral disc spacer devices and grade 1 anterolisthesis. Negative for hardware failure. 3. Grade 1 anterolisthesis of L2 on L3 with marked degenerative disc and endplate changes and without abnormal motion. 4. No acute fractures or dislocations are identified. Reading Location: [facility] CC: OWEN Stoddard; Dr. Phillip Novak MD S Iron Worker: Signed Normal [facility] Orthopedic Visit Reporton Orthopedic Visit Report [facility] [address] [place] [address] [address] [place] [address] OFFICE VISIT Date of Service: 04/10/24 MR#: [id number] Acct: [id number] Name: CHELSIE HERNANDEZ Rep #: [id number] : 1955 Provider: Dr. Bunny Macedo MD Age/Sex: 68/F Location: [facility] Status: Signed Intake Vital Signs 09/01/22 09:53 02/29/24 15:54 04/10/24 09:33 Height 5 ft 2 in 5 ft 2 in 5 ft 2 in Weight: 217 lb BMI 39.6 Intake Visit Reasons: LUMBAR SPINE Chief Complaint: lumbar spine Is patient in pain?: Yes (right low back/ leg ) Pain scale (1-10): 8 Allergies No Known Allergies Allergy (Verified 04/10/24 09:46) Medications ???Medication ???Instructions ???Recorded ???Confirmed ???Type pravastatin 40 mg tablet 40 mg PO QHS CHOLESTEROL 09/26/16 04/10/24 History cholecalciferol (vitamin D3) 50 2,000 unit PO DAILY 06/20/1804/10 History mcg (2,000 unit) capsule multivitamin 1 tab PO DAILY 06/20/18 09/01/22 H istory calcium carbonate 500 mg PO DAILY@0800 02/18/1903/14 History metoprolol tartrate 25 mg tablet 25 mg PO BID 11/01/20 04/10/24 His tory valsartan 320 1 tab PO DAILY 11/30/20 04/10/24 H istory mg-hydrochlorothiazide 12.5 mg tablet thistle weed PO DAILY 09/05/21 04/10/24 History gabapentin 600 mg tablet mg PO 04/10/24 04/10/24 History Have you fallen in the past year?: No [facility] Medical History (Updated 04/10/24 @ 12:[address] Bunny Maceod MD) Wears glasses History of steroid therapy Ambulates with cane Cirrhosis Fatty liver High cholesterol Former smoker CPAP (continuous positive airway pressure) dependence History of pain when walking Leg cramps Acid reflux Sleep apnea Numbness and tingling Fatigue Arthritis Back problem Abnormal ultrasound of breast Nerve pain Hypertension Surgical History (Updated 04/10/24 @ 12:[address] 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 Bunny Macedo MD 04/10/24 0968. Part of today???s visit was documented by [ ], acting as scribe. CHELSIE HERNANDEZ is a 68 year old F here today for low back pain. She advises she had a spinal fusion at [facility] with Dr. Fang in 2017 or 2017 which was helpful but she began to experience pain going down her left leg about 2 years later. She then had her left hip replaced hoping that would alleviate her pain but then started having nerve pain in her left hamstring and glute. She was given injections from pain management which was effective. She began to experience right lateral thigh in January of 2024 and had a low back injection February 12, 2024 which she was hoping would be helpful in her right leg pain but it has slowly worsened. She states the pain injection was helpful with her left leg pain. She describes the right leg pain as a dull achy pain that extends into her right hip and low back. She states her pain increases with weight bearing. She also c/o numbness and tingling in her right outer thigh as well as her left inner thigh. She would like Xrays and to be advised. Had left PRIYANK with Dr. Cam on 12/14/2020. She complains of pain in the front of her right leg but does not go below the knee. She complains of jolt of nerve pain over the medial aspect of the thigh in the left leg. No problems below the knees. Did not have any issues following her back surgery. She did use a cane prior to her lumbar spine surgery. Non-diabetic, no heart/lung problems, no difficulty breathing when walking longer distances. Ortho Exam General General: Yes no acute distress Neurologic: Yes alert and Yes oriented x3 Psychologic: Yes reasonable an (more content not included)... Normal [facility] SCRN MAMM (CAD)W/ORTIZ BILATo n 02-26-2024 SCRN MAMM (CAD)W/ORTIZ BILAT [facility] Imaging Services [address] [place] [id number] SCRN MAMM (CAD)W/ORTIZ BILAT MR#: [id number] Acct: [id number] Name: CHELSIE HERNANDEZ Rep #: [id number] : 1955 F 68 From: Davey shannon MD PCP: Dr. Phillip Novak MD Status: [facility] Study: SCRN MAMM (CAD)W/ORTIZ BILAT Date of Exam: 02/09 10/02 Exam# [id number] Ordering Dr: Phillip Novak MD [id number] MAMMOGRAPHY - BILATERAL SCREENING REASON FOR EXAM: Female, 68 years old. Routine annual screening examination. PERTINENT HISTORY: Aunts with breast cancer. Prior left ultrasound-guided breast biopsy. TECHNIQUE: Digital bilateral breast ortiz (3D mammographic acquisition) in the CC and MLO projections. 2-D mediolateral oblique (MLO) and craniocaudad (CC) views of both breasts were obtained. CAD: Full Field Digital Mammography with Computer Added Detection was performed. COMPARISON: Comparison is made with prior study February 22, 2023 and February 13, 2022. FINDINGS: Breast Composition: The breasts are almost entirely fatty. There are no dominant masses or suspicious calcifications. Stable bilateral fat-containing axillary lymph nodes. A tissue clip marker is once again seen in the anterior superior midportion of the left breast. No other significant abnormalities are identified. There has been no significant change since the prior study. BI/SCRN MAMM (CAD)W/ORTIZ BILAT IMPRESSION: Stable bilateral screening mammogram. Yearly follow-up mammogram recommended. (A) ASSESSMENT CATEGORY: BIRADS Category 2: Benign. A letter regarding these results will be sent to the patient by the facility within 30 days. Approximately 10% of breast cancers are not detected by mammography. A normal mammogram should not delay biopsy of a clinically suspicious abnormality. [id number] Electronically Signed: Davey Schmitz MD at 12:49 EST Reading Location ID and State: [address] [place] [address] , Service support , CC: Dr. Phillip Novak MD S Iron Worker: Signed Normal [facility] CBC W/Diff, Automatedon 02-09 Absolute Neut Normal 2.0-7.7 [facility] Comment on above: Order Comment: CC TO DR. GARRISON Result Comment: This specimen has been REJECTED due to Laboratory criteria: Quanity Not Sufficient. HOLLY has been notified of need of recollection. 02/21/24 1243 Irasema Cervantes Performed By: #### L 500.4100, L501.9520, L506.1000, L500.4050, L100.0100 #### [facility] [address] [place], [address] HCT Normal 37-47 [facility] Comment on above: Order Comment: CC TO DR. GARRISON Result Comment: This specimen has been REJECTED due to Laboratory criteria: Quanity Not Sufficient. HOLLY has been notified of need of recollection. 02/21/241242 Irasema Cervantes Performed By: #### L 500.4100, L501.9520, L506.1000, L500.4050, L100.0100 #### [facility] [address] [place], [address] HGB Normal 12.0-15.0 [facility] Comment on above: Order Comment: CC TO DR. GARRISON Result Comment: This specimen has been REJECTED due to Laboratory criteria: Quanity Not Sufficient. HOLLY has been notified of need of recollection. 02/21/24 1243 Irasema Cervantes Performed By: #### L 500.4100, L501.9520, L506.1000, L500.4050, L100.0100 #### [facility] [address] [place], [address] MCH Normal 27.0-32.0 [facility] Comment on above: Order Comment: CC TO DR. GARRISON Result Comment: This specimen has been REJECTED due to Laboratory criteria: Quanity Not Sufficient. HOLLY has been notified of need of recollection. 02/21/243 Irasema Cervantes Performed By: #### L 500.4100, L501.9520, L506.1000, L500.4050, L100.0100 #### [facility] [address] [place], [address] MCHC Normal 32-36 [facility] Comment on above: Order Comment: CC TO DR. GARRISON Result Comment: This specimen has been REJECTED due to Laboratory criteria: Quanity Not Sufficient. HOLLY has been notified of need of recollection. 02/21/243 Irasema Cervantes Performed By: #### L 500.4100, L501.9520, L506.1000, L500.4050, L100.0100 #### [facility] [address] [place], [address] MCV Normal 81-99 [facility] Comment on above: Order Comment: CC TO DR. GARRISON Result Comment: This specimen has been REJECTED due to Laboratory criteria: Quanity Not Sufficient. HOLLY has been notified of need of recollection. 02/21/24 1243 Irasema Cervantes Performed By: #### L 500.4100, L501.9520, L506.1000, L500.4050, L100.0100 #### [facility] [address] [place], [address] NEUT% Normal 47-70 [facility] Comment on above: Order Comment: CC TO DR. GARRISON Result Comment: This specimen has been REJECTED due to Laboratory criteria: Quanity Not Sufficient. HOLLY has been notified of need of recollection. 02/21/24 1243 Irasema Cervantes Performed By: #### L 500.4100, L501.9520, L506.1000, L500.4050, L100.0100 #### [facility] [address] [place], [address] PLT Normal 150-450 [facility] Comment on above: Order Comment: CC TO DR. GARRISON Result Comment: This specimen has been REJECTED due to Laboratory criteria: Quanity Not Sufficient. HOLLY has been notified of need of recollection. 02/21/24 1243 Irasema Cervantes Performed By: #### L 500.4100, L501.9520, L506.1000, L500.4050, L100.0100 #### [facility] [address] [place], [address] RBC Normal 4.2-5.4 [facility] Comment on above: Order Comment: CC TO DR. GARRISON Result Comment: This specimen has been REJECTED due to Laboratory criteria: Quanity Not Sufficient. HOLLY has been notified of need of recollection. 02/21/24 1243 Irasema Cervantes Performed By: #### L 500.4100, L501.9520, L506.1000, L500.4050, L100.0100 #### [facility] [address] [place], [address] RDW CV Normal 11.6-14.6 [facility] Comment on above: Order Comment: CC TO DR. GARRISON Result Comment: This specimen has been REJECTED due to Laboratory criteria: Quanity Not Sufficient. HOLLY has been notified of need of recollection. 02/21/24 1243 Irasema Cervantes Performed By: #### L 500.4100, L501.9520, L506.1000, L500.4050, L100.0100 #### [facility] [address] [place], [address] RDW SD Normal 35.1-43.9 [facility] Comment on above: Order Comment: CC TO DR. GARRISON Result Comment: This specimen has been REJECTED due to Laboratory criteria: Quanity Not Sufficient. HOLLY has been notified of need of recollection. 02/21/24 1243 Irasema Cervantes Performed By: #### L 500.4100, L501.9520, L506.1000, L500.4050, L100.0100 #### [facility] [address] [place], [address] WBC Normal 4.4-11.0 [facility] Comment on above: Order Comment: CC TO DR. GARRISON Result Comment: This specimen has been REJECTED due to Laboratory criteria: Quanity Not Sufficient. HOLLY has been notified of need of recollection. 02/21/24 1243 Irasema Cervantes Performed By: #### L 500.4100, L501.9520, L506.1000, L500.4050, L100.0100 #### [facility] [address] [place], [address] Comprehensive Metabolic Prof ilon 02-21-2024 Albumin [Mass/Vol] 4.1 g/dL Normal 3.2-5.0 [facility] Comment on above: Order Comment: CC TO DR. GARRISON Performed By: #### B TSPAT, L501.9985, M100.65 #### [facility] [address] [place], [address] Albumin/Globulin [Mass ratio] 0.9 {ratio} Normal 0.9-2.4 [facility] Comment on above: Order Comment: CC TO DR. GARRISON Performed By: #### B TSPAT, L501.9985, M100.651 #### [facility] [address] [place], [address] ALK P 53 U/L Normal 45-117 [facility] Comment on above: Order Comment: CC TO DR. GARRISON Performed By: #### B TSPAT, L501.85, M100.65 #### [facility] [address] [place], [address] ALT [Catalytic activity/Vol] 28 U/L Normal 13-56 [facility] Comment on above: Order Comment: CC TO DR. GARRISON Performed By: #### B TSPAT, L501.9984, M1.65 #### [facility] [address] [place], [address] AST [Catalytic activity/Vol] 41 U/L High 15-37 [facility] Comment on above: Order Comment: CC TO DR. GARRISON Result Comment: Mode rate Hemolysis, Result may be falsely increased. Performed By: #### B TSPAT, L501.9985, M1.65 #### [facility] [address] [place], [address] Bilirubin [Mass/Vol] 0.70 mg/dL Normal 0.20-1.00 [facility] Comment on above: Order Comment: CC TO DR. GARRISON Result Comment: For patients on eltrombopag therapy, use of Dimension [place] TBIL is not recommended. Performed By: #### B TSPAT, L501.9985, M100.651 #### [facility] [address] [place], [address] BUN/CRE 30.2 RATIO High 10-20 [facility] Comment on above: Order Comment: CC TO DR. GARRISON Performed By: #### B TSPAT, L501.9985, M100.651 #### [facility] [address] [place], [address] CA,Total 10.0 mg/dL Normal 8.5-10.1 [facility] Comment on above: Order Comment: CC TO DR. GARRISON Performed By: #### B TSPAT, L501.9984, M1.65 #### [facility] [address] [place], [address] Chloride [Moles/Vol] 100 mmol/L Normal 98-107 [facility] Comment on above: Order Comment: CC TO DR. GARRISON Performed By: #### B TSPAT, L501.9984, M1.65 #### [facility] [address] [place], [address] CO2 [Moles/Vol] 30.0 mmol/L Normal 21.0-32.0 [facility] Comment on above: Order Comment: CC TO DR. GARRISON Performed By: #### B TSPAT, L501.9984, M100.65 #### [facility] [address] [place], [address] Creatinine [Mass/Vol] 0.86 mg/dL Normal 0.55-1.02 [facility] Comment on above: Order Comment: CC TO DR. GARRISON Result Comment: The validity of the calculated GFR GFRAA in patients over 70 years has not been determined. Clinical correlation is essential. Performed By: #### B TSPAT, L501.9985, M100.651 #### [facility] [address] [place], [address] EST GFR - AA 84 mL/min Normal >60 [facility] Comment on above: Order Comment: CC TO DR. GARRISON Result Comment: Afri can Bhutanese GFR Calc Performed By: #### B TSPAT, L5, #### [facility] [address] [place], [address] GAP 7 Normal 5-15 [facility] Comment on above: Order Comment: CC TO DR. GARRISON Performed By: #### B TSPAT, L5, #### [facility] [address] [place], [address] GFR/1.73 sq M.predicted among non-blacks MDRD (S/P/Bld) [Vol rate/Area] 69 mL/min/{1.73_m2} Normal >60 [facility] Comment on above: Order Comment: CC TO DR. GARRISON Result Comment: Non- GFR Calc Performed By: #### B TSPAT, L5, #### [facility] [address] [place], [address] Globulin (S) [Mass/Vol] 4.5 g/dL High 2.2-4.2 [facility] Comment on above: Order Comment: CC TO DR. GARRISON Performed By: #### B TSPAT, L5, #### [facility] [address] [place], [address] Glucose [Mass/Vol] 117 mg/dL High 74-106 [facility] Comment on above: Order Comment: CC TO DR. GARRISON Result Comment: Fast ing Glucose result from 100 to 125 mg/dL suggests IMPAIRED HOMEOSTASIS per A.D.A. criteria. Performed By: #### B TSPAT, L501.9984, #### [facility] [address] [place], [address] Potassium [Moles/Vol] 4.4 mmol/L Normal 3.5-5.1 [facility] Comment on above: Order Comment: CC TO DR. GARRISON Result Comment: Mode rate Hemolysis, Result may be falsely increased. Performed By: #### B TSPAT, L501.9985, M100.651 #### [facility] [address] [place], [address] Sodium [Moles/Vol] 137 mmol/L Normal 136-145 [facility] Comment on above: Order Comment: CC TO DR. GARRISON Performed By: #### B TSPAT, L501.9985, M100.651 #### [facility] [address] [place], [address] T PROT 8.6 g/dL High 6.4-8.2 [facility] Comment on above: Order Comment: CC TO DR. GARRISON Performed By: #### B TSPAT, L501.9985, M100.65 #### [facility] [address] [place], [address] Urea nitrogen [Mass/Vol] 26 mg/dL High 7-18 [facility] Comment on above: Order Comment: CC TO DR. GARRISON Performed By: #### B TSPAT, L501.9985, M100.651 #### [facility] [address] [place], [address] Lipid Profileon 02-21-2024 Cholesterol [Mass/Vol] 159 mg/dL Normal 200 [facility] Comment on above: Order Comment: CC TO DR. GARRISON Result Comment: <200 mg/dL Desirable 200-240 mg/dL Borderline >240 mg/dL High Risk Performed By: #### B TSPAT, L501.9985, M100.651 #### [facility] [address] [place], [address] Cholesterol in HDL [Mass/Vol] 44 mg/dL Normal [facility] Comment on above: Order Comment: CC TO DR. GARRISON Result Comment: The drugs N-Acetylcysteine and Metamizole may falsely depress this assay. Reference Range HDL <40 mg/dL Low HDL Cholesterol HDL >or= 60 mg/dL High HDL Cholesterol Performed By: #### B TSPAT, L501.9984, . #### [facility] [address] [place], [address] Cholesterol in LDL [Mass/Vol] 59 mg/dL Normal 0-130 [facility] Comment on above: Order Comment: CC TO DR. GARRISON Performed By: #### B TSPAT, L501, #### [facility] [address] [place], [address] Cholesterol in VLDL [Mass/Vol] 56 mg/dL High 5-40 [facility] Comment on above: Order Comment: CC TO DR. GARRISON Performed By: #### B TSPAT, L5, #### [facility] [address] [place], [address] Triglyceride [Mass/Vol] 278 mg/dL High [facility] Comment on above: Order Comment: CC TO DR. GARRISON Result Comment: The drugs N-Acetylcysteine and Metamizole may falsely depress this assay. Serum Triglycerides Reference Interval Normal <150 mg/dL Borderline high 150 - 199 mg/dL High 200 - 499 mg/dL Very High > or = 500 mg/dL Performed By: #### B TSPAT, L501, #### [facility] [address] [place], [address] Thyroid Stim Hormone (TSH)on 02-21-2024 TSH 0.732 uIU/mL Normal 0.358-3.74 0 [facility] Comment on above: Order Comment: CC TO DR. GARRISON Performed By: #### B TSPAT, L501, M165 #### [facility] [address] [place], [address] Vitamin D,25 Hydroxyon 02-20 Vitamin D 25-OH 61.7 ng/mL Normal [facility] Comment on above: Order Comment: CC TO DR. GARRISON Result Comment: Rupal min D 25(OH) Status Range Deficiency <20 ng/mL (50nmol/L) Insufficiency 20 - 30 ng/mL (50 - 75 nmol/L) Sufficiency 30 - 100 ng/mL (75 - 250 nmol/L) Toxicity >100 ng/mL (>250 nmol/L) Performed By: #### L 500.4100, L501.9520, L506.1000, L500.4050, L100.0100 #### [facility] [address] [place], [address] Basophil percentageOrdered B y: Jr Garrison on 02-23-2023 Bilirubin [Mass/Vol] 0.40 mg/dL 0.20-1.00 [facility] Comment on above: For patients on eltr ombopag therapy, use of Dimension [place] TBIL is not recommended. Protein [Mass/Vol] 8.2 g/dL 6.4-8.2 [facility] Direct bilirubinOrdered By: Jr Garrison on 02-23-2023 Bilirubin.direct [Mass/Vol] 0.13 mg/dL 0.00-0.30 [facility] INR in Blood by Coagulation assayOrdered By: Jr Garrison on 02-23-2023 INR Coag (Bld) [Relative time] 0.9 {INR} [facility] - Chemistry and C hemistry - challengeOrdered By: Jr Garrison on 02-23-2023 ALP [Catalytic activity/Vol] 43 U/L 45-117 [facility] ALT [Catalytic activity/Vol] 31 U/L 13-56 [facility] Globulin (S) [Mass/Vol] 4.1 g/dL 2.2-4.2 [facility] - CoagulationOrde red By: Jr Garrison on 02-23-2023 aPTT Coag (Bld) [Time] 27.5 s 24.1-36.2 [facility] PT Coag (PPP) [Time] 11.9 s 11.7-14.9 [facility] Serum or plasma albumin lala urement (mass/volume)Ordered By: Jr Garrison on 02-23-2023 Albumin [Mass/Vol] 4.1 g/dL 3.2-5.0 [facility] Serum or plasma [id number] protein tumor marker measurement (units/volume)Ordered By: Jr Garrison on 02-23-2023 AFP.tumor marker Qn < 1.8 ng/mL 0.0-9.2 [facility] Comment on above: [employer] El ectrochemiluminescence Immunoassay(ECLIA)Values obtained with different assay methods or kits cannotbe used interchangeably. Results cannot be interpreted asabsolute evidence of the presence or absence of malignantdisease.This test is not interpretable in females.Performed at: [facility] [id number] Director: Jr Griffin PhD, Phone: [phone] Thin prep Papanicolaou smear with manual screeningOrdered By: Jr Garrison on 02-23-2023 Thin prep Papanicolaou smear with manual screening 24 U/L 15- [facility] Absolute lymphocyte countOrd ered By: Phillip Novak on 02-12-2023 Lymphocytes Auto (Unsp spec) [#/Vol] 2.02 10*3/uL 0.83-4.51 [facility] Basophil percentageOrdered B y: Phillip Novak on 02-12-2023 Basophils/100 WBC (Bld) 1.0 % 0-1 [facility] Bilirubin [Mass/Vol] 0.40 mg/dL 0.20-1.00 [facility] Comment on above: For patients on eltr ombopag therapy, use of Dimension [place] TBIL is not recommended. Chloride [Moles/Vol] 102 mmol/L 98-107 [facility] Eosinophils/100 WBC (Bld) 2.2 % 0-5 [facility] Glucose [Mass/Vol] 120 mg/dL 74-106 [facility] Comment on above: Fasting Glucose resu lt from 100 to 125 mg/dL suggests IMPAIRED HOMEOSTASIS per A.D.A. criteria. Neutrophils (Bld) [#/Vol] 5.9 10*3/uL 2.0-7.7 [facility] Neutrophils/100 WBC (Bld) 66.8 % 47-70 [facility] Potassium [Moles/Vol] 3.9 mmol/L 3.5-5.1 [facility] Protein [Mass/Vol] 8.2 g/dL 6.4-8.2 [facility] Sodium [Moles/Vol] 136 mmol/L 136-145 [facility] WBC (Bld) [#/Vol] 8.8 10*3/uL 4.4-11.0 [facility] Blood erythrocytes count (nu mber/volume)Ordered By: Phillip Novak on 02-12-2023 RBC (Bld) [#/Vol] 5.01 10*6/uL 4.2-5.4 [facility] Blood hemoglobin measurement (mass/volume)Ordered By: Phillip Novak on 02-12-2023 Hemoglobin (Bld) [Mass/Vol] 14.1 g/dL 12.0-15.0 [facility] Blood lymphocytes/100 leukoc ytesOrdered By: Phillip Novak on 02-12-2023 Lymphocytes/100 WBC (Bld) 23.1 % 19-41 [facility] Blood monocytes/100 leukocyt esOrdered By: Phillip Novak on 02-12-2023 Monocytes/100 WBC (Bld) 6.3 % 0-10 [facility] Blood platelet mean volumeOr dered By: Phillip Novak on 02-12-2023 Platelet mean volume (Bld) [Entitic vol] 10.5 fL 6.2-12.0 [facility] Determination of erythrocyte mean corpuscular volume (MCV)Ordered By: Phillip Novak on 02-12-2023 MCV (RBC) [Entitic vol] 89.0 fL 81-99 [facility] Hematocrit Auto (Bld) [Volum e fraction]Ordered By: Phillip Novak on 02-12-2023 Hematocrit (Bld) [Volume fraction] 44.6 % 37-47 [facility] - Chemistry and C hemistry - challengeOrdered By: Phillip Novak on 02-12-2023 ALP [Catalytic activity/Vol] 54 U/L 45-117 [facility] ALT [Catalytic activity/Vol] 32 U/L 13-56 [facility] CO2 [Moles/Vol] 26.0 mmol/L 21.0-32.0 [facility] Globulin (S) [Mass/Vol] 4.2 g/dL 2.2-4.2 [facility] Urea nitrogen/Creatinine [Mass ratio] 24.7 mg/mg 10-20 [facility] - Hematology and Cell countsOrdered By: Phillip Novak on 02-12-2023 Erythrocyte distribution width (RBC) [Entitic vol] 39.8 fL 35.1-43.9 [facility] Erythrocyte distribution width (RBC) [Ratio] 12.1 % 11.6-14.6 [facility] Immature granulocytes/100 WBC (Bld) 0.600 % 0.0-0.9 [facility] Comment on above: IG% - Immature Granu locytes (promyelocytes, myelocytes and metamyelocytes) > 1% indicates that a LEFT SHIFT is Present. MCH (RBC) [Entitic mass] 28.1 pg 27.0-32.0 [facility] Nucleated RBC/100 WBC (Bld) [Ratio] 0 % 0-5 [facility] MCHC Auto (RBC) [Mass/Vol]Or dered By: Phillip Novak on 02-12-2023 MCHC (RBC) [Mass/Vol] 31.6 g/dL 32-36 [facility] No Panel InformationOrdered By: Phillip Novak on 02-12-2023 Estimated GFR (MDRD) Amer 81 mL/min >60 [facility] Comment on above: GFR Calc Estimated GFR (MDRD) Non-Af Amer 67 mL/min >60 [facility] Comment on above: Non- GFR Calc Thyroid Stimulating Hormone (TSH) 0.58 uIU/mL 0.358-3.74 [facility] Vitamin D 25-Hydroxy 73.5 ng/mL [facility] Comment on above: Vitamin D 25(OH) Sta tus Range Deficiency <20 ng/mL (50nmol/L) Insufficiency 20 - 30 ng/mL (50 - 75 nmol/L) Sufficiency 30 - 100 ng/mL (75 - 250 nmol/L) Toxicity >100 ng/mL (>250 nmol/L) Platelets bldOrdered By: Phillip Novak on 02-12-2023 Platelets (Bld) [#/Vol] 321 10*3/uL 150-450 [facility] Serum or plasma albumin lala urement (mass/volume)Ordered By: Phillip Novak on 02-12-2023 Albumin [Mass/Vol] 4.0 g/dL 3.2-5.0 [facility] Serum or plasma albumin/glob ulin mass ratioOrdered By: Phillip Novak on 02-12-2023 Albumin/Globulin [Mass ratio] 1.0 {ratio} 0.9-2.4 [facility] Serum or plasma calcium lala urement (mass/volume)Ordered By: Phillip Novak on 02-12-2023 Calcium [Mass/Vol] 9.8 mg/dL 8.5-10.1 [facility] Serum or plasma creatinine m easurement (mass/volume)Ordered By: Phillip Novak on 02-12-2023 Creatinine [Mass/Vol] 0.89 mg/dL 0.55-1.02 [facility] Comment on above: The validity of the calculated GFR & GFRAA in patients over 70 years has not been determined. Clinical correlation is essential. Serum or plasma urea nitroge n measurement (mass/volume)Ordered By: Phillip Novak on 02-12-2023 Urea nitrogen [Mass/Vol] 22 mg/dL 7-18 [facility] Thin prep Papanicolaou smear with manual screeningOrdered By: Phillip Novak on 02-12-2023 Thin prep Papanicolaou smear with manual screening 22 U/L 15-37 [facility] Thin prep Papanicolaou smear with manual screening 8 5-15 [facility] Absolute lymphocyte countOrd ered By: Dr. Novak on 07-06-2022 Lymphocytes Auto (Unsp spec) [#/Vol] 1.93 10*3/uL 0.83-4.51 [facility] Basophil percentageOrdered B y: Dr. Novak on 07-06-2022 Basophils/100 WBC (Bld) 1.2 % 0-1 [facility] Bilirubin [Mass/Vol] 0.40 mg/dL 0.20-1.00 [facility] Comment on above: For patients on eltr ombopag therapy, use of Dimension [place] TBIL is not recommended. Chloride [Moles/Vol] 104 mmol/L 98-107 [facility] Eosinophils/100 WBC (Bld) 2.8 % 0-5 [facility] Glucose [Mass/Vol] 116 mg/dL 74-106 [facility] Comment on above: Fasting Glucose resu lt from 100 to 125 mg/dL suggests IMPAIRED HOMEOSTASIS per A.D.A. criteria. Neutrophils (Bld) [#/Vol] 5.6 10*3/uL 2.0-7.7 [facility] Neutrophils/100 WBC (Bld) 64.4 % 47-70 [facility] Potassium [Moles/Vol] 4.1 mmol/L 3.5-5.1 [facility] Protein [Mass/Vol] 7.8 g/dL 6.4-8.2 [facility] Sodium [Moles/Vol] 137 mmol/L 136-145 [facility] WBC (Bld) [#/Vol] 8.7 10*3/uL 4.4-11.0 [facility] Blood erythrocytes count (nu mber/volume)Ordered By: Dr. Novak on 07-06-2022 RBC (Bld) [#/Vol] 4.62 10*6/uL 4.2-5.4 [facility] Blood hemoglobin measurement (mass/volume)Ordered By: Dr. Novak on 07-06-2022 Hemoglobin (Bld) [Mass/Vol] 13.4 g/dL 12.0-15.0 [facility] Blood lymphocytes/100 leukoc ytesOrdered By: Dr. Novak on 07-06-2022 Lymphocytes/100 WBC (Bld) 22.3 % 19-41 [facility] Blood monocytes/100 leukocyt esOrdered By: Dr. Novak on 07-06-2022 Monocytes/100 WBC (Bld) 8.7 % 0-10 [facility] Blood platelet mean volumeOr dered By: Dr. Novak on 07-06-2022 Platelet mean volume (Bld) [Entitic vol] 11.0 fL 6.2-12.0 [facility] Determination of erythrocyte mean corpuscular volume (MCV)Ordered By: Dr. Novak on 07-06-2022 MCV (RBC) [Entitic vol] 88.5 fL 81-99 [facility] Hematocrit Auto (Bld) [Volum e fraction]Ordered By: Dr. Novak on 07-06-2022 Hematocrit (Bld) [Volume fraction] 40.9 % 37-47 [facility] - Chemistry and C hemistry - challengeOrdered By: Dr. Novak on 07-06-2022 ALP [Catalytic activity/Vol] 47 U/L 45-117 [facility] ALT [Catalytic activity/Vol] 35 U/L 13-56 [facility] CO2 [Moles/Vol] 28.0 mmol/L 21.0-32.0 [facility] Globulin (S) [Mass/Vol] 3.8 g/dL 2.2-4.2 [facility] Urea nitrogen/Creatinine [Mass ratio] 31.3 mg/mg 10-20 [facility] - Hematology and Cell countsOrdered By: Dr. Novak on 07-06-2022 Erythrocyte distribution width (RBC) [Entitic vol] 38.5 fL 35.1-43.9 [facility] Erythrocyte distribution width (RBC) [Ratio] 12.0 % 11.6-14.6 [facility] Immature granulocytes/100 WBC (Bld) 0.600 % 0.0-0.9 [facility] Comment on above: IG% - Immature Granu locytes (promyelocytes, myelocytes and metamyelocytes) > 1% indicates that a LEFT SHIFT is Present. MCH (RBC) [Entitic mass] 29.0 pg 27.0-32.0 [facility] Nucleated RBC/100 WBC (Bld) [Ratio] 0 % 0-5 [facility] MCHC Auto (RBC) [Mass/Vol]Or dered By: Dr. Novak on 07-06-2022 MCHC (RBC) [Mass/Vol] 32.8 g/dL 32-36 [facility] No Panel InformationOrdered By: Dr. Novak on 07-06-2022 Estimated GFR (MDRD) Amer 96 mL/min >60 [facility] Comment on above: GFR Calc Estimated GFR (MDRD) Non-Af Amer 80 mL/min >60 [facility] Comment on above: Non- GFR Calc Thyroid Stimulating Hormone (TSH) 0.48 uIU/mL 0.358-3.74 [facility] Vitamin D 25-Hydroxy 73.4 ng/mL [facility] Comment on above: Vitamin D 25(OH) Sta tus Range Deficiency <20 ng/mL (50nmol/L) Insufficiency 20 - 30 ng/mL (50 - 75 nmol/L) Sufficiency 30 - 100 ng/mL (75 - 250 nmol/L) Toxicity >100 ng/mL (>250 nmol/L) Platelets bldOrdered By: Dr. Novak on 07-06-2022 Platelets (Bld) [#/Vol] 273 10*3/uL 150-450 [facility] Serum or plasma albumin lala urement (mass/volume)Ordered By: Dr. Novak on 07-06-2022 Albumin [Mass/Vol] 4.0 g/dL 3.2-5.0 [facility] Serum or plasma albumin/glob ulin mass ratioOrdered By: Dr. Novak on 07-06-2022 Albumin/Globulin [Mass ratio] 1.1 {ratio} 0.9-2.4 [facility] Serum or plasma calcium lala urement (mass/volume)Ordered By: Dr. Novak on 07-06-2022 Calcium [Mass/Vol] 9.9 mg/dL 8.5-10.1 [facility] Serum or plasma creatinine m easurement (mass/volume)Ordered By: Dr. Novak on 07-06-2022 Creatinine [Mass/Vol] 0.77 mg/dL 0.55-1.02 [facility] Comment on above: The validity of the calculated GFR & GFRAA in patients over 70 years has not been determined. Clinical correlation is essential. Serum or plasma urea nitroge n measurement (mass/volume)Ordered By: Dr. Novak on 07-06-2022 Urea nitrogen [Mass/Vol] 24 mg/dL 7-18 [facility] Thin prep Papanicolaou smear with manual screeningOrdered By: Dr. Novak on 07-06-2022 Thin prep Papanicolaou smear with manual screening 25 U/L 15-37 [facility] Thin prep Papanicolaou smear with manual screening 5 5-15 [facility] Basophil percentageOrdered B y: Dr. Garrison on 06-07-2022 Bilirubin [Mass/Vol] 0.50 mg/dL 0.20-1.00 [facility] Comment on above: For patients on eltr ombopag therapy, use of Dimension [place] TBIL is not recommended. Protein [Mass/Vol] 8.2 g/dL 6.4-8.2 [facility] Direct bilirubinOrdered By: Dr. Garrison on 06-07-2022 Bilirubin.direct [Mass/Vol] 0.14 mg/dL 0.00-0.30 [facility] INR in Blood by Coagulation assayOrdered By: Dr. Garrison on 06-07-2022 INR Coag (Bld) [Relative time] 1.0 {INR} [facility] - Chemistry and C hemistry - challengeOrdered By: Dr. Garrison on 06-07-2022 ALP [Catalytic activity/Vol] 45 U/L 45-117 [facility] ALT [Catalytic activity/Vol] 36 U/L 13-56 [facility] Amylase [Catalytic activity/Vol] 21 U/L 5-55 [facility] Globulin (S) [Mass/Vol] 4.1 g/dL 2.2-4.2 [facility] - CoagulationOrde red By: Dr. Garrison on 06-07-2022 aPTT Coag (Bld) [Time] 28.3 s 24.1-36.2 [facility] PT Coag (PPP) [Time] 12.5 s 11.7-14.9 [facility] Serum or plasma albumin lala urement (mass/volume)Ordered By: Dr. Garrison on 06-07-2022 Albumin [Mass/Vol] 4.1 g/dL 3.2-5.0 [facility] Serum or plasma [id number] protein tumor marker measurement (units/volume)Ordered By: Dr. Garrison on 06-07-2022 AFP.tumor marker Qn < 1.8 ng/mL 0.0-9.2 [facility] Comment on above: [employer] El ectrochemiluminescence Immunoassay(ECLIA)Values obtained with different assay methods or kits cannotbe used interchangeably. Results cannot be interpreted asabsolute evidence of the presence or absence of malignantdisease.This test is not interpretable in females.Performed at: [facility] [id number] [place], [place] [id number] Director: Jr Griffin PhD, Phone: [phone] Thin prep Papanicolaou smear with manual screeningOrdered By: Dr. Garrison on 06-07-2022 Thin prep Papanicolaou smear with manual screening 26 U/L 15-37 [facility] No Panel Informationon 01-05 Thyroid Stimulating Hormone (TSH) 0.60 uIU/mL 0.358-3.74 [facility] Work Phone: Vitamin D 25-Hydroxy 58.4 ng/mL [facility] Work Phone: Comment on above: Vitamin D 25(OH) Sta tus Range Deficiency <20 ng/mL (50nmol/L) Insufficiency 20 - 30 ng/mL (50 - 75 nmol/L) Sufficiency 30 - 100 ng/mL (75 - 250 nmol/L) Toxicity >100 ng/mL (>250 nmol/L) Basophil percentageon 2021 Bilirubin [Mass/Vol] 0.50 mg/dL 0.20-1.00 [facility] Work Phone: Comment on above: For patients on eltr ombopag therapy, use of Dimension [place] TBIL is not recommended. Chloride [Moles/Vol] 105 mmol/L 98-107 [facility] Work Phone: Cholesterol [Mass/Vol] 156 mg/dL <200 [facility] Work Phone: Comment on above: <200 mg/dL Desirable 200-240 mg/dL Borderline >240 mg/dL High Risk Glucose [Mass/Vol] 120 mg/dL 74-106 [facility] Work Phone: Comment on above: Fasting Glucose resu lt from 100 to 125 mg/dL suggests IMPAIRED HOMEOSTASIS per A.D.A. criteria. Potassium [Moles/Vol] 4.1 mmol/L 3.5-5.1 [facility] Work Phone: Protein [Mass/Vol] 8.0 g/dL 6.4-8.2 [facility] Work Phone: Sodium [Moles/Vol] 140 mmol/L 136-145 [facility] Work Phone: Triglyceride [Mass/Vol] 309 mg/dL <199 [facility] Work Phone: Comment on above: The drugs N-Acetylcy steine and Metamizole may falsely depress this assay.Serum Triglycerides Reference Interval Normal <150 mg/dL Borderline high 150 - 199 mg/dL High 200 - 499 mg/dL Very High > or = 500 mg/dL WBC (Bld) [#/Vol] 6.1 10*3/uL 4.4-11.0 [facility] Work Phone: Blood erythrocytes count (nu mber/volume)on 12-14-2021 RBC (Bld) [#/Vol] 4.59 10*6/uL 4.2-5.4 [facility] Work Phone: Blood hemoglobin measurement (mass/volume)on 12-14-2021 Hemoglobin (Bld) [Mass/Vol] 13.9 g/dL 12.0-15.0 [facility] Work Phone: Blood platelet mean volumeon 12-14-2021 Platelet mean volume (Bld) [Entitic vol] 10.0 fL 6.2-12.0 [facility] Work Phone: Determination of erythrocyte mean corpuscular volume (MCV)on 12-14-2021 MCV (RBC) [Entitic vol] 87.1 fL 81-99 [facility] Work Phone: Hematocrit Auto (Bld) [Volum e fraction]on 12-14-2021 Hematocrit (Bld) [Volume fraction] 40.0 % 37-47 [facility] Work Phone: INR in Blood by Coagulation assayon 12-14-2021 INR Coag (Bld) [Relative time] 1.0 {INR} [facility] Work Phone: Laboratory - Chemistry and C hemistry - challengeon 12-14-2021 ALP [Catalytic activity/Vol] 47 U/L 45-117 [facility] Work Phone: ALT [Catalytic activity/Vol] 31 U/L 13-56 [facility] Work Phone: CO2 [Moles/Vol] 29.0 mmol/L 21.0-32.0 [facility] Work Phone: Globulin (S) [Mass/Vol] 4.0 g/dL 2.2-4.2 [facility] Work Phone: Urea nitrogen/Creatinine [Mass ratio] 25.2 mg/mg 10-20 [facility] Work Phone: Laboratory - Coagulationon 1 aPTT Coag (Bld) [Time] 28.9 s 24.1-36.2 [facility] Work Phone: PT Coag (PPP) [Time] 12.9 s 11.7-14.9 [facility] Work Phone: Laboratory - Hematology and Cell countson 12-14-2021 Erythrocyte distribution width (RBC) [Entitic vol] 38.7 fL 35.1-43.9 [facility] Work Phone: Erythrocyte distribution width (RBC) [Ratio] 12.0 % 11.6-14.6 [facility] Work Phone: MCH (RBC) [Entitic mass] 30.3 pg 27.0-32.0 [facility] Work Phone: MCHC Auto (RBC) [Mass/Vol]on 12-14-2021 MCHC (RBC) [Mass/Vol] 34.8 g/dL 32-36 [facility] Work Phone: No Panel Informationon 12-14 Estimated GFR (MDRD) Amer 105 mL/min >60 [facility] Work Phone: Comment on above: GFR Calc Estimated GFR (MDRD) Non-Af Amer 87 mL/min >60 [facility] Work Phone: Comment on above: Non- GFR Calc Platelets bldon 12-14-2021 Platelets (Bld) [#/Vol] 265 10*3/uL 150-450 [facility] Work Phone: Serum or plasma albumin lala urement (mass/volume)on 12-14-2021 Albumin [Mass/Vol] 4.0 g/dL 3.2-5.0 [facility] Work Phone: Serum or plasma albumin/glob ulin mass ratioon 12-14-2021 Albumin/Globulin [Mass ratio] 1.0 {ratio} 0.9-2.4 [facility] Work Phone: Serum or plasma [id number] protein tumor marker measurement (units/volume)on 12-14-2021 AFP.tumor marker Qn 1.6 ng/mL 0.0-9.2 [facility] Work Phone: Comment on above: [facility] El ectrochemiluminescence Immunoassay(ECLIA)Values obtained with different assay methods or kits cannotbe used interchangeably. Results cannot be interpreted asabsolute evidence of the presence or absence of malignantdisease.This test is not interpretable in females.Performed at: [facility] [id number] Director: Jr Griffin PhD, Phone: [phone] Serum or plasma calcium lala urement (mass/volume)on 12-14-2021 Calcium [Mass/Vol] 9.6 mg/dL 8.5-10.1 [facility] Work Phone: Serum or plasma cholesterol in HDL measurement (mass/volume)on 12-14-2021 Cholesterol in HDL [Mass/Vol] 40 mg/dL >40 [facility] Work Phone: Comment on above: The drugs N-Acetylcy steine and Metamizole may falsely depress this assay. Reference Range HDL <40 mg/dL Low HDL Cholesterol HDL >or= 60 mg/dL High HDL Cholesterol Serum or plasma cholesterol in VLDL measurement (mass/volume)on 12-14-2021 Cholesterol in VLDL [Mass/Vol] 62 mg/dL 5-40 [facility] Work Phone: Serum or plasma creatinine m easurement (mass/volume)on 12-14-2021 Creatinine [Mass/Vol] 0.72 mg/dL 0.55-1.02 [facility] Work Phone: Comment on above: The validity of the calculated GFR & GFRAA in patients over 70 years has not been determined. Clinical correlation is essential. Serum or plasma low density lipoprotein (LDL) cholesterol measurement (mass/volume)on 12-14-2021 Cholesterol in LDL [Mass/Vol] 54 mg/dL 0-130 [facility] Work Phone: Serum or plasma urea nitroge n measurement (mass/volume)on 12-14-2021 Urea nitrogen [Mass/Vol] 18 mg/dL 7-18 [facility] Work Phone: Thin prep Papanicolaou smear with manual screeningon 12-14-2021 Thin prep Papanicolaou smear with manual screening 20 U/L 15-37 [facility] Work Phone: Thin prep Papanicolaou smear with manual screening 6 5-15 [facility] Work Phone: Basophil percentageon 2021 Basophil percentage < 0.9 mg/dL 0.55-1.02 [facility] Work Phone: No Panel Informationon 09-07 Bedside Estimated GFR (eGFR) > 60.0000 mL/min >60 [facility] Work Phone: US ELASTOGRAPHY LIVER W/ABD LTDon 09-11-2019 US ELASTOGRAPHY LIVER W/ABD LTD ORIGINAL Limited ultrasound of the abdomen and hepatic elastography HISTORY: Fatty liver COMPARISON: None FINDINGS: Visible portions of the pancreas are normal. Pancreatic tail was obscured by overlying bowel gas. The gallbladder is surgically absent. Negative sonographic Walker's sign. No free fluid seen. The liver is borderline prominent in size, measuring 21 cm. Liver echotexture is coarsened with poor sound through transmission. No focal liver lesion is identified. No biliary dilatation seen. Common duct is 8 mm, mildly prominent, likely related to postcholecystectomy state. Visualized RIGHT kidney is unremarkable. No additional contributory abnormality Elastography: Median velocity: 2.01M/S (Values from 0.91 to 1.53 m/s typically indicate mild or no fibrosis, and values greater than 2.04 m/s are suggestive of cirrhosis.) IQR/median ratio: 0.13 (Value less than or equal to 0.3 should be seen to ensure exam adequacy.) IMPRESSION: Velocity acceleration as above. Consider severe fibrosis or cirrhosis. Reference: Journal of Ultrasound in Medicine April 12, 2013 vol. 33 no. 2 [id number]. Interpreted By: Rachael Giatan MD Preliminary Report By: Rachael Gaitan MD Electronically Signed By: Rachael Gaitan MD Dictated Date: 09/11/2019 10:03:58 AM Prelim Date: 09/11/2019 10:03:58 AM Sign Date: 09/11/2019 10:21:44 AM Ordering Provider:[facility] ([place]) Lab Report: CEA Serial Monit oron 10-04-2016 CEA SM GRAPH . [facility] [employer] Work Phone: GE use only - for LinkLogic import when terms are not otherwise specified . Invalid Interpretation Code [facility] [employer] Work Phone: Replaced Document: (P) CEA S erial Monitoron 10-04-2016 Carcinoembryonic Ag mass conc 1.7 ng/mL Invalid Interpretation Code 0.0-4.7 [facility] [employer] Work Phone: Lab Report: CBC W/Diff, Auto matedon 10-02-2016 Basophils/100 leukocytes 1.1 % High 0-1 [facility] [employer] Work Phone: Basophils/100 WBC (Bld) 1.1 % High 0-1 [facility] [employer] Work Phone: Eosinophils/100 leukocytes 4.2 % Invalid Interpretation Code 0-5 [facility] [employer] Work Phone: Eosinophils/100 WBC (Bld) 4.2 % 0-5 [facility] [employer] Work Phone: Erythrocyte distribution width Ratio (RBC) 40.9 fL 35.1-43.9 [facility] [employer] Work Phone: Erythrocyte distribution width Ratio (RBC) 13.0 % 11.6-14.6 [facility] [employer] Work Phone: Erythrocytes (RBC) 4.55 10*6/uL Invalid Interpretation Code 4.2-5.4 [facility] [employer] Work Phone: [phone] Hematocrit (HCT) 40.0 % Invalid Interpretation Code 37-47 [facility] [employer] Work Phone: [phone] Hematocrit Volume Fraction (Bld) 40.0 % 37-47 [facility] [employer] Work Phone: [phone] Hemoglobin (HGB) 13.1 g/dL Invalid Interpretation Code 12.0-15.0 [facility] [employer] Work Phone: Immature granulocytes #/vol (Bld) 0.100 % 0.0-0.9 [facility] [employer] Work Phone: [phone] immature granulocytes, percentage of total cells, blood 0.100 % Invalid Interpretation Code 0.0-0.9 [facility] [employer] Work Phone: [phone] Lymphocytes 1.51 X10 3/UL Invalid Interpretation Code 0.83-4.51 [facility] [employer] Work Phone: [phone] Lymphocytes #/vol (Bld) 1.51 X10 3/UL 0.83-4.51 [facility] [employer] Work Phone: [phone] Lymphocytes/100 leukocytes 21.4 % Invalid Interpretation Code 1941 [facility] [employer] Work Phone: [phone] Lymphocytes/100 WBC (Bld) 21.4 % 19-41 [facility] [employer] Work Phone: [phone] MCH 28.8 pg Invalid Interpretation Code 27.0-32.0 [facility] [employer] Work Phone: [phone] MCH Entitic mass (RBC) 28.8 pg 27.0-32.0 [facility] [employer] Work Phone: [phone] MCHC 32.8 G/GL Invalid Interpretation Code 32-36 [facility] [employer] Work Phone: [phone] MCHC mass conc (RBC) 32.8 G/GL 32-36 [facility] [employer] Work Phone: [phone] MCV 87.9 fL Invalid Interpretation Code 81-99 [facility] [employer] Work Phone: [phone] MCV Entitic volume (RBC) 87.9 fL 81-99 [facility] [employer] Work Phone: Monocytes/100 leukocytes 8.2 % Invalid Interpretation Code 0-10 [facility] [employer] Work Phone: Monocytes/100 WBC (Bld) 8.2 % 0-10 [facility] [employer] Work Phone: neutrophil count, blood 4.6 X10 3/UL Invalid Interpretation Code 2.0-7.7 [facility] [employer] Work Phone: Neutrophils #/vol (Bld) 4.6 X10 3/UL 2.0-7.7 [facility] [employer] Work Phone: Neutrophils/100 leukocytes 65.0 % Invalid Interpretation Code 47-70 [facility] [employer] Work Phone: Neutrophils/100 WBC (Bld) 65.0 % 47-70 [facility] [employer] Work Phone: Platelet mean volume Entitic volume (Bld) 10.7 fL 6.2-12.0 [facility] [employer] Work Phone: Platelets 233 10*3/mm3 Invalid Interpretation Code 150-450 [facility] [employer] Work Phone: Platelets #/vol (Bld) 233 10*3/mm3 150-450 [facility] [employer] Work Phone: PMV by Emily 10.7 fL Invalid Interpretation Code 6.2-12.0 [facility] [employer] Work Phone: RBC #/vol (Bld) 4.55 10*6/uL 4.2-5.4 [facility] [employer] Work Phone: RDW-CA 13.0 % Invalid Interpretation Code 11.6-14.6 [facility] [employer] Work Phone: red blood cell distribution width, size density 40.9 fL Invalid Interpretation Code 35.1-43.9 [facility] [employer] Work Phone: WBC #/vol (Bld) 7.1 10*3/uL 4.4-11.0 [facility] [employer] Work Phone: WBC (Leukocytes) 7.1 10*3/uL Invalid Interpretation Code 4.4-11.0 [facility] [employer] Work Phone: Lab Report: Comprehensive Oh tabolic Profilon 10-02-2016 Alanine aminotransferase (ALT) 49 U/L Invalid Interpretation Code 12-78 [facility] [employer] Work Phone: Albumin 3.3 g/dL Low 3.4-5.0 [facility] [employer] Work Phone: Albumin/Globulin Ratio 0.9 {ratio} Invalid Interpretation Code 0.9-2.4 [facility] [employer] Work Phone: Alkaline phosphatase (ALP) 54 U/L Invalid Interpretation Code 45117 [facility] [employer] Work Phone: ALP enzyme act/vol (Bld) 54 U/L 45-117 [facility] [employer] Work Phone: Anion gap 8 mmol/L Invalid Interpretation Code 5-15 [facility] [employer] Work Phone: Anion gap molar conc 8 mmol/L 5-15 [facility] [employer] Work Phone: Aspartate aminotransferase (AST) 39 U/L High 15-37 [facility] [employer] Work Phone: Bilirubin (total) 0.40 mg/dL Invalid Interpretation Code 0.20-1.00 [facility] [employer] Work Phone: BUN/Creatinine Ratio 19.0 RATIO Invalid Interpretation Code 10-20 [facility] [employer] Work Phone: Calcium 8.7 mg/dL Invalid Interpretation Code 8.5-10.1 [facility] [employer] Work Phone: Chloride 109 mmol/L High 98-107 [facility] [employer] Work Phone: CO2 24.0 mmol/L Invalid Interpretation Code 21.0-32.0 [facility] [employer] Work Phone: CO2 ppres (BldV) 24.0 mmol/L 21.0-32.0 [facility] [employer] Work Phone: Creatinine 83.19 mL/min Invalid Interpretation Code [facility] [employer] Work Phone: Creatinine 0.58 mg/dL Invalid Interpretation Code 0.55-1.02 [facility] [employer] Work Phone: eGFR (non-black) 136 mL/min/{1.73_m2} Invalid Interpretation Code >60 [facility] [employer] Work Phone: eGFR (non-black) 112 mL/min/{1.73_m2} Invalid Interpretation Code >60 [facility] [employer] Work Phone: EST GFR - AA 136 mL/min >60 [facility] [employer] Work Phone: Globulin 3.5 g/dL Invalid Interpretation Code 2.3-3.5 [facility] [employer] Work Phone: Globulin mass conc (S) 3.5 g/dL 2.3-3.5 [facility] [employer] Work Phone: Glucose 104 mg/dL Invalid Interpretation Code 70-110 [facility] [employer] Work Phone: Glucose mass conc 104 mg/dL 70-110 [facility] [employer] Work Phone: Potassium 4.2 mmol/L Invalid Interpretation Code 3.5-5.1 [facility] [employer] Work Phone: Protein 6.8 g/dL Invalid Interpretation Code 6.4-8.2 [facility] [employer] Work Phone: Sodium 141 mmol/L Invalid Interpretation Code 136-145 [facility] [employer] Work Phone: Urea nitrogen 11 mg/dL Invalid Interpretation Code 7-18 [facility] [employer] Work Phone: Office Visit: Colonoscopy Co nsulton 07-26-2016 Dietary management education, guidance, and counseling (procedure) yes Invalid Interpretation Code [facility] [employer] Work Phone: Documentation of current medications (procedure) Done Invalid Interpretation Code [facility] [employer] Work Phone: Fall risk assessment No Invalid Interpretation Code [facility] [employer] Work Phone: Protein mass conc Done [facility] [employer] Work Phone: Tobacco smoking status NHIS Never Invalid Interpretation Code [facility] [employer] Work Phone: Tobacco smoking status NHIS Former smoker [facility] [employer] Work Phone: Tobacco use CPHS Former smoker Invalid Interpretation Code [facility] [employer] Work Phone: Office Visit: Colonoscopy Ri nsulton 03-17-2013 General categories [interpretation] of Cervical or vaginal smear or scraping by Cyto stain Normal Invalid Interpretation Code [facility] [employer] Work Phone: Office Visit: Colonoscopy Co nsulton 03-19-2006 Colonoscopy (procedure) Colonoscopy (procedure) Invalid Interpretation Code [facility] [employer] Work Phone: Protein mass conc Colonoscopy (procedure) [facility] [employer] Work Phone: Vital Signs Date Time Vital Sign Value Performing Clinician Facility 10-09-2024 08:25-0400 Body height 157.[address] Phillip Novak MD Work Phone: [facility] 10-09-2024 08:25-0400 Body mass index (BMI) [Ratio] 40.2 kg/m2 Dr. Phillip Novak MD Work Phone: [facility] 10-09-2024 08:25-0400 Body weight 99.[address] Phillip Novak MD Work Phone: [facility] 10-02-2016 09:53-0400 Body surface area Derived from formula 83.19 mL/min Rae Lan MD [facility] [employer] Work Phone: 07-26-2016 13:54-0400 BMI (Body Mass Index) 41.27 kg/m2 Lorelei Narayan RN RN [facility] [employer] Work Phone: 07-26-2016 13:54-0400 Body Temperature 98 [degF] Lorelei Narayan RN RN [facility] [employer] Work Phone: 07-26-2016 13:54-0400 Body Temperature 98.01 [degF] Lorelei Narayan RN RN [facility] [employer] Work Phone: 07-26-2016 13:54-0400 BP Diastolic 87 mm[Hg] Lorelei Narayan RN RN [facility] [employer] Work Phone: 07-26-2016 13:54-0400 BP Systolic 138 mm[Hg] Lorelei Narayan RN RN [facility] Work Phone: 07-26-2016 13:54-0400 BSA (Body Surface Area) 2.07 m2 Lorelei Narayan RN RN [facility] Work Phone: 07-26-2016 13:54-0400 Height 160.02 cm Lorelei Narayan RN RN [facility] Work Phone: 07-26-2016 13:54-0400 Pulse (Heart Rate) 84 /min Lorelei Narayan RN RN [facility] Surg al [facility] Work Phone: 07-26-2016 13:54-0400 Pulse Oximetry 97 % Lorelei Narayan RN RN [facility] Surgical [facility] Work Phone: 07-26-2016 13:54-0400 Respiratory Rate 16 /min Lorelei Narayan RN RN [facility] Surgical [facility] Work Phone: 07-26-2016 13:54-0400 Weight 105.69 kg Lorelei Narayan RN RN [facility] Surgical [facility] Work Phone: Encounters Encounter Date Encounter Type Care Provider Facility Start: 01-26-2025 ambulatory Bunny Macedo Facility:[facility] Start: 01-21-2025 [facility] Start: 01-20-2025 ambulatory Phillip Chi Victor Hugo Facility:[facility] Start: 01-16-2025 End: 01-16-2025 ambulatory Phillip Chi Victor Hugo Facility:[facility] Start: 01-01-2025 End: 01-01-2025 ambulatory Phillip Chi Victor Hugo Facility:[facility] Start: 10-10-2024 End: 10-10-[address] Phillip Novak MD Work Phone: -Physical Therapy Start: 10-10-2024 End: 10-10-[address] Marco Xie MD -Physical Therapy Work Phone: Start: 10-09-2024 End: 10-09-[address] Bunny Macedo MD -[facility] Work Phone: Start: 10-09-2024 End: 10-09-[address] Phillip Novak MD Work Phone: -[facility] Start: 10-06-[address] Marco Orozco i, MD -Physical Therapy Work Phone: Start: 09-10-[address] Marco Orozco i, MD -Physical Therapy Work Phone: Start: 09-09-2024 Non-patient / Non-visit Dr. Yola royal MD -[facility] Work Phone: Start: 09-08-2024 End: 09-08-[address] Phillip Novak MD Work Phone: -Laboratory Start: 09-08-2024 End: 09-08-[address] Phillip Novak MD -Laboratory Work Phone: Start: 09-08-2024 End: 09-08-2024 ambulatory Phillip Chi Victor Hugo Facility:[facility] Start: 05-02-2024 End: 05-02-2024 ambulatory Phillip Chi Victor Hugo Facility:[facility] Start: 04-29-2024 End: 04-29-2024 ambulatory Bunny Macedo Facility:[facility] Start: 04-11-2024 End: 04-11-2024 ambulatory Phillip Chi Victor Hugo Facility:[facility] Start: 04-10-2024 End: 04-10-2024 ambulatory Phillip Chi Victor Hugo Facility:[facility] Start: 02-26-2024 End: 02-26-2024 ambulatory Phillip Chi Victor Hugo Facility:[facility] Start: 02-21-2024 End: 02-21-2024 ambulatory Phillip Chi Victor Hugo Facility:[facility] Start: 02-23-2023 End: 02-23-2023 ambulatory [facility] Work Phone: Start: 02-23-2023 End: 02-23-2023 Patient encounter procedure [facility]-Ultrasound, [facility] Work Phone: Start: 02-22-2023 End: 02-22-2023 [facility] Start: 02-12-2023 End: 02-12-2023 ambulatory [facility] Work Phone: Start: 02-12-2023 End: 02-12-2023 [facility] Start: 07-06-2022 End: 07-06-2022 ambulatory [facility] Work Phone: Start: 07-06-2022 End: 07-06-2022 [facility] Start: 06-07-2022 End: 06-07-2022 ambulatory [facility] Work Phone: Start: 06-07-2022 End: 06-07-2022 Patient encounter procedure [facility] [place] Start: 02-13-2022 End: 02-13-[address] Phillip Novak Work Phone: [facility] Work Phone: Start: 02-13-2022 End: 02-13-[address] Phillip Novak Work Phone: [facility] Start: 01-05-2022 End: 01-05-[address] Phillip Novak Work Phone: [facility] Work Phone: Start: 01-05-2022 End: 01-05-[address] [facility] Start: 12-14-2021 End: 12-14-[address] Phillip Novak Work Phone: [facility] Work Phone: Start: 12-14-2021 End: 12-14-[address] [facility] Start: 11-07-2021 End: 11-07-[address] Phillip Novak Work Phone: [facility] Start: 09-15-2021 End: 09-15-[address] Phillip Novak Work Phone: [facility] Start: 09-07-2021 End: 09-07-[address] Phillip Novak Work Phone: [facility] Start: 09-05-2021 End: 09-05-[address] Phillip Novak Work Phone: [facility] Start: 05-13-2018 End: 05-13-2018 Patient encounter procedure UNKNOWN PROVIDER Facility:[facility] Procedures Date Procedure Procedure Detail Performing Clinician Start: 09-08-2024 Vitamin D, 25-hydrox y measurement Dr. Phillip Novak MD Work Phone: Comment on above: Vitamin D StatusDefi ciency: <20 ng/mL (50nmol/L)Insufficiency: 20-30 ng/mL (50-75 nmol/L)Sufficiency: 30-100 ng/mL (75-250 nmol/L)Toxicity: >100 ng/mL (>250 nmol/L) Start: 02-23-2023 Ultrasound elastogra phy of liver Start: 02-22-2023 Screening mammography Start: 02-13-2022 Screening mammography Kristin Novak Work Phone: Start: 09-07-2021 MRI of lumbar spine with contrast Dr. Phillip Novak Work Phone: Start: 09-05-2021 X-ray of lumbar spin e, two or three views Dr. Phillip Novak Work Phone: Start: 05-13-2018 Needle emg ea extrem ty w/paraspinl area complete UNKNOWN PROVIDER Start: 05-13-2018 Nerve conduction epifanio dies 7-8 studies UNKNOWN PROVIDER Start: 07-26-2016 End: 07-26-2016 Dietary management education, guidance, and counseling Rae Lan MD Start: 07-26-2016 Screening for malign ant neoplasm of colon Screening for colon cancer Rae Lan MD History of cholecystectomy Hx of cholecystectomy Dr. Phillip Novak Work Phone: Plan of Treatment Date Care Activity Detail Author Start: 09-15-2021 Patient referral [facility] Work Phone: Start: 10-05-2016 End: 10-05-2016 Pet image w/ct, skull-thigh PET Tumor Base to Mid Thigh [facility] [employer] Work Phone: Start: 10-02-2016 End: 10-02-2016 Appointment Appointment [facility] [employer] Work Phone: Start: 10-02-2016 End: 10-02-2016 Appointment Appointment [facility] [employer] Work Phone: Start: 10-02-2016 End: 10-02-2016 Ct abdomen&pelvis w/contrast CT Abdomen and pelvis; with contrast material(s) [facility] [employer] Work Phone: Start: 10-02-2016 End: 10-02-2016 Ct angiography, chest CTA Chest, with contrast material(s) [facility] [employer] Work Phone: Start: 07-26-2016 End: 07-26-2016 Appointment Appointment [facility] [employer] Work Phone: Start: 07-26-2016 End: 07-26-2016 Diagnostic colonoscopy Colonoscopy [facility] [employer] Work Phone: Start: 07-26-2016 End: 07-26-2016 Follow Up Appt Other Follow Up Appt Other [facility] [employer] Work Phone: Patient Education WEIGHT%20MANAGEMENT [facility] [employer] Work Phone: Patient referral [facility] Work Phone: Payers Date Payer Category Payer Self-pay [id number] 2024 Unknown [id number] 2019 Medicare [id number] 2016 Unknown [id number] 1954 Unknown [id number] Medicare MEDICARE PART A B [id number] Unknown [id number] [id number] [id number] Unknown [id number] [id number] [id number] Unknown [id number] 2.16.8 [id number] Unknown [id number] 2.16.8 [id number] Unknown [id number] 2.16.8 [id number] Unknown [id number] 2.16.8 [id number] Unknown [id number] 2.16.8 [id number] Unknown [id number] 2.16.8 [id number] Unknown [id number] 2.16.8 [id number] Unknown [id number] 2.16.8 [id number] Unknown [id number] 2.16.8 [id number] Unknown [id number] 2.16.8 [id number] Unknown [id number] 2.16.8 [id number] Unknown [id number] 2.16.8 [id number] Unknown [id number] 2.16.8 [id number] Social History Date Type Detail Facility Start: 11-07-2021 End: 09-01-2022 Tobacco smoking status NHIS Unknown if ever smoked [facility] Start: 02-18-2019 Non-smoker [facility] Start: 1955 Sex Assigned At Female [facility] Start: 02-29-2024 Tobacco smoking stat us NHIS Ex-smoker (finding) [facility] Medical Equipment Procedure Code Equipment Code Equipment Origin al Text Equipment Identifier Dates Total knee replacement CEMENT,HV SIMPLEX FDA Start: 02-25-2019 Total knee replacement CEMENT,HV SIMPLEX FDA Start: 02-25-2019 Total knee replacement POSTERIOR STABILIZED FEMORAL FDA Start: 02-25-2019 Total knee replacement TOTAL STABILIZER TIBIAL INSERT FDA Start: 02-25-2019 Total knee replacement TRIATHLON ASYMMETRIC PATELLA FDA Start: 02-25-2019 Total knee replacement UNIVERSAL TIBIAL BASEPLATE FDA Start: 02-25-2019 Total knee replacement CEMENT,HV SIMPLEX FDA Start: 02-25-2019 Total knee replacement CEMENT,HV SIMPLEX FDA Start: 02-25-2019 Total knee replacement POSTERIOR STABILIZED FEMORAL FDA Start: 02-25-2019 Total knee replacement TOTAL STABILIZER TIBIAL INSERT FDA Start: 02-25-2019 Total knee replacement TRIATHLON ASYMMETRIC PATELLA FDA Start: 02-25-2019 Total knee replacement UNIVERSAL TIBIAL BASEPLATE FDA Start: 02-25-2019 Total knee replacement CEMENT,HV SIMPLEX FDA Start: 02-25-2019 Total knee replacement CEMENT,HV SIMPLEX FDA Start: 02-25-2019 Total knee replacement POSTERIOR STABILIZED FEMORAL FDA Start: 02-25-2019 Total knee replacement TOTAL STABILIZER TIBIAL INSERT FDA Start: 02-25-2019 Total knee replacement TRIATHLON ASYMMETRIC PATELLA FDA Start: 02-25-2019 Total knee replacement UNIVERSAL TIBIAL BASEPLATE FDA Start: 02-25-2019 Total knee replacement CEMENT,HV SIMPLEX FDA Start: 02-25-2019 Total knee replacement CEMENT,HV SIMPLEX FDA Start: 02-25-2019 Total knee replacement POSTERIOR STABILIZED FEMORAL FDA Start: 02-25-2019 Total knee replacement TOTAL STABILIZER TIBIAL INSERT FDA Start: 02-25-2019 Total knee replacement TRIATHLON ASYMMETRIC PATELLA FDA Start: 02-25-2019 Total knee replacement UNIVERSAL TIBIAL BASEPLATE FDA Start: 02-25-2019 Total knee replacement CEMENT,HV SIMPLEX FDA Start: 02-25-2019 Total knee replacement CEMENT,HV SIMPLEX FDA Start: 02-25-2019 Total knee replacement POSTERIOR STABILIZED FEMORAL FDA Start: 02-25-2019 Total knee replacement TOTAL STABILIZER TIBIAL INSERT FDA Start: 02-25-2019 Total knee replacement TRIATHLON ASYMMETRIC PATELLA FDA Start: 02-25-2019 Total knee replacement UNIVERSAL TIBIAL BASEPLATE FDA Start: 02-25-2019 Total knee replacement CEMENT,HV SIMPLEX FDA Start: 02-25-2019 Total knee replacement CEMENT,HV SIMPLEX FDA Start: 02-25-2019 Total knee replacement POSTERIOR STABILIZED FEMORAL FDA Start: 02-25-2019 Total knee replacement TOTAL STABILIZER TIBIAL INSERT FDA Start: 02-25-2019 Total knee replacement TRIATHLON ASYMMETRIC PATELLA FDA Start: 02-25-2019 Total knee replacement UNIVERSAL TIBIAL BASEPLATE FDA Start: 02-25-2019 Total knee replacement CEMENT,HV SIMPLEX FDA Start: 02-25-2019 Total knee replacement CEMENT,HV SIMPLEX FDA Start: 02-25-2019 Total knee replacement POSTERIOR STABILIZED FEMORAL FDA Start: 02-25-2019 Total knee replacement TOTAL STABILIZER TIBIAL INSERT FDA Start: 02-25-2019 Total knee replacement TRIATHLON ASYMMETRIC PATELLA FDA Start: 02-25-2019 Total knee replacement UNIVERSAL TIBIAL BASEPLATE FDA Start: 02-25-2019 Total knee replacement CEMENT,HV SIMPLEX FDA Start: 02-25-2019 Total knee replacement CEMENT,HV SIMPLEX FDA Start: 02-25-2019 Total knee replacement POSTERIOR STABILIZED FEMORAL FDA Start: 02-25-2019 Total knee replacement TOTAL STABILIZER TIBIAL INSERT FDA Start: 02-25-2019 Total knee replacement TRIATHLON ASYMMETRIC PATELLA FDA Start: 02-25-2019 Total knee replacement UNIVERSAL TIBIAL BASEPLATE FDA Start: 02-25-2019 Total knee replacement CEMENT,HV SIMPLEX FDA Start: 02-25-2019 Total knee replacement CEMENT,HV SIMPLEX FDA Start: 02-25-2019 Total knee replacement POSTERIOR STABILIZED FEMORAL FDA Start: 02-25-2019 Total knee replacement TOTAL STABILIZER TIBIAL INSERT FDA Start: 02-25-2019 Total knee replacement TRIATHLON ASYMMETRIC PATELLA FDA Start: 02-25-2019 Total knee replacement UNIVERSAL TIBIAL BASEPLATE FDA Start: 02-25-2019 Total knee replacement CEMENT,HV SIMPLEX FDA Start: 02-25-2019 Total knee replacement CEMENT,HV SIMPLEX FDA Start: 02-25-2019 Total knee replacement POSTERIOR STABILIZED FEMORAL FDA Start: 02-25-2019 Total knee replacement TOTAL STABILIZER TIBIAL INSERT FDA Start: 02-25-2019 Total knee replacement TRIATHLON ASYMMETRIC PATELLA FDA Start: 02-25-2019 Total knee replacement UNIVERSAL TIBIAL BASEPLATE FDA Start: 02-25-2019 DOUGH,CEMENT 6191-1-010 FDA Start: 05-02-2017 DOUGH,CEMENT 6191-1-010 FDA Start: 05-02-2017 FLUTED PINS FDA Start: 05-02-2017 HEADED PINS FDA Start: 05-02-2017 HEADED PINS FDA Start: 05-02-2017 TRIATHLON POST STABIL FEMORAL FDA Start: 05-02-2017 TRIATHLON UNIV TIBIAL BASEPLAT FDA Start: 05-02-2017 TRIATHLON X3 ASY MM PATELLA FDA Start: 05-02-2017 TRIATHLON X3 TIB MARLYN INSERT-PS FDA Start: 05-02-2017 ([id number]) Ceramic femoral head prosthesis ()[id number] FDA Start: 12-14-2020 ([id number]) Coated hip femur prosthesis, modular ()[id number] FDA Start: 12-14-2020 ([id number]) Non-constrained polyethylene acetabular liner ()[id number] FDA Start: 12-14-2020 ([id number]) Acetabular shell ()[id number] FDA Start: 12-14-2020 ([id number]) Orthopaedic bone screw, non-bioabsorbable, sterile ()[id number] FDA Start: 12-14-2020 DOUGH,CEMENT 6191-1-010 FDA Start: 05-02-2017 DOUGH,CEMENT 6191-1-010 FDA Start: 05-02-2017 FLUTED PINS FDA Start: 05-02-2017 HEADED PINS FDA Start: 05-02-2017 HEADED PINS FDA Start: 05-02-2017 TRIATHLON POST STABIL FEMORAL FDA Start: 05-02-2017 TRIATHLON UNIV TIBIAL BASEPLAT FDA Start: 05-02-2017 TRIATHLON X3 ASY MM PATELLA FDA Start: 05-02-2017 TRIATHLON X3 TIB MARLYN INSERT-PS FDA Start: 05-02-2017 DOUGH,CEMENT 6191-1-010 FDA Start: 05-02-2017 DOUGH,CEMENT 6191-1-010 FDA Start: 05-02-2017 FLUTED PINS FDA Start: 05-02-2017 HEADED PINS FDA Start: 05-02-2017 HEADED PINS FDA Start: 05-02-2017 TRIATHLON POST STABIL FEMORAL FDA Start: 05-02-2017 TRIATHLON UNIV TIBIAL BASEPLAT FDA Start: 05-02-2017 TRIATHLON X3 ASY MM PATELLA FDA Start: 05-02-2017 TRIATHLON X3 TIB MARLYN INSERT-PS FDA Start: 05-02-2017 DOUGH,CEMENT 6191-1-010 FDA Start: 05-02-2017 DOUGH,CEMENT 6191-1-010 FDA Start: 05-02-2017 FLUTED PINS FDA Start: 05-02-2017 HEADED PINS FDA Start: 05-02-2017 HEADED PINS FDA Start: 05-02-2017 TRIATHLON POST STABIL FEMORAL FDA Start: 05-02-2017 TRIATHLON UNIV TIBIAL BASEPLAT FDA Start: 05-02-2017 TRIATHLON X3 ASY MM PATELLA FDA Start: 05-02-2017 TRIATHLON X3 TIB MARLYN INSERT-PS FDA Start: 05-02-2017 DOUGH,CEMENT 6191-1-010 FDA Start: 05-02-2017 DOUGH,CEMENT 6191-1-010 FDA Start: 05-02-2017 FLUTED PINS FDA Start: 05-02-2017 HEADED PINS FDA Start: 05-02-2017 HEADED PINS FDA Start: 05-02-2017 TRIATHLON POST STABIL FEMORAL FDA Start: 05-02-2017 TRIATHLON UNIV TIBIAL BASEPLAT FDA Start: 05-02-2017 TRIATHLON X3 ASY MM PATELLA FDA Start: 05-02-2017 TRIATHLON X3 TIB MARLYN INSERT-PS FDA Start: 05-02-2017 DOUGH,CEMENT 6191-1-010 FDA Start: 05-02-2017 DOUGH,CEMENT 6191-1-010 FDA Start: 05-02-2017 FLUTED PINS FDA Start: 05-02-2017 HEADED PINS FDA Start: 05-02-2017 HEADED PINS FDA Start: 05-02-2017 TRIATHLON POST STABIL FEMORAL FDA Start: 05-02-2017 TRIATHLON UNIV TIBIAL BASEPLAT FDA Start: 05-02-2017 TRIATHLON X3 ASY MM PATELLA FDA Start: 05-02-2017 TRIATHLON X3 TIB MARLYN INSERT-PS FDA Start: 05-02-2017 DOUGH,CEMENT 6191-1-010 FDA Start: 05-02-2017 DOUGH,CEMENT 6191-1-010 FDA Start: 05-02-2017 FLUTED PINS FDA Start: 05-02-2017 HEADED PINS FDA Start: 05-02-2017 HEADED PINS FDA Start: 05-02-2017 TRIATHLON POST STABIL FEMORAL FDA Start: 05-02-2017 TRIATHLON UNIV TIBIAL BASEPLAT FDA Start: 05-02-2017 TRIATHLON X3 ASY MM PATELLA FDA Start: 05-02-2017 TRIATHLON X3 TIB MARLYN INSERT-PS FDA Start: 05-02-2017 DOUGH,CEMENT 6191-1-010 FDA Start: 05-02-2017 DOUGH,CEMENT 6191-1-010 FDA Start: 05-02-2017 FLUTED PINS FDA Start: 05-02-2017 HEADED PINS FDA Start: 05-02-2017 HEADED PINS FDA Start: 05-02-2017 TRIATHLON POST STABIL FEMORAL FDA Start: 05-02-2017 TRIATHLON UNIV TIBIAL BASEPLAT FDA Start: 05-02-2017 TRIATHLON X3 ASY MM PATELLA FDA Start: 05-02-2017 TRIATHLON X3 TIB MARLYN INSERT-PS FDA Start: 05-02-2017 DOUGH,CEMENT 6191-1-010 FDA Start: 05-02-2017 DOUGH,CEMENT 6191-1-010 FDA Start: 05-02-2017 FLUTED PINS FDA Start: 05-02-2017 HEADED PINS FDA Start: 05-02-2017 HEADED PINS FDA Start: 05-02-2017 TRIATHLON POST STABIL FEMORAL FDA Start: 05-02-2017 TRIATHLON UNIV TIBIAL BASEPLAT FDA Start: 05-02-2017 TRIATHLON X3 ASY MM PATELLA FDA Start: 05-02-2017 TRIATHLON X3 TIB MARLYN INSERT-PS FDA Start: 05-02-2017 DOUGH,CEMENT 6191-1-010 FDA Start: 05-02-2017 DOUGH,CEMENT 6191-1-010 FDA Start: 05-02-2017 FLUTED PINS FDA Start: 05-02-2017 HEADED PINS FDA Start: 05-02-2017 HEADED PINS FDA Start: 05-02-2017 TRIATHLON POST STABIL FEMORAL FDA Start: 05-02-2017 TRIATHLON UNIV TIBIAL BASEPLAT FDA Start: 05-02-2017 TRIATHLON X3 ASY MM PATELLA FDA Start: 05-02-2017 TRIATHLON X3 TIB MARLYN INSERT-PS FDA Start: 05-02-2017 Goals Date Patient Goal Desired Activity /State Discharge summary 10-10-2024 Note Date & Type Note Facility 10-10-2024 Discharge summary Note Date/Time October 10, 2024 7:0 0pm [facility] [address] [place] [address] / REHABILITATION SERVICES DISCHARGE SUMMARY MR#: [id number] Acct: [id number] Name: CHELSIE HERNANDEZ Rep #: [id number] : 1955 69 From: Michelle Rojas MP T Referring Dr.: Dr. Marco Xie MD Status: REG RCR Insurance: MEDICARE PART A B [facility] Discharge Summary D/C summary: It has been my pleasure to treat CHELSIE HERNANDEZ referred by Dr. Marco Xie MD, with the diagnosis of Back and leg pain for a total of 9 visit(s). Discharge Date: 10/10/24 Please see the following information for a summary of their discharge status. Subjective Subjective: If pt does anything then she will pay for it over the next few days. said she needs surgery and they were going to go in the side and goes above and below the fusion. She will schedule her surgery on Sunday. Pain R hip pain: Pain Intensity (Out of 10): 0 LB: Pain Intensity (Out of 10): 3 Overall Improvement % Improvement: 50 Objective Objective/Function: R hip flex 13.3 and L 14.5 Goals Goal 1:: I HEP Goal Progress: Goal Met Goal 2:: Decrease back and R hip pain by 50% walking back into the clinic Goal Progress: Goal Met Goal 3:: Increase R hip flexion strength (at the time of the eval: R hip flex 9.2 and L 14.5) Goal 4:: Be able to to raise R hip easier into the car or up the steps Goal Progress: Not Progressing Plan Plan: DC PT to HEP D/C Information Discharge Comments: DC PT to HEP d/c sentence: If there are questions or concerns regarding this patient's physical therapy, please feel free to call me at [phone]. Thank you for the referral of thispatient. Sincerely, Michelle Rojas, ISIAH Balance/Gait/Functional tests Balance/Special Test Scores Oswestry Low Back Score: 18 Improvement % Improvement: 50 <Electronically signed by Michelle Rojas MPT> 10/10/24 0953 CC: Dr. Marco Xie MD; Dr. Phillip Novak MD ~ Signed [facility] Work Phone: Discharge summary 10-10-2024 Note Date & Type Note Facility 10-10-2024 Discharge summary [facility] Evaluation note 10-09-2024 Note Date & Type Note Facility 10-09-2024 Evaluation note Diagnosis Onset Date Resolution Degenerative joint disease of right hip acute October 09, 2024 8:24am Leg length discrepancy acute Ju 2024 8:24am Lumbar adjacent segment disease with spondylolisthesis acute October 09 8:24am Spinal stenosis of lumbar region with neurogenic claudication acute October 09, 2024 8:24am Spondylolisthesis, lumbar region acute October 09, 2024 8:24am [facility] Work Phone: Evaluation note Note Date & Type Note Facility Evaluation note Diagnosis Onset Date Lumbosacral radiculopathy at S1 acute Radiculitis acute Lumbosacral radiculopathy at S1 acute [facility] Work Phone: Evaluation note Note Date & Type Note Facility Evaluation note Diagnosis Onset Date Radiculitis acute Lumbosacral radiculopathy at S1 acute [facility] Work Phone: Evaluation note Note Date & Type Note Facility Evaluation note Diagnosis Onset Date Lumbosacral radiculopathy at S1 acute [facility] Work Phone: Evaluation note Note Date & Type Note Facility Evaluation note No assessment information availa ble [facility] Work Phone: Evaluation note Note Date & Type Note Facility Evaluation note Diagnosis Onset Date Resolution Degenerative joint disease of right hip acute October 09, 2024 8:24am Leg length discrepancy acute Ju ly 2024 8:24am Lumbar adjacent segment disease with spondylolisthesis acute October 09 8:24am Spinal stenosis of lumbar region with neurogenic claudication acute October 09, 2024 8:24am Spondylolisthesis, lumbar region acute October 09, 2024 8:24am [facility] Work Phone: Reason for referral (narrative) Note Date & Type Note Facility Reason for referral (narrative) No reason for referral information available [facility] Work Phone: Summary Purpose Family History No Family History Records Found Relationship Condition Age at Onset Recorded Date/T jeri father Cardiac disease Unknown Hypertension Unknown brother Cardiac disease Unknown sister Malignant neoplasm Unknown Cerebrovascular accident (CVA) Unknown mother Hypertension Unknown Advance Directives No Advanced Directives Records Found Advance Directive Response Recorded Date/ Time Living Will No March 31 4:47pm Power of Terminal Block Assembler No March 31, 2019 4:47pm Advance Directive Response Recorded Date/ Time Living Will No March 31 3:47pm Power of Terminal Block Assembler No March 31, 2019 3:47pm Advance Directive Response Recorded Date/ Time Living Will No November 30, 2020 1:37pm 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 October 09, 2024 8:24am Spinal stenosis of lumbar region with ne urogenic claudication October 09, 2024 8:24am Spondylolisthesis, lumbar region October 092024 8:24am Chief Complaint Lumbar spine xray LUMBAR RAD lumber spine LUMBER SPINE liver fibroids Reason for Visit Lumbosacral radiculo leo at S1 Radiculitis Lumbosacral radiculopathy at S1 Chief Complaint lumber spine LUMBER SPINE liver fibroids Reason for Visit Radiculitis Lumbosacral radiculopathy at S1 Chief Complaint LUMBER SPINE liver fibroids SCREENING Reason for Visit Lumbosacral radiculo leo at S1 Chief Complaint FATTY LIVER Chief Complaint SCREENING FATTY LIVER Chief Complaint Admit Date BACK PAIN/LEG PAIN. RX HERE September 10 9:59am Chief Complaint Admit Date BACK PAIN/LEG PAIN. RX HERE October 06 2:00pm LUMBAR SPINE October 09, 2024 8:24 am Additional Source Comments INFORMATION SOURCE (unrecogn ized section and content) DATE CREATED AUTHOR 05/14/2018 [employer] DATE CREATED AUTHOR AUTHOR'S ORGANIZ ATION 10/02/2019 [facility] ([place]) DATE CREATED AUTHOR AUTHOR'S ORGANIZ ATION 01/22/2025 [facility] Care Teams (unrecognized sec tion and content) Team Status: Active Member Role Status Dates Dr. Phillip Novak MD Family Provider Active Dr. Phillip Novak MD Primary Care Provider Active Team Status: Inactive Member Role Status Dates Dr. Phillip Novak MD Primary Care Provider Active Dr. Jr Garrison MD Attending Provider, Referring Provider Active Team Status: Inactive Member Role Status Dates Dr. Pihllip Novak MD Primary Care Provider, Attending Provider Active Team Status: Inactive Member Role Status Dates Dr. Phillip Novak MD Primary Care Provi tim, Attending Provider, Referring Provider Active Team Status: Active Member Role/Relationship Status Dates Dr. Phillip Novak MD Primary Care Provider Active Team Status: Inactive Member Role/Relationship Status Dates Dr. Phillip Novak MD Primary Care Provider Active Start: September 08, 2024 End: September 08, 2024 Dr. Phillip Novak MD Attending Provider Active Start: September 08, 2024 End: September 08, 2024 Dr. Phillip Novak MD Referring Provider Active Start: September 08, 2024 End: September 08, 2024 Team Status: Active Member Role/Relationship Status Dates Dr. Phillip Novak MD Primary Care Provider Active Start: September 10, 2024 Dr. Marco Xie MD Attending Provider Active Start: September 10, 2024 Dr. Marco Xie MD Referring Provider Active Start: September 10, 2024 Team Status: Inactive Member Role/Relationship Status Dates Dr. Phillip Novak MD Primary Care Provider Active Start: September 09, 2024 Dr. Yola Schrader MD Attending Provider Active Start: September 09, 2024 Team Status: Active Member Role/Relationship Status Dates Dr. Phillip Novak MD Primary Care Provider Active Start: October 06, 2024 Dr. Marco Xie MD Attending Provider Active Start: October 06, 2024 Dr. Marco Xie MD Referring Provider Active Start: October 06, 2024 Team Status: Inactive Member Role/Relationship Status Dates Dr. Phillip Novak MD Primary Care Provider Active Start: October 09, 2024 End: October 09, 2024 Dr. Phillip Novak MD Referring Provider Active Start: October 09, 2024 End: October 09, 2024 Dr. Bunny Macedo MD Attending Provider Active Start: October 09, 2024 End: October 09, 2024 Team Status: Inactive Member Role/Relationship Status Dates Dr. Phillip Novak MD Primary Care Provider Active Start: October 09, 2024 End: October 09, 2024 Dr. Phillip Novak MD Referring Provider Active Start: October 09, 2024 End: October 09, 2024 Dr. Bunny Macedo MD Attending Provider Active Start: October 09, 2024 End: October 09, 2024 Team Status: Inactive Member Role/Relationship Status Dates Dr. Phillip Novak MD Primary Care Provider Active Start: October 10, 2024 End: October 10, 2024 Dr. Marco Xie MD Attending Provider Active Start: October 10, 2024 End: October 10, 2024 Dr. Marco Xie MD Referring Provider Active Start: October 10, 2024 End: October 10, 2024 FOR RECORDS PERTAINING TO PATIENTS WHO ARE OR HAVE BEEN ENROLLED IN A CHEMICAL DEPENDENCY/SUBSTANCEABUSE PROGRAM, SOME INFORMATION MAY BE OMITTED. This clinical summary was aggregated from multiple sources. Caution should be exercised in using it in the provision of clinical care. This summary normalizes information from multiple sources, and as a consequence, information in this document may materially change the coding, format and clinical context of patient data. In addition, data may be omitted in some cases. CLINICAL DECISIONS SHOULD BE BASED ON THE PRIMARY CLINICAL RECORDS. [facility] [employer] [facility]. provides no warranty or guarantee of the accuracy or completeness of information in this document.
[2025-01-26] MEDS: Lactated Ringers 1,000 ML 15 ML IV (06:18)
[2025-01-26] MEDS: Magnesium 2 GM for ERAS IV (06:18)
--- NOTE | 2025-01-26 07:04 | PCM.PRE.AN2 ---
ASA Classification* ASA Classification ASA Classification: 3 Assessment & Plan Anesthesia* Anesthesia Assessment Anesthesia Assessment: Discussed sedation and/or anesthesia options, risks, benefits, and alternatives with patient/parents/legal guardian/POA. Questions invited. The patient/parents/legal guardian/POA seems to understand and agrees to proceed with anesthesia plan. Reviewed the physical assessment, medical history, allergy history and patient home medications list prior to surgery/procedure/anesthetic and documented any changes. Performed airway and anesthesia risk assessments. Anesthesia Type Anesthesia Type: General History Source History Obtained from:: Patient and Chart Anesthesia Focused Assessment* Temperature: 98.5 F Pulse Rate: 67 Blood Pressure: 144/78 Respiratory Rate: 18 Pulse Ox: 97 Oxygen Delivery Method: Room Air Airway Assessment Mouth opens: >3 cm Mallampati Score: IV Teeth Condition: Chipped/Broken (Patient has couple chipped molars.) and Missing (Missing 1 tooth. The rest of the teeth are tight.) Neck Range of motion (ROM): Limited ROM (Somewhat Decreased) Labs Anesthesia Preop lab: CBC WBC, (4.4-11.0) 6.8 K/mm3 01/01/25, 11:42 RBC, (4.2-5.4) 4.46 M/mm3 01/01/25, 11:42 Hgb, (12.0-15.0) 13.2 g/dL 01/01/25, : Hct, (37-47) 38.3 % 01/01/25, 11:42 Plt Count, (150-450) 290 K/mm3 01/01/25, 11:42 CHEMISTRY Potassium, (3.3-5.1) 4.0 mmol/L 01/01/25, 11:42 Sodium, (133-145) 139 mmol/L 01/01/25, 11:42 Magnesium, (1.5-2.2) 1.9 mg/dL 01/13/25, 08:29 BUN, (4-19) 26 mg/dL H 01/01/25, 11:42 Creatinine, (0.70-1.20) 0.69 mg/dL L 01/01/25, 11: Glucose, (70-99) 151 mg/dL H 01/01/25, 11:42 POC Glucose, (70-110) 139 mg/dL H 12/14/20, 10:49 TSH, (0.300-4.200) 0.821 uIU/mL 09/08/24, 10:46 COAG PT, (11.7-14.9) 13.2 SECONDS 01/01/25, 11:42 Pre-Assessment Diagnosis/Proposed Procedure Planned Operative Procedure(s): ANTERIOR LUMBAR INTERBODY FUSION L5-S1 OBLIQUE LUMBAR INTERBODY FUSION L2-3 REVISION POSTERIOR SPINAL INSTRUMENTED FUSION L2-3 L3-4 L4-5 L5-S1 REMOVAL OF PREVIOUS HARDWARE Anesthesia History 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 When Was Last Pacemaker Check QUESTION #4 FULL TEXT: You/Your Family Experience fever (hyperthermia) with Anesthesia Last Oral Intake Last Oral intake: Last Oral Intake NPO since 04:30 01/26/25 06:26 Meds taken in AM with sips of Yes 01/26/25 06:26 water? Meds patient instructed to take am of surgery Any additional information?: Yes NPO since: 04:30 (Patient had a preop Ensure at 4:30 AM.) Meds taken in AM with sips of water?: Yes PONV PONV - rug frame mounter: PONV - rug frame mounter Female Yes 01/12/25 10:13 HX of Motion Sickness No 01/12/25 10:13 HX of N/V After Surgery No 01/12/25 10:13 Non-Smoker Yes 01/12/25 10:13 Duration of Surgery greater Yes 01/12/25 10:13 than 60 minutes Number of Risk Factors 3 01/12/25 10:13 PONV Score Moderate Risk 01/12/25 10:13 Height & Weight Height & Weight: Anesthesia: Height & Weight Height 5 ft 2 in 01/26/25 06:26 Weight: 100 kg 01/26/25 06:26 Body Mass Index (BMI) 40.3 01/26/25 06:26 Respiratory Assessment Respiratory Assessment - rug frame mounter: Respiratory Tract Infection Hx - rug frame mounter Hx Respiratory Tract Infection No 01/12/25 10:13 STOP Sleep Apnea STOP Sleep Apnea - rug frame mounter: STOP Sleep Apnea - rug frame mounter Hx Hypertension Yes: CONTROLLED WITH MED 01/12/25 10:13 Hx Sleep Apnea Yes 01/12/25 10:13 CPAP Yes 01/12/25 10:13 BIPAP No 01/12/25 10:13 Do you snore loudly (louder than talking or can be heard Do you often feel tired/ fatigued/ sleepy during daytime? Has anyone observed you stop breathing during sleep? STOP Results Positive 01/12/25 10:13 QUESTION #5 FULL TEXT : Do you snore loudly (louder than talking or can be heard through closed doors)? Tobacco Use History Tobacco Use History - rug frame mounter: Tobacco Use History - rug frame mounter Tobacco Use Smoking Status Former smoker 01/12/25 10:13 Hx Tobacco Use No 01/12/25 10:13 Years Smoking Packs Smoked per Day Smoking Cessation Date was No - quit smoking greater 01/12/25 10:13 within the last 15 years than 15 years ago Hx Smoking Cessation Date 08/10/06 01/12/25 10:13 Hx Smoking Cessation No 01/12/25 10:13 Counseling Hematologic Medial History Hematologic Hx - rug frame mounter: Hematologic Medical Hx - newspaper stuffer Hx of Blood Transfusion No 01/12/25 10:13 Hx of Transfusion in last 3 No 01/12/25 10:13 Months Date of Last Transfusion (if within last 3 months) Ever experience any problems No 01/12/25 10:13 with transfusion(s)? Specify any problems Hx of Preganancy in last 3 No 01/12/25 10:13 Months Nurse Filling Out Transfusion DSCHRIBER 01/12/25 10:13 & Questions: Date: 01/12/25 01/12/25 10:13 Time: 10:14 01/12/25 10:13 Patient unable to answer at this time (ie. confused, unrespo /Reproduction History /Reproductive History - rug frame mounter: /Reproductive Hx- rug frame mounter Hx Now No 01/12/25 10:13 Gestational Age (in weeks): EDC: Hx Hx Para Hx Section SAB No 01/12/25 10:13 Does the father of the baby or his family experience fever w Father of the baby Malignant Hypertension history comment Active Medications Active Medications: Current Medications Generic Name Dose Route Start Last Admin Trade Name Freq PRN Reason Stop Dose Admin Cefazolin Sodium 2 gm/ Sodium 110 mls @ 150 mls/hr 01/26/25 07:00 Chloride IV 01/26/25 07:43 INTRAOP ONE Tranexamic Acid 1,000 mg/ 110 mls @ 440 mls/hr 01/26/25 07:00 Sodium Chloride IV 01/26/25 07:14 INTRAOP ONE Tranexamic Acid 1,000 mg/ 110 mls @ 440 mls/hr 01/26/25 07:00 Sodium Chloride IV 01/26/25 07:14 INTRAOP ONE Magnesium Sulfate 2 gm/ 104 mls @ 208 mls/hr 01/26/25 07:00 01/26/25 06:18 Dextrose IV 01/26/25 07:29 208 mls/hr PREOP ONE Administration Lactated Ringer's 1,000 mls @ 15 mls/hr 01/26/25 06:00 01/26/25 06:18 IV 15 mls/hr .Q48H GILL Administration Insulin Human Lispro 1 - 6 unit 01/26/25 07:00 01/26/25 06:29 Insulin Lispro 100 Unit/Ml Insuln.Pen SC 2 u Q4H PRN PRN Administration BG>/= 180, SEE PROTOCOL Protocol PFSH Medical History Post-menopausal History of steroid therapy Syncope Shortness of breath on exertion Leg length discrepancy Wears glasses Fatty liver High cholesterol Former smoker CPAP (continuous positive airway pressure) dependence History of pain when walking Leg cramps Numbness and tingling Fatigue Arthritis Back problem Abnormal ultrasound of breast Nerve pain Hypertension Home Medications ?Medication ?Instructions ?Recorded ?Last Taken ?Type pravastatin 40 mg tablet 40 mg PO QHS CHOLESTEROL 09/26/16 01/25/25 History cholecalciferol (vitamin D3) 50 2,000 unit PO DAILY SUPPLEMENT 06/20/18 01/25/25 History mcg (2,000 unit) capsule multivitamin 1 tab PO DAILY SUPPLEMENT 06/20/18 01/25/25 History calcium carbonate 500 mg PO DAILY@0800 SUPPLEMENT 02/18/19 01/25/25 History metoprolol tartrate 25 mg tablet 25 mg PO BID BP 11/01/20 01/26/25 History valsartan 320 1 tab PO DAILY BP 11/30/20 01/25/25 History mg-hydrochlorothiazide 12.5 mg tablet thistle weed 1 cap PO BID SUPPLEMENT 09/05/21 01/25/25 History gabapentin 600 mg tablet 600 mg PO BID NERVE PAIN 04/10/24 01/25/25 History Allergy/AdvReac Type Severity Reaction Status Date / Time No Known Allergies Allergy Verified 01/26/25 06:16 Family History Father Heart disease Hypertension Brother Heart disease Hypertension Sister Cancer sarcoma Hypertension CVA (cerebral vascular accident) Mother Hypertension Surgical History History of left hip replacement Hx of colonoscopy Hx of knee surgery Hx of total knee replacement History of lumbar fusion History of lumbar laminectomy Hx of cholecystectomy History of total left knee replacement (TKR) Social History adopted: No household members: spouse housing: house number of children: 2 current occupational status: employed and retired 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
--- NOTE | 2025-01-26 07:23 | PCM.HP.BLA ---
History and Physical Date of Admission: 01/26/25 MR#: [id number] Acct: [id number] Name: CHELSIE HERNANDEZ Rep #: [id number] : 1955 Provider: Dr. Bunny Macedo MD Age/Sex: 69/F Location: [email or web address] Status: Signed Intake Vital Signs 10/10/2507:25 01/16/2513:03 Height 5 ft 2 in 5 ft 2 in Weight: 220 lb 220 lb BMI 40.2 40.2 Intake Visit Reasons: lumbar spine Chief Complaint: lumbar spine pre op Accompanied by: Daughter Is patient in pain?: Yes Pain scale (1-10): 6 Allergies No Known Allergies Allergy (Verified 01/16/25 13:06) Medications ?Medication ?Instructions ?Recorded ?Confirmed ?Type pravastatin 40 mg tablet 40 mg PO QHS CHOLESTEROL 09/26/16 01/16/25 History cholecalciferol (vitamin D3) 50 2,000 unit PO DAILY SUPPLEMENT 06/20/18 01/16/25 History mcg (2,000 unit) capsule multivitamin 1 tab PO DAILY SUPPLEMENT 06/20/18 01/16/25 History calcium carbonate 500 mg PO DAILY@0800 SUPPLEMENT 02/18/19 01/16/25 History metoprolol tartrate 25 mg tablet 25 mg PO BID BP 11/01/20 01/16/25 History valsartan 320 1 tab PO DAILY BP 11/30/20 01/16/25 History mg-hydrochlorothiazide 12.5 mg tablet thistle weed 1 cap PO BID SUPPLEMENT 09/05/21 01/16/25 History gabapentin 600 mg tablet 600 mg PO BID NERVE PAIN 04/10/24 01/16/25 History Have you fallen in the past year?: No PFSH Medical History Post-menopausal History of steroid therapy Syncope Shortness of breath on exertion Leg length discrepancy Wears glasses Fatty liver High cholesterol Former smoker CPAP (continuous positive airway pressure) dependence History of pain when walking Leg cramps Numbness and tingling Fatigue Arthritis Back problem Abnormal ultrasound of breast Nerve pain Hypertension Surgical History History of left hip replacement Hx of colonoscopy Hx of knee surgery Hx of total knee replacement History of lumbar fusion History of lumbar laminectomy Hx of cholecystectomy History of total left knee replacement (TKR) Family History Father Heart disease Hypertension Brother Heart disease Hypertension Sister Cancer sarcoma Hypertension CVA (cerebral vascular accident) Mother Hypertension Social History adopted: No household members: spouse housing: house number of children: 2 current occupational status: employed and retired 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 Bunny Macedo MD 01/16/25 1303. Part of today?s visit was documented by Florence Willis MA, acting as scribe. CHELSIE HERNANDEZ is a 69 year old F here today for lumbar spine pre op for L5-S1 ALIF, L2-3 OLIF, L2-S1 revision posterior spinal instrumented fusion, removal of previous hardware scheduled for 01-26-25. Patient states that her pain is a 6 today. She would like to know the general recovery. The patient is a 69-year-old female presenting with lumbar spinal stenosis and degenerative disc disease. She reports significant pain, particularly at night, ongoing since March, with some relief from a steroid injection received on December 02. The pain is primarily in the lower back and pelvis, with no radiation below the knee, and worsens with activities like lifting her leg or climbing stairs. She has a history of spinal fusion from L3 to L5, with imaging showing degeneration and stenosis above the fusion. The patient also has pre-diabetes, with a hemoglobin A1c of 6.3, and is monitored by her primary care physician. She denies diabetes and smoking. Hypertension was noted to be elevated on the morning of the visit, possibly due to stress. - Musculoskeletal: Reports significant pain in the lower back and pelvis, worsens with leg lifting and climbing stairs. Denies pain below the knee. - Endocrine: Reports pre-diabetes, denies diabetes. - Cardiovascular: Reports elevated blood pressure, denies chest pain or palpitations. Attestation: Documentation on this patient encounter was supported using ambient scribe technology/ voice AI technology. The patient consented to recording for the purpose of documenting the encounter. Provider reviewed content of the generated note prior to signature. 10/09/24: CHELSIE HERNANDEZ is a 69 year old F here today for follow up after physical therapy. Patient has been doing physical therapy at [facility]. She has done about 6 sessions of physical therapy for her lower back. Patient states that she can't maintain the pin in her lower back through physical therapy. Her pain level is about a 4 today in the lower back. Patient states that the Physical therapy did help her lower back, but she is still have continuation of lower back pain. The pain sometimes feels like someone is taking there fist and bunching the lower back, other days it feels like a dull ache. Patient states that she is completely done with physical therapy tomorrow, that she would like to discuss surgery options. She reports trouble going up and down stairs due to pain and weakness in her right leg. The pain in the right leg is anterior and lateral and extends to the knee. She did receive a caudal injections in August which she reports was helpful in alleviating the pain that goes into her left thigh. She does not feel the need to use a cane or walker. She has a fusion at L3-L5. Past medical history is significant for hypertension and hypercholesteremia. She denies a history of diabetes, heart or lung problems. She denies a history of strokes. She does not take a blood thinner. Ortho Exam General General: Yes no acute distress Neurologic: Yes alert and Yes oriented x3 Psychologic: Yes reasonable and appropriate Spine SPINE TESTING CERVICAL THORACIC LUMBAR Musculoskeletal Strength 0=absent - 5=normal Details: Examination of the back shows midline lumbar incision scar well-healed. No significant spinous process tenderness. Mild paraspinal tenderness bilaterally slightly worse on the right. Neurologic motion of lower extremity shows 5 x 5 power in all muscle groups, except right quadricep which is grade 4+. There is no hyperreflexia. Coding Level of Care Code Off vis,est,level 4 Diagnoses Spinal stenosis of lumbar region with neurogenic claudication M48.062 Primary osteoarthritis of right hip M16.11 Osteoarthritis type: primary Lumbar adjacent segment disease with spondylolisthesis M51.369; M43.16 Spondylolisthesis, lumbar region M43.16 Leg length discrepancy M21.70 Time Spent (min) 35 Assessment and Plan Assessment and Plan (1) Spinal stenosis of lumbar region with neurogenic claudication: Status: Acute (2) Degenerative joint disease of right hip: Status: Acute Qualifiers: Osteoarthritis type: primary Qualified Code(s): M16.11 - Unilateral primary osteoarthritis, right hip (3) Lumbar adjacent segment disease with spondylolisthesis: Status: Acute (4) Spondylolisthesis, lumbar region: Status: Acute (5) Leg length discrepancy: Status: Acute Orders: Orders Spine Lumbar without Contrast Today M16.11 - Unilateral primary osteoarthritis, right hip, M43.16 - Spondylolisthesis, lumbar region, M48.062 - Spinal stenosis, lumbar region with neurogenic claudication, M51.369 - Other intervertebral disc degeneration, lumbar region without mention of lumbar back pain or lower extremity pain Plan reviewed previous x-rays and MRI in detail with patient. previous x-rays which show stable L3-5 fusion with L2-3 adjacent segment degeneration, loss of disc height, vacuum phenomenon, grade 1 spondylolisthesis with mild dynamic instability in flexion extension views. MRI from 04/29/24 shows L2-3 anterolisthesis with moderate to severe spinal stenosis. L5-S1 large right extraforaminal disc protrusion. SI joints show sclerosis on AP view. Positive sagittal balance noticed. 1. Lumbar spinal stenosis - Plan for surgical intervention to address stenosis and degeneration, focusing on minimizing right-sided pressure. 2. Degenerative disc disease - Address degeneration and pinched nerve during surgery, with adjustments as needed. 3. Pre-diabetes - Monitor glucose levels and follow up with primary care. - Emphasize lifestyle changes. 4. Hypertension - Monitor blood pressure, especially perioperatively, and manage stress. - Follow up with your primary care physician to monitor blood glucose levels and manage pre-diabetes. - Monitor your blood pressure regularly and manage stress to control hypertension. - Prepare for surgery by following preoperative instructions and attending scheduled appointments. - Engage in lifestyle modifications, including diet and exercise, to improve overall health. We discussed all options including surgical and non surgical options. Since last seen by me, patient has had worsening right anterior thigh pain, to have hamstring pain worse on the left but somewhat improved. Explained to her that the anterior thigh pain is from the L2-3 segment was L5-S1 right foraminal disc protrusion will cause the right sided hamstring and calf pain which at this time the patient denies. She has adjacent segment degeneration above her previous fusion. Although she is scheduled for both L2-3 and L5-S1 fusion, I explained to her the possibility of just limiting the surgery to L2-3, she does not seem to have any right L5-S1 symptoms at this time. Patient was agreeable with this possible change. Discussed this procedure in detail and explained the risks, benefits and alternatives. The risks of surgery include but are not limited to infection, bleeding, injury to nerves and vessels, ileus, visceral injury, vascular injury, need for blood transfusion, persistent pain, persistent numbness and weakness, gait abnormality, DVT, pulmonary embolism, pneumonia, atelectasis, hardware failure, pseudoarthrosis, need for further surgery, adjacent segment degeneration. Discussed post-surgery restrictions such as no bending, lifting, or twisting. Answered all questions to the patient?s satisfaction. Patient understands and agrees to proceed with surgery. Consent was signed.Follow up 2 weeks post operatively or sooner if pain, swelling, numbness or associated symptoms, or concerns develop. All questions answered. Patient in agreement of plan.
--- NOTE | 2025-01-26 07:30 | RAD_ITS ---
PROCEDURE: Intraoperative fluoroscopic services. 01/26/2025 REASON FOR EXAM: ANTERIOR LUMBER FUSION L5-S1, LUMBAR INTERBODY FUSION L2-3 TECHNIQUE: Procedure Code: RADSPLL Modality: DX Procedure: LUMBAR SPINE 2 OR 3 VIEWS. Intraoperative fluoroscopic services provided for anterior lumbar fusion. Radiation dose: 120.16 mGy. 2 minutes and 53.3 seconds of fluoroscopy. 6 intraoperative images were submitted. COMPARISON: None FINDINGS: Intraoperative fluoroscopic services provided for intrapedicular screw and juan fixation and laminectomy with interbody disc fusion. RAD/Lumbar Spine 2 or 3 Views IMPRESSION: Intraoperative fluoroscopic services provided for fusion. Reading Location: [facility]
[2025-01-26] MEDS: Midazolam 2 MG/2 ML Syringe IV (07:48)
[2025-01-26] MEDS: Lidocaine 1% (5 ml sdv) 5 ML Vial IV (07:55)
[2025-01-26] MEDS: Cefazolin 1 GM/5 ML Vial 4 GM IV (12:00)
[2025-01-26] MEDS: TRANEXAMIC ACID 1,000 MG/10 ML ML 2000 MG IV (12:13)
[2025-01-26] MEDS: fentaNYL 100 MCG/2 ML Ampul IV (12:18)
[2025-01-26] MEDS: Lactated Ringers 2,000 ML 2000 ML IV (12:35)
--- NOTE | 2025-01-26 12:59 | PCM.OPRPT ---
Procedures Musculoskeletal 20xxx-29xxx: Other Procedure See Report Operative Report (Standard) Operative Information Date of Procedure: 01/26/25 Pre-Operative Diagnosis: L2-3 spondylolisthesis, disc degeneration, stenosis with neurogenic claudication, prior L3-5 fusion Post-Operative Diagnosis: Same Surgery/Procedure Performed: L2-3 oblique lumbar interbody fusion, anterior instrumentation manager sales support: Yes Teacher Emotionally Impaired: Lesly Floyd Tasks completed by first aid director: Closing, Removing tissue, Implanting device, Hemostasis: Electrocautery and Retracting Type of Anesthesia: General RN Documented Start/Stop Times: Operation Date: 01/26/25 07:30 Case Time Into Pre-Op 01/26/25 05:46 Out of Pre-Op 01/26/25 07:41 Anesthesia Start 01/26/25 07:48 Into Room 01/26/25 07:48 Procedure Start 01/26/25 08:24 Procedure End 01/26/25 12:49 Anesthesia End 01/26/25 12:58 Out of Room 01/26/25 12:58 Procedure Start Time: 08:24 Procedure Stop Time: 12:49 Select all DRAINS/GRAFTS/IMPLANTS that apply: Graft Graft details: Allograft cancellous chips, autologous iliac crest bone marrow aspirate and Implanted device Implanted device details: DePuy cougar lateral lumbar interbody fusion, 4 web 2 hole plate Estimated Blood Loss: 50 cc Specimen collected: No Description of surgery: Preoperative diagnosis: L2-3 spondylolisthesis, L2-3 disc degeneration, stenosis with neurogenic claudication, prior L3-5 fusion Postoperative diagnosis: Same Name of procedures L2-3 oblique lumbar interbody fusion (OLIF), anterior instrumentation, minimally invasive left sided approach, lateral decubitus: ? L2-3 anterolateral spinal fusion 57961 ? L2-3 insertion of cage [id number] . L2-3 anterior instrumentation 87800 ? Bone graft aspirate left iliac crest separate incision ? Allograft cancellous chips Attending Surgeon: Dr. Bunny Macedo Estimated blood loss: 50 mL Anesthesia: General Complications: None Indications: Patient is a 69-year-old pleasant lady who has had a long history of low back pain and left worse than right lower extremity radiation, difficulty walking distances. Xrays & MRI revealed L2-3 adjacent segment degeneration with spondylolisthesis, prior L3-5 fusion. After undergoing a prolonged period of nonoperative treatment, the patient elected to undergo surgical decompression & fusion. All surgical options were discussed with the patient including anterior and posterior approaches. All risks and benefits associated with the procedure were explained to the patient. The risks include but are not limited to infection, bleeding, injury to nerves and vessels including major vessels like IVC and aorta, persistent paresthesia, persistent pain, dural tear, need for further procedures, adjacent segment degeneration, pseudoarthrosis, hardware failure, retrograde ejaculation, paralytic ileus, etc. Procedure: The patient was identified in the preoperative holding suite using Unique patient identifiers. Skin was marked, consent was reviewed, and all questions were answered. The patient was then brought back to the operative room. A surgical timeout was performed to make sure correct procedure was being done on the correct patient and all operative room staff were on the same page. General endotracheal anesthesia was then given to the patient. Perez catheter was inserted. The patient was then carefully positioned in right lateral decubitus position with the left side up on a regular OR table. Axillary roll was placed and all bony prominences were well- padded. Hip positioners were placed in the posterior buttocks and anterior sternal area. The surgical area was prepped and draped in usual fashion. Preoperative antibiotic was injected IV as preoperative antibiotic. A final timeout was then again done just before starting the procedure. A 2 inch incision oblique was taken in the left lower quadrant of the abdomen 2 fingerbreadths away from the iliac crest and the lower ribs. Sharp dissection with Bovie was carried out up to the fascia covering the external oblique. The external oblique, internal oblique and transversus abdominis muscles were split along the muscle fibers and retroperitoneal space was entered. Sponge sticks were utilized to move the bowel and peritoneum [id number]-vb-yae-way and psoas muscle was exposed staying within the retroperitoneal plane. My eShoeframe retractor system was positioned and the retractor blade was applied onto the psoas. The interval between psoas and midline structures was developed and appropriate retractors were placed. Once adequate interval was cleared, a disc space was identified and a marker x-ray was taken. This identified the L2-3 disc level. Annulotomy was done with a long handled knife. Pituitary was used to remove disc material. Curettes were used to prepare the endplates. Disc space spreaders were utilized to distract and increase the disc height. Near complete discectomy was performed. Smaller disc distractors were also used to bluntly perform a contralateral annulotomy. Trials of serially increasing sizes were used. A Jamshidi needle was used to aspirate bone marrow from the left anterior iliac crest through a separate incision and this aspirate was mixed with the allograft bone chips. A Depuy [place] cage of size of the 18 x 50 x 10 mm with 15 degrees lordosis was packed with corticocancellous allograft bone chips mixed with bone marrow aspirate. This was inserted into the L2-3 disc space. AP and lateral C-arm pictures were taken to confirm good position of the cage. Some bone chips were also packed around the cages. Due to the significant instability, decision was made to perform anterior instrumentation. A 4 web 2 hole plate was applied, separate from the cage, with two 40 mm screws going into L2 and L3 bodies. C-arm showed appropriate placement of hardware. Hemostasis was confirmed. The retractor blades were removed. Closure was done in layers with a continuous strand of # 1 Vicryl in all muscle layers. 2-0 Vicryl was used for subcutaneous tissue and 4-0 for Monocryl for the skin. Steri-Strips were applied and 4 x 4 gauze and Tegaderm were applied. Certified Physician Assistant Lesly Floyd PA-C. My physician carpenter assistant was a vital part of this case. They were important in appropriate retraction during the case, and protection of soft tissues during the procedure. Their intimate knowledge of the case and my steps aided in safe and expedient completion of the procedure as well as appropriate position of the patient during the surgery. They were also vital in assisting with closure under my direct supervision. Surgical Findings: See operative note Complications Complications: No
--- NOTE | 2025-01-26 13:06 | OP.PCM_ITS ---
Procedures Musculoskeletal 20xxx-29xxx: Other Procedure See Report Operative Report (Standard) Operative Information Date of Procedure: 01/26/25 Pre-Operative Diagnosis: L2-3 spondylolisthesis, disc degeneration, stenosis with neurogenic claudication, prior L3-5 fusion Post-Operative Diagnosis: Same Surgery/Procedure Performed: L2-3 posterior spinal instrumented fusion, revision extension of previous L3-5 instrumentation animated cartoons painter: Yes Commercial Title Examiner: Lesly Floyd Tasks completed by office manager executive assistant: Closing, Removing tissue, Implanting device, Hemostasis: Electrocautery and Retracting Type of Anesthesia: General RN Documented Start/Stop Times: Operation Date: 01/26/25 07:30 Case Time Into Pre-Op 01/26/25 05:46 Out of Pre-Op 01/26/25 07:41 Anesthesia Start 01/26/25 07:48 Into Room 01/26/25 07:48 Procedure Start 01/26/25 08:24 Procedure End 01/26/25 12:49 Anesthesia End 01/26/25 12:58 Out of Room 01/26/25 12:58 Procedure Start Time: 08:24 Procedure Stop Time: 12:49 Select all DRAINS/GRAFTS/IMPLANTS that apply: Graft Graft details: Allograft cancellous chips and Implanted device Implanted device details: DePuy Viper prime pedicle screw instr umentation, SpineWave [place] full jog juan connector Estimated Blood Loss: 50 cc Specimen collected: No Description of surgery: Preoperative diagnosis: L2-3 spondylolisthesis, disc degeneration, stenosis with neurogenic claudication, prior L3-5 fusion Postoperative diagnosis: Same Name of procedures: L2-3 posterior percutaneous pedicle screw instrumented fusion, superior extension of prior L3-5 posterior instrumentation prone: ? L2-3 posterior spinal fusion 64484 ? L2-3 posterior pedicle screw instrumentation 41424 ? Allograft cancellous chips [id number] Attending Surgeon: Dr. Bunny Macedo Estimated blood loss: 50 mL (total for entire case) Anesthesia: General Complications: None Description of procedure: After the anterior procedure was complete, the patient was then turned supine. The patient was then transferred to Rodolfo table in prone position. Back was prepped and draped in usual fashion. C-arm AP view was then taken. C-arm was positioned in a way that L2 was centralized and superior endplate of was parallel to the beam. Spinous process was centered between the pedicles. Midline was marked with skin marker and lateral borders of the pedicles were also marked. Skin marker was also utilized to sanchez transversely across the middle of the pedicles at L2. 2 transverse paramedian incisions of 1 inch were placed. The fascia was incised vertically. Finger dissection was utilized to palpate the transverse process and facet joint. Viper Prime screws with towers were inserted and docked onto the transverse processes. This was then slowly moved medially to reach the superior articular process of L2. This was then confirmed on C-arm and then a mallet was utilized to drive the trocar into the pedicle going up to the medial wall of the pedicle on AP view. This was performed both sides. C-arm lateral view confirmed that the tip of the trocar was in the vertebral body, and the screw was advanced into the pedicle and vertebral body. Screw sizes were 7 x 50 mm at L2 on both sides. Vertical paramedian incision was then made after aligning up the L3 and L4 screws on AP view. Serial dilators were utilized. 60 x 18 mm tubular retractor was placed. Bovie was utilized to expose the L3 screw as well as the juan between L3 and L4. Spine wave [place] juan connector instrumentation was then trialed. A full jog 40 mm juan was chosen based on sizing. This juan was then passed through the screw extension of L2 and docked on the portion of the juan between L3 and L4 screws. The connector was rotated into position and final tightened with torque screwdriver. Similarly L2 setscrew was final tightened as well. Similar procedure was done on the other side. AP and lateral C-arm showed appropriate positioning of juan and screws. Carla was utilized to roughen the facet joint at L2-3 on the right side. Cancellous allograft bone chips mixed with bone marrow aspirate were then placed over this decorticated area. Hemostasis was achieved. Closure was done in layers with 0 Vicryls for the fascia, 2-0 Vicryls for the subcutaneous tissue, and Monocryl for the skin. Dermabond was applied. Dressings were applied covered with Tegaderm. The patient was then turned supine onto a hospital bed. The patient was extubated and taken to PACU in stable condition. The patient tolerated the procedure well and no complications occurred. [employer] [place] cage & Viper Prime minimally invasive pedicle screw instrumentation system was utilized in this case. No dural tear was identified intraoperatively. I was present for the entirety of the case and performed the surgery. Compensation And Hris Analyst Lesly Floyd PA-C. My physician assistant fitness manager was a vital part of this case. They were important in appropriate retraction during the case, and protection of soft tissues during the procedure. Their intimate knowledge of the case and my steps aided in safe and expedient completion of the procedure as well as appropriate position of the patient during the surgery. They were also vital in assisting with closure under my direct supervision. Surgical Findings: See operative note Complications Complications: No
--- NOTE | 2025-01-26 13:09 | PCM.POST.ANE ---
Anesthesia: Postop Eval I Current Vital Signs Temperature: 97.8 F Pulse Rate: 85 Blood Pressure: 133/99 Respiratory Rate: 16 Pulse Ox: 91 Oxygen Delivery Method: Room Air Assessment Airway patent: Yes Spontaneous unlabored respirations: Yes Mental status: Awake nausea: No Vomiting: No Anesthesia Complication: No Fluid Hydration Crystalloid volume administer (ml): 2,000 Total IV fluid infused: 2,000 Progress Note Anesthesia document: Postop Eval 1 completed: Yes
--- NOTE | 2025-01-26 16:36 | POSTOPAN2_ITS ---
Anesthesia Postop Eval I Sum Postop Eval Completion status Anesthesia document: Postop Eval 1 completed: Yes Anesthesia Postop Eval I Summary Anesthesia Postop Eval I Summary: Anesthesia Postop Eval I: Assessment Summary Airway patent Yes 01/26/25 13:10 [email or web address] Spontaneous unlabored Yes 01/26/25 13:10 [email or web address] respirations Mental status Awake 01/26/25 13:10 [email or web address] nausea No 01/26/25 13:10 [email or web address] [email or web address] Vomiting No 01/26/25 13:10 [email or web address] [email or web address] Anesthesia Postop Eval I: Fluid Summary Crystalloid volume administer 2,000 01/26/25 13:10 [email or web address] (ml) Colloids volume administered ( ml) Blood Product volume administered (ml) Total IV fluid infused 2,000 01/26/25 13:10 [email or web address] Anesthesia Postop Eval I: Summary Notes Anesthesia Complication No 01/26/25 13:10 [email or web address] [email or web address] Anesthesia Complication Comment: Post-operative progress note Anesthesia: Postop Eval II Evaluation Mental status: Awake and Calm Pain Level: 2 nausea: No Vomiting: No
--- NOTE | 2025-01-26 16:36 | PCM.POSTANE2 ---
Anesthesia Postop Eval I Sum Postop Eval Completion status Anesthesia document: Postop Eval 1 completed: Yes Anesthesia Postop Eval I Summary Anesthesia Postop Eval I Summary: Anesthesia Postop Eval I: Assessment Summary Airway patent Yes 01/26/25 13:10 DEVELOPER PROVER [email or web address] Spontaneous unlabored Yes 01/26/25 13:10 DEVELOPER PROVER [email or web address] respirations Mental status Awake 01/26/25 13:10 DEVELOPER PROVER [email or web address] nausea No 01/26/25 13:10 DEVELOPER [employer]OVER [email or web address] Vomiting No 01/26/25 13:10 DEVELOPER PROVER [email or web address] Anesthesia Postop Eval I: Fluid Summary Crystalloid volume administer 2,000 01/26/25 13:10 DEVELOPER [employer]OVER [email or web address] (ml) Colloids volume administered ( ml) Blood Product volume administered (ml) Total IV fluid infused 2,000 01/26/25 13:10 DEVELOPER PROVER [email or web address] Anesthesia Postop Eval I: Summary Notes Anesthesia Complication No 01/26/25 13:10 DEVELOPER PROVER [email or web address] Anesthesia Complication Comment: Post-operative progress note Anesthesia: Postop Eval II Evaluation Mental status: Awake and Calm Pain Level: 2 nausea: No Vomiting: No
--- NOTE | 2025-01-26 16:53 | PCM.CONS.GEN ---
Assessment & Plan Assessment/Plan (1) Spinal stenosis of lumbar region with neurogenic claudication: PLAN: Plan Patient is a 69-year-old female who presented to [facility] on 01/26/2025 for planned lumbar fusion procedure. Medicine consulted postoperatively for medical management. 1. L2-3 spondylolisthesis with disc degeneration and stenosis with neurogenic claudication, prior L3-5 fusion ? Orthopedic surgery primary. S/p 2?3 posterior spinal fusion with revision of previous L3-5 instrumentation on 01/[address] Macedo. Tolerated procedure well, no intraoperative complications noted. Postoperative pain control per orthopedics with scheduled Tylenol, Mobic, home gabapentin, oxycodone as needed and IV morphine as needed. Will defer DVT prophylaxis to orthopedics. Follow-up a.m. labs. PT/OT/case management consulted. 2. Hypertension/hyperlipidemia ? Hypertensive to the 160s systolic postoperatively. Was noted to have elevated systolic BPs during preoperative testing as well. Continue home Lopressor, valsartan and hydrochlorothiazide. IV hydralazine 10 mg every 4 hours as needed ordered for SBP greater than 170. Continue home statin. 3. Class III obesity with ANDREE ? BMI 40.3 on admit. Complicates hospital course and care. Continue home CPAP therapy at night and with naps. 4. Prior history of left hip replacement and left knee replacement ? Complicates hospital course and care. 5. Prediabetes ? A1c 6.3% on preop testing. Postoperative glucose 179. No need for sliding scale insulin or glucose checks with meals while inpatient. DVT prophylaxis: Per orthopedics Total clinical time spent by myself addressing the patient's medical issues, reviewing all the data, and collaborating with patient's care team: 38 minutes. HPI Consult Data Date of Consult: 01/26/25 HPI Narrative Reason for Consultation: Postoperative medical management HPI Narrative: CHELSIE HERNANDEZ, is a 69 F who presented to [facility] on 01/26/2025 for planned orthopedic procedure. Medicine consulted postoperatively for medical management. Patient had lumbar spine fusion procedure and revision of prior spinal fusion that with Dr. Macedo today. Tolerated procedure well, no intraoperative palpations noted. I saw the patient at bedside this evening. Patient was laying on her side in bed and sleeping when I arrived. She reported mild low back pain currently with no radiation of pain. She does feel like she wants to try to get up and move with assistance tonight. She denies any other acute concerns currently. [facility] Medical History Post-menopausal History of steroid therapy Syncope Shortness of breath on exertion Leg length discrepancy Wears glasses Fatty liver High cholesterol Former smoker CPAP (continuous positive airway pressure) dependence History of pain when walking Leg cramps Numbness and tingling Fatigue Arthritis Back problem Abnormal ultrasound of breast Nerve pain Hypertension Home Medications ?Medication ?Instructions ?Recorded ?Last Taken ?Type pravastatin 40 mg tablet 40 mg PO QHS CHOLESTEROL 09/26/16 01/25/25 History cholecalciferol (vitamin D3) 50 2,000 unit PO DAILY SUPPLEMENT 06/20/18 01/25/25 History mcg (2,000 unit) capsule multivitamin 1 tab PO DAILY SUPPLEMENT 06/20/18 01/25/25 History calcium carbonate 500 mg PO DAILY@0800 SUPPLEMENT 02/18/19 01/25/25 History metoprolol tartrate 25 mg tablet 25 mg PO BID BP 11/01/20 01/26/25 History valsartan 320 1 tab PO DAILY BP 11/30/20 01/25/25 History mg-hydrochlorothiazide 12.5 mg tablet thistle weed 1 cap PO BID SUPPLEMENT 09/05/21 01/25/25 History gabapentin 600 mg tablet 600 mg PO BID NERVE PAIN 04/10/24 01/25/25 History Allergy/AdvReac Type Severity Reaction Status Date / Time No Known Allergies Allergy Verified 01/26/25 06:16 Family History Father Heart disease Hypertension Brother Heart disease Hypertension Sister Cancer sarcoma Hypertension CVA (cerebral vascular accident) Mother Hypertension Surgical History History of left hip replacement Hx of colonoscopy Hx of knee surgery Hx of total knee replacement History of lumbar fusion History of lumbar laminectomy Hx of cholecystectomy History of total left knee replacement (TKR) Social History adopted: No household members: spouse housing: house number of children: 2 current occupational status: employed and retired 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 pets and animals: Yes history of recent travel: No Smoking Status: Former smoker second hand exposure: No alcohol intake: current alcohol intake frequency: holidays/special occasions only substance use type: does not use caffeine: Yes frequency: does not exercise seatbelt use: always do you feel safe at home: Yes additional social history: - Don ROS Constitutional Constitutional: Reports fatigue; Denies chills, fever(s) or weakness Cardiovascular Cardiovascular: Denies chest pain Respiratory/Chest Respiratory/Chest: Denies shortness of breath at rest Gastrointestinal Gastrointestinal: Denies abdominal pain Musculoskeletal Musculoskeletal: Reports back pain; Denies myalgias Neurologic Neurologic: Denies dizziness, focal weakness, headache(s), numbness, paresthesias or tingling Physical Exam Const alert, oriented x3 and no apparent distress Constitutional Narrative: Elderly female, class III obesity, mildly fatigued appearing, otherwise laying back comfortably in bed, conversing normally, in no acute distress. General Appearance: cooperative and comfortable HEENT normocephalic, head/scalp atraumatic, hearing grossly normal bilaterally, nasal mucous membranes and turbinates normal and moist oral mucous membranes Eyes PERRL, EOMs intact bilaterally and conjunctivae normal Neck full ROM Chest inspection of chest normal Resp normal respiratory effort, normal air movement, no use of accessory muscles and clear to auscultation bilaterally Cardio regular rate, regular rhythm, no murmurs and peripheral pulses 2+ throughout GI normal to inspection, nondistended, normoactive bowel sounds, soft to palpation, non-tender and non-distended Back/Spine Back/Spine Narrative: Low back with surgical dressing in place. Extremity normal to inspection and no pedal edema Skin no rashes or lesions noted Neuro moves all extremities and no focal motor deficits Psych mental status grossly normal Lab / Micro Data Labs: Laboratory Results - last 24 hr 01/26/25 06:24: POC Glucose 239 H 01/26/25 14:02: POC Glucose 179 H Imaging Radiology Impression Lumbar Spine X-Ray 01/26/25 07:30 IMPRESSION: Intraoperative fluoroscopic services provided for fusion. Reading Location: [id number] Charges/Coding Visit Charges Inpatient E&M: 48097 Subs Hosp L2
[2025-01-26] MEDS: Cefazolin 2 GM in 0.9% Normal Saline (100mL Bag) 100 ML IV (17:38)
[2025-01-26] MEDS: 0.9% Normal Saline (250mL Bag) 250 ML 15 ML IV (17:38)
[2025-01-26] MEDS: Senna/Docusate Sodium 1 Tablet 2 TABLET PO (21:58)
[2025-01-27] VITALS (7 sets, daily range): BP systolic 143–160; BP diastolic 76–83; PULSE 71–83; RESP 15–17; TEMP 36.6–36.7; O2SAT 96–99
[2025-01-27] MEDS: Cefazolin 2 GM in 0.9% Normal Saline (100mL Bag) 100 ML IV (00:10)
[2025-01-27] MEDS: 0.9% Saline Lock 10 ML Syringe IV (01:43)
--- NOTE | 2025-01-27 04:30 | RAD_ITS ---
PROCEDURE: LUMBAR SPINE 2 OR 3 VIEWS 01/27/2025 REASON FOR EXAM: S/P LUMBAR FUSION TECHNIQUE: Procedure Code: RADSPLL Modality: DX Procedure: LUMBAR SPINE 2 OR 3 VIEWS COMPARISON: CT scan on 01/20/2025. FINDINGS: Unchanged grade 1 anterolisthesis of L4 on L5. Unremarkable lumbar fusion metallic hardware at L2-L3 in the interim. Unremarkable metallic hardware at the remaining levels. There are diffuse spondylotic changes. Findings are demonstrated to by diffuse disc space narrowing, osteophyte formation and degenerative endplate sclerosis. There is diffuse facet joint arthropathy with secondary bilateral neural foramina narrowing. No fracture or dislocation is seen. No aggressive lytic or blastic bony lesion is noted. RAD/Lumbar Spine 2 or 3 Views IMPRESSION: Unchanged grade 1 anterolisthesis of L4 on L5. Unremarkable lumbar fusion metallic hardware at L2-L3 in the interim. Unremarkable metallic hardware at the remaining levels. No evidence for acute abnormality. Reading Location[facility]
[2025-01-27 07:48] LABS: Hematocrit 34.6 % (37-47); Hemoglobin 11.7 g/dL (12.0-15.0); Immature Granulocytes Count 0.040 X10^3/uL (0.0-0.0); Mean Corp Hgb Conc 33.8 g/dL (32-36); Mean Corpuscular Volume 88.5 fL (81-99); Mean Platelet Vol. 10.5 fl (6.2-12.0); NRBC Flagged by Analyzer 0 % (0-5); Platelet Count 250 K/mm3 (150-450); RBC Distribution Width CV 12.0 % (11.6-14.6); RBC Distribution Width SD 38.6 fl (35.1-43.9); Red Blood Count 3.91 M/mm3 (4.2-5.4); White Blood Count 13.4 K/mm3 (4.4-11.0)
[2025-01-27] MEDS: Senna/Docusate Sodium 1 Tablet 2 TABLET PO ×2 (07:52→20:43)
[2025-01-27 08:28] LABS: Anion Gap 12 (5-15); BUN 22 mg/dL (4-19); BUN/Creat Ratio 27.1 RATIO (10-20); Calcium,Total 8.7 mg/dL (7.6-11.0); Carbon Dioxide 24.6 mmol/L (21.0-32.0); Chloride 100 mmol/L (98-108); Estimated Creatinine Clearance 72.37 ml/min (50-250); Glucose 139 mg/dL (70-99); Potassium 3.9 mmol/L (3.3-5.1)
--- NOTE | 2025-01-27 09:17 | PN.HOSP_ITS ---
Subjective Subjective Patient sitting up in chair, overall feeling well with no new or acute complaints Objective Data Objective Data Vital Signs: Vital Signs Temp Pulse Resp BP Pulse Ox O2 Del Method O2 Flow Rate 98.0 F 72 15 144/76 H 99 Room Air 2 01/27/25 07:37 01/27/25 07:51 01/27/25 07:37 01/27/25 07:37 01/27/25 07:37 01/27/25 07:37 01/26/25 15:55 Oxygen Flow Rate (L/min) 2 Oxygen Delivery Method Room Air Weight: 100 kg Body Mass Index (BMI) 40.3 Intake & Output: Intake and Output for Last 24 Hours 01/25/25 01/26/25 01/27/25 23:59 23:59 23:59 Intake Total 2677.75 / 2677.75 1010 / 1010 Output Total 375 / 375 Balance 2302.75 / 2302.75 1010 / 1010 Lab / Micro Data 01/27/25 07:33 01/27/25 07:33 Labs: Laboratory Results - last 24 hr 01/26/25 14:02: POC Glucose 179 H 01/27/25 07:33: WBC 13.4 H, RBC 3.91 L, Hgb 11.7 L, Hct 34.6 L, MCV 88.5, MCH 29.9, MCHC 33.8, RDW Std Deviation 38.6, RDW Coeff of Molly 12.0, Plt Count 250, MPV 10.5, Immature Gran % (Auto) 0.300, Neut % (Auto) 83.6 H, Lymph % (Auto) 8.6 L, [place] % (Auto) 7.3, Eos % (Auto) 0.1, Baso % (Auto) 0.1, Absolute Neuts (auto) 11.2 H, Absolute Lymphs (auto) 1.15, Nucleated RBC % 0, Sodium 137, Potassium 3.9, Chloride 100, Carbon Dioxide 24.6, Anion Gap 12, BUN 22 H, Creatinine 0.80, Estim Creat Clear Calc 72.37, Est GFR (MDRD) Non-Af 79, BUN/Creatinine Ratio 27.1 H, Glucose 139 H, Calcium 8.7 Micro: Microbiology 01/13/25 08:30 Swab (Method) Nasal Screen MRSA/MSSA - Final Radiography Diagnostic Testing: Radiology Impression Lumbar Spine X-Ray 01/26/25 07:30 IMPRESSION: Intraoperative fluoroscopic services provided for fusion. Reading Location: [id number] Lumbar Spine X-Ray 01/27/25 04:30 IMPRESSION: Unchanged grade 1 anterolisthesis of L4 on L5. Unremarkable lumbar fusion metallic hardware at L2-L3 in the interim. Unremarkable metallic hardware at the remaining levels. No evidence for acute abnormality. Reading Location: [place] [id number] Physical Exam Narrative General: Alert, oriented, no apparent distress HEENT: Atraumatic, normocephalic Eyes: extraocular movements grossly intact Neck: Supple Respiratory: normal respiratory effort Cardiovascular: no edema appreciated GI: nondistended Extremities: Moving all extremities Neuro: No overt focal neurological deficits Psych: Cooperative Assessment & Plan Assessment/Plan (1) Spinal stenosis of lumbar region with neurogenic claudication: PLAN: Plan Patient is a 69-year-old female who presented to [facility] on 01/26/2025 for planned lumbar fusion procedure. Medicine consulted postoperatively for medical management. #Hypertension - A.m. blood pressure 144/76 - Continue home medications # Prediabetes - A1c 6.3% - Recommend diet and lifestyle modifications - Follow-up with PCP #ANDREE -Continue home NIPPV if applicable #L2-3 spondylolisthesis with disc degeneration and stenosis with neurogenic claudication, prior L3-5 fusion ? Orthopedic surgery primary. S/p 2?3 posterior spinal fusion with revision of previous L3-5 instrumentation on 01/[address] Macedo. -Postoperative pain control per orthopedics -PT/OT/case management consulted. #Morbid obesity -BMI documented as 40.3 kg/m? at time of admission -Complicates treatment, prognosis, outcomes -Recommend weight loss and lifestyle changes #DVT ppx: Per Ortho Princess Lai MD Charges/Coding Visit Charges Inpatient E&M: 95184 Subs Hosp L2
--- NOTE | 2025-01-27 09:32 | PN.ORTHO_ITS ---
Subjective Subjective Postop day 1 L2-3 fusion revision extension of previous L3-5 instrumentation. She is doing well postoperatively with her pain well-controlled. The patient has been up and walking. The patient has not yet passed gas. Dulcolax x 1 ordered. The patient was sitting in her recliner upon entry today. Says that overnight she had to get a dose of morphine due to pain however that has been very helpful to her. Seen with Dr. Macedo. Objective Data Objective Data Vital Signs: Vital Signs Temp Pulse Resp BP Pulse Ox O2 Del Method O2 Flow Rate 98.0 F 72 15 144/76 H 99 Room Air 2 01/27/25 07:37 01/27/25 07:51 01/27/25 07:37 01/27/25 07:37 01/27/25 07:37 01/27/25 07:37 01/26/25 15:55 Oxygen Flow Rate (L/min) 2 Oxygen Delivery Method Room Air Weight: 220 lb 7.396 oz Body Mass Index (BMI) 40.3 Intake & Output: Intake and Output for Last 24 Hours 01/25/25 01/26/25 01/27/25 23:59 23:59 23:59 Intake Total 2677.75 / 2677.75 1010 / 1010 Output Total 375 / 375 Balance 2302.75 / 2302.75 1010 / 1010 Lab / Micro Data 01/27/25 07:33 01/27/25 07:33 Labs: Laboratory Results - last 24 hr 01/26/25 14:02: POC Glucose 179 H 01/27/25 07:33: WBC 13.4 H, RBC 3.91 L, Hgb 11.7 L, Hct 34.6 L, MCV 88.5, MCH 29.9, MCHC 33.8, RDW Std Deviation 38.6, RDW Coeff of Molly 12.0, Plt Count 250, MPV 10.5, Immature Gran % (Auto) 0.300, Neut % (Auto) 83.6 H, Lymph % (Auto) 8.6 L, [place] % (Auto) 7.3, Eos % (Auto) 0.1, Baso % (Auto) 0.1, Absolute Neuts (auto) 11.2 H, Absolute Lymphs (auto) 1.15, Nucleated RBC % 0, Sodium 137, Potassium 3.9, Chloride 100, Carbon Dioxide 24.6, Anion Gap 12, BUN 22 H, Creatinine 0.80, Estim Creat Clear Calc 72.37, Est GFR (MDRD) Non-Af 79, BUN/Creatinine Ratio 27.1 H, Glucose 139 H, Calcium 8.7 Micro: Microbiology 01/13/25 08:30 Swab (Method) Nasal Screen MRSA/MSSA - Final Radiography Diagnostic Testing: Radiology Impression Lumbar Spine X-Ray 01/26/25 07:30 IMPRESSION: Intraoperative fluoroscopic services provided for fusion. Reading Location: [id number] Lumbar Spine X-Ray 01/27/25 04:30 IMPRESSION: Unchanged grade 1 anterolisthesis of L4 on L5. Unremarkable lumbar fusion metallic hardware at L2-L3 in the interim. Unremarkable metallic hardware at the remaining levels. No evidence for acute abnormality. Reading Location: [place] [id number] Physical Exam Narrative Neurological examination of the lower extremity shows 5X5 power. Normal sensation across all dermatomes. Physical examination of the back and belly shows Tegaderm and gauze CDI. Const alert, oriented x3 and no apparent distress Assessment & Plan Assessment/Plan (1) Status post lumbar spinal fusion: PLAN: Plan 1 day postop L2-3 fusion. Obtained to reviewed x-rays today which show hardware and bone graft in good position. Patient is doing well postoperatively with pain well-controlled. Dulcolax x 1 ordered, she has not yet passed gas. Encouraged the patient to pass gas by increasing activity and fluid intake. Also recommended caffeine intake to help with passing flatus. If no flatus today we will order another Dulcolax in the evening. If no flatus, tomorrow morning we will order a suppository. Once the patient does pass gas we will advance her to a regular diet. PT/OT on board. Will check their note later today to ensure that they believe it is safe for home discharge. Reviewed restrictions no bending, lifting, twisting. Reviewed and educated on the use of the incentive spirometer. Plan for home discharge when appropriate. She will follow-up with us in 2 weeks in the clinic. Patient is in agreement to the plan.
--- NOTE | 2025-01-27 11:39 | CASEMGMT ---
Dx:anterior lumbar interbody fusion LACE:2 6-Clicks:24, No PT or OT recommended acutely Medical record reviewed and patient evaluated for identification of discharge planning needs. Based on this review, at this time criteria are not present to indicate a need for discharge planning. Will remain available to assist with discharge planning needs as identified or requested. Noted pt has FWW at home.
--- OUTSIDE RECORDS SUMMARY | 2025-01-27 18:59 | XMS RPT_ITS | CCD ---
Author Organization [facility] Care Team Providers Care Aircraft Detail Draftsperson Name Role Phone Edyta MANRIQUEZ, Rae Floyd Unavailable JAI Narayan RN, Lorelei Raymond Unavailable Unavailabl e JAI Narayan RN, Lorelei A Unavailable Unavailabl e PROVIDER, UNKNOWN Admitting Unavailable PROVIDER, UNKNOWN Attending Unavailable AMARJIT VERNON Referring Unavailable CANDIDO NOVAK Primary Care Unavailable Edyta MANRIQUEZ, Rae Floyd Unavailable [phone] Victor Hugo, Dr. Phillip Guerrero Primary Care [...] Provider Rojas MANRIQUEZ, Dr. Lara Referring Provider [phone] Macedo, Bunny Attending Unavailable Macedo, Bunny Admitting [...] Hugo, Phillip Chi Primary Care Unavailable Tom, [place] Attending Unavailable Victor Hugo, Phillip Chi Referring Unavailable Macedo, Bunyn Attending Unavailable Victor Hugo, Phillip Chi Primary [...] Hugo, Phillip Chi Primary Care Unavailable Tom, [place] Attending Unavailable Victor Hugo, Phillip Chi Referring [...] sources) predniSONE; Translations: [PREDNISONE] drug allergy 07-26-2016 [facility] Work Phone: Medications Current Medications [...] TBEC One tablet by mouth daily ASPIRIN [id number] Lorelei Narayan RN RN take 1 tablet by [place] th once daily ADULT ASPIRIN EC LOW STRENGTH 81 MG TBEC One tablet by mouth daily ASPIRIN [id number] Lorelei Narayan RN RN cephalexin 500 mg [...] up docusate sodium 50 mg / sennosides, senior living 8.6 mg oral tablet (10 sources) Start: [...] TABS One tablet by mouth daily LISINOPRIL [id number] Lorelei Narayan RN RN meloxicam 15 mg [...] Contras ton 01-20-2025 Spine Lumbar without Contrast [facility] [address] [place], [place] [address] Spine Lumbar without Contrast MR#: [id number] Acct: [id number] Name: CHELSIE HERNANDEZ Rep #: [id number] : 1955 F 69 From: Davey shannon MD PCP: Dr. Phillip Novak MD Status: REG CLI Study: Spine Lumbar without Contrast Date of Exam: Exam# [id number] Ordering Dr: Bunny Macedo MD PROCEDURE: SPINE [...] Multiple findings as discussed above. Reading Location: [id number] CC: Dr. Bunny Macedo MD; Dr. Phillip Novak MD Bar Host: Signed Normal [facility] Orthopedic Visit Reporton Orthopedic Visit Report [facility] [address] [place] [address] OFFICE VISIT Date of Service: 01/16/25 MR#: [id number] Acct: [id number] Name: CHELSIE HERNANDEZ Rep #: [id number] : 1955 Provider: Dr. Bunny Macedo MD Age/Sex: 69/F Location: [facility] Status: Signed Intake Vital Signs 10/09/24 08:25 [...] by me, Dr. Bunny Macedo MD 01/16/25 7727. Part of today???s visit was documented by [...] scribe technology/ (more content not included)... Normal [facility] MRSA/SAID NASAL SCREENon MRSA+SAID SCRN Reason for Exam: [place] ulices MRSA MRSA Negative S. AUREUS S. aureus Negative Normal [facility] Comment on above: Performed By: #### B TSPAT, L501.9949, M100.655 #### [facility] Laboratory [address] [place], [place], [id number] Hemoglobin A1con 01-13-2025 HbA1c (Bld) [Mass fraction] 6.3 % High <=5.6 [facility] Comment on above: Result Comment: Norm al < 5.7 % Prediabetic 5.7 - 6.4 % Diabetic >or= 6.5 % Please note range changes. Performed By: #### B TSPAT, L501.9985, M100.657 #### [facility] [address] [place], [place], [id number] Magnesiumon 01-13-2025 Magnesium [Mass/Vol] 1.9 mg/dL Normal 1.5-2.2 [facility] Comment on above: Performed By: #### B TSPAT, L501.9985, M100.651 #### [facility] [address] [place], [address] Type AND Screen - PAT ONLYon 01-13-2025 ABO and Rh group Nom (Bld) Blood group A Rh(D) positive Normal [facility] Comment on above: Order Comment: Surge ry Date: 01/26/25 Reason for Laboratory Test PREOP [id number] No N N S 1200 ANTERIOR LUMBAR FUSION Performed By: #### B TSPAT, L501.9985, M100.651 #### [facility] [address] [place], [address] MR/PAT.ANEon 01-12-2025 MR/PAT.ANE [facility] Medical Records Department [address] [place] [address] PAT - Anesthesia 01/12/25 1236 MR#: [id number] Acct: [id number] Name: CHELSIE HERNANDEZ Rep #: [id number] : 1955 69 From: Mitchel Mchugh MD PCP: Dr. Phillip Novak MD Status:PRE IN Y Race: C Location: [facility] Pre-Assessment Diagnosis/Proposed Procedure Planned Operative Procedure(s): ANTERIOR LUMBAR INTERBODY FUSION L5-S1 OBLIQUE LUMBAR INTERBODY FUSION L2-3 REVISION POSTERIOR SPINAL INSTRUMENTED FUSION L2-3 L3-4 L4-5 L5-S1 REMOVAL OF PREVIOUS HARDWARE Anesthesia History Anesthesia History - stock sorter: Anesthesia History - stock sorter Hx Hospitalization No 01/12/25 10:13 Any Problems [...] take am of surgery PONV PONV - stock sorter: PONV - stock sorter Female Yes 01/12/25 10:13 HX of Motion [...] 10/09/24 08:25 Respiratory Assessment Respiratory Assessment - stock sorter: Respiratory Tract Infection Hx - stock sorter Hx Respiratory Tract Infection No 01/12/25 10:13 STOP Sleep Apnea STOP Sleep Apnea - stock sorter: STOP Sleep Apnea - stock sorter Hx Hypertension Yes: CONTROLLED WITH MED 01/12/25 [...] Tobacco Use History Tobacco Use History - stock sorter: Tobacco Use History - stock sorter Tobacco Use Smoking Status Former smoker 01/12/25 10:13 Hx Tobacco Use No 01/12/25 10:13 Years Smoking Packs Smoked per Day Smoking Cessation Date was No - quit smoking greater 01/12/25 10:13 within the last 15 years than 15 years ago Hx Smoking Cessation Date 08/10/06 01/12/25 10:13 Hx Smoking Cessation No 01/12/25 10:13 Counseling Hematologic Medial History Hematologic Hx - stock sorter: Hematologic Medical Hx - rehabilitation consultant Hx of Blood Transfusion No 01/12/25 10:13 [...] confused, unrespo /Reproduction History /Reproductive History - stock sorter: /Reproductive Hx- stock sorter Hx Now No 01/12/25 10:13 Gestational Age (in weeks): EDC: Hx Hx Para Hx Section SAB No 01/12/25 10:13 [facility] Medical History (Updated 01/12/25 @ 10:19 [...] 08:00 History (more content not included)... Normal [facility] CBC W/Diff, Automatedon 10-2 Absolute Lymph 1.77 X10 3/uL Normal 0.83-4.51 [facility] Comment on above: Performed By: #### L 500.4050, L100.0100, L300.3900, L300.4310 #### [facility] [address] [place], [place], [id number] Absolute Neut 4.2 X10 3/uL Normal 2.0-7.7 [facility] Comment on above: Performed By: #### L 500.4050, L100.0100, L300.3900, L300.4310 #### [facility] [address] [place], [address] Basophils/100 WBC (Bld) 1.0 % Normal 0-1 [facility] Comment on above: Performed By: #### L 500.4050, L100.0100, L300.3900, L300.4310 #### [facility] [address] [place], [address] Eosinophils/100 WBC (Bld) 4.4 % Normal 0-5 [facility] Comment on above: Performed By: #### L 500.4050, L100.0100, L300.3900, L300.4310 #### [facility] [address] [place], [address] Erythrocyte distribution width (RBC) [Ratio] 12.0 % Normal 11.6-14.6 [facility] Comment on above: Performed By: #### L 500.4050, L100.0100, L300.3900, L300.4310 #### [facility] [address] [place], [address] Hematocrit (Bld) [Volume fraction] 38.3 % Normal 37-47 [facility] Comment on above: Performed By: #### L 500.4050, L100.0100, L300.3900, L300.4310 #### [facility] [address] [place], [address] Hemoglobin (Bld) [Mass/Vol] 13.2 g/dL Normal 12.0-15.0 [facility] Comment on above: Performed By: #### L 500.4050, L100.0100, L300.3900, L300.4310 #### [facility] [address] [place], [address] IG% 0.600 Normal 0.0-0.9 [facility] Comment on above: Result Comment: IG% - Immature Granulocytes (promyelocytes, myelocytes and metamyelocytes) > 1% indicates that a LEFT SHIFT is Present. Performed By: #### L 500.4050, L100.0100, L300.3900, L300.4310 #### [facility] [address] [place], [address] Lymphocytes/100 WBC (Bld) 25.9 % Normal 19-41 [facility] Comment on above: Performed By: #### L 500.4050, L100.0100, L300.3900, L300.4310 #### [facility] [address] [place], [address] MCH (RBC) [Entitic mass] 29.6 pg Normal 27.0-32.0 [facility] Comment on above: Performed By: #### L 500.4050, L100.0100, L300.3900, L300.4310 #### [facility] [address] [place], [address] MCHC (RBC) [Mass/Vol] 34.5 g/dL Normal 32-36 [facility] Comment on above: Performed By: #### L 500.4050, L100.0100, L300.3900, L300.4310 #### [facility] [address] [place], [address] MCV (RBC) [Entitic vol] 85.9 fL Normal 81-99 [facility] Comment on above: Performed By: #### L 500.4050, L100.0100, L300.3900, L300.4310 #### [facility] [address] [place], [address] Monocytes/100 WBC (Bld) 7.3 % Normal 0-10 [facility] Comment on above: Performed By: #### L 500.4050, L100.0100, L300.3900, L300.4310 #### [facility] [address] [place], [address] Neutrophils/100 WBC (Bld) 60.8 % Normal 47-70 [facility] Comment on above: Performed By: #### L 500.4050, L100.0100, L300.3900, L300.4310 #### [facility] [address] [place], [address] Nucleated RBC (Bld) [#/Vol] 0 10*3/uL Normal 0-5 [facility] Comment on above: Performed By: #### L 500.4050, L100.0100, L300.3900, L300.4310 #### [facility] [address] [place], [address] Platelet mean volume (Bld) [Entitic vol] 10.5 fL Normal 6.2-12.0 [facility] Comment on above: Performed By: #### L 500.4050, L100.0100, L300.3900, L300.4310 #### [facility] [address] [place], [address] Platelets (Bld) [#/Vol] 290 10*3/uL Normal 150-450 [facility] Comment on above: Performed By: #### L 500.4050, L100.0100, L300.3900, L300.4310 #### [facility] [address] [place], [address] RBC (Bld) [#/Vol] 4.46 10*6/uL Normal 4.2-5.4 [facility] Comment on above: Performed By: #### L 500.4050, L100.0100, L300.3900, L300.4310 #### [facility] [address] [place], [address] RDW SD 37.5 fl Normal 35.1-43.9 [facility] Comment on above: Performed By: #### L 500.4050, L100.0100, L300.3900, L300.4310 #### [facility] [address] [place], [address] WBC (Bld) [#/Vol] 6.8 10*3/uL Normal 4.4-11.0 [facility] Comment on above: Performed By: #### L 500.4050, L100.0100, L300.3900, L300.4310 #### [facility] [address] [place], [address] Comprehensive Metabolic Prof ilon 01-01-2025 Albumin [Mass/Vol] 4.5 g/dL Normal 3.4-4.8 [facility] Comment on above: Performed By: #### L 500.4050, L100.0100, L300.3900, L300.4310 #### [facility] [address] [place], [address] Albumin/Globulin [Mass ratio] 1.4 {ratio} Normal 0.9-2.4 [facility] Comment on above: Performed By: #### L 500.4050, L100.0100, L300.3900, L300.4310 #### [facility] [address] [place], [address] ALK PHOS 47 U/L Normal 35-104 [facility] Comment on above: Performed By: #### L 500.4050, L100.0100, L300.3900, L300.4310 #### [facility] [address] [place], [address] ALT [Catalytic activity/Vol] 47 U/L High <=34 [facility] Comment on above: Performed By: #### L 500.4050, L100.0100, L300.3900, L300.4310 #### [facility] [address] [place], [address] AST [Catalytic activity/Vol] 50 U/L High <=31 [facility] Comment on above: Performed By: #### L 500.4050, L100.0100, L300.3900, L300.4310 #### [facility] [address] [place], [address] Bilirubin [Mass/Vol] 0.42 mg/dL Normal 0.00-1.30 [facility] Comment on above: Performed By: #### L 500.4050, L100.0100, L300.3900, L300.4310 #### [facility] [address] [place], [address] BUN/CRE 37.7 RATIO High 10-20 [facility] Comment on above: Performed By: #### L 500.4050, L100.0100, L300.3900, L300.4310 #### [facility] [address] [place], [address] Calcium [Mass/Vol] 10.3 mg/dL Normal 7.6-11.0 [facility] Comment on above: Performed By: #### L 500.4050, L100.0100, L300.3900, L300.4310 #### [facility] [address] [place], [address] Chloride [Moles/Vol] 100 mmol/L Normal 98-108 [facility] Comment on above: Performed By: #### L 500.4050, L100.0100, L300.3900, L300.4310 #### [facility] [address] [place], [address] CO2 [Moles/Vol] 27.3 mmol/L Normal 21.0-32.0 [facility] Comment on above: Performed By: #### L 500.4050, L100.0100, L300.3900, L300.4310 #### [facility] [address] [place], [address] Creatinine [Mass/Vol] 0.69 mg/dL Low 0.70-1.20 [facility] Comment on above: Performed By: #### L 500.4050, L100.0100, L300.3900, L300.4310 #### [facility] [address] [place], [address] GAP 12 Normal 5-15 [facility] Comment on above: Performed By: #### L 500.4050, L100.0100, L300.3900, L300.4310 #### [facility] [address] [place], [address] GFR/1.73 sq M.predicted among non-blacks MDRD (S/P/Bld) [Vol rate/Area] 93 mL/min/{1.73_m2} Normal >60 [facility] Comment on above: Result Comment: mL/m in/1.73m2 CKD-EPI Creatinine Equation (2020) Performed By: #### L 500.4050, L100.0100, L300.3900, L300.4310 #### [facility] [address] [place], [address] Globulin (S) [Mass/Vol] 3.1 g/dL Normal 2.2-4.2 [facility] Comment on above: Performed By: #### L 500.4050, L100.0100, L300.3900, L300.4310 #### [facility] [address] [place], [address] Glucose [Mass/Vol] 151 mg/dL High 70-99 [facility] Comment on above: Performed By: #### L 500.4050, L100.0100, L300.3900, L300.4310 #### [facility] [address] [place], [address] Potassium [Moles/Vol] 4.0 mmol/L Normal 3.3-5.1 [facility] Comment on above: Performed By: #### L 500.4050, L100.0100, L300.3900, L300.4310 #### [facility] [address] [place], [address] Sodium [Moles/Vol] 139 mmol/L Normal 133-145 [facility] Comment on above: Performed By: #### L 500.4050, L100.0100, L300.3900, L300.4310 #### [facility] [address] [place], [address] T PROT 7.6 g/dL Normal 5.9-8.4 [facility] Comment on above: Performed By: #### L 500.4050, L100.0100, L300.3900, L300.4310 #### [facility] [address] [place], [address] Urea nitrogen [Mass/Vol] 26 mg/dL High 4-19 [facility] Comment on above: Performed By: #### L 500.4050, L100.0100, L300.3900, L300.4310 #### [facility] [address] [place], [address] Partial Thromboplast Timeon 01-01-2025 aPTT Coag (Bld) [Time] 26.4 s Normal 24.1-36.2 [facility] Comment on above: Performed By: #### L 500.4050, L100.0100, L300.3900, L300.4310 #### [facility] [address] [place], [address] Prothrombin Time w/INRon INR Coag (PPP) [Relative time] 1.0 {INR} Normal [facility] Comment on above: Performed By: #### L 500.4050, L100.0100, L300.3900, L300.4310 #### [facility] [address] [place], [address] PT Coag (PPP) [Time] 13.2 s Normal 11.7-14.9 [facility] Comment on above: Performed By: #### L 500.4050, L100.0100, L300.3900, L300.4310 #### [facility] [address] [place], [place], [address] PT D/C Summary (1)on 025 PT D/C Summary (1) [facility] [address] [place] [address] / REHABILITATION SERVICES DISCHARGE SUMMARY MR#: [id number] Acct: [id number] Name: CHELSIE HERNANDEZ Rep #: [id number] : 1955 69 From: Michelle Rojas MPT Referring Dr.: Dr. Marco Xie MD Status: REG RCR Insurance: MEDICARE PART A B [facility] Discharge Summary D/C summary: It has been [...] please feel free to call me at [phone]. Thank you for the referral of this patient. Sincerely, Michelle Rojas, ISIAH Balance/Gait/Functional tests Balance/Special Test Scores Oswestry Low Back Score: 18 Improvement % Improvement: 50 10/10/24 0953 CC: Dr. Marco Xie MD; Dr. Phillip Novak MD Signed Normal [facility] Orthopedic Visit Reporton Orthopedic Visit Report [facility] [address] [place] [address] OFFICE VISIT Date of Service: 10/09/24 MR#: [id number] Acct: [id number] Name: CHELSIE HERNANDEZ Rep #: [id number] : 1955 Provider: Dr. Bunny Macedo MD Age/Sex: 69/F Location[place] [facility] Status: Signed Intake Vital Signs 04/10/24 09:33 [...] surgery fro (more content not included)... Normal [facility] Inital Evaluation (1) - PTon 09-10-2024 Inital Evaluation (1) - PT [facility] [address] [place] [address] [address] [place] [address] / REHABILITATION SERVICES INITIAL EVALUATION MR#: [id number] Acct: [id number] Name: CHELSIE HERNANDEZ Rep #: [id number] : 1955 69 From: Michelle JOYCE Referring Dr.: Dr. Marco Xie MD Status: REG RCR Insurance: MEDICARE PART A B [facility] Patient's Visit Information Visit Information Visit Information: [...] to be FAXED BACK to us at [phone] for Medicare purp (more content not included)... Normal [facility] Absolute lymphocyte countOrd ered By: Phillip Novak on 09-08-2024 Lymphocytes Auto (Unsp spec) [#/Vol] 1.93 10*3/uL 0.83-4.51 [facility] Absolute neutrophil countOrd ered By: Phillip Novak on 09-08-2024 Neutrophils (Bld) [#/Vol] 8.5 10*3/uL High 2.0-7.7 [facility] Anion gap in Serum or Plasma Ordered By: Phillip Novak on 09-08-2024 Anion gap [Moles/Vol] 13 mmol/L 5-15 [facility] Automated lymphocyte count a s percentage of total leukocytesOrdered By: Phillip Novak on 09-08-2024 Lymphocytes/100 WBC Auto (Unsp spec) 16.5 % Low 19-41 [facility] BUN/creatinine ratioOrdered By: Phillip Novak on 09-08-2024 Urea nitrogen/Creatinine [Mass ratio] 33.9 mg/mg High 10-20 [facility] Basophil percentageOrdered B y: Phillip Novak on 09-08-2024 Basophils/100 WBC (Bld) 0.9 % 0-1 [facility] Bilirubin, totalOrdered By: Phillip Novak on 09-08-2024 Bilirubin [Mass/Vol] 0.40 mg/dL 0.00-1.30 [facility] CBC W/Diff, Automatedon 08-12 Absolute Lymph 1.93 X10 3/uL Normal 0.83-4.51 [facility] Comment on above: Performed By: #### B TSPAT, L5.9985, M100.65 #### [facility] [address] [place], [address] Absolute Neut 8.5 X10 3/uL High 2.0-7.7 [facility] Comment on above: Performed By: #### B TSPAT, L501.9985, M100.65 #### [facility] [address] [place], [address] Basophils/100 WBC (Bld) 0.9 % Normal 0-1 [facility] Comment on above: Performed By: #### B TSPAT, L501.9985, M100.65 #### [facility] [address] [place], [address] Eosinophils/100 WBC (Bld) 2.3 % Normal 0-5 [facility] Comment on above: Performed By: #### B TSPAT, L501.9984, . #### [facility] [address] [place], [address] Erythrocyte distribution width (RBC) [Ratio] 12.3 % Normal 11.6-14.6 [facility] Comment on above: Performed By: #### B TSPAT, L501.9984, . #### [facility] [address] [place], [address] Hematocrit (Bld) [Volume fraction] 40.7 % Normal 37-47 [facility] Comment on above: Performed By: #### B TSPAT, L5.9984, . #### [facility] [address] [place], [address] Hemoglobin (Bld) [Mass/Vol] 13.5 g/dL Normal 12.0-15.0 [facility] Comment on above: Performed By: #### B TSPAT, L5, . #### [facility] [address] [place], [address] IG% 0.400 Normal 0.0-0.9 [facility] Comment on above: Result Comment: IG% - Immature Granulocytes (promyelocytes, myelocytes and metamyelocytes) > 1% indicates that a LEFT SHIFT is Present. Performed By: #### B TSPAT, L5.9984, .65 #### [facility] [address] [place], [address] Lymphocytes/100 WBC (Bld) 16.5 % Low 19-41 [facility] Comment on above: Performed By: #### B TSPAT, L501.9984, .65 #### [facility] [address] [place], [address] MCH (RBC) [Entitic mass] 29.2 pg Normal 27.0-32.0 [facility] Comment on above: Performed By: #### B TSPAT, L501.9984, M100.65 #### [facility] [address] [place], [address] MCHC (RBC) [Mass/Vol] 33.2 g/dL Normal 32-36 [facility] Comment on above: Performed By: #### B TSPAT, L501.9984, M100.65 #### [facility] [address] [place], [address] MCV (RBC) [Entitic vol] 88.1 fL Normal 81-99 [facility] Comment on above: Performed By: #### B TSPAT, L501.9984, M100.65 #### [facility] [address] [place], [address] Monocytes/100 WBC (Bld) 7.1 % Normal 0-10 [facility] Comment on above: Performed By: #### B TSPAT, L501.9984, M100.65 #### [facility] [address] [place], [address] Neutrophils/100 WBC (Bld) 72.8 % High 47-70 [facility] Comment on above: Performed By: #### B TSPAT, L501.9984, M100.65 #### [facility] [address] [place], [address] Nucleated RBC (Bld) [#/Vol] 0 10*3/uL Normal 0-5 [facility] Comment on above: Performed By: #### B TSPAT, L501.9984, M100.65 #### [facility] [address] [place], [address] Platelet mean volume (Bld) [Entitic vol] 11.1 fL Normal 6.2-12.0 [facility] Comment on above: Performed By: #### B TSPAT, L501.9984, M100.651 #### [facility] [address] [place], [address] Platelets (Bld) [#/Vol] 291 10*3/uL Normal 150-450 [facility] Comment on above: Performed By: #### B TSPAT, L501.9985, M100.651 #### [facility] [address] [place], [address] RBC (Bld) [#/Vol] 4.62 10*6/uL Normal 4.2-5.4 [facility] Comment on above: Performed By: #### B TSPAT, L501.9985, M100.651 #### [facility] [address] [place], [address] RDW SD 39.6 fl Normal 35.1-43.9 [facility] Comment on above: Performed By: #### B TSPAT, L501.9985, M100.651 #### [facility] [address] [place], [address] WBC (Bld) [#/Vol] 11.7 10*3/uL High 4.4-11.0 [facility] Comment on above: Performed By: #### B TSPAT, L501.9985, M100.651 #### [facility] [address] [place], [address] Carbon dioxide, total [Moles /volume] in Central venous bloodOrdered By: Phillip Novak on 09-08-2024 CO2 [Moles/Vol] 22.8 mmol/L 21.0-32.0 [facility] Chloride assayOrdered By: Volodymyr Novak on 09-08-2024 Chloride [Moles/Vol] 101 mmol/L 98-108 [facility] Comprehensive Metabolic Prof ilon 09-08-2024 Albumin [Mass/Vol] 4.5 g/dL Normal 3.4-4.8 [facility] Comment on above: Performed By: #### B TSPAT, L501.9985, M100.65 #### [facility] [address] [place], [address] Albumin/Globulin [Mass ratio] 1.3 {ratio} Normal 0.9-2.4 [facility] Comment on above: Performed By: #### B TSPAT, L501.99, M100.65 #### [facility] [address] [place], [address] ALK PHOS 58 U/L Normal 35-104 [facility] Comment on above: Performed By: #### B TSPAT, L501.99, M100.65 #### [facility] [address] [place], [address] ALT [Catalytic activity/Vol] 29 U/L Normal <=34 [facility] Comment on above: Result Comment: Hemo lysis present, Results??could be affected. ?? Performed By: #### B TSPAT, L501.9984, M100.65 #### [facility] [address] [place], [address] AST [Catalytic activity/Vol] 36 U/L High <=31 [facility] Comment on above: Result Comment: Hemo lysis present, Results??could be affected. ?? Performed By: #### B TSPAT, L501.9984, M100.65 #### [facility] [address] [place], [address] Bilirubin [Mass/Vol] 0.40 mg/dL Normal 0.00-1.30 [facility] Comment on above: Performed By: #### B TSPAT, L501.9985, M100.65 #### [facility] [address] [place], [address] BUN/CRE 33.9 RATIO High 10-20 [facility] Comment on above: Performed By: #### B TSPAT, L501.9985, M100.651 #### [facility] [address] [place], [address] Calcium [Mass/Vol] 10.0 mg/dL Normal 7.6-11.0 [facility] Comment on above: Performed By: #### B TSPAT, L501.9985, M100.651 #### [facility] [address] [place], [address] Chloride [Moles/Vol] 101 mmol/L Normal 98-108 [facility] Comment on above: Performed By: #### B TSPAT, L501.9985, M100.651 #### [facility] [address] [place], [address] CO2 [Moles/Vol] 22.8 mmol/L Normal 21.0-32.0 [facility] Comment on above: Performed By: #### B TSPAT, L501.9985, M100.651 #### [facility] [address] [place], [address] Creatinine [Mass/Vol] 0.79 mg/dL Normal 0.70-1.20 [facility] Comment on above: Performed By: #### B TSPAT, L501.9985, M100.651 #### [facility] [address] [place], [address] GAP 13 Normal 5-15 [facility] Comment on above: Performed By: #### B TSPAT, L501.9985, M100.651 #### [facility] [address] [place], [address] GFR/1.73 sq M.predicted among non-blacks MDRD (S/P/Bld) [Vol rate/Area] 81 mL/min/{1.73_m2} Normal >60 [facility] Comment on above: Result Comment: mL/m in/1.73m2 CKD-EPI Creatinine Equation (2020) Performed By: #### B TSPAT, L501.9984, M100.65 #### [facility] [address] [place], [address] Globulin (S) [Mass/Vol] 3.4 g/dL Normal 2.2-4.2 [facility] Comment on above: Performed By: #### B TSPAT, L5.9984, .65 #### [facility] [address] [place], [address] Glucose [Mass/Vol] 116 mg/dL High 70-99 [facility] Comment on above: Performed By: #### B TSPAT, L501.9984, .65 #### [facility] [address] [place], [address] Potassium [Moles/Vol] 4.6 mmol/L Normal 3.3-5.1 [facility] Comment on above: Result Comment: Hemo lysis present, Results??could be affected. ?? Performed By: #### B TSPAT, L5.9984, .65 #### [facility] [address] [place], [address] Sodium [Moles/Vol] 137 mmol/L Normal 133-145 [facility] Comment on above: Performed By: #### B TSPAT, L5.9984, .65 #### [facility] [address] [place], [address] T PROT 7.9 g/dL Normal 5.9-8.4 [facility] Comment on above: Performed By: #### B TSPAT, L501.9984, .65 #### [facility] [address] [place], [address] Urea nitrogen [Mass/Vol] 27 mg/dL High 4-19 [facility] Comment on above: Performed By: #### B TSPAT, L501.9985, M100.651 #### [facility] [address] [place], [address] Eosinophil percentageOrdered By: Phillip Novak on 09-08-2024 Eosinophils/100 WBC (Bld) 2.3 % 0-5 [facility] Erythrocyte distribution wid th ratioOrdered By: Phillip Victor Hugo on 09-08-2024 Erythrocyte distribution width (RBC) [Ratio] 12.3 % 11.6-14.6 [facility] Erythrocyte distribution wid th standard deviationOrdered By: [facility] on 09-08-2024 Erythrocyte distribution width (RBC) [Ratio] 39.6 fl 35.1-43.9 [facility] Glomerular filtration rate ( GFR) estimation/1.73 sq m using serum, plasma, or whole bOrdered By: [facility] on 09-08-2024 GFR/1.73 sq M.predicted among non-blacks MDRD (S/P/Bld) [Vol rate/Area] 81 mL/min/{1.73_m2} >60 [facility] Comment on above: mL/min/1.73m2 CKD-EP I Creatinine Equation (2020) Hematocrit Auto (Bld) [Volum e fraction]Ordered By: Phillip Victor Hugo 09-08-2024 Hematocrit (Bld) [Volume fraction] 40.7 % 37-47 [facility] Hemoglobin measurementOrdere d By: Phillip Victor Hugo 09-08-2024 Hemoglobin (Bld) [Mass/Vol] 13.5 g/dL 12.0-15.0 [facility] Immature granulocytes/100 WB C Auto (Bld)Ordered By: Phillip Novak 09-08-2024 Immature granulocytes/100 WBC (Bld) 0.400 % 0.0-0.9 [facility] Comment on above: IG% - Immature Granu locytes (promyelocytes, myelocytes and metamyelocytes) > 1% indicates that a LEFT SHIFT is Present. Laboratory - Chemistry and C hemistry - challengeOrdered By: Phillip Victor Hugo 09-08-2024 AST [Catalytic activity/Vol] 36 U/L High <32 [facility] Comment on above: Hemolysis present, R esults could be affected. MCV (mean corpuscular volume ) determinationOrdered By: Phillip Novak on 09-08-2024 MCV (RBC) [Entitic vol] 88.1 fL 81-99 [facility] Mean corpuscular hemoglobin (MCH) determinationOrdered By: Phillip Novak on 09-08-2024 MCH (RBC) [Entitic mass] 29.2 pg 27.0-32.0 [facility] Mean corpuscular hemoglobin concentration (MCHC) determinationOrdered By: Phillip Novak on 09-08-2024 MCHC (RBC) [Mass/Vol] 33.2 g/dL 32-36 [facility] Mean platelet volume determi nationOrdered By: Phillip Novak on 09-08-2024 Platelet mean volume (Bld) [Entitic vol] 11.1 fL 6.2-12.0 [facility] Monocyte percentageOrdered B y: Phillip Novak on 09-08-2024 Monocytes/100 WBC (Bld) 7.1 % 0-10 [facility] Neutrophil percentageOrdered By: Phillip Novak on 09-08-2024 Neutrophils/100 WBC (Bld) 72.8 % High 47-70 [facility] Nucleated red blood cell per centageOrdered By: Phillip Novak on 09-08-2024 Nucleated RBC/100 WBC (Bld) [Ratio] 0 % 0-5 [facility] Platelet countOrdered By: Volodymyr Novak on 09-08-2024 Platelets (Bld) [#/Vol] 291 10*3/uL 150-450 [facility] Potassium measurement (mass/ volume)Ordered By: Phillip Novak on 09-08-2024 Potassium (Unsp spec) [Mass/Vol] 4.6 mmol/L 3.3-5.1 [facility] Comment on above: Hemolysis present, R esults could be affected. RBC Auto (Bld) [#/Vol]Ordere d By: Phillip Novak on 09-08-2024 RBC (Bld) [#/Vol] 4.62 10*6/uL 4.2-5.4 [facility] Serum creatinine measurement (mass/volume)Ordered By: Phillip Novak on 09-08-2024 Creatinine [Mass/Vol] 0.79 mg/dL 0.70-1.20 [facility] Serum globulin measurementOr dered By: Phillip Novak on 09-08-2024 Globulin (S) [Mass/Vol] 3.4 g/dL 2.2-4.2 [facility] Serum glucose measurement (m ass/volume)Ordered By: Phillip Novak on 09-08-2024 Glucose [Mass/Vol] 116 mg/dL High 70-99 [facility] Serum or plasma alanine jackson otransferase (ALT) measurementOrdered By: Phillip Novak on 09-08-2024 ALT [Catalytic activity/Vol] 29 U/L <35 [facility] Comment on above: Hemolysis present, R esults could be affected. Serum or plasma albumin lala urement (mass/volume)Ordered By: Phillip Novak on 09-08-2024 Albumin [Mass/Vol] 4.5 g/dL 3.4-4.8 [facility] Serum or plasma albumin/glob ulin mass ratioOrdered By: Phillip Novak on 09-08-2024 Albumin/Globulin [Mass ratio] 1.3 {ratio} 0.9-2.4 [facility] Serum or plasma alkaline kvng sphatase measurementOrdered By: Phillip Novak on 09-08-2024 ALP [Catalytic activity/Vol] 58 U/L 35-104 [facility] Serum or plasma calcium lala urement (mass/volume)Ordered By: Phillip Novak on 09-08-2024 Calcium [Mass/Vol] 10.0 mg/dL 7.6-11.0 [facility] Serum or plasma urea nitroge n measurement (mass/volume)Ordered By: Phillip Novak on 09-08-2024 Urea nitrogen [Mass/Vol] 27 mg/dL High 4-19 [facility] Sodium levelOrdered By: Phillip Novak on 09-08-2024 Sodium [Moles/Vol] 137 mmol/L 133-145 [facility] TSH DL <= 0.005 mIU/L QnOrde red By: Phillip Novak on 09-08-2024 TSH Qn 0.821 uIU/mL 0.300-4.20 0 [facility] Thyroid Stim Hormone (TSH)on 09-08-2024 TSH 0.821 uIU/mL Normal 0.300-4.20 0 [facility] Comment on above: Performed By: #### B TSPAT, L501.9985, M100.651 #### [facility] [address] [place], [address] Total proteinOrdered By: Phillip Novak on 09-08-2024 Protein [Mass/Vol] 7.9 g/dL 5.9-8.4 [facility] Vitamin D,25 Hydroxyon 09-08 Vitamin D 25-OH 61.1 ng/mL Normal 30-100 [facility] Comment on above: Result Comment: Rupal min D Status Deficiency: <20 ng/mL (50nmol/L) Insufficiency: 20-30 ng/mL (50-75 nmol/L) Sufficiency: 30-100 ng/mL (75-250 nmol/L) Toxicity: >100 ng/mL (>250 nmol/L) Performed By: #### B TSPAT, L501.9985, M100.650 #### [facility] [address] [place], [address] White blood cell (WBC) count Ordered By: Phillip Novak on 09-08-2024 WBC (Bld) [#/Vol] 11.7 10*3/uL High 4.4-11.0 [facility] Orthopedic Visit Reporton Orthopedic Visit Report [facility] [address] [place] [address] [address] [place] [address] OFFICE VISIT Date of Service: 05/02/24 MR#: [id number] Acct: [id number] Name: CHELSIE HERNANDEZ Rep #: [id number] : 1955 Provider: Dr. Bunny Macedo MD Age/Sex: 68/F Location: [facility] Status: Signed Intake Vital Signs 04/10/24 09:33 [...] by me, Dr. Bunny Macedo MD 05/02/24 6545. Part of today???s visit was documented by [...] medial aspect (more content not included)... Normal [facility] Spine Lumbar W/WO Contraston 04-29-2024 Spine Lumbar W/WO Contrast [facility] [address] [place] [address] Spine Lumbar W/WO Contrast MR#: [id number] Acct: [id number] Name: CHELSIE HERNANDEZ Rep #: [id number] : 1955 F 68 From: Berlin Berrios MD PCP: Dr. Phillip Novak MD Status: REG CLI Study: Spine Lumbar W/WO Contrast Date of Exam: 04/12 11/03 Exam# [id number] Ordering Dr: Bunny Macedo MD PROCEDURE: SPINE [...] 1 anterolisthesis and facet arthropathy resulting in wpmvcall-ih-rpvnsp central stenosis. Mild right moderate left neural [...] 1 anterolisthesis and facet arthropathy resulting in arcfouae-vp-xwyuuw central stenosis. Mild right moderate left neural foraminal stenosis. Otherwise, no high-grade central or neural foraminal stenosis at the other visualized levels. L3 through L5 posterior fusion. Reading Location: [id number] CC: Dr. Bunny Macedo MD; Dr. Phillip Novak MD Bar Host: Signed Normal [facility] HIP, UNI W/ Pelvis 2-3 Views on 04-11-2024 HIP, UNI W/ Pelvis 2-3 Views [facility] [address] [place] [address] HIP, UNI W/ Pelvis 2-3 Views MR#: [id number] Acct: [id number] Name: CHELSIE HERNANDEZ Rep #: [id number] : 1955 F 68 From: Alexey Foster PCP: Dr. Phillip Novak MD Status: DEP AMB Study: HIP, UNI W/ Pelvis 2-3 Views Date of Exam: Exam# [id number] Ordering Dr: Noah Cam DO PROCEDURE: HIP, [...] fracture or dislocation is seen. Reading Location: [id number] CC: Dr. Noah Cam DO; Dr. Phillip Novak MD Bar Host: Signed Normal [facility] Orthopedic Visit Reporton Orthopedic Visit Report [facility] [address] [place] [address] [address] [place] [address] OFFICE VISIT Date of Service: 04/11/24 MR#: [id number] Acct: [id number] Name: CHELSIE HERNANDEZ Rep #: [id number] : 1955 Provider: Dr. Noah alvares DO Age/Sex: 68/F Location: [facility] Status: Signed Intake Vital Signs 04/10/24 09:33 Height 5 ft 2 in Weight: 217 lb BMI 39.6 Intake Visit Reasons: RIGHT HIP Chief Complaint: Right hip Inspector Timers Required: No Accompanied by: Self Is patient [...] by me, Dr. Noah Cam, DO 04/11/24 6812. Part of today???s visit was documented by [...] HIP: ER (more content not included)... Normal [facility] L/S Spine Min 4 Viewson - L/S Spine Min 4 Views [facility] [address] [place] [address] L/S Spine Min 4 Views MR#: [id number] Acct: [id number] Name: CHELSIE HERNANDEZ Rep #: [id number] : 1955 F 68 From: Han Guardado DO PCP: Dr. Phillip Novak MD Status: DEP AMB Study: L/S Spine Min 4 Views Date of Exam: 04/10/24 Exam# [id number] Ordering Dr: Lesly Floyd PROCEDURE: L/S SPINE [...] fractures or dislocations are identified. Reading Location: [facility] CC: OWEN Stoddard; Dr. Phillip Novak MD Bar Host: Signed Normal [facility] Orthopedic Visit Reporton Orthopedic Visit Report [facility] [address] [place] [address] [address] [place] [address] OFFICE VISIT Date of Service: 04/10/24 MR#: [id number] Acct: [id number] Name: CHELSIE HERNANDEZ Rep #: [id number] : 1955 Provider: Dr. Bunny Macedo MD Age/Sex: 68/F Location: [facility] Status: Signed Intake Vital Signs 09/01/22 09:53 [...] you fallen in the past year?: No [facility] Medical History (Updated 04/10/24 @ 12:[address] Bunny Macedo MD) Wears glasses History of steroid therapy [...] by me, Dr. Bunny Macedo MD 04/10/24 0943. Part of today???s visit was documented by [...] reasonable an (more content not included)... Normal [facility] SCRN MAMM (CAD)W/ORTIZ BILATo n 02-26-2024 SCRN MAMM (CAD)W/ORTIZ BILAT [facility] [address] [place] [address] [id number] SCRN MAMM (CAD)W/ORTIZ BILAT MR#: [id number] Acct: [id number] Name: CHELSIE HERNANDEZ Rep #: [id number] : 1955 F 68 From: Davey shannon MD PCP: Dr. Phillip Novak MD Status: [facility] Study: SCRN MAMM (CAD)W/ORTIZ BILAT Date of Exam: 02/09 10/02 Exam# [id number] Ordering Dr: Phillip Novak MD [id number] MAMMOGRAPHY - BILATERAL SCREENING REASON FOR EXAM: [...] delay biopsy of a clinically suspicious abnormality. [id number] Electronically Signed: Davey Schmitz MD at 12:49 EST Reading Location ID and State: [address] [place] [address] , Service support , CC: Dr. Phillip Novak MD Bar Host: Signed Normal [facility] CBC W/Diff, Automatedon 02-09 Absolute Neut Normal 2.0-7.7 [facility] Comment on above: Order Comment: CC TO DR. GARRISON Result Comment: This specimen has been REJECTED due to Laboratory criteria: Quanity Not Sufficient. HOLLY has been notified of need of recollection. 02/21/24 1243 Irasema Cervantes Performed By: #### L 500.4100, L501.9520, L506.1000, L500.4050, L100.0100 #### [facility] [address] [place], [address] HCT Normal 37-47 [facility] Comment on above: Order Comment: CC TO DR. GARRISON Result Comment: This specimen has been REJECTED due to Laboratory criteria: Quanity Not Sufficient. HOLLY has been notified of need of recollection. 02/21/241242 Irasema Cervantes Performed By: #### L 500.4100, L501.9520, L506.1000, L500.4050, L100.0100 #### [facility] [address] [place], [address] HGB Normal 12.0-15.0 [facility] Comment on above: Order Comment: CC TO DR. GARRISON Result Comment: This specimen has been REJECTED due to Laboratory criteria: Quanity Not Sufficient. HOLLY has been notified of need of recollection. 02/21/24 1243 Irasema Cervantes Performed By: #### L 500.4100, L501.9520, L506.1000, L500.4050, L100.0100 #### [facility] [address] [place], [address] MCH Normal 27.0-32.0 [facility] Comment on above: Order Comment: CC TO DR. GARRISON Result Comment: This specimen has been REJECTED due to Laboratory criteria: Quanity Not Sufficient. HOLLY has been notified of need of recollection. 02/21/243 Irasema Cervantes Performed By: #### L 500.4100, L501.9520, L506.1000, L500.4050, L100.0100 #### [facility] [address] [place], [address] MCHC Normal 32-36 [facility] Comment on above: Order Comment: CC TO DR. GARRISON Result Comment: This specimen has been REJECTED due to Laboratory criteria: Quanity Not Sufficient. HOLLY has been notified of need of recollection. 02/21/243 Irasema Cervantes Performed By: #### L 500.4100, L501.9520, L506.1000, L500.4050, L100.0100 #### [facility] [address] [place], [address] MCV Normal 81-99 [facility] Comment on above: Order Comment: CC TO DR. GARRISON Result Comment: This specimen has been REJECTED due to Laboratory criteria: Quanity Not Sufficient. HOLLY has been notified of need of recollection. 02/21/24 1243 Irasema Cervantes Performed By: #### L 500.4100, L501.9520, L506.1000, L500.4050, L100.0100 #### [facility] [address] [place], [address] NEUT% Normal 47-70 [facility] Comment on above: Order Comment: CC TO DR. GARRISON Result Comment: This specimen has been REJECTED due to Laboratory criteria: Quanity Not Sufficient. HOLLY has been notified of need of recollection. 02/21/24 1243 Irasema Cervantes Performed By: #### L 500.4100, L501.9520, L506.1000, L500.4050, L100.0100 #### [facility] [address] [place], [address] PLT Normal 150-450 [facility] Comment on above: Order Comment: CC TO DR. GARRISON Result Comment: This specimen has been REJECTED due to Laboratory criteria: Quanity Not Sufficient. HOLLY has been notified of need of recollection. 02/21/24 1243 Irasema Cervantes Performed By: #### L 500.4100, L501.9520, L506.1000, L500.4050, L100.0100 #### [facility] [address] [place], [address] RBC Normal 4.2-5.4 [facility] Comment on above: Order Comment: CC TO DR. GARRISON Result Comment: This specimen has been REJECTED due to Laboratory criteria: Quanity Not Sufficient. HOLLY has been notified of need of recollection. 02/21/24 1243 Irasema Cervantes Performed By: #### L 500.4100, L501.9520, L506.1000, L500.4050, L100.0100 #### [facility] [address] [place], [address] RDW CV Normal 11.6-14.6 [facility] Comment on above: Order Comment: CC TO DR. GARRISON Result Comment: This specimen has been REJECTED due to Laboratory criteria: Quanity Not Sufficient. HOLLY has been notified of need of recollection. 02/21/24 1243 Irasema Cervantes Performed By: #### L 500.4100, L501.9520, L506.1000, L500.4050, L100.0100 #### [facility] [address] [place], [address] RDW SD Normal 35.1-43.9 [facility] Comment on above: Order Comment: CC TO DR. GARRISON Result Comment: This specimen has been REJECTED due to Laboratory criteria: Quanity Not Sufficient. HOLLY has been notified of need of recollection. 02/21/24 1243 Irasema Cervantes Performed By: #### L 500.4100, L501.9520, L506.1000, L500.4050, L100.0100 #### [facility] [address] [place], [address] WBC Normal 4.4-11.0 [facility] Comment on above: Order Comment: CC TO DR. GARRISON Result Comment: This specimen has been REJECTED due to Laboratory criteria: Quanity Not Sufficient. HOLLY has been notified of need of recollection. 02/21/24 1243 Irasema Cervantes Performed By: #### L 500.4100, L501.9520, L506.1000, L500.4050, L100.0100 #### [facility] [address] [place], [address] Comprehensive Metabolic Prof ilon 02-21-2024 Albumin [Mass/Vol] 4.1 g/dL Normal 3.2-5.0 [facility] Comment on above: Order Comment: CC TO DR. GARRISON Performed By: #### B TSPAT, L501.9985, M100.65 #### [facility] [address] [place], [address] Albumin/Globulin [Mass ratio] 0.9 {ratio} Normal 0.9-2.4 [facility] Comment on above: Order Comment: CC TO DR. GARRISON Performed By: #### B TSPAT, L501.9985, M100.651 #### [facility] [address] [place], [address] ALK P 53 U/L Normal 45-117 [facility] Comment on above: Order Comment: CC TO DR. GARRISON Performed By: #### B TSPAT, L501.85, M100.65 #### [facility] [address] [place], [address] ALT [Catalytic activity/Vol] 28 U/L Normal 13-56 [facility] Comment on above: Order Comment: CC TO DR. GARRISON Performed By: #### B TSPAT, L501.9984, M1.65 #### [facility] [address] [place], [address] AST [Catalytic activity/Vol] 41 U/L High 15-37 [facility] Comment on above: Order Comment: CC TO DR. GARRISON Result Comment: Mode rate Hemolysis, Result may be falsely increased. Performed By: #### B TSPAT, L501.9985, M1.65 #### [facility] [address] [place], [address] Bilirubin [Mass/Vol] 0.70 mg/dL Normal 0.20-1.00 [facility] Comment on above: Order Comment: CC TO DR. GARRISON Result Comment: For patients on eltrombopag therapy, use of Dimension [place] TBIL is not recommended. Performed By: #### B TSPAT, L501.9985, M100.651 #### [facility] [address] [place], [address] BUN/CRE 30.2 RATIO High 10-20 [facility] Comment on above: Order Comment: CC TO DR. GARRISON Performed By: #### B TSPAT, L501.9985, M100.651 #### [facility] [address] [place], [address] CA,Total 10.0 mg/dL Normal 8.5-10.1 [facility] Comment on above: Order Comment: CC TO DR. GARRISON Performed By: #### B TSPAT, L501.9984, M1.65 #### [facility] [address] [place], [address] Chloride [Moles/Vol] 100 mmol/L Normal 98-107 [facility] Comment on above: Order Comment: CC TO DR. GARRISON Performed By: #### B TSPAT, L501.9984, M1.65 #### [facility] [address] [place], [address] CO2 [Moles/Vol] 30.0 mmol/L Normal 21.0-32.0 [facility] Comment on above: Order Comment: CC TO DR. GARRISON Performed By: #### B TSPAT, L501.9984, M100.65 #### [facility] [address] [place], [address] Creatinine [Mass/Vol] 0.86 mg/dL Normal 0.55-1.02 [facility] Comment on above: Order Comment: CC TO DR. GARRISON Result Comment: The validity of the calculated GFR GFRAA in patients over 70 years has not been determined. Clinical correlation is essential. Performed By: #### B TSPAT, L501.9985, M100.651 #### [facility] [address] [place], [address] EST GFR - AA 84 mL/min Normal >60 [facility] Comment on above: Order Comment: CC TO DR. GARRISON Result Comment: Afri can Tristanian GFR Calc Performed By: #### B TSPAT, L5, #### [facility] [address] [place], [address] GAP 7 Normal 5-15 [facility] Comment on above: Order Comment: CC TO DR. GARRISON Performed By: #### B TSPAT, L5, #### [facility] [address] [place], [address] GFR/1.73 sq M.predicted among non-blacks MDRD (S/P/Bld) [Vol rate/Area] 69 mL/min/{1.73_m2} Normal >60 [facility] Comment on above: Order Comment: CC TO DR. GARRISON Result Comment: Non- GFR Calc Performed By: #### B TSPAT, L5, #### [facility] [address] [place], [address] Globulin (S) [Mass/Vol] 4.5 g/dL High 2.2-4.2 [facility] Comment on above: Order Comment: CC TO DR. GARRISON Performed By: #### B TSPAT, L5, #### [facility] [address] [place], [address] Glucose [Mass/Vol] 117 mg/dL High 74-106 [facility] Comment on above: Order Comment: CC TO DR. GARRISON Result Comment: Fast ing Glucose result from 100 to 125 mg/dL suggests IMPAIRED HOMEOSTASIS per A.D.A. criteria. Performed By: #### B TSPAT, L501.9984, #### [facility] [address] [place], [address] Potassium [Moles/Vol] 4.4 mmol/L Normal 3.5-5.1 [facility] Comment on above: Order Comment: CC TO DR. GARRISON Result Comment: Mode rate Hemolysis, Result may be falsely increased. Performed By: #### B TSPAT, L501.9985, M100.651 #### [facility] [address] [place], [address] Sodium [Moles/Vol] 137 mmol/L Normal 136-145 [facility] Comment on above: Order Comment: CC TO DR. GARRISON Performed By: #### B TSPAT, L501.9985, M100.651 #### [facility] [address] [place], [address] T PROT 8.6 g/dL High 6.4-8.2 [facility] Comment on above: Order Comment: CC TO DR. GARRISON Performed By: #### B TSPAT, L501.9985, M100.65 #### [facility] [address] [place], [address] Urea nitrogen [Mass/Vol] 26 mg/dL High 7-18 [facility] Comment on above: Order Comment: CC TO DR. GARRISON Performed By: #### B TSPAT, L501.9985, M100.651 #### [facility] [address] [place], [address] Lipid Profileon 02-21-2024 Cholesterol [Mass/Vol] 159 mg/dL Normal 200 [facility] Comment on above: Order Comment: CC TO DR. GARRISON Result Comment: <200 mg/dL Desirable 200-240 mg/dL Borderline >240 mg/dL High Risk Performed By: #### B TSPAT, L501.9985, M100.651 #### [facility] [address] [place], [address] Cholesterol in HDL [Mass/Vol] 44 mg/dL Normal [facility] Comment on above: Order Comment: CC TO DR. GARRISON Result Comment: The drugs N-Acetylcysteine and Metamizole may falsely depress this assay. Reference Range HDL <40 mg/dL Low HDL Cholesterol HDL >or= 60 mg/dL High HDL Cholesterol Performed By: #### B TSPAT, L501.9984, . #### [facility] [address] [place], [address] Cholesterol in LDL [Mass/Vol] 59 mg/dL Normal 0-130 [facility] Comment on above: Order Comment: CC TO DR. GARRISON Performed By: #### B TSPAT, L501, #### [facility] [address] [place], [address] Cholesterol in VLDL [Mass/Vol] 56 mg/dL High 5-40 [facility] Comment on above: Order Comment: CC TO DR. GARRISON Performed By: #### B TSPAT, L5, #### [facility] [address] [place], [address] Triglyceride [Mass/Vol] 278 mg/dL High [facility] Comment on above: Order Comment: CC TO DR. GARRISON Result Comment: The drugs N-Acetylcysteine and Metamizole may falsely depress this assay. Serum Triglycerides Reference Interval Normal <150 mg/dL Borderline high 150 - 199 mg/dL High 200 - 499 mg/dL Very High > or = 500 mg/dL Performed By: #### B TSPAT, L501, #### [facility] [address] [place], [address] Thyroid Stim Hormone (TSH)on 02-21-2024 TSH 0.732 uIU/mL Normal 0.358-3.74 0 [facility] Comment on above: Order Comment: CC TO DR. GARRISON Performed By: #### B TSPAT, L501, M165 #### [facility] [address] [place], [address] Vitamin D,25 Hydroxyon 02-20 Vitamin D 25-OH 61.7 ng/mL Normal [facility] Comment on above: Order Comment: CC TO DR. GARRISON Result Comment: Rupal min D 25(OH) Status Range Deficiency <20 ng/mL (50nmol/L) Insufficiency 20 - 30 ng/mL (50 - 75 nmol/L) Sufficiency 30 - 100 ng/mL (75 - 250 nmol/L) Toxicity >100 ng/mL (>250 nmol/L) Performed By: #### L 500.4100, L501.9520, L506.1000, L500.4050, L100.0100 #### [facility] [address] [place], [address] Basophil percentageOrdered B y: Jr Garrison on 02-23-2023 Bilirubin [Mass/Vol] 0.40 mg/dL 0.20-1.00 [facility] Comment on above: For patients on eltr ombopag therapy, use of Dimension [place] TBIL is not recommended. Protein [Mass/Vol] 8.2 g/dL 6.4-8.2 [facility] Direct bilirubinOrdered By: Jr Garrison on 02-23-2023 Bilirubin.direct [Mass/Vol] 0.13 mg/dL 0.00-0.30 [facility] INR in Blood by Coagulation assayOrdered By: Jr Garrison on 02-23-2023 INR Coag (Bld) [Relative time] 0.9 {INR} [facility] - Chemistry and C hemistry - challengeOrdered By: Jr Garrison on 02-23-2023 ALP [Catalytic activity/Vol] 43 U/L 45-117 [facility] ALT [Catalytic activity/Vol] 31 U/L 13-56 [facility] Globulin (S) [Mass/Vol] 4.1 g/dL 2.2-4.2 [facility] - CoagulationOrde red By: Jr Garrison on 02-23-2023 aPTT Coag (Bld) [Time] 27.5 s 24.1-36.2 [facility] PT Coag (PPP) [Time] 11.9 s 11.7-14.9 [facility] Serum or plasma albumin lala urement (mass/volume)Ordered By: Jr Garrison on 02-23-2023 Albumin [Mass/Vol] 4.1 g/dL 3.2-5.0 [facility] Serum or plasma [id number] protein tumor marker measurement (units/volume)Ordered By: Jr Garrison on 02-23-2023 AFP.tumor marker Qn < 1.8 ng/mL 0.0-9.2 [facility] Comment on above: [employer] El ectrochemiluminescence Immunoassay(ECLIA)Values obtained with different assay methods or kits cannotbe used interchangeably. Results cannot be interpreted asabsolute evidence of the presence or absence of malignantdisease.This test is not interpretable in females.Performed at: [facility] [id number] Director: Jr Griffin PhD, Phone: [phone] Thin prep Papanicolaou smear with manual screeningOrdered By: Jr Garrison on 02-23-2023 Thin prep Papanicolaou smear with manual screening 24 U/L 15- [facility] Absolute lymphocyte countOrd ered By: Phillip Novak on 02-12-2023 Lymphocytes Auto (Unsp spec) [#/Vol] 2.02 10*3/uL 0.83-4.51 [facility] Basophil percentageOrdered B y: Phillip Novak on 02-12-2023 Basophils/100 WBC (Bld) 1.0 % 0-1 [facility] Bilirubin [Mass/Vol] 0.40 mg/dL 0.20-1.00 [facility] Comment on above: For patients on eltr ombopag therapy, use of Dimension [place] TBIL is not recommended. Chloride [Moles/Vol] 102 mmol/L 98-107 [facility] Eosinophils/100 WBC (Bld) 2.2 % 0-5 [facility] Glucose [Mass/Vol] 120 mg/dL 74-106 [facility] Comment on above: Fasting Glucose resu lt from 100 to 125 mg/dL suggests IMPAIRED HOMEOSTASIS per A.D.A. criteria. Neutrophils (Bld) [#/Vol] 5.9 10*3/uL 2.0-7.7 [facility] Neutrophils/100 WBC (Bld) 66.8 % 47-70 [facility] Potassium [Moles/Vol] 3.9 mmol/L 3.5-5.1 [facility] Protein [Mass/Vol] 8.2 g/dL 6.4-8.2 [facility] Sodium [Moles/Vol] 136 mmol/L 136-145 [facility] WBC (Bld) [#/Vol] 8.8 10*3/uL 4.4-11.0 [facility] Blood erythrocytes count (nu mber/volume)Ordered By: Phillip Novak on 02-12-2023 RBC (Bld) [#/Vol] 5.01 10*6/uL 4.2-5.4 [facility] Blood hemoglobin measurement (mass/volume)Ordered By: Phillip Novak on 02-12-2023 Hemoglobin (Bld) [Mass/Vol] 14.1 g/dL 12.0-15.0 [facility] Blood lymphocytes/100 leukoc ytesOrdered By: Phillip Novak on 02-12-2023 Lymphocytes/100 WBC (Bld) 23.1 % 19-41 [facility] Blood monocytes/100 leukocyt esOrdered By: Phillip Novak on 02-12-2023 Monocytes/100 WBC (Bld) 6.3 % 0-10 [facility] Blood platelet mean volumeOr dered By: Phillip Novak on 02-12-2023 Platelet mean volume (Bld) [Entitic vol] 10.5 fL 6.2-12.0 [facility] Determination of erythrocyte mean corpuscular volume (MCV)Ordered By: Phillip Novak on 02-12-2023 MCV (RBC) [Entitic vol] 89.0 fL 81-99 [facility] Hematocrit Auto (Bld) [Volum e fraction]Ordered By: Phillip Novak on 02-12-2023 Hematocrit (Bld) [Volume fraction] 44.6 % 37-47 [facility] - Chemistry and C hemistry - challengeOrdered By: Phillip Novak on 02-12-2023 ALP [Catalytic activity/Vol] 54 U/L 45-117 [facility] ALT [Catalytic activity/Vol] 32 U/L 13-56 [facility] CO2 [Moles/Vol] 26.0 mmol/L 21.0-32.0 [facility] Globulin (S) [Mass/Vol] 4.2 g/dL 2.2-4.2 [facility] Urea nitrogen/Creatinine [Mass ratio] 24.7 mg/mg 10-20 [facility] - Hematology and Cell countsOrdered By: Phillip Novak on 02-12-2023 Erythrocyte distribution width (RBC) [Entitic vol] 39.8 fL 35.1-43.9 [facility] Erythrocyte distribution width (RBC) [Ratio] 12.1 % 11.6-14.6 [facility] Immature granulocytes/100 WBC (Bld) 0.600 % 0.0-0.9 [facility] Comment on above: IG% - Immature Granu locytes (promyelocytes, myelocytes and metamyelocytes) > 1% indicates that a LEFT SHIFT is Present. MCH (RBC) [Entitic mass] 28.1 pg 27.0-32.0 [facility] Nucleated RBC/100 WBC (Bld) [Ratio] 0 % 0-5 [facility] MCHC Auto (RBC) [Mass/Vol]Or dered By: Phillip Novak on 02-12-2023 MCHC (RBC) [Mass/Vol] 31.6 g/dL 32-36 [facility] No Panel InformationOrdered By: Phillip Novak on 02-12-2023 Estimated GFR (MDRD) Amer 81 mL/min >60 [facility] Comment on above: GFR Calc Estimated GFR (MDRD) Non-Af Amer 67 mL/min >60 [facility] Comment on above: Non- GFR Calc Thyroid Stimulating Hormone (TSH) 0.58 uIU/mL 0.358-3.74 [facility] Vitamin D 25-Hydroxy 73.5 ng/mL [facility] Comment on above: Vitamin D 25(OH) Sta tus Range Deficiency <20 ng/mL (50nmol/L) Insufficiency 20 - 30 ng/mL (50 - 75 nmol/L) Sufficiency 30 - 100 ng/mL (75 - 250 nmol/L) Toxicity >100 ng/mL (>250 nmol/L) Platelets bldOrdered By: Phillip Novak on 02-12-2023 Platelets (Bld) [#/Vol] 321 10*3/uL 150-450 [facility] Serum or plasma albumin alla urement (mass/volume)Ordered By: Phillip Novak on 02-12-2023 Albumin [Mass/Vol] 4.0 g/dL 3.2-5.0 [facility] Serum or plasma albumin/glob ulin mass ratioOrdered By: Phillip Novak on 02-12-2023 Albumin/Globulin [Mass ratio] 1.0 {ratio} 0.9-2.4 [facility] Serum or plasma calcium lala urement (mass/volume)Ordered By: Phillip Novak on 02-12-2023 Calcium [Mass/Vol] 9.8 mg/dL 8.5-10.1 [facility] Serum or plasma creatinine m easurement (mass/volume)Ordered By: Phillip Novak on 02-12-2023 Creatinine [Mass/Vol] 0.89 mg/dL 0.55-1.02 [facility] Comment on above: The validity of the calculated GFR & GFRAA in patients over 70 years has not been determined. Clinical correlation is essential. Serum or plasma urea nitroge n measurement (mass/volume)Ordered By: Phillip Novak on 02-12-2023 Urea nitrogen [Mass/Vol] 22 mg/dL 7-18 [facility] Thin prep Papanicolaou smear with manual screeningOrdered By: Phillip Novak on 02-12-2023 Thin prep Papanicolaou smear with manual screening 22 U/L 15-37 [facility] Thin prep Papanicolaou smear with manual screening 8 5-15 [facility] Absolute lymphocyte countOrd ered By: Dr. Novak on 07-06-2022 Lymphocytes Auto (Unsp spec) [#/Vol] 1.93 10*3/uL 0.83-4.51 [facility] Basophil percentageOrdered B y: Dr. Novak on 07-06-2022 Basophils/100 WBC (Bld) 1.2 % 0-1 [facility] Bilirubin [Mass/Vol] 0.40 mg/dL 0.20-1.00 [facility] Comment on above: For patients on eltr ombopag therapy, use of Dimension [place] TBIL is not recommended. Chloride [Moles/Vol] 104 mmol/L 98-107 [facility] Eosinophils/100 WBC (Bld) 2.8 % 0-5 [facility] Glucose [Mass/Vol] 116 mg/dL 74-106 [facility] Comment on above: Fasting Glucose resu lt from 100 to 125 mg/dL suggests IMPAIRED HOMEOSTASIS per A.D.A. criteria. Neutrophils (Bld) [#/Vol] 5.6 10*3/uL 2.0-7.7 [facility] Neutrophils/100 WBC (Bld) 64.4 % 47-70 [facility] Potassium [Moles/Vol] 4.1 mmol/L 3.5-5.1 [facility] Protein [Mass/Vol] 7.8 g/dL 6.4-8.2 [facility] Sodium [Moles/Vol] 137 mmol/L 136-145 [facility] WBC (Bld) [#/Vol] 8.7 10*3/uL 4.4-11.0 [facility] Blood erythrocytes count (nu mber/volume)Ordered By: Dr. Novak on 07-06-2022 RBC (Bld) [#/Vol] 4.62 10*6/uL 4.2-5.4 [facility] Blood hemoglobin measurement (mass/volume)Ordered By: Dr. Novka on 07-06-2022 Hemoglobin (Bld) [Mass/Vol] 13.4 g/dL 12.0-15.0 [facility] Blood lymphocytes/100 leukoc ytesOrdered By: Dr. Novak on 07-06-2022 Lymphocytes/100 WBC (Bld) 22.3 % 19-41 [facility] Blood monocytes/100 leukocyt esOrdered By: Dr. Novak on 07-06-2022 Monocytes/100 WBC (Bld) 8.7 % 0-10 [facility] Blood platelet mean volumeOr dered By: Dr. Novak on 07-06-2022 Platelet mean volume (Bld) [Entitic vol] 11.0 fL 6.2-12.0 [facility] Determination of erythrocyte mean corpuscular volume (MCV)Ordered By: Dr. Novak on 07-06-2022 MCV (RBC) [Entitic vol] 88.5 fL 81-99 [facility] Hematocrit Auto (Bld) [Volum e fraction]Ordered By: Dr. Novak on 07-06-2022 Hematocrit (Bld) [Volume fraction] 40.9 % 37-47 [facility] - Chemistry and C hemistry - challengeOrdered By: Dr. Novak on 07-06-2022 ALP [Catalytic activity/Vol] 47 U/L 45-117 [facility] ALT [Catalytic activity/Vol] 35 U/L 13-56 [facility] CO2 [Moles/Vol] 28.0 mmol/L 21.0-32.0 [facility] Globulin (S) [Mass/Vol] 3.8 g/dL 2.2-4.2 [facility] Urea nitrogen/Creatinine [Mass ratio] 31.3 mg/mg 10-20 [facility] - Hematology and Cell countsOrdered By: Dr. Novak on 07-06-2022 Erythrocyte distribution width (RBC) [Entitic vol] 38.5 fL 35.1-43.9 [facility] Erythrocyte distribution width (RBC) [Ratio] 12.0 % 11.6-14.6 [facility] Immature granulocytes/100 WBC (Bld) 0.600 % 0.0-0.9 [facility] Comment on above: IG% - Immature Granu locytes (promyelocytes, myelocytes and metamyelocytes) > 1% indicates that a LEFT SHIFT is Present. MCH (RBC) [Entitic mass] 29.0 pg 27.0-32.0 [facility] Nucleated RBC/100 WBC (Bld) [Ratio] 0 % 0-5 [facility] MCHC Auto (RBC) [Mass/Vol]Or dered By: Dr. Novak on 07-06-2022 MCHC (RBC) [Mass/Vol] 32.8 g/dL 32-36 [facility] No Panel InformationOrdered By: Dr. Novak on 07-06-2022 Estimated GFR (MDRD) Amer 96 mL/min >60 [facility] Comment on above: GFR Calc Estimated GFR (MDRD) Non-Af Amer 80 mL/min >60 [facility] Comment on above: Non- GFR Calc Thyroid Stimulating Hormone (TSH) 0.48 uIU/mL 0.358-3.74 [facility] Vitamin D 25-Hydroxy 73.4 ng/mL [facility] Comment on above: Vitamin D 25(OH) Sta tus Range Deficiency <20 ng/mL (50nmol/L) Insufficiency 20 - 30 ng/mL (50 - 75 nmol/L) Sufficiency 30 - 100 ng/mL (75 - 250 nmol/L) Toxicity >100 ng/mL (>250 nmol/L) Platelets bldOrdered By: Dr. Novak on 07-06-2022 Platelets (Bld) [#/Vol] 273 10*3/uL 150-450 [facility] Serum or plasma albumin lala urement (mass/volume)Ordered By: Dr. Novak on 07-06-2022 Albumin [Mass/Vol] 4.0 g/dL 3.2-5.0 [facility] Serum or plasma albumin/glob ulin mass ratioOrdered By: Dr. Novak on 07-06-2022 Albumin/Globulin [Mass ratio] 1.1 {ratio} 0.9-2.4 [facility] Serum or plasma calcium lala urement (mass/volume)Ordered By: Dr. Novak on 07-06-2022 Calcium [Mass/Vol] 9.9 mg/dL 8.5-10.1 [facility] Serum or plasma creatinine m easurement (mass/volume)Ordered By: Dr. Novak on 07-06-2022 Creatinine [Mass/Vol] 0.77 mg/dL 0.55-1.02 [facility] Comment on above: The validity of the calculated GFR & GFRAA in patients over 70 years has not been determined. Clinical correlation is essential. Serum or plasma urea nitroge n measurement (mass/volume)Ordered By: Dr. Novak on 07-06-2022 Urea nitrogen [Mass/Vol] 24 mg/dL 7-18 [facility] Thin prep Papanicolaou smear with manual screeningOrdered By: Dr. Novak on 07-06-2022 Thin prep Papanicolaou smear with manual screening 25 U/L 15-37 [facility] Thin prep Papanicolaou smear with manual screening 5 5-15 [facility] Basophil percentageOrdered B y: Dr. Garrison on 06-07-2022 Bilirubin [Mass/Vol] 0.50 mg/dL 0.20-1.00 [facility] Comment on above: For patients on eltr ombopag therapy, use of Dimension [place] TBIL is not recommended. Protein [Mass/Vol] 8.2 g/dL 6.4-8.2 [facility] Direct bilirubinOrdered By: Dr. Garrison on 06-07-2022 Bilirubin.direct [Mass/Vol] 0.14 mg/dL 0.00-0.30 [facility] INR in Blood by Coagulation assayOrdered By: Dr. Garrison on 06-07-2022 INR Coag (Bld) [Relative time] 1.0 {INR} [facility] Laboratory - Chemistry and C hemistry - challengeOrdered By: Dr. Garrison on 06-07-2022 ALP [Catalytic activity/Vol] 45 U/L 45-117 [facility] ALT [Catalytic activity/Vol] 36 U/L 13-56 [facility] Amylase [Catalytic activity/Vol] 21 U/L 5-55 [facility] Globulin (S) [Mass/Vol] 4.1 g/dL 2.2-4.2 [facility] Laboratory - CoagulationOrde red By: Dr. Garrison on 06-07-2022 aPTT Coag (Bld) [Time] 28.3 s 24.1-36.2 [facility] PT Coag (PPP) [Time] 12.5 s 11.7-14.9 [facility] Serum or plasma albumin lala urement (mass/volume)Ordered By: Dr. Garrison on 06-07-2022 Albumin [Mass/Vol] 4.1 g/dL 3.2-5.0 [facility] Serum or plasma alyci-6-rwix protein tumor marker measurement (units/volume)Ordered By: Dr. Garrison on 06-07-2022 AFP.tumor marker Qn < 1.8 ng/mL 0.0-9.2 [facility] Comment on above: [employer] El ectrochemiluminescence Immunoassay(ECLIA)Values obtained with different assay methods or kits cannotbe used interchangeably. Results cannot be interpreted asabsolute evidence of the presence or absence of malignantdisease.This test is not interpretable in females.Performed at: [facility] [id number] [place], [place] [id number] Director: Jr Griffin PhD, Phone: [phone] Thin prep Papanicolaou smear with manual screeningOrdered By: Dr. Garrison on 06-07-2022 Thin prep Papanicolaou smear with manual screening 26 U/L 15-37 [facility] No Panel Informationon 01-05 Thyroid Stimulating Hormone (TSH) 0.60 uIU/mL 0.358-3.74 [facility] Work Phone: Vitamin D 25-Hydroxy 58.4 ng/mL [facility] Work Phone: Comment on above: Vitamin D 25(OH) Sta tus Range Deficiency <20 ng/mL (50nmol/L) Insufficiency 20 - 30 ng/mL (50 - 75 nmol/L) Sufficiency 30 - 100 ng/mL (75 - 250 nmol/L) Toxicity >100 ng/mL (>250 nmol/L) Basophil percentageon 2021 Bilirubin [Mass/Vol] 0.50 mg/dL 0.20-1.00 [facility] Work Phone: Comment on above: For patients on eltr ombopag therapy, use of Dimension [place] TBIL is not recommended. Chloride [Moles/Vol] 105 mmol/L 98-107 [facility] Work Phone: Cholesterol [Mass/Vol] 156 mg/dL <200 [facility] Work Phone: Comment on above: <200 mg/dL Desirable 200-240 mg/dL Borderline >240 mg/dL High Risk Glucose [Mass/Vol] 120 mg/dL 74-106 [facility] Work Phone: Comment on above: Fasting Glucose resu lt from 100 to 125 mg/dL suggests IMPAIRED HOMEOSTASIS per A.D.A. criteria. Potassium [Moles/Vol] 4.1 mmol/L 3.5-5.1 [facility] Work Phone: Protein [Mass/Vol] 8.0 g/dL 6.4-8.2 [facility] Work Phone: Sodium [Moles/Vol] 140 mmol/L 136-145 [facility] Work Phone: Triglyceride [Mass/Vol] 309 mg/dL <199 [facility] Work Phone: Comment on above: The drugs N-Acetylcy steine and Metamizole may falsely depress this assay.Serum Triglycerides Reference Interval Normal <150 mg/dL Borderline high 150 - 199 mg/dL High 200 - 499 mg/dL Very High > or = 500 mg/dL WBC (Bld) [#/Vol] 6.1 10*3/uL 4.4-11.0 [facility] Work Phone: Blood erythrocytes count (nu mber/volume)on 12-14-2021 RBC (Bld) [#/Vol] 4.59 10*6/uL 4.2-5.4 [facility] Work Phone: Blood hemoglobin measurement (mass/volume)on 12-14-2021 Hemoglobin (Bld) [Mass/Vol] 13.9 g/dL 12.0-15.0 [facility] Work Phone: Blood platelet mean volumeon 12-14-2021 Platelet mean volume (Bld) [Entitic vol] 10.0 fL 6.2-12.0 [facility] Work Phone: Determination of erythrocyte mean corpuscular volume (MCV)on 12-14-2021 MCV (RBC) [Entitic vol] 87.1 fL 81-99 [facility] Work Phone: Hematocrit Auto (Bld) [Volum e fraction]on 12-14-2021 Hematocrit (Bld) [Volume fraction] 40.0 % 37-47 [facility] Work Phone: INR in Blood by Coagulation assayon 12-14-2021 INR Coag (Bld) [Relative time] 1.0 {INR} [facility] Work Phone: Laboratory - Chemistry and C hemistry - challengeon 12-14-2021 ALP [Catalytic activity/Vol] 47 U/L 45-117 [facility] Work Phone: ALT [Catalytic activity/Vol] 31 U/L 13-56 [facility] Work Phone: CO2 [Moles/Vol] 29.0 mmol/L 21.0-32.0 [facility] Work Phone: Globulin (S) [Mass/Vol] 4.0 g/dL 2.2-4.2 [facility] Work Phone: Urea nitrogen/Creatinine [Mass ratio] 25.2 mg/mg 10-20 [facility] Work Phone: Laboratory - Coagulationon 1 aPTT Coag (Bld) [Time] 28.9 s 24.1-36.2 [facility] Work Phone: PT Coag (PPP) [Time] 12.9 s 11.7-14.9 [facility] Work Phone: Laboratory - Hematology and Cell countson 12-14-2021 Erythrocyte distribution width (RBC) [Entitic vol] 38.7 fL 35.1-43.9 [facility] Work Phone: Erythrocyte distribution width (RBC) [Ratio] 12.0 % 11.6-14.6 [facility] Work Phone: MCH (RBC) [Entitic mass] 30.3 pg 27.0-32.0 [facility] Work Phone: MCHC Auto (RBC) [Mass/Vol]on 12-14-2021 MCHC (RBC) [Mass/Vol] 34.8 g/dL 32-36 [facility] Work Phone: No Panel Informationon 12-14 Estimated GFR (MDRD) Amer 105 mL/min >60 [facility] Work Phone: Comment on above: GFR Calc Estimated GFR (MDRD) Non-Af Amer 87 mL/min >60 [facility] Work Phone: Comment on above: Non- GFR Calc Platelets bldon 12-14-2021 Platelets (Bld) [#/Vol] 265 10*3/uL 150-450 [facility] Work Phone: Serum or plasma albumin lala urement (mass/volume)on 12-14-2021 Albumin [Mass/Vol] 4.0 g/dL 3.2-5.0 [facility] Work Phone: Serum or plasma albumin/glob ulin mass ratioon 12-14-2021 Albumin/Globulin [Mass ratio] 1.0 {ratio} 0.9-2.4 [facility] Work Phone: Serum or plasma madmn-9-xehh protein tumor marker measurement (units/volume)on 12-14-2021 AFP.tumor marker Qn 1.6 ng/mL 0.0-9.2 [facility] Work Phone: Comment on above: [employer] El ectrochemiluminescence Immunoassay(ECLIA)Values obtained with different assay methods or kits cannotbe used interchangeably. Results cannot be interpreted asabsolute evidence of the presence or absence of malignantdisease.This test is not interpretable in females.Performed at: [facility] [id number] Director: Jr Griffin PhD, Phone: [phone] Serum or plasma calcium lala urement (mass/volume)on 12-14-2021 Calcium [Mass/Vol] 9.6 mg/dL 8.5-10.1 [facility] Work Phone: Serum or plasma cholesterol in HDL measurement (mass/volume)on 12-14-2021 Cholesterol in HDL [Mass/Vol] 40 mg/dL >40 [facility] Work Phone: Comment on above: The drugs N-Acetylcy steine and Metamizole may falsely depress this assay. Reference Range HDL <40 mg/dL Low HDL Cholesterol HDL >or= 60 mg/dL High HDL Cholesterol Serum or plasma cholesterol in VLDL measurement (mass/volume)on 12-14-2021 Cholesterol in VLDL [Mass/Vol] 62 mg/dL 5-40 [facility] Work Phone: Serum or plasma creatinine m easurement (mass/volume)on 12-14-2021 Creatinine [Mass/Vol] 0.72 mg/dL 0.55-1.02 [facility] Work Phone: Comment on above: The validity of the calculated GFR & GFRAA in patients over 70 years has not been determined. Clinical correlation is essential. Serum or plasma low density lipoprotein (LDL) cholesterol measurement (mass/volume)on 12-14-2021 Cholesterol in LDL [Mass/Vol] 54 mg/dL 0-130 [facility] Work Phone: Serum or plasma urea nitroge n measurement (mass/volume)on 12-14-2021 Urea nitrogen [Mass/Vol] 18 mg/dL 7-18 [facility] Work Phone: Thin prep Papanicolaou smear with manual screeningon 12-14-2021 Thin prep Papanicolaou smear with manual screening 20 U/L 15-37 [facility] Work Phone: Thin prep Papanicolaou smear with manual screening 6 5-15 [facility] Work Phone: Basophil percentageon 2021 Basophil percentage < 0.9 mg/dL 0.55-1.02 [facility] Work Phone: No Panel Informationon 09-07 Bedside Estimated GFR (eGFR) > 60.0000 mL/min >60 [facility] Work Phone: US ELASTOGRAPHY LIVER W/ABD LTDon [...] 33 no. 2 [phone]. Interpreted By: Rachael Gaitan MD Preliminary Report By: Rachael Gaitan MD Electronically Signed By: Rachael Gaitan MD Dictated Date: 09/11/2019 10:03:58 AM Prelim Date: 09/11/2019 10:03:58 AM Sign Date: 09/11/2019 10:21:44 AM Ordering Provider:[employer] [facility] ([place]) Lab Report: CEA Serial Monit oron 10-04-2016 CEA SM GRAPH . [facility] [employer] Work Phone: GE use only - for [employer] import when terms are not otherwise specified . Invalid Interpretation Code [facility] [employer] Work Phone: Replaced Document: (P) CEA S erial Monitoron 10-04-2016 Carcinoembryonic Ag mass conc 1.7 ng/mL Invalid Interpretation Code 0.0-4.7 [facility] [employer] Work Phone: Lab Report: CBC W/Diff, Auto matedon 10-02-2016 Basophils/100 leukocytes 1.1 % High 0-1 [facility] [employer] Work Phone: Basophils/100 WBC (Bld) 1.1 % High 0-1 [facility] [employer] Work Phone: Eosinophils/100 leukocytes 4.2 % Invalid Interpretation Code 0-5 [facility] [employer] Work Phone: Eosinophils/100 WBC (Bld) 4.2 % 0-5 [facility] [employer] Work Phone: Erythrocyte distribution width Ratio (RBC) 40.9 fL 35.1-43.9 [facility] [employer] Work Phone: Erythrocyte distribution width Ratio (RBC) 13.0 % 11.6-14.6 [facility] [employer] Work Phone: Erythrocytes (RBC) 4.55 10*6/uL Invalid Interpretation Code 4.2-5.4 [facility] [employer] Work Phone: [phone] Hematocrit (HCT) 40.0 % Invalid Interpretation Code 37-47 [facility] [employer] Work Phone: [phone] Hematocrit Volume Fraction (Bld) 40.0 % 37-47 [facility] [employer] Work Phone: [phone] Hemoglobin (HGB) 13.1 g/dL Invalid Interpretation Code 12.0-15.0 [facility] [employer] Work Phone: Immature granulocytes #/vol (Bld) 0.100 % 0.0-0.9 [facility] [employer] Work Phone: [phone] immature granulocytes, percentage of total cells, blood 0.100 % Invalid Interpretation Code 0.0-0.9 [facility] [employer] Work Phone: [phone] Lymphocytes 1.51 X10 3/UL Invalid Interpretation Code 0.83-4.51 [facility] [employer] Work Phone: [phone] Lymphocytes #/vol (Bld) 1.51 X10 3/UL 0.83-4.51 [facility] [employer] Work Phone: [phone] Lymphocytes/100 leukocytes 21.4 % Invalid Interpretation Code 1941 [facility] Work Phone: [phone] Lymphocytes/100 WBC (Bld) 21.4 % 19-41 [facility] [employer] Work Phone: [phone] MCH 28.8 pg Invalid Interpretation Code 27.0-32.0 [facility] [employer] Work Phone: [phone] MCH Entitic mass (RBC) 28.8 pg 27.0-32.0 [facility] [employer] Work Phone: [phone] MCHC 32.8 G/GL Invalid Interpretation Code 32-36 [facility] [employer] Work Phone: [phone] MCHC mass conc (RBC) 32.8 G/GL 32-36 [facility] [employer] Work Phone: [phone] MCV 87.9 fL Invalid Interpretation Code 81-99 [facility] Work Phone: [phone] MCV Entitic volume (RBC) 87.9 fL 81-99 [facility] [employer] Work Phone: Monocytes/100 leukocytes 8.2 % Invalid Interpretation Code 0-10 [facility] Work Phone: Monocytes/100 WBC (Bld) 8.2 % 0-10 [facility] [employer] Work Phone: neutrophil count, blood 4.6 X10 3/UL Invalid Interpretation Code 2.0-7.7 [facility] [employer] Work Phone: Neutrophils #/vol (Bld) 4.6 X10 3/UL 2.0-7.7 [facility] Work Phone: Neutrophils/100 leukocytes 65.0 % Invalid Interpretation Code 47-70 [facility] Work Phone: Neutrophils/100 WBC (Bld) 65.0 % 47-70 [facility] [employer] Work Phone: Platelet mean volume Entitic volume (Bld) 10.7 fL 6.2-12.0 [facility] [employer] Work Phone: Platelets 233 10*3/mm3 Invalid Interpretation Code 150-450 [facility] [employer] Work Phone: Platelets #/vol (Bld) 233 10*3/mm3 150-450 [facility] [employer] Work Phone: PMV by Emily 10.7 fL Invalid Interpretation Code 6.2-12.0 [facility] Work Phone: RBC #/vol (Bld) 4.55 10*6/uL 4.2-5.4 [facility] Work Phone: RDW-CA 13.0 % Invalid Interpretation Code 11.6-14.6 [facility] Work Phone: red blood cell distribution width, size density 40.9 fL Invalid Interpretation Code 35.1-43.9 [facility] Work Phone: WBC #/vol (Bld) 7.1 10*3/uL 4.4-11.0 [facility] Work Phone: WBC (Leukocytes) 7.1 10*3/uL Invalid Interpretation Code 4.4-11.0 [facility] [employer] Work Phone: Lab Report: Comprehensive Ok tabolic Profilon 10-02-2016 Alanine aminotransferase (ALT) 49 U/L Invalid Interpretation Code 12-78 [facility] Work Phone: Albumin 3.3 g/dL Low 3.4-5.0 [facility] Work Phone: Albumin/Globulin Ratio 0.9 {ratio} Invalid Interpretation Code 0.9-2.4 [facility] Work Phone: Alkaline phosphatase (ALP) 54 U/L Invalid Interpretation Code 45117 [facility] Work Phone: ALP enzyme act/vol (Bld) 54 U/L 45-117 [facility] Work Phone: Anion gap 8 mmol/L Invalid Interpretation Code 5-15 [facility] Work Phone: Anion gap molar conc 8 mmol/L 5-15 [facility] Work Phone: Aspartate aminotransferase (AST) 39 U/L High 15-37 [facility] Work Phone: Bilirubin (total) 0.40 mg/dL Invalid Interpretation Code 0.20-1.00 [facility] Work Phone: BUN/Creatinine Ratio 19.0 RATIO Invalid Interpretation Code 10-20 [facility] Work Phone: Calcium 8.7 mg/dL Invalid Interpretation Code 8.5-10.1 [facility] Work Phone: Chloride 109 mmol/L High 98-107 [facility] Work Phone: CO2 24.0 mmol/L Invalid Interpretation Code 21.0-32.0 [facility] Work Phone: CO2 ppres (BldV) 24.0 mmol/L 21.0-32.0 [facility] Work Phone: Creatinine 83.19 mL/min Invalid Interpretation Code [facility] Work Phone: Creatinine 0.58 mg/dL Invalid Interpretation Code 0.55-1.02 [facility] Work Phone: eGFR (non-black) 136 mL/min/{1.73_m2} Invalid Interpretation Code >60 [facility] Work Phone: eGFR (non-black) 112 mL/min/{1.73_m2} Invalid Interpretation Code >60 [facility] Work Phone: EST GFR - AA 136 mL/min >60 [facility] Work Phone: Globulin 3.5 g/dL Invalid Interpretation Code 2.3-3.5 [facility] [employer] Work Phone: Globulin mass conc (S) 3.5 g/dL 2.3-3.5 [facility] [employer] Work Phone: Glucose 104 mg/dL Invalid Interpretation Code 70-110 [facility] Work Phone: Glucose mass conc 104 mg/dL 70-110 [facility] [employer] Work Phone: Potassium 4.2 mmol/L Invalid Interpretation Code 3.5-5.1 [facility] Work Phone: Protein 6.8 g/dL Invalid Interpretation Code 6.4-8.2 [facility] Work Phone: Sodium 141 mmol/L Invalid Interpretation Code 136-145 [facility] Work Phone: Urea nitrogen 11 mg/dL Invalid Interpretation Code 7-18 [facility] [employer] Work Phone: Office Visit: Colonoscopy Co nsulton 07-26-2016 Dietary management education, guidance, and counseling (procedure) yes Invalid Interpretation Code [facility] Work Phone: Documentation of current medications (procedure) Done Invalid Interpretation Code [facility] Work Phone: Fall risk assessment No Invalid Interpretation Code [facility] Work Phone: Protein mass conc Done [facility] Work Phone: Tobacco smoking status NHIS Never Invalid Interpretation Code [facility] Work Phone: Tobacco smoking status NHIS Former smoker [facility] Work Phone: Tobacco use CPHS Former smoker Invalid Interpretation Code [facility] [employer] Work Phone: Office Visit: Colonoscopy Ia nsulton 03-17-2013 General categories [interpretation] of Cervical or vaginal smear or scraping by Cyto stain Normal Invalid Interpretation Code [facility] Work Phone: Office Visit: Colonoscopy Co nsulton 03-19-2006 Colonoscopy (procedure) Colonoscopy (procedure) Invalid Interpretation Code [facility] Work Phone: Protein mass conc Colonoscopy (procedure) [facility] Work Phone: Vital Signs Date Time Vital Sign Value Performing Clinician Facility 10-09-2024 08:25-0400 Body height 157.[address] Phillip Novak MD Work Phone: [facility] 10-09-2024 08:25-0400 Body mass index (BMI) [Ratio] 40.2 kg/m2 Dr. Phillip Novak MD Work Phone: [facility] 10-09-2024 08:25-0400 Body weight 99.[address] Phillip Novak MD Work Phone: [facility] 10-02-2016 09:53-0400 Body surface area Derived from formula 83.19 mL/min Rae Lan MD [facility] Work Phone: 07-26-2016 13:54-0400 BMI (Body Mass Index) 41.27 kg/m2 Lorelei Narayan RN RN [facility] Work Phone: 07-26-2016 13:54-0400 Body Temperature 98 [degF] Lorelei Narayan RN RN [facility] Work Phone: 07-26-2016 13:54-0400 Body Temperature 98.01 [degF] Lorelei Narayan RN RN [facility] Work Phone: 07-26-2016 13:54-0400 BP Diastolic 87 mm[Hg] Lorelei Narayan RN RN [facility] Work Phone: 07-26-2016 13:54-0400 BP Systolic 138 mm[Hg] Lorelei Narayan RN RN [facility] Work Phone: 07-26-2016 13:54-0400 BSA (Body Surface Area) 2.07 m2 Lorelei Narayan RN RN [facility] Work Phone: 07-26-2016 13:54-0400 Height 160.02 cm Lorelei Narayan RN RN [facility] Work Phone: 07-26-2016 13:54-0400 Pulse (Heart Rate) 84 /min Lorelei Narayan RN RN [facility] Work Phone: 07-26-2016 13:54-0400 Pulse Oximetry 97 % Lorelei Narayan RN RN [facility] Work Phone: 07-26-2016 13:54-0400 Respiratory Rate 16 /min Lorelei Narayan RN RN [facility] Work Phone: 07-26-2016 13:54-0400 Weight 105.69 kg Lorelei Narayan RN RN [facility] Work Phone: Encounters Encounter Date Encounter Type Care Provider Facility Start: 01-26-2025 ambulatory Bunny Macedo Facility:[facility] Start: 01-21-2025 [facility] Start: 01-20-2025 ambulatory Phillip Chi Victor Hugo Facility:[facility] Start: 01-16-2025 End: 01-16-2025 ambulatory Phillip Chi Victor Hugo Facility:[facility] Start: 01-01-2025 End: 01-01-2025 ambulatory Phillip Chi Victor Hugo Facility:[facility] Start: 10-10-2024 End: 10-10-[address] Phillip Novak MD Work Phone: -Physical Therapy Start: 10-10-2024 End: 10-10-[address] Marco Xie MD -Physical Therapy Work Phone: Start: 10-09-2024 End: 10-09-[address] Bunny Macedo MD -[facility] Work Phone: Start: 10-09-2024 End: 10-09-[address] Phillip Novak MD Work Phone: -[facility] Start: 10-06-[address] Marco Orozco i, MD -Physical Therapy Work Phone: Start: 09-10-[address] Marco Orozco i, MD -Physical Therapy Work Phone: Start: 09-09-2024 Non-patient / Non-visit Dr. Yola royal MD -[facility] Work Phone: Start: 09-08-2024 End: 09-08-[address] Phillip Novak MD Work Phone: -Laboratory Start: 09-08-2024 End: 09-08-[address] Phillip Novak MD -Laboratory Work Phone: Start: 09-08-2024 End: 09-08-2024 ambulatory Phillip Chi Victor Hugo Facility:[facility] Start: 05-02-2024 End: 05-02-2024 ambulatory Phillip Chi Victor Hugo Facility:[facility] Start: 04-29-2024 End: 04-29-2024 ambulatory Bunny Macedo Facility:[facility] Start: 04-11-2024 End: 04-11-2024 ambulatory Phillip Chi Victor Hugo Facility:[facility] Start: 04-10-2024 End: 04-10-2024 ambulatory Phillip Chi Victor Hugo Facility:[facility] Start: 02-26-2024 End: 02-26-2024 ambulatory Phillip Chi Victor Hugo Facility:[facility] Start: 02-21-2024 End: 02-21-2024 ambulatory Phillip Chi Victor Hugo Facility:[facility] Start: 02-23-2023 End: 02-23-2023 ambulatory [facility] Work Phone: Start: 02-23-2023 End: 02-23-2023 Patient encounter procedure [facility]-Ultrasound, [facility] Work Phone: Start: 02-22-2023 End: 02-22-2023 [facility]: Start: 02-12-2023 End: 02-12-2023 ambulatory [facility] Work Phone: Start: 02-12-2023 End: 02-12-2023 [facility] Start: 07-06-2022 End: 07-06-2022 ambulatory [facility] Work Phone: Start: 07-06-2022 End: 07-06-2022 [facility] Start: 06-07-2022 End: 06-07-2022 ambulatory [facility] Work Phone: Start: 06-07-2022 End: 06-07-2022 Patient encounter procedure [facility] Start: 02-13-2022 End: 02-13-[address] Phillip Novak Work Phone: [facility] Work Phone: Start: 02-13-2022 End: 02-13-[address] Phillip Novak Work Phone: [facility] Start: 01-05-2022 End: 01-05-[address] Phillip Novak Work Phone: [facility] Work Phone: Start: 01-05-2022 End: 01-05-[address] Phillip Novak [facility] Phone[facility] Start: 12-14-2021 End: 12-14-[address] Phillip Novak Work Phone: [facility] Work Phone: Start: 12-14-2021 End: 12-14-[address] Phillip Novak Work Phone: [facility] Start: 11-07-2021 End: 11-07-[address] Phillip Novak Work Phone: [facility] Start: 09-15-2021 End: 09-15-[address] Phillip Novak Work Phone: [facility] Start: 09-07-2021 End: 09-07-[address] Phillip Novak Work Phone: [facility] Start: 09-05-2021 End: 09-05-[address] 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 [facility] Work Phone: Start: 10-02-2016 End: 10-02-2016 Appointment Appointment [facility] Work Phone: Start: 10-02-2016 End: 10-02-2016 Appointment Appointment [facility] Work Phone: Start: 10-02-2016 End: 10-02-2016 Ct abdomen&pelvis w/contrast CT Abdomen and pelvis; with contrast material(s) [facility] Work Phone: Start: 10-02-2016 End: 10-02-2016 Ct angiography, chest CTA Chest, with contrast material(s) [facility] Work Phone: Start: 07-26-2016 End: 07-26-2016 Appointment Appointment [facility] Work Phone: Start: 07-26-2016 End: 07-26-2016 Diagnostic colonoscopy Colonoscopy [facility] Work Phone: Start: 07-26-2016 End: 07-26-2016 Follow Up Appt Other Follow Up Appt Other [facility] Work Phone: Patient Education WEIGHT%20MANAGEMENT [facility] Work Phone: Patient referral [facility] Work Phone: Payers Date Payer Category Payer Self-pay [id number] 2024 Unknown [id number] 2019 Medicare [id number] 2016 Unknown [id number] 1955 Unknown [id number] 2.16. [id number] Medicare MEDICARE PART A B [id number] Unknown [id number] 2.16.8 40.1.685307.3.579.2.462 Unknown [id number] 2.16.8 40.1.532414.3.579.2.462 Unknown [id number] 2.16.8 40.1.262568.3.579.2.462 Unknown [id number] 2.16.8 40.1.655474.3.579.2.462 Unknown [id number] 2.16.8 40.1.817583.3.579.2.462 Unknown [id number] 2.16.8 40.1.702401.3.579.2.462 Unknown [id number] 2.16.8 40.1.825065.3.579.2.462 Unknown [id number] 2.16.8 40.1.244379.3.579.2.462 Unknown [id number] 2.16.8 40.1.384056.3.579.2.462 Unknown [id number] 2.16.8 40.1.390432.3.579.2.462 Unknown [id number] 2.16.8 40.1.477822.3.579.2.462 Unknown [id number] 2.16.8 40.1.171824.3.579.2.462 Unknown [id number] 2.16.8 40.1.224203.3.579.2.462 Unknown [id number] 2.16.8 40.1.447122.3.579.2.462 Unknown [id number] 2.16.8 40.1.757029.3.579.2.462 Social History Date Type Detail Facility Start: 11-07-2021 End: 09-01-2022 Tobacco smoking status NHIS Unknown if ever smoked [facility] Start: 02-18-2019 Non-smoker [facility] Start: 1955 Sex Assigned At Female W [facility] Start: 02-29-2024 Tobacco smoking stat us NHIS Ex-smoker (finding) [facility] Medical Equipment Procedure Code Equipment Code Equipment [...] X3 TIB MARLYN INSERT-PS FDA Start: 05-02-2017 ([id number]) Ceramic femoral head prosthesis [id number] FDA Start: 12-14-2020 ([id number]) Coated hip femur prosthesis, modular ()[id number] FDA Start: 12-14-2020 ([id number]) Non-constrained polyethylene acetabular liner ()[id number] FDA Start: 12-14-2020 ([id number]) Acetabular shell ()[id number] FDA Start: 12-14-2020 ([id number]) Orthopaedic bone screw, non-bioabsorbable, sterile ()[id number] FDA Start: 12-14-2020 DOUGH,CEMENT [id number] FDA Start: [...] Note Date/Time October 10, 2024 7:0 0pm [facility] Physical Therapy [facility] [address] [place] [address] / REHABILITATION SERVICES DISCHARGE SUMMARY MR#: [id number] Acct: [id number] Name: CHELSIE HERNANDEZ Rep #: [id number] : 1955 69 From: Michelle Rojas MP T Referring Dr.: Dr. Marco Xie MD Status: REG RCR Insurance: MEDICARE PART A B [facility] Discharge Summary D/C summary: It has been [...] please feel free to call me at [phone]. Thank you for the referral of thispatient. Sincerely, Michelle Rojas, ISIAH Balance/Gait/Functional tests Balance/Special Test Scores Oswestry Low Back Score: 18 Improvement % Improvement: 50 <Electronically signed by Michelle Rojas MPT> 10/10/24 0953 CC: Dr. Marco Xie MD; Dr. Phillip Novak MD ~ Signed [facility] Work Phone: Discharge summary 10-10-2024 Note Date & Type Note Facility 10-10-2024 Discharge summary [facility] Evaluation note 10-09-2024 Note Date & Type [...] lumbar region acute October 09, 2024 8:24am [facility] Work Phone: Evaluation note Note Date & Type Note Facility Evaluation note Diagnosis Onset Date Lumbosacral radiculopathy at S1 acute Radiculitis acute Lumbosacral radiculopathy at S1 acute [facility] Work Phone: Evaluation note Note Date & Type Note Facility Evaluation note Diagnosis Onset Date Radiculitis acute Lumbosacral radiculopathy at S1 acute [facility] Work Phone: Evaluation note Note Date & Type Note Facility Evaluation note Diagnosis Onset Date Lumbosacral radiculopathy at S1 acute [facility] Work Phone: Evaluation note Note Date & Type Note Facility Evaluation note No assessment information availa ble [facility] Work Phone: Evaluation note Note Date & [...] lumbar region acute October 09, 2024 8:24am [facility] Work Phone: Reason for referral (narrative) Note Date & Type Note Facility Reason for referral (narrative) No reason for referral information available [facility] Work Phone: Summary Purpose Family History No Family History Records Found Relationship Condition Age at Onset Recorded Date/T jeri father Cardiac disease Unknown Hypertension Unknown brother Cardiac disease Unknown sister Malignant neoplasm Unknown Cerebrovascular accident (CVA) Unknown mother Hypertension Unknown Advance Directives No Advanced Directives Records Found Advance Directive Response Recorded Date/ Time Living Will No March 31 4:47pm Power of Auto Emissions Technician No March 31, 2019 4:47pm Advance Directive Response Recorded Date/ Time Living Will No March 31 3:47pm Power of Auto Emissions Technician No March 31, 2019 3:47pm Advance Directive Response Recorded Date/ Time Living Will No November 30, 2020 1:37pm Power of Auto Emissions Technician No November 1:37pm Chief Complaint and Reason [...] and content) DATE CREATED AUTHOR 05/14/2018 [facility] DATE CREATED AUTHOR AUTHOR'S ORGANIZ ATION 10/02/2019 [facility] ([place]) DATE CREATED AUTHOR AUTHOR'S ORGANIZ ATION 01/22/2025 [facility] Care Teams (unrecognized sec tion and [...] Dates Dr. Phillip Novak MD Primary Care Provider, Attending Provider [...] BE BASED ON THE PRIMARY CLINICAL RECORDS. [facility] [email or web address] [facility]. provides no warranty or guarantee of the accuracy or completeness of information in this document.
--- OUTSIDE RECORDS SUMMARY | 2025-01-27 19:00 | XMS RPT_ITS | CCD ---
Author Organization [facility] Care Team Providers Care Strike Operations Officer Name Role Phone Edyta MANRIQUEZ, Rae Floyd Unavailable [phone] JAI Narayan RN, Lorelei Raymond Unavailable Unavailabl e JAI Narayan RN, Lorelei A Unavailable Unavailabl e PROVIDER, UNKNOWN Admitting Unavailable PROVIDER, UNKNOWN Attending Unavailable AMARJIT VERNON Referring Unavailable CANDIDO NOVAK Primary Care Unavailable Edyta MANRIQUEZ, Rae Floyd Unavailable [phone] Victor Hugo, Dr. Phillip Guerrero Primary Care [...] Provider Rojas MANRIQUEZ, Dr. Lara Referring Provider [phone] Macedo, Bunny Attending Unavailable Macedo, Bunny [...] Hugo, Phillip Chi Primary Care Unavailable Tom, [place] Attending Unavailable Victor Hugo, Phililp Chi Referring Unavailable Macedo, Bunny Attending Unavailable [...] Hugo, Phillip Chi Primary Care Unavailable Tom, [place] Attending Unavailable Victor Hugo, Phillip Chi Referring [...] sources) predniSONE; Translations: [PREDNISONE] drug allergy 07-26-2016 [facility] Work Phone: Medications Current [...] TBEC One tablet by mouth daily ASPIRIN [id number] Lorelei Narayan RN RN take 1 tablet by [place] th once daily ADULT ASPIRIN EC LOW STRENGTH 81 MG TBEC One tablet by mouth daily ASPIRIN [id number] Lorelei Narayan RN RN cephalexin 500 mg [...] up docusate sodium 50 mg / sennosides, intermediate 8.6 mg oral tablet (10 sources) Start: [...] TABS One tablet by mouth daily LISINOPRIL [id number] Lorelei Narayan RN RN meloxicam 15 mg [...] Contras ton 01-20-2025 Spine Lumbar without Contrast [facility] Services [address] [place], [place] [address] Spine Lumbar without Contrast MR#: [id number] Acct: [id number] Name: CHELSIE HERNANDEZ Rep #: [id number] : 1955 F 69 From: Davey shannon MD PCP: Dr. Phillip Novak MD Status: REG CLI Study: Spine Lumbar without Contrast Date of Exam: Exam# [id number] Ordering Dr: Bunny Macedo MD PROCEDURE: SPINE [...] Multiple findings as discussed above. Reading Location: [id number] CC: Dr. Bunny Macedo MD; Dr. Phillip Novak MD Services Delivery Driver: Signed Normal [facility] Orthopedic Visit Reporton Orthopedic Visit Report [facility] [address] [place] [address] OFFICE VISIT Date of Service: 01/16/25 MR#: [id number] Acct: [id number] Name: CHELSIE HERNANDEZ Rep #: [id number] : 1955 Provider: Dr. Bunny Macedo MD Age/Sex: 69/F Location: [facility] Status: Signed Intake Vital Signs 10/09/24 08:25 [...] by me, Dr. Bunny Macedo MD 01/16/25 8116. Part of today???s visit was documented by [...] scribe technology/ (more content not included)... Normal [facility] MRSA/SAID NASAL SCREENon MRSA+SAID SCRN Reason for Exam: [place] ulices MRSA MRSA Negative S. AUREUS S. aureus Negative Normal [facility] Comment on above: Performed By: #### B TSPAT, L501.9998, M100.65 #### [facility] [address] [place], [place], [id number] Hemoglobin A1con 01-13-2025 HbA1c (Bld) [Mass fraction] 6.3 % High <=5.6 [facility] Comment on above: Result Comment: Norm al < 5.7 % Prediabetic 5.7 - 6.4 % Diabetic >or= 6.5 % Please note range changes. Performed By: #### B TSPAT, L501.9985, M100.659 #### [facility] [address] [place], [place], [id number] Magnesiumon 01-13-2025 Magnesium [Mass/Vol] 1.9 mg/dL Normal 1.5-2.2 [facility] Comment on above: Performed By: #### B TSPAT, L501.9985, M100.651 #### [facility] [address] [place], [address] Type AND Screen - PAT ONLYon 01-13-2025 ABO and Rh group Nom (Bld) Blood group A Rh(D) positive Normal [facility] Comment on above: Order Comment: Surge ry Date: 01/26/25 Reason for Laboratory Test PREOP [id number] No N N S 1200 ANTERIOR LUMBAR FUSION Performed By: #### B TSPAT, L501.9985, M100.651 #### [facility] [address] [place], [address] MR/PAT.ANEon 01-12-2025 MR/PAT.ANE [facility] Medical Records Department [address] [place] [address] PAT - Anesthesia 01/12/25 1236 MR#: [id number] Acct: [id number] Name: CHELSIE HERNANDEZ Rep #: [id number] : 1955 69 From: Mitchel [place] MD PCP: Dr. 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 Hx Hospitalization No 01/12/25 10:13 Any Problems [...] take am of surgery PONV PONV - mobile lounge driver: PONV - mobile lounge driver Female Yes 01/12/25 10:13 HX of Motion [...] 10/09/24 08:25 Respiratory Assessment Respiratory Assessment - mobile lounge driver: Respiratory Tract Infection Hx - mobile lounge driver Hx Respiratory Tract Infection No 01/12/25 10:13 STOP Sleep Apnea STOP Sleep Apnea - mobile lounge driver: STOP Sleep Apnea - mobile lounge driver Hx Hypertension Yes: CONTROLLED WITH MED 01/12/25 [...] Tobacco Use History Tobacco Use History - mobile lounge driver: Tobacco Use History - mobile lounge driver Tobacco Use Smoking Status Former smoker 01/12/25 10:13 Hx Tobacco Use No 01/12/25 10:13 Years Smoking Packs Smoked per Day Smoking Cessation Date was No - quit smoking greater 01/12/25 10:13 within the last 15 years than 15 years ago Hx Smoking Cessation Date 08/10/06 01/12/25 10:13 Hx Smoking Cessation No 01/12/25 10:13 Counseling Hematologic Medial History Hematologic Hx - 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 Normal [facility] CBC W/Diff, Automatedon 10-2 Absolute Lymph 1.77 X10 3/uL Normal 0.83-4.51 [facility] Comment on above: Performed By: #### L 500.4050, L100.0100, L300.3900, L300.4310 #### [facility] [address] [place], [place], [id number] Absolute Neut 4.2 X10 3/uL Normal 2.0-7.7 [facility] Comment on above: Performed By: #### L 500.4050, L100.0100, L300.3900, L300.4310 #### [facility] [address] [place], [address] Basophils/100 WBC (Bld) 1.0 % Normal 0-1 [facility] Comment on above: Performed By: #### L 500.4050, L100.0100, L300.3900, L300.4310 #### [facility] [address] [place], [address] Eosinophils/100 WBC (Bld) 4.4 % Normal 0-5 [facility] Comment on above: Performed By: #### L 500.4050, L100.0100, L300.3900, L300.4310 #### [facility] [address] [place], [address] Erythrocyte distribution width (RBC) [Ratio] 12.0 % Normal 11.6-14.6 [facility] Comment on above: Performed By: #### L 500.4050, L100.0100, L300.3900, L300.4310 #### [facility] [address] [place], [address] Hematocrit (Bld) [Volume fraction] 38.3 % Normal 37-47 [facility] Comment on above: Performed By: #### L 500.4050, L100.0100, L300.3900, L300.4310 #### [facility] [address] [place], [address] Hemoglobin (Bld) [Mass/Vol] 13.2 g/dL Normal 12.0-15.0 [facility] Comment on above: Performed By: #### L 500.4050, L100.0100, L300.3900, L300.4310 #### [facility] [address] [place], [address] IG% 0.600 Normal 0.0-0.9 [facility] Comment on above: Result Comment: IG% - Immature Granulocytes (promyelocytes, myelocytes and metamyelocytes) > 1% indicates that a LEFT SHIFT is Present. Performed By: #### L 500.4050, L100.0100, L300.3900, L300.4310 #### [facility] [address] [place], [address] Lymphocytes/100 WBC (Bld) 25.9 % Normal 19-41 [facility] Comment on above: Performed By: #### L 500.4050, L100.0100, L300.3900, L300.4310 #### [facility] [address] [place], [address] MCH (RBC) [Entitic mass] 29.6 pg Normal 27.0-32.0 [facility] Comment on above: Performed By: #### L 500.4050, L100.0100, L300.3900, L300.4310 #### [facility] [address] [place], [address] MCHC (RBC) [Mass/Vol] 34.5 g/dL Normal 32-36 [facility] Comment on above: Performed By: #### L 500.4050, L100.0100, L300.3900, L300.4310 #### [facility] [address] [place], [address] MCV (RBC) [Entitic vol] 85.9 fL Normal 81-99 [facility] Comment on above: Performed By: #### L 500.4050, L100.0100, L300.3900, L300.4310 #### [facility] [address] [place], [address] Monocytes/100 WBC (Bld) 7.3 % Normal 0-10 [facility] Comment on above: Performed By: #### L 500.4050, L100.0100, L300.3900, L300.4310 #### [facility] [address] [place], [address] Neutrophils/100 WBC (Bld) 60.8 % Normal 47-70 [facility] Comment on above: Performed By: #### L 500.4050, L100.0100, L300.3900, L300.4310 #### [facility] [address] [place], [address] Nucleated RBC (Bld) [#/Vol] 0 10*3/uL Normal 0-5 [facility] Comment on above: Performed By: #### L 500.4050, L100.0100, L300.3900, L300.4310 #### [facility] [address] [place], [address] Platelet mean volume (Bld) [Entitic vol] 10.5 fL Normal 6.2-12.0 [facility] Comment on above: Performed By: #### L 500.4050, L100.0100, L300.3900, L300.4310 #### [facility] [address] [place], [address] Platelets (Bld) [#/Vol] 290 10*3/uL Normal 150-450 [facility] Comment on above: Performed By: #### L 500.4050, L100.0100, L300.3900, L300.4310 #### [facility] [address] [place], [address] RBC (Bld) [#/Vol] 4.46 10*6/uL Normal 4.2-5.4 [facility] Comment on above: Performed By: #### L 500.4050, L100.0100, L300.3900, L300.4310 #### [facility] [address] [place], [address] RDW SD 37.5 fl Normal 35.1-43.9 [facility] Comment on above: Performed By: #### L 500.4050, L100.0100, L300.3900, L300.4310 #### [facility] [address] [place], [address] WBC (Bld) [#/Vol] 6.8 10*3/uL Normal 4.4-11.0 [facility] Comment on above: Performed By: #### L 500.4050, L100.0100, L300.3900, L300.4310 #### [facility] [address] [place], [address] Comprehensive Metabolic Prof ilon 01-01-2025 Albumin [Mass/Vol] 4.5 g/dL Normal 3.4-4.8 [facility] Comment on above: Performed By: #### L 500.4050, L100.0100, L300.3900, L300.4310 #### [facility] [address] [place], [address] Albumin/Globulin [Mass ratio] 1.4 {ratio} Normal 0.9-2.4 [facility] Comment on above: Performed By: #### L 500.4050, L100.0100, L300.3900, L300.4310 #### [facility] [address] [place], [address] ALK PHOS 47 U/L Normal 35-104 [facility] Comment on above: Performed By: #### L 500.4050, L100.0100, L300.3900, L300.4310 #### [facility] [address] [place], [address] ALT [Catalytic activity/Vol] 47 U/L High <=34 [facility] Comment on above: Performed By: #### L 500.4050, L100.0100, L300.3900, L300.4310 #### [facility] [address] [place], [address] AST [Catalytic activity/Vol] 50 U/L High <=31 [facility] Comment on above: Performed By: #### L 500.4050, L100.0100, L300.3900, L300.4310 #### [facility] [address] [place], [address] Bilirubin [Mass/Vol] 0.42 mg/dL Normal 0.00-1.30 [facility] Comment on above: Performed By: #### L 500.4050, L100.0100, L300.3900, L300.4310 #### [facility] [address] [place], [address] BUN/CRE 37.7 RATIO High 10-20 [facility] Comment on above: Performed By: #### L 500.4050, L100.0100, L300.3900, L300.4310 #### [facility] [address] [place], [address] Calcium [Mass/Vol] 10.3 mg/dL Normal 7.6-11.0 [facility] Comment on above: Performed By: #### L 500.4050, L100.0100, L300.3900, L300.4310 #### [facility] [address] [place], [address] Chloride [Moles/Vol] 100 mmol/L Normal 98-108 [facility] Comment on above: Performed By: #### L 500.4050, L100.0100, L300.3900, L300.4310 #### [facility] [address] [place], [address] CO2 [Moles/Vol] 27.3 mmol/L Normal 21.0-32.0 [facility] Comment on above: Performed By: #### L 500.4050, L100.0100, L300.3900, L300.4310 #### [facility] [address] [place], [address] Creatinine [Mass/Vol] 0.69 mg/dL Low 0.70-1.20 [facility] Comment on above: Performed By: #### L 500.4050, L100.0100, L300.3900, L300.4310 #### [facility] [address] [place], [address] GAP 12 Normal 5-15 [facility] Comment on above: Performed By: #### L 500.4050, L100.0100, L300.3900, L300.4310 #### [facility] [address] [place], [address] GFR/1.73 sq M.predicted among non-blacks MDRD (S/P/Bld) [Vol rate/Area] 93 mL/min/{1.73_m2} Normal >60 [facility] Comment on above: Result Comment: mL/m in/1.73m2 CKD-EPI Creatinine Equation (2020) Performed By: #### L 500.4050, L100.0100, L300.3900, L300.4310 #### [facility] [address] [place], [address] Globulin (S) [Mass/Vol] 3.1 g/dL Normal 2.2-4.2 [facility] Comment on above: Performed By: #### L 500.4050, L100.0100, L300.3900, L300.4310 #### [facility] [address] [place], [address] Glucose [Mass/Vol] 151 mg/dL High 70-99 [facility] Comment on above: Performed By: #### L 500.4050, L100.0100, L300.3900, L300.4310 #### [facility] [address] [place], [address] Potassium [Moles/Vol] 4.0 mmol/L Normal 3.3-5.1 [facility] Comment on above: Performed By: #### L 500.4050, L100.0100, L300.3900, L300.4310 #### [facility] [address] [place], [address] Sodium [Moles/Vol] 139 mmol/L Normal 133-145 [facility] Comment on above: Performed By: #### L 500.4050, L100.0100, L300.3900, L300.4310 #### [facility] [address] [place], [address] T PROT 7.6 g/dL Normal 5.9-8.4 [facility] Comment on above: Performed By: #### L 500.4050, L100.0100, L300.3900, L300.4310 #### [facility] [address] [place], [address] Urea nitrogen [Mass/Vol] 26 mg/dL High 4-19 [facility] Comment on above: Performed By: #### L 500.4050, L100.0100, L300.3900, L300.4310 #### [facility] [address] [place], [address] Partial Thromboplast Timeon 01-01-2025 aPTT Coag (Bld) [Time] 26.4 s Normal 24.1-36.2 [facility] Comment on above: Performed By: #### L 500.4050, L100.0100, L300.3900, L300.4310 #### [facility] [address] [place], [address] Prothrombin Time w/INRon INR Coag (PPP) [Relative time] 1.0 {INR} Normal [facility] Comment on above: Performed By: #### L 500.4050, L100.0100, L300.3900, L300.4310 #### [facility] [address] [place], [address] PT Coag (PPP) [Time] 13.2 s Normal 11.7-14.9 [facility] Comment on above: Performed By: #### L 500.4050, L100.0100, L300.3900, L300.4310 #### [facility] [address] [place], [place], [address] PT D/C Summary (1)on 025 PT D/C Summary (1) [facility] [address] [place] [address] / REHABILITATION SERVICES DISCHARGE SUMMARY MR#: [id number] Acct: [id number] Name: CHELSIE HERNANDEZ Rep #: [id number] : 1955 69 From: Michelle Rojas MPT Referring Dr.: Dr. Marco Xie MD Status: REG RCR Insurance: MEDICARE PART A B [facility] Discharge Summary D/C summary: It has [...] please feel free to call me at [phone]. Thank you for the referral of this patient. Sincerely, Michelle Rojas, ISIAH Balance/Gait/Functional tests Balance/Special Test Scores Oswestry Low Back Score: 18 Improvement % Improvement: 50 10/10/24 0953 CC: Dr. Marco Xie MD; Dr. Phillip Novak MD Signed Normal [facility] Orthopedic Visit Reporton Orthopedic Visit Report [facility] [address] [place] [address] OFFICE VISIT Date of Service: 10/09/24 MR#: [id number] Acct: [id number] Name: CHELSIE HERNANDEZ Rep #: [id number] : 1955 Provider: Dr. Bunny Macedo MD Age/Sex: 69/F Location: [facility] Status: Signed Intake Vital Signs 04/10/24 09:33 [...] surgery fro (more content not included)... Normal [facility] Inital Evaluation (1) - PTon 09-10-2024 Inital Evaluation (1) - PT [facility] [address] [place] [address] [address] [place] [address] / REHABILITATION SERVICES INITIAL EVALUATION MR#: [id number] Acct: [id number] Name: CHELSIE HERNANDEZ Rep #: [id number] : 1955 69 From: Michelle JOYCE Referring Dr.: Dr. Marco Xie MD Status: REG RCR Insurance: MEDICARE PART A B [facility] Patient's Visit Information Visit Information Visit [...] to be FAXED BACK to us at [phone] for Medicare purp (more content not included)... Normal [facility] Absolute lymphocyte countOrd ered By: Phillip Novak on 09-08-2024 Lymphocytes Auto (Unsp spec) [#/Vol] 1.93 10*3/uL 0.83-4.51 [facility] Absolute neutrophil countOrd ered By: Phillip Novak on 09-08-2024 Neutrophils (Bld) [#/Vol] 8.5 10*3/uL High 2.0-7.7 [facility] Anion gap in Serum or Plasma Ordered By: Phillip Novak on 09-08-2024 Anion gap [Moles/Vol] 13 mmol/L 5-15 [facility] Automated lymphocyte count a s percentage of total leukocytesOrdered By: Phillip Novak on 09-08-2024 Lymphocytes/100 WBC Auto (Unsp spec) 16.5 % Low 19-41 [facility] BUN/creatinine ratioOrdered By: Phillip Novak on 09-08-2024 Urea nitrogen/Creatinine [Mass ratio] 33.9 mg/mg High 10-20 [facility] Basophil percentageOrdered B y: Phillip Novak on 09-08-2024 Basophils/100 WBC (Bld) 0.9 % 0-1 [facility] Bilirubin, totalOrdered By: Phillip Novak on 09-08-2024 Bilirubin [Mass/Vol] 0.40 mg/dL 0.00-1.30 [facility] CBC W/Diff, Automatedon 08-12 Absolute Lymph 1.93 X10 3/uL Normal 0.83-4.51 [facility] Comment on above: Performed By: #### B TSPAT, L5.9985, M100.65 #### [facility] [address] [place], [address] Absolute Neut 8.5 X10 3/uL High 2.0-7.7 [facility] Comment on above: Performed By: #### B TSPAT, L501.9985, M100.65 #### [facility] [address] [place], [address] Basophils/100 WBC (Bld) 0.9 % Normal 0-1 [facility] Comment on above: Performed By: #### B TSPAT, L501.9985, M100.65 #### [facility] [address] [place], [address] Eosinophils/100 WBC (Bld) 2.3 % Normal 0-5 [facility] Comment on above: Performed By: #### B TSPAT, L501.9984, . #### [facility] [address] [place], [address] Erythrocyte distribution width (RBC) [Ratio] 12.3 % Normal 11.6-14.6 [facility] Comment on above: Performed By: #### B TSPAT, L501.9984, . #### [facility] [address] [place], [address] Hematocrit (Bld) [Volume fraction] 40.7 % Normal 37-47 [facility] Comment on above: Performed By: #### B TSPAT, L5.9984, . #### [facility] [address] [place], [address] Hemoglobin (Bld) [Mass/Vol] 13.5 g/dL Normal 12.0-15.0 [facility] Comment on above: Performed By: #### B TSPAT, L5, . #### [facility] [address] [place], [address] IG% 0.400 Normal 0.0-0.9 [facility] Comment on above: Result Comment: IG% - Immature Granulocytes (promyelocytes, myelocytes and metamyelocytes) > 1% indicates that a LEFT SHIFT is Present. Performed By: #### B TSPAT, L5.9984, .65 #### [facility] [address] [place], [address] Lymphocytes/100 WBC (Bld) 16.5 % Low 19-41 [facility] Comment on above: Performed By: #### B TSPAT, L501.9984, .65 #### [facility] [address] [place], [address] MCH (RBC) [Entitic mass] 29.2 pg Normal 27.0-32.0 [facility] Comment on above: Performed By: #### B TSPAT, L501.9984, M100.65 #### [facility] [address] [place], [address] MCHC (RBC) [Mass/Vol] 33.2 g/dL Normal 32-36 [facility] Comment on above: Performed By: #### B TSPAT, L501.9984, M100.65 #### [facility] [address] [place], [address] MCV (RBC) [Entitic vol] 88.1 fL Normal 81-99 [facility] Comment on above: Performed By: #### B TSPAT, L501.9984, M100.65 #### [facility] [address] [place], [address] Monocytes/100 WBC (Bld) 7.1 % Normal 0-10 [facility] Comment on above: Performed By: #### B TSPAT, L501.9984, M100.65 #### [facility] [address] [place], [address] Neutrophils/100 WBC (Bld) 72.8 % High 47-70 [facility] Comment on above: Performed By: #### B TSPAT, L501.9984, M100.65 #### [facility] [address] [place], [address] Nucleated RBC (Bld) [#/Vol] 0 10*3/uL Normal 0-5 [facility] Comment on above: Performed By: #### B TSPAT, L501.9984, M100.65 #### [facility] [address] [place], [address] Platelet mean volume (Bld) [Entitic vol] 11.1 fL Normal 6.2-12.0 [facility] Comment on above: Performed By: #### B TSPAT, L501.9984, M100.651 #### [facility] [address] [place], [address] Platelets (Bld) [#/Vol] 291 10*3/uL Normal 150-450 [facility] Comment on above: Performed By: #### B TSPAT, L501.9985, M100.651 #### [facility] [address] [place], [address] RBC (Bld) [#/Vol] 4.62 10*6/uL Normal 4.2-5.4 [facility] Comment on above: Performed By: #### B TSPAT, L501.9985, M100.651 #### [facility] [address] [place], [address] RDW SD 39.6 fl Normal 35.1-43.9 [facility] Comment on above: Performed By: #### B TSPAT, L501.9985, M100.651 #### [facility] [address] [place], [address] WBC (Bld) [#/Vol] 11.7 10*3/uL High 4.4-11.0 [facility] Comment on above: Performed By: #### B TSPAT, L501.9985, M100.651 #### [facility] [address] [place], [address] Carbon dioxide, total [Moles /volume] in Central venous bloodOrdered By: Phillip Novak on 09-08-2024 CO2 [Moles/Vol] 22.8 mmol/L 21.0-32.0 [facility] Chloride assayOrdered By: Volodymyr Novak on 09-08-2024 Chloride [Moles/Vol] 101 mmol/L 98-108 [facility] Comprehensive Metabolic Prof ilon 09-08-2024 Albumin [Mass/Vol] 4.5 g/dL Normal 3.4-4.8 [facility] Comment on above: Performed By: #### B TSPAT, L501.9985, M100.65 #### [facility] [address] [place], [address] Albumin/Globulin [Mass ratio] 1.3 {ratio} Normal 0.9-2.4 [facility] Comment on above: Performed By: #### B TSPAT, L501.99, M100.65 #### [facility] [address] [place], [address] ALK PHOS 58 U/L Normal 35-104 [facility] Comment on above: Performed By: #### B TSPAT, L501.99, M100.65 #### [facility] [address] [place], [address] ALT [Catalytic activity/Vol] 29 U/L Normal <=34 [facility] Comment on above: Result Comment: Hemo lysis present, Results??could be affected. ?? Performed By: #### B TSPAT, L501.9984, M100.65 #### [facility] [address] [place], [address] AST [Catalytic activity/Vol] 36 U/L High <=31 [facility] Comment on above: Result Comment: Hemo lysis present, Results??could be affected. ?? Performed By: #### B TSPAT, L501.9984, M100.65 #### [facility] [address] [place], [address] Bilirubin [Mass/Vol] 0.40 mg/dL Normal 0.00-1.30 [facility] Comment on above: Performed By: #### B TSPAT, L501.9985, M100.65 #### [facility] [address] [place], [address] BUN/CRE 33.9 RATIO High 10-20 [facility] Comment on above: Performed By: #### B TSPAT, L501.9985, M100.651 #### [facility] [address] [place], [address] Calcium [Mass/Vol] 10.0 mg/dL Normal 7.6-11.0 [facility] Comment on above: Performed By: #### B TSPAT, L501.9985, M100.651 #### [facility] [address] [place], [address] Chloride [Moles/Vol] 101 mmol/L Normal 98-108 [facility] Comment on above: Performed By: #### B TSPAT, L501.9985, M100.651 #### [facility] [address] [place], [address] CO2 [Moles/Vol] 22.8 mmol/L Normal 21.0-32.0 [facility] Comment on above: Performed By: #### B TSPAT, L501.9985, M100.651 #### [facility] [address] [place], [address] Creatinine [Mass/Vol] 0.79 mg/dL Normal 0.70-1.20 [facility] Comment on above: Performed By: #### B TSPAT, L501.9985, M100.651 #### [facility] [address] [place], [address] GAP 13 Normal 5-15 [facility] Comment on above: Performed By: #### B TSPAT, L501.9985, M100.651 #### [facility] [address] [place], [address] GFR/1.73 sq M.predicted among non-blacks MDRD (S/P/Bld) [Vol rate/Area] 81 mL/min/{1.73_m2} Normal >60 [facility] Comment on above: Result Comment: mL/m in/1.73m2 CKD-EPI Creatinine Equation (2020) Performed By: #### B TSPAT, L501.9984, M100.65 #### [facility] [address] [place], [address] Globulin (S) [Mass/Vol] 3.4 g/dL Normal 2.2-4.2 [facility] Comment on above: Performed By: #### B TSPAT, L5.9984, .65 #### [facility] [address] [place], [address] Glucose [Mass/Vol] 116 mg/dL High 70-99 [facility] Comment on above: Performed By: #### B TSPAT, L501.9984, .65 #### [facility] [address] [place], [address] Potassium [Moles/Vol] 4.6 mmol/L Normal 3.3-5.1 [facility] Comment on above: Result Comment: Hemo lysis present, Results??could be affected. ?? Performed By: #### B TSPAT, L5.9984, .65 #### [facility] [address] [place], [address] Sodium [Moles/Vol] 137 mmol/L Normal 133-145 [facility] Comment on above: Performed By: #### B TSPAT, L5.9984, .65 #### [facility] [address] [place], [address] T PROT 7.9 g/dL Normal 5.9-8.4 [facility] Comment on above: Performed By: #### B TSPAT, L501.9984, .65 #### [facility] [address] [place], [address] Urea nitrogen [Mass/Vol] 27 mg/dL High 4-19 [facility] Comment on above: Performed By: #### B TSPAT, L501.9985, M100.651 #### [facility] [address] [place], [address] Eosinophil percentageOrdered By: Phillip Novak on 09-08-2024 Eosinophils/100 WBC (Bld) 2.3 % 0-5 [facility] Erythrocyte distribution wid th ratioOrdered By: Phillip Victor Hugo on 09-08-2024 Erythrocyte distribution width (RBC) [Ratio] 12.3 % 11.6-14.6 [facility] Erythrocyte distribution wid th standard deviationOrdered By: [facility] on 09-08-2024 Erythrocyte distribution width (RBC) [Ratio] 39.6 fl 35.1-43.9 [facility] Glomerular filtration rate ( GFR) estimation/1.73 sq m using serum, plasma, or whole bOrdered By: [facility] on 09-08-2024 GFR/1.73 sq M.predicted among non-blacks MDRD (S/P/Bld) [Vol rate/Area] 81 mL/min/{1.73_m2} >60 [facility] Comment on above: mL/min/1.73m2 CKD-EP I Creatinine Equation (2020) Hematocrit Auto (Bld) [Volum e fraction]Ordered By: Phillip Victor Hugo 09-08-2024 Hematocrit (Bld) [Volume fraction] 40.7 % 37-47 [facility] Hemoglobin measurementOrdere d By: Phillip Victor Hugo 09-08-2024 Hemoglobin (Bld) [Mass/Vol] 13.5 g/dL 12.0-15.0 [facility] Immature granulocytes/100 WB C Auto (Bld)Ordered By: Phillip Novak 09-08-2024 Immature granulocytes/100 WBC (Bld) 0.400 % 0.0-0.9 [facility] Comment on above: IG% - Immature Granu locytes (promyelocytes, myelocytes and metamyelocytes) > 1% indicates that a LEFT SHIFT is Present. Laboratory - Chemistry and C hemistry - challengeOrdered By: Phillip Victor Hugo 09-08-2024 AST [Catalytic activity/Vol] 36 U/L High <32 [facility] Comment on above: Hemolysis present, R esults could be affected. MCV (mean corpuscular volume ) determinationOrdered By: Phillip Novak on 09-08-2024 MCV (RBC) [Entitic vol] 88.1 fL 81-99 [facility] Mean corpuscular hemoglobin (MCH) determinationOrdered By: Phillip Novak on 09-08-2024 MCH (RBC) [Entitic mass] 29.2 pg 27.0-32.0 [facility] Mean corpuscular hemoglobin concentration (MCHC) determinationOrdered By: Phillip Novak on 09-08-2024 MCHC (RBC) [Mass/Vol] 33.2 g/dL 32-36 [facility] Mean platelet volume determi nationOrdered By: Phillip Novak on 09-08-2024 Platelet mean volume (Bld) [Entitic vol] 11.1 fL 6.2-12.0 [facility] Monocyte percentageOrdered B y: Phillip Novak on 09-08-2024 Monocytes/100 WBC (Bld) 7.1 % 0-10 [facility] Neutrophil percentageOrdered By: Phillip Novak on 09-08-2024 Neutrophils/100 WBC (Bld) 72.8 % High 47-70 [facility] Nucleated red blood cell per centageOrdered By: Phillip Novak on 09-08-2024 Nucleated RBC/100 WBC (Bld) [Ratio] 0 % 0-5 [facility] Platelet countOrdered By: Volodymyr Novak on 09-08-2024 Platelets (Bld) [#/Vol] 291 10*3/uL 150-450 [facility] Potassium measurement (mass/ volume)Ordered By: Phillip Novak on 09-08-2024 Potassium (Unsp spec) [Mass/Vol] 4.6 mmol/L 3.3-5.1 [facility] Comment on above: Hemolysis present, R esults could be affected. RBC Auto (Bld) [#/Vol]Ordere d By: Phillip Novak on 09-08-2024 RBC (Bld) [#/Vol] 4.62 10*6/uL 4.2-5.4 [facility] Serum creatinine measurement (mass/volume)Ordered By: Phillip Novak on 09-08-2024 Creatinine [Mass/Vol] 0.79 mg/dL 0.70-1.20 [facility] Serum globulin measurementOr dered By: Phillip Novak on 09-08-2024 Globulin (S) [Mass/Vol] 3.4 g/dL 2.2-4.2 [facility] Serum glucose measurement (m ass/volume)Ordered By: Phillip Novak on 09-08-2024 Glucose [Mass/Vol] 116 mg/dL High 70-99 [facility] Serum or plasma alanine jackson otransferase (ALT) measurementOrdered By: Phillip Novak on 09-08-2024 ALT [Catalytic activity/Vol] 29 U/L <35 [facility] Comment on above: Hemolysis present, R esults could be affected. Serum or plasma albumin lala urement (mass/volume)Ordered By: Phillip Novak on 09-08-2024 Albumin [Mass/Vol] 4.5 g/dL 3.4-4.8 [facility] Serum or plasma albumin/glob ulin mass ratioOrdered By: Phillip Novak on 09-08-2024 Albumin/Globulin [Mass ratio] 1.3 {ratio} 0.9-2.4 [facility] Serum or plasma alkaline kvng sphatase measurementOrdered By: Phillip Novak on 09-08-2024 ALP [Catalytic activity/Vol] 58 U/L 35-104 [facility] Serum or plasma calcium lala urement (mass/volume)Ordered By: Phillip Novak on 09-08-2024 Calcium [Mass/Vol] 10.0 mg/dL 7.6-11.0 [facility] Serum or plasma urea nitroge n measurement (mass/volume)Ordered By: Phillip Novak on 09-08-2024 Urea nitrogen [Mass/Vol] 27 mg/dL High 4-19 [facility] Sodium levelOrdered By: Phillip Novak on 09-08-2024 Sodium [Moles/Vol] 137 mmol/L 133-145 [facility] TSH DL <= 0.005 mIU/L QnOrde red By: Phillip Novak on 09-08-2024 TSH Qn 0.821 uIU/mL 0.300-4.20 0 [facility] Thyroid Stim Hormone (TSH)on 09-08-2024 TSH 0.821 uIU/mL Normal 0.300-4.20 0 [facility] Comment on above: Performed By: #### B TSPAT, L501.9985, M100.651 #### [facility] [address] [place], [address] Total proteinOrdered By: Phillip Novak on 09-08-2024 Protein [Mass/Vol] 7.9 g/dL 5.9-8.4 [facility] Vitamin D,25 Hydroxyon 09-08 Vitamin D 25-OH 61.1 ng/mL Normal 30-100 [facility] Comment on above: Result Comment: Rupal min D Status Deficiency: <20 ng/mL (50nmol/L) Insufficiency: 20-30 ng/mL (50-75 nmol/L) Sufficiency: 30-100 ng/mL (75-250 nmol/L) Toxicity: >100 ng/mL (>250 nmol/L) Performed By: #### B TSPAT, L501.9985, M100.658 #### [facility] [address] [place], [address] White blood cell (WBC) count Ordered By: Phillip Novak on 09-08-2024 WBC (Bld) [#/Vol] 11.7 10*3/uL High 4.4-11.0 [facility] Orthopedic Visit Reporton Orthopedic Visit Report [facility] [address] [place] [address] [address] [place] [address] OFFICE VISIT Date of Service: 05/02/24 MR#: [id number] Acct: [id number] Name: CHELSIE HERNANDEZ Rep #: [id number] : 1955 Provider: Dr. Bunny Macedo MD Age/Sex: 68/F Location: [facility] Status: Signed Intake Vital Signs 04/10/24 09:33 [...] by me, Dr. Bunny Macedo MD 05/02/24 7782. Part of today???s visit was documented by [...] medial aspect (more content not included)... Normal [facility] Spine Lumbar W/WO Contraston 04-29-2024 Spine Lumbar W/WO Contrast [facility] [address] [place] [address] Spine Lumbar W/WO Contrast MR#: [id number] Acct: [id number] Name: CHELSIE HERNANDEZ Rep #: [id number] : 1955 F 68 From: Berlin Berrios MD PCP: Dr. Phillip Novak MD Status: REG CLI Study: Spine Lumbar W/WO Contrast Date of Exam: 04/12 11/03 Exam# [id number] Ordering Dr: Bunny Macedo MD PROCEDURE: SPINE [...] 1 anterolisthesis and facet arthropathy resulting in udodslwc-hk-dbjsso central stenosis. Mild right moderate left neural [...] 1 anterolisthesis and facet arthropathy resulting in gpbvpnvo-fi-fmmwec central stenosis. Mild right moderate left neural foraminal stenosis. Otherwise, no high-grade central or neural foraminal stenosis at the other visualized levels. L3 through L5 posterior fusion. Reading Location: [id number] CC: Dr. Bunny Macedo MD; Dr. Phillip Novak MD Services Delivery Driver: Signed Normal [facility] HIP, UNI W/ Pelvis 2-3 Views on 04-11-2024 HIP, UNI W/ Pelvis 2-3 Views [facility] [address] [place] [address] HIP, UNI W/ Pelvis 2-3 Views MR#: [id number] Acct: [id number] Name: CHELSIE HERNANDEZ Rep #: [id number] : 1955 F 68 From: Alexey Foster PCP: Dr. Phillip Novak MD Status: DEP AMB Study: HIP, UNI W/ Pelvis 2-3 Views Date of Exam: Exam# [id number] Ordering Dr: Noah Cam DO PROCEDURE: HIP, [...] fracture or dislocation is seen. Reading Location: [id number] CC: Dr. Noah Cam DO; Dr. Phillip Novak MD Services Delivery Driver: Signed Normal [facility] Orthopedic Visit Reporton Orthopedic Visit Report [facility] [address] [place] [address] [address] [place] [address] OFFICE VISIT Date of Service: 04/11/24 MR#: [id number] Acct: [id number] Name: CHELSIE HERNANDEZ Rep #: [id number] : 1955 Provider: Dr. Noah alvares DO Age/Sex: 68/F Location: [facility] Status: Signed Intake Vital Signs 04/10/24 09:33 Height 5 ft 2 in Weight: 217 lb BMI 39.6 Intake Visit Reasons: RIGHT HIP Chief Complaint: Right hip Convention Services Director Required: No Accompanied by: Self Is patient [...] by me, Dr. Noah Cam, DO 04/11/24 5481. Part of today???s visit was documented by [...] HIP: ER (more content not included)... Normal [facility] L/S Spine Min 4 Viewson - L/S Spine Min 4 Views [facility] [address] [place] [address] L/S Spine Min 4 Views MR#: [id number] Acct: [id number] Name: CHELSIE HERNANDEZ Rep #: [id number] : 1955 F 68 From: Han Guardado DO PCP: Dr. Phillip Novak MD Status: DEP AMB Study: L/S Spine Min 4 Views Date of Exam: 04/10/24 Exam# [id number] Ordering Dr: Lesly Floyd PROCEDURE: L/S SPINE [...] fractures or dislocations are identified. Reading Location: [facility] CC: OWEN Stoddard; Dr. Phillip Novak MD Services Delivery Driver: Signed Normal [facility] Orthopedic Visit Reporton Orthopedic Visit Report [facility] [address] [place] [address] [address] [place] [address] OFFICE VISIT Date of Service: 04/10/24 MR#: [id number] Acct: [id number] Name: CHELSIE HERNANDEZ Rep #: [id number] : 1955 Provider: Dr. Bunny Macedo MD Age/Sex: 68/F Location: [facility] Status: Signed Intake Vital Signs 09/01/22 09:53 [...] you fallen in the past year?: No [facility] Medical History (Updated 04/10/24 @ 12:43 [...] by me, Dr. Bunny Macedo MD 04/10/24 0963. Part of today???s visit was documented by [...] reasonable an (more content not included)... Normal [facility] SCRN MAMM (CAD)W/ORTIZ BILATo n 02-26-2024 SCRN MAMM (CAD)W/ORTIZ BILAT [facility] [address] [place] [id number] SCRN MAMM (CAD)W/ORTIZ BILAT MR#: [id number] Acct: [id number] Name: CHELSIE HERNANDEZ Rep #: [id number] : 1955 F 68 From: Davey shannon MD PCP: Dr. Phillip Novak MD Status: [facility] Study: SCRN MAMM (CAD)W/ORTIZ BILAT Date of Exam: 02/09 10/02 Exam# [id number] Ordering Dr: Phillip Novak MD [id number] MAMMOGRAPHY - BILATERAL SCREENING REASON FOR EXAM: [...] delay biopsy of a clinically suspicious abnormality. [id number] Electronically Signed: Davey Schmitz MD at 12:49 EST Reading Location ID and State: [address] [place] [address] , Service support , CC: Dr. Phillip Novak MD Services Delivery Driver: Signed Normal [facility] CBC W/Diff, Automatedon 02-09 Absolute Neut Normal 2.0-7.7 [facility] Comment on above: Order Comment: CC TO DR. GARRISON Result Comment: This specimen has been REJECTED due to Laboratory criteria: Quanity Not Sufficient. HOLLY has been notified of need of recollection. 02/21/24 1243 Irasema Cervantes Performed By: #### L 500.4100, L501.9520, L506.1000, L500.4050, L100.0100 #### [facility] [address] [place], [address] HCT Normal 37-47 [facility] Comment on above: Order Comment: CC TO DR. GARRISON Result Comment: This specimen has been REJECTED due to Laboratory criteria: Quanity Not Sufficient. HOLLY has been notified of need of recollection. 02/21/241242 Irasema Cervantes Performed By: #### L 500.4100, L501.9520, L506.1000, L500.4050, L100.0100 #### [facility] [address] [place], [address] HGB Normal 12.0-15.0 [facility] Comment on above: Order Comment: CC TO DR. GARRISON Result Comment: This specimen has been REJECTED due to Laboratory criteria: Quanity Not Sufficient. HOLLY has been notified of need of recollection. 02/21/24 1243 Irasema Cervantes Performed By: #### L 500.4100, L501.9520, L506.1000, L500.4050, L100.0100 #### [facility] [address] [place], [address] MCH Normal 27.0-32.0 [facility] Comment on above: Order Comment: CC TO DR. GARRISON Result Comment: This specimen has been REJECTED due to Laboratory criteria: Quanity Not Sufficient. HOLLY has been notified of need of recollection. 02/21/243 Irasema Cervantes Performed By: #### L 500.4100, L501.9520, L506.1000, L500.4050, L100.0100 #### [facility] [address] [place], [address] MCHC Normal 32-36 [facility] Comment on above: Order Comment: CC TO DR. GARRISON Result Comment: This specimen has been REJECTED due to Laboratory criteria: Quanity Not Sufficient. HOLLY has been notified of need of recollection. 02/21/243 Irasema Cervantes Performed By: #### L 500.4100, L501.9520, L506.1000, L500.4050, L100.0100 #### [facility] [address] [place], [address] MCV Normal 81-99 [facility] Comment on above: Order Comment: CC TO DR. GARRISON Result Comment: This specimen has been REJECTED due to Laboratory criteria: Quanity Not Sufficient. HOLLY has been notified of need of recollection. 02/21/24 1243 Irasema Cervantes Performed By: #### L 500.4100, L501.9520, L506.1000, L500.4050, L100.0100 #### [facility] [address] [place], [address] NEUT% Normal 47-70 [facility] Comment on above: Order Comment: CC TO DR. GARRISON Result Comment: This specimen has been REJECTED due to Laboratory criteria: Quanity Not Sufficient. HOLLY has been notified of need of recollection. 02/21/24 1243 Irasema Cervantes Performed By: #### L 500.4100, L501.9520, L506.1000, L500.4050, L100.0100 #### [facility] [address] [place], [address] PLT Normal 150-450 [facility] Comment on above: Order Comment: CC TO DR. GARRISON Result Comment: This specimen has been REJECTED due to Laboratory criteria: Quanity Not Sufficient. HOLLY has been notified of need of recollection. 02/21/24 1243 Irasema Cervantes Performed By: #### L 500.4100, L501.9520, L506.1000, L500.4050, L100.0100 #### [facility] [address] [place], [address] RBC Normal 4.2-5.4 [facility] Comment on above: Order Comment: CC TO DR. GARRISON Result Comment: This specimen has been REJECTED due to Laboratory criteria: Quanity Not Sufficient. HOLLY has been notified of need of recollection. 02/21/24 1243 Irasema Cervantes Performed By: #### L 500.4100, L501.9520, L506.1000, L500.4050, L100.0100 #### [facility] [address] [place], [address] RDW CV Normal 11.6-14.6 [facility] Comment on above: Order Comment: CC TO DR. GARRISON Result Comment: This specimen has been REJECTED due to Laboratory criteria: Quanity Not Sufficient. HOLLY has been notified of need of recollection. 02/21/24 1243 Irasema Cervantes Performed By: #### L 500.4100, L501.9520, L506.1000, L500.4050, L100.0100 #### [facility] [address] [place], [address] RDW SD Normal 35.1-43.9 [facility] Comment on above: Order Comment: CC TO DR. GARRISON Result Comment: This specimen has been REJECTED due to Laboratory criteria: Quanity Not Sufficient. HOLLY has been notified of need of recollection. 02/21/24 1243 Irasema Cervantes Performed By: #### L 500.4100, L501.9520, L506.1000, L500.4050, L100.0100 #### [facility] [address] [place], [address] WBC Normal 4.4-11.0 [facility] Comment on above: Order Comment: CC TO DR. GARRISON Result Comment: This specimen has been REJECTED due to Laboratory criteria: Quanity Not Sufficient. HOLLY has been notified of need of recollection. 02/21/24 1243 Irasema Cervantes Performed By: #### L 500.4100, L501.9520, L506.1000, L500.4050, L100.0100 #### [facility] [address] [place], [address] Comprehensive Metabolic Prof ilon 02-21-2024 Albumin [Mass/Vol] 4.1 g/dL Normal 3.2-5.0 [facility] Comment on above: Order Comment: CC TO DR. GARRISON Performed By: #### B TSPAT, L501.9985, M100.65 #### [facility] [address] [place], [address] Albumin/Globulin [Mass ratio] 0.9 {ratio} Normal 0.9-2.4 [facility] Comment on above: Order Comment: CC TO DR. GARRISON Performed By: #### B TSPAT, L501.9985, M100.651 #### [facility] [address] [place], [address] ALK P 53 U/L Normal 45-117 [facility] Comment on above: Order Comment: CC TO DR. GARRISON Performed By: #### B TSPAT, L501.85, M100.65 #### [facility] [address] [place], [address] ALT [Catalytic activity/Vol] 28 U/L Normal 13-56 [facility] Comment on above: Order Comment: CC TO DR. GARRISON Performed By: #### B TSPAT, L501.9984, M1.65 #### [facility] [address] [place], [address] AST [Catalytic activity/Vol] 41 U/L High 15-37 [facility] Comment on above: Order Comment: CC TO DR. GARRISON Result Comment: Mode rate Hemolysis, Result may be falsely increased. Performed By: #### B TSPAT, L501.9985, M1.65 #### [facility] [address] [place], [address] Bilirubin [Mass/Vol] 0.70 mg/dL Normal 0.20-1.00 [facility] Comment on above: Order Comment: CC TO DR. GARRISON Result Comment: For patients on eltrombopag therapy, use of Dimension Gerlaw TBIL is not recommended. Performed By: #### B TSPAT, L501.9985, M100.651 #### [facility] [address] [place], [address] BUN/CRE 30.2 RATIO High 10-20 [facility] Comment on above: Order Comment: CC TO DR. GARRISON Performed By: #### B TSPAT, L501.9985, M100.651 #### [facility] [address] [place], [address] CA,Total 10.0 mg/dL Normal 8.5-10.1 [facility] Comment on above: Order Comment: CC TO DR. GARRISON Performed By: #### B TSPAT, L501.9984, M1.65 #### [facility] [address] [place], [address] Chloride [Moles/Vol] 100 mmol/L Normal 98-107 [facility] Comment on above: Order Comment: CC TO DR. GARRISON Performed By: #### B TSPAT, L501.9984, M1.65 #### [facility] [address] [place], [address] CO2 [Moles/Vol] 30.0 mmol/L Normal 21.0-32.0 [facility] Comment on above: Order Comment: CC TO DR. GARRISON Performed By: #### B TSPAT, L501.9984, M100.65 #### [facility] [address] [place], [address] Creatinine [Mass/Vol] 0.86 mg/dL Normal 0.55-1.02 [facility] Comment on above: Order Comment: CC TO DR. GARRISON Result Comment: The validity of the calculated GFR GFRAA in patients over 70 years has not been determined. Clinical correlation is essential. Performed By: #### B TSPAT, L501.9985, M100.651 #### [facility] [address] [place], [address] EST GFR - AA 84 mL/min Normal >60 [facility] Comment on above: Order Comment: CC TO DR. GARRISON Result Comment: Afri can [place] GFR Calc Performed By: #### B TSPAT, L5, #### [facility] [address] [place], [address] GAP 7 Normal 5-15 [facility] Comment on above: Order Comment: CC TO DR. GARRISON Performed By: #### B TSPAT, L5, #### [facility] [address] [place], [address] GFR/1.73 sq M.predicted among non-blacks MDRD (S/P/Bld) [Vol rate/Area] 69 mL/min/{1.73_m2} Normal >60 [facility] Comment on above: Order Comment: CC TO DR. GARRISON Result Comment: Non- GFR Calc Performed By: #### B TSPAT, L5, #### [facility] [address] [place], [address] Globulin (S) [Mass/Vol] 4.5 g/dL High 2.2-4.2 [facility] Comment on above: Order Comment: CC TO DR. GARRISON Performed By: #### B TSPAT, L5, #### [facility] [address] [place], [address] Glucose [Mass/Vol] 117 mg/dL High 74-106 [facility] Comment on above: Order Comment: CC TO DR. GARRISON Result Comment: Fast ing Glucose result from 100 to 125 mg/dL suggests IMPAIRED HOMEOSTASIS per A.D.A. criteria. Performed By: #### B TSPAT, L501.9984, #### [facility] [address] [place], [address] Potassium [Moles/Vol] 4.4 mmol/L Normal 3.5-5.1 [facility] Comment on above: Order Comment: CC TO DR. GARRISON Result Comment: Mode rate Hemolysis, Result may be falsely increased. Performed By: #### B TSPAT, L501.9985, M100.651 #### [facility] [address] [place], [address] Sodium [Moles/Vol] 137 mmol/L Normal 136-145 [facility] Comment on above: Order Comment: CC TO DR. GARRISON Performed By: #### B TSPAT, L501.9985, M100.651 #### [facility] [address] [place], [address] T PROT 8.6 g/dL High 6.4-8.2 [facility] Comment on above: Order Comment: CC TO DR. GARRISON Performed By: #### B TSPAT, L501.9985, M100.65 #### [facility] [address] [place], [address] Urea nitrogen [Mass/Vol] 26 mg/dL High 7-18 [facility] Comment on above: Order Comment: CC TO DR. GARIRSON Performed By: #### B TSPAT, L501.9985, M100.651 #### [facility] [address] [place], [address] Lipid Profileon 02-21-2024 Cholesterol [Mass/Vol] 159 mg/dL Normal 200 [facility] Comment on above: Order Comment: CC TO DR. GARRISON Result Comment: <200 mg/dL Desirable 200-240 mg/dL Borderline >240 mg/dL High Risk Performed By: #### B TSPAT, L501.9985, M100.651 #### [facility] [address] [place], [address] Cholesterol in HDL [Mass/Vol] 44 mg/dL Normal [facility] Comment on above: Order Comment: CC TO DR. GARRISON Result Comment: The drugs N-Acetylcysteine and Metamizole may falsely depress this assay. Reference Range HDL <40 mg/dL Low HDL Cholesterol HDL >or= 60 mg/dL High HDL Cholesterol Performed By: #### B TSPAT, L501.9984, . #### [facility] [address] [place], [address] Cholesterol in LDL [Mass/Vol] 59 mg/dL Normal 0-130 [facility] Comment on above: Order Comment: CC TO DR. GARRISON Performed By: #### B TSPAT, L501, #### [facility] [address] [place], [address] Cholesterol in VLDL [Mass/Vol] 56 mg/dL High 5-40 [facility] Comment on above: Order Comment: CC TO DR. GARRISON Performed By: #### B TSPAT, L5, #### [facility] [address] [place], [address] Triglyceride [Mass/Vol] 278 mg/dL High [facility] Comment on above: Order Comment: CC TO DR. GARRISON Result Comment: The drugs N-Acetylcysteine and Metamizole may falsely depress this assay. Serum Triglycerides Reference Interval Normal <150 mg/dL Borderline high 150 - 199 mg/dL High 200 - 499 mg/dL Very High > or = 500 mg/dL Performed By: #### B TSPAT, L501, #### [facility] [address] [place], [address] Thyroid Stim Hormone (TSH)on 02-21-2024 TSH 0.732 uIU/mL Normal 0.358-3.74 0 [facility] Comment on above: Order Comment: CC TO DR. GARRISON Performed By: #### B TSPAT, L501, M165 #### [facility] [address] [place], [address] Vitamin D,25 Hydroxyon 02-20 Vitamin D 25-OH 61.7 ng/mL Normal [facility] Comment on above: Order Comment: CC TO DR. GARRISON Result Comment: Rupal min D 25(OH) Status Range Deficiency <20 ng/mL (50nmol/L) Insufficiency 20 - 30 ng/mL (50 - 75 nmol/L) Sufficiency 30 - 100 ng/mL (75 - 250 nmol/L) Toxicity >100 ng/mL (>250 nmol/L) Performed By: #### L 500.4100, L501.9520, L506.1000, L500.4050, L100.0100 #### [facility] [address] [place], [address] Basophil percentageOrdered B y: Jr Garrison on 02-23-2023 Bilirubin [Mass/Vol] 0.40 mg/dL 0.20-1.00 [facility] Comment on above: For patients on eltr ombopag therapy, use of Dimension Gerlaw TBIL is not recommended. Protein [Mass/Vol] 8.2 g/dL 6.4-8.2 [facility] Direct bilirubinOrdered By: Jr Garrison on 02-23-2023 Bilirubin.direct [Mass/Vol] 0.13 mg/dL 0.00-0.30 [facility] INR in Blood by Coagulation assayOrdered By: Jr Garrison on 02-23-2023 INR Coag (Bld) [Relative time] 0.9 {INR} [facility] - Chemistry and C hemistry - challengeOrdered By: Jr Garrison on 02-23-2023 ALP [Catalytic activity/Vol] 43 U/L 45-117 [facility] ALT [Catalytic activity/Vol] 31 U/L 13-56 [facility] Globulin (S) [Mass/Vol] 4.1 g/dL 2.2-4.2 [facility] - CoagulationOrde red By: Jr Garrison on 02-23-2023 aPTT Coag (Bld) [Time] 27.5 s 24.1-36.2 [facility] PT Coag (PPP) [Time] 11.9 s 11.7-14.9 [facility] Serum or plasma albumin lala urement (mass/volume)Ordered By: Jr Garrison on 02-23-2023 Albumin [Mass/Vol] 4.1 g/dL 3.2-5.0 [facility] Serum or plasma xohap-2-zyhs protein tumor marker measurement (units/volume)Ordered By: Jr Garrison on 02-23-2023 AFP.tumor marker Qn < 1.8 ng/mL 0.0-9.2 [facility] Comment on above: [employer] El ectrochemiluminescence Immunoassay(ECLIA)Values obtained with different assay methods or kits cannotbe used interchangeably. Results cannot be interpreted asabsolute evidence of the presence or absence of malignantdisease.This test is not interpretable in females.Performed at: [facility] [id number] Director: Jr Griffin PhD, Phone: [phone] Thin prep Papanicolaou smear with manual screeningOrdered By: Jr Garrison on 02-23-2023 Thin prep Papanicolaou smear with manual screening 24 U/L 15- [facility] Absolute lymphocyte countOrd ered By: Phillip Novak on 02-12-2023 Lymphocytes Auto (Unsp spec) [#/Vol] 2.02 10*3/uL 0.83-4.51 [facility] Basophil percentageOrdered B y: Phillip Novak on 02-12-2023 Basophils/100 WBC (Bld) 1.0 % 0-1 [facility] Bilirubin [Mass/Vol] 0.40 mg/dL 0.20-1.00 [facility] Comment on above: For patients on eltr ombopag therapy, use of Dimension Gerlaw TBIL is not recommended. Chloride [Moles/Vol] 102 mmol/L 98-107 [facility] Eosinophils/100 WBC (Bld) 2.2 % 0-5 [facility] Glucose [Mass/Vol] 120 mg/dL 74-106 [facility] Comment on above: Fasting Glucose resu lt from 100 to 125 mg/dL suggests IMPAIRED HOMEOSTASIS per A.D.A. criteria. Neutrophils (Bld) [#/Vol] 5.9 10*3/uL 2.0-7.7 [facility] Neutrophils/100 WBC (Bld) 66.8 % 47-70 [facility] Potassium [Moles/Vol] 3.9 mmol/L 3.5-5.1 [facility] Protein [Mass/Vol] 8.2 g/dL 6.4-8.2 [facility] Sodium [Moles/Vol] 136 mmol/L 136-145 [facility] WBC (Bld) [#/Vol] 8.8 10*3/uL 4.4-11.0 [facility] Blood erythrocytes count (nu mber/volume)Ordered By: Phillip Novak on 02-12-2023 RBC (Bld) [#/Vol] 5.01 10*6/uL 4.2-5.4 [facility] Blood hemoglobin measurement (mass/volume)Ordered By: Phillip Novak on 02-12-2023 Hemoglobin (Bld) [Mass/Vol] 14.1 g/dL 12.0-15.0 [facility] Blood lymphocytes/100 leukoc ytesOrdered By: Phillip Novak on 02-12-2023 Lymphocytes/100 WBC (Bld) 23.1 % 19-41 [facility] Blood monocytes/100 leukocyt esOrdered By: Phillip Novak on 02-12-2023 Monocytes/100 WBC (Bld) 6.3 % 0-10 [facility] Blood platelet mean volumeOr dered By: Phillip Novak on 02-12-2023 Platelet mean volume (Bld) [Entitic vol] 10.5 fL 6.2-12.0 [facility] Determination of erythrocyte mean corpuscular volume (MCV)Ordered By: Phillip Novak on 02-12-2023 MCV (RBC) [Entitic vol] 89.0 fL 81-99 [facility] Hematocrit Auto (Bld) [Volum e fraction]Ordered By: Phillip Novak on 02-12-2023 Hematocrit (Bld) [Volume fraction] 44.6 % 37-47 [facility] - Chemistry and C hemistry - challengeOrdered By: Phillip Novak on 02-12-2023 ALP [Catalytic activity/Vol] 54 U/L 45-117 [facility] ALT [Catalytic activity/Vol] 32 U/L 13-56 [facility] CO2 [Moles/Vol] 26.0 mmol/L 21.0-32.0 [facility] Globulin (S) [Mass/Vol] 4.2 g/dL 2.2-4.2 [facility] Urea nitrogen/Creatinine [Mass ratio] 24.7 mg/mg 10-20 [facility] - Hematology and Cell countsOrdered By: Phillip Novak on 02-12-2023 Erythrocyte distribution width (RBC) [Entitic vol] 39.8 fL 35.1-43.9 [facility] Erythrocyte distribution width (RBC) [Ratio] 12.1 % 11.6-14.6 [facility] Immature granulocytes/100 WBC (Bld) 0.600 % 0.0-0.9 [facility] Comment on above: IG% - Immature Granu locytes (promyelocytes, myelocytes and metamyelocytes) > 1% indicates that a LEFT SHIFT is Present. MCH (RBC) [Entitic mass] 28.1 pg 27.0-32.0 [facility] Nucleated RBC/100 WBC (Bld) [Ratio] 0 % 0-5 [facility] MCHC Auto (RBC) [Mass/Vol]Or dered By: Phillip Novak on 02-12-2023 MCHC (RBC) [Mass/Vol] 31.6 g/dL 32-36 [facility] No Panel InformationOrdered By: Phillip Novak on 02-12-2023 Estimated GFR (MDRD) Amer 81 mL/min >60 [facility] Comment on above: GFR Calc Estimated GFR (MDRD) Non-Af Amer 67 mL/min >60 [facility] Comment on above: Non- GFR Calc Thyroid Stimulating Hormone (TSH) 0.58 uIU/mL 0.358-3.74 [facility] Vitamin D 25-Hydroxy 73.5 ng/mL [facility] Comment on above: Vitamin D 25(OH) Sta tus Range Deficiency <20 ng/mL (50nmol/L) Insufficiency 20 - 30 ng/mL (50 - 75 nmol/L) Sufficiency 30 - 100 ng/mL (75 - 250 nmol/L) Toxicity >100 ng/mL (>250 nmol/L) Platelets bldOrdered By: Phillip Novak on 02-12-2023 Platelets (Bld) [#/Vol] 321 10*3/uL 150-450 [facility] Serum or plasma albumin lala urement (mass/volume)Ordered By: Phillip Novak on 02-12-2023 Albumin [Mass/Vol] 4.0 g/dL 3.2-5.0 [facility] Serum or plasma albumin/glob ulin mass ratioOrdered By: Phillip Novak on 02-12-2023 Albumin/Globulin [Mass ratio] 1.0 {ratio} 0.9-2.4 [facility] Serum or plasma calcium lala urement (mass/volume)Ordered By: Phillip Novak on 02-12-2023 Calcium [Mass/Vol] 9.8 mg/dL 8.5-10.1 [facility] Serum or plasma creatinine m easurement (mass/volume)Ordered By: Phillip Novak on 02-12-2023 Creatinine [Mass/Vol] 0.89 mg/dL 0.55-1.02 [facility] Comment on above: The validity of the calculated GFR & GFRAA in patients over 70 years has not been determined. Clinical correlation is essential. Serum or plasma urea nitroge n measurement (mass/volume)Ordered By: Phillip Novak on 02-12-2023 Urea nitrogen [Mass/Vol] 22 mg/dL 7-18 [facility] Thin prep Papanicolaou smear with manual screeningOrdered By: Phillip Novak on 02-12-2023 Thin prep Papanicolaou smear with manual screening 22 U/L 15-37 [facility] Thin prep Papanicolaou smear with manual screening 8 5-15 [facility] Absolute lymphocyte countOrd ered By: Dr. Novak on 07-06-2022 Lymphocytes Auto (Unsp spec) [#/Vol] 1.93 10*3/uL 0.83-4.51 [facility] Basophil percentageOrdered B y: Dr. Novak on 07-06-2022 Basophils/100 WBC (Bld) 1.2 % 0-1 [facility] Bilirubin [Mass/Vol] 0.40 mg/dL 0.20-1.00 [facility] Comment on above: For patients on eltr ombopag therapy, use of Dimension Gerlaw TBIL is not recommended. Chloride [Moles/Vol] 104 mmol/L 98-107 [facility] Eosinophils/100 WBC (Bld) 2.8 % 0-5 [facility] Glucose [Mass/Vol] 116 mg/dL 74-106 [facility] Comment on above: Fasting Glucose resu lt from 100 to 125 mg/dL suggests IMPAIRED HOMEOSTASIS per A.D.A. criteria. Neutrophils (Bld) [#/Vol] 5.6 10*3/uL 2.0-7.7 [facility] Neutrophils/100 WBC (Bld) 64.4 % 47-70 [facility] Potassium [Moles/Vol] 4.1 mmol/L 3.5-5.1 [facility] Protein [Mass/Vol] 7.8 g/dL 6.4-8.2 [facility] Sodium [Moles/Vol] 137 mmol/L 136-145 [facility] WBC (Bld) [#/Vol] 8.7 10*3/uL 4.4-11.0 [facility] Blood erythrocytes count (nu mber/volume)Ordered By: Dr. Novak on 07-06-2022 RBC (Bld) [#/Vol] 4.62 10*6/uL 4.2-5.4 [facility] Blood hemoglobin measurement (mass/volume)Ordered By: Dr. Novak on 07-06-2022 Hemoglobin (Bld) [Mass/Vol] 13.4 g/dL 12.0-15.0 [facility] Blood lymphocytes/100 leukoc ytesOrdered By: Dr. Novak on 07-06-2022 Lymphocytes/100 WBC (Bld) 22.3 % 19-41 [facility] Blood monocytes/100 leukocyt esOrdered By: Dr. Novak on 07-06-2022 Monocytes/100 WBC (Bld) 8.7 % 0-10 [facility] Blood platelet mean volumeOr dered By: Dr. Novak on 07-06-2022 Platelet mean volume (Bld) [Entitic vol] 11.0 fL 6.2-12.0 [facility] Determination of erythrocyte mean corpuscular volume (MCV)Ordered By: Dr. Novak on 07-06-2022 MCV (RBC) [Entitic vol] 88.5 fL 81-99 [facility] Hematocrit Auto (Bld) [Volum e fraction]Ordered By: Dr. Novak on 07-06-2022 Hematocrit (Bld) [Volume fraction] 40.9 % 37-47 [facility] - Chemistry and C hemistry - challengeOrdered By: Dr. Novak on 07-06-2022 ALP [Catalytic activity/Vol] 47 U/L 45-117 [facility] ALT [Catalytic activity/Vol] 35 U/L 13-56 [facility] CO2 [Moles/Vol] 28.0 mmol/L 21.0-32.0 [facility] Globulin (S) [Mass/Vol] 3.8 g/dL 2.2-4.2 [facility] Urea nitrogen/Creatinine [Mass ratio] 31.3 mg/mg 10-20 [facility] - Hematology and Cell countsOrdered By: Dr. Novak on 07-06-2022 Erythrocyte distribution width (RBC) [Entitic vol] 38.5 fL 35.1-43.9 [facility] Erythrocyte distribution width (RBC) [Ratio] 12.0 % 11.6-14.6 [facility] Immature granulocytes/100 WBC (Bld) 0.600 % 0.0-0.9 [facility] Comment on above: IG% - Immature Granu locytes (promyelocytes, myelocytes and metamyelocytes) > 1% indicates that a LEFT SHIFT is Present. MCH (RBC) [Entitic mass] 29.0 pg 27.0-32.0 [facility] Nucleated RBC/100 WBC (Bld) [Ratio] 0 % 0-5 [facility] MCHC Auto (RBC) [Mass/Vol]Or dered By: Dr. Novak on 07-06-2022 MCHC (RBC) [Mass/Vol] 32.8 g/dL 32-36 [facility] No Panel InformationOrdered By: Dr. Novak on 07-06-2022 Estimated GFR (MDRD) Amer 96 mL/min >60 [facility] Comment on above: GFR Calc Estimated GFR (MDRD) Non-Af Amer 80 mL/min >60 [facility] Comment on above: Non- GFR Calc Thyroid Stimulating Hormone (TSH) 0.48 uIU/mL 0.358-3.74 [facility] Vitamin D 25-Hydroxy 73.4 ng/mL [facility] Comment on above: Vitamin D 25(OH) Sta tus Range Deficiency <20 ng/mL (50nmol/L) Insufficiency 20 - 30 ng/mL (50 - 75 nmol/L) Sufficiency 30 - 100 ng/mL (75 - 250 nmol/L) Toxicity >100 ng/mL (>250 nmol/L) Platelets bldOrdered By: Dr. Novak on 07-06-2022 Platelets (Bld) [#/Vol] 273 10*3/uL 150-450 [facility] Serum or plasma albumin lala urement (mass/volume)Ordered By: Dr. Novak on 07-06-2022 Albumin [Mass/Vol] 4.0 g/dL 3.2-5.0 [facility] Serum or plasma albumin/glob ulin mass ratioOrdered By: Dr. Novak on 07-06-2022 Albumin/Globulin [Mass ratio] 1.1 {ratio} 0.9-2.4 [facility] Serum or plasma calcium lala urement (mass/volume)Ordered By: Dr. Novak on 07-06-2022 Calcium [Mass/Vol] 9.9 mg/dL 8.5-10.1 [facility] Serum or plasma creatinine m easurement (mass/volume)Ordered By: Dr. Novak on 07-06-2022 Creatinine [Mass/Vol] 0.77 mg/dL 0.55-1.02 [facility] Comment on above: The validity of the calculated GFR & GFRAA in patients over 70 years has not been determined. Clinical correlation is essential. Serum or plasma urea nitroge n measurement (mass/volume)Ordered By: Dr. Novak on 07-06-2022 Urea nitrogen [Mass/Vol] 24 mg/dL 7-18 [facility] Thin prep Papanicolaou smear with manual screeningOrdered By: Dr. Novak on 07-06-2022 Thin prep Papanicolaou smear with manual screening 25 U/L 15-37 [facility] Thin prep Papanicolaou smear with manual screening 5 5-15 [facility] Basophil percentageOrdered B y: Dr. Garrison on 06-07-2022 Bilirubin [Mass/Vol] 0.50 mg/dL 0.20-1.00 [facility] Comment on above: For patients on eltr ombopag therapy, use of Dimension Gerlaw TBIL is not recommended. Protein [Mass/Vol] 8.2 g/dL 6.4-8.2 [facility] Direct bilirubinOrdered By: Dr. Garrison on 06-07-2022 Bilirubin.direct [Mass/Vol] 0.14 mg/dL 0.00-0.30 [facility] INR in Blood by Coagulation assayOrdered By: Dr. Garrison on 06-07-2022 INR Coag (Bld) [Relative time] 1.0 {INR} [facility] - Chemistry and C hemistry - challengeOrdered By: Dr. Garrison on 06-07-2022 ALP [Catalytic activity/Vol] 45 U/L 45-117 [facility] ALT [Catalytic activity/Vol] 36 U/L 13-56 [facility] Amylase [Catalytic activity/Vol] 21 U/L 5-55 [facility] Globulin (S) [Mass/Vol] 4.1 g/dL 2.2-4.2 [facility] - CoagulationOrde red By: Dr. Garrison on 06-07-2022 aPTT Coag (Bld) [Time] 28.3 s 24.1-36.2 [facility] PT Coag (PPP) [Time] 12.5 s 11.7-14.9 [facility] Serum or plasma albumin lala urement (mass/volume)Ordered By: Dr. Garrison on 06-07-2022 Albumin [Mass/Vol] 4.1 g/dL 3.2-5.0 [facility] Serum or plasma lpygs-1-dofh protein tumor marker measurement (units/volume)Ordered By: Dr. Garrison on 06-07-2022 AFP.tumor marker Qn < 1.8 ng/mL 0.0-9.2 [facility] Comment on above: [employer] El ectrochemiluminescence Immunoassay(ECLIA)Values obtained with different assay methods or kits cannotbe used interchangeably. Results cannot be interpreted asabsolute evidence of the presence or absence of malignantdisease.This test is not interpretable in females.Performed at: [place] [id number] [place], [place] [id number] Director: Jr Griffin PhD, Phone: [phone] Thin prep Papanicolaou smear with manual screeningOrdered By: Dr. Garrison on 06-07-2022 Thin prep Papanicolaou smear with manual screening 26 U/L 15-37 [facility] No Panel Informationon 01-05 Thyroid Stimulating Hormone (TSH) 0.60 uIU/mL 0.358-3.74 [facility] Work Phone: Vitamin D 25-Hydroxy 58.4 ng/mL [facility] Work Phone: Comment on above: Vitamin D 25(OH) Sta tus Range Deficiency <20 ng/mL (50nmol/L) Insufficiency 20 - 30 ng/mL (50 - 75 nmol/L) Sufficiency 30 - 100 ng/mL (75 - 250 nmol/L) Toxicity >100 ng/mL (>250 nmol/L) Basophil percentageon 2021 Bilirubin [Mass/Vol] 0.50 mg/dL 0.20-1.00 [facility] Work Phone: Comment on above: For patients on eltr ombopag therapy, use of Dimension Gerlaw TBIL is not recommended. Chloride [Moles/Vol] 105 mmol/L 98-107 [facility] Work Phone: Cholesterol [Mass/Vol] 156 mg/dL <200 [facility] Work Phone: Comment on above: <200 mg/dL Desirable 200-240 mg/dL Borderline >240 mg/dL High Risk Glucose [Mass/Vol] 120 mg/dL 74-106 [facility] Work Phone: Comment on above: Fasting Glucose resu lt from 100 to 125 mg/dL suggests IMPAIRED HOMEOSTASIS per A.D.A. criteria. Potassium [Moles/Vol] 4.1 mmol/L 3.5-5.1 [facility] Work Phone: Protein [Mass/Vol] 8.0 g/dL 6.4-8.2 [facility] Work Phone: Sodium [Moles/Vol] 140 mmol/L 136-145 [facility] Work Phone: Triglyceride [Mass/Vol] 309 mg/dL <199 [facility] Work Phone: Comment on above: The drugs N-Acetylcy steine and Metamizole may falsely depress this assay.Serum Triglycerides Reference Interval Normal <150 mg/dL Borderline high 150 - 199 mg/dL High 200 - 499 mg/dL Very High > or = 500 mg/dL WBC (Bld) [#/Vol] 6.1 10*3/uL 4.4-11.0 [facility] [facility] Work Phone: Blood erythrocytes count (nu mber/volume)on 12-14-2021 RBC (Bld) [#/Vol] 4.59 10*6/uL 4.2-5.4 [facility] Work Phone: Blood hemoglobin measurement (mass/volume)on 12-14-2021 Hemoglobin (Bld) [Mass/Vol] 13.9 g/dL 12.0-15.0 [facility] Work Phone: Blood platelet mean volumeon 12-14-2021 Platelet mean volume (Bld) [Entitic vol] 10.0 fL 6.2-12.0 [facility] Work Phone: Determination of erythrocyte mean corpuscular volume (MCV)on 12-14-2021 MCV (RBC) [Entitic vol] 87.1 fL 81-99 [facility] Work Phone: Hematocrit Auto (Bld) [Volum e fraction]on 12-14-2021 Hematocrit (Bld) [Volume fraction] 40.0 % 37-47 [facility] Work Phone: INR in Blood by Coagulation assayon 12-14-2021 INR Coag (Bld) [Relative time] 1.0 {INR} [facility] Work Phone: Laboratory - Chemistry and C hemistry - challengeon 12-14-2021 ALP [Catalytic activity/Vol] 47 U/L 45-117 [facility] Work Phone: ALT [Catalytic activity/Vol] 31 U/L 13-56 [facility] Work Phone: CO2 [Moles/Vol] 29.0 mmol/L 21.0-32.0 [facility] Work Phone: Globulin (S) [Mass/Vol] 4.0 g/dL 2.2-4.2 [facility] Work Phone: Urea nitrogen/Creatinine [Mass ratio] 25.2 mg/mg 10-20 [facility] Work Phone: Laboratory - Coagulationon 1 aPTT Coag (Bld) [Time] 28.9 s 24.1-36.2 [facility] Work Phone: PT Coag (PPP) [Time] 12.9 s 11.7-14.9 [facility] Work Phone: Laboratory - Hematology and Cell countson 12-14-2021 Erythrocyte distribution width (RBC) [Entitic vol] 38.7 fL 35.1-43.9 [facility] Work Phone: Erythrocyte distribution width (RBC) [Ratio] 12.0 % 11.6-14.6 [facility] Work Phone: MCH (RBC) [Entitic mass] 30.3 pg 27.0-32.0 [facility] Work Phone: MCHC Auto (RBC) [Mass/Vol]on 12-14-2021 MCHC (RBC) [Mass/Vol] 34.8 g/dL 32-36 [facility] Work Phone: No Panel Informationon 12-14 Estimated GFR (MDRD) Amer 105 mL/min >60 [facility] Work Phone: Comment on above: GFR Calc Estimated GFR (MDRD) Non-Af Amer 87 mL/min >60 [facility] Work Phone: Comment on above: Non- GFR Calc Platelets bldon 12-14-2021 Platelets (Bld) [#/Vol] 265 10*3/uL 150-450 [facility] Work Phone: Serum or plasma albumin lala urement (mass/volume)on 12-14-2021 Albumin [Mass/Vol] 4.0 g/dL 3.2-5.0 [facility] Work Phone: Serum or plasma albumin/glob ulin mass ratioon 12-14-2021 Albumin/Globulin [Mass ratio] 1.0 {ratio} 0.9-2.4 [facility] Work Phone: Serum or plasma [id number] protein tumor marker measurement (units/volume)on 12-14-2021 AFP.tumor marker Qn 1.6 ng/mL 0.0-9.2 [facility] Work Phone: Comment on above: [facility] El ectrochemiluminescence Immunoassay(ECLIA)Values obtained with different assay methods or kits cannotbe used interchangeably. Results cannot be interpreted asabsolute evidence of the presence or absence of malignantdisease.This test is not interpretable in females.Performed at: [employer] [id number] Director: Jr Griffin PhD, Phone: [phone] Serum or plasma calcium lala urement (mass/volume)on 12-14-2021 Calcium [Mass/Vol] 9.6 mg/dL 8.5-10.1 [facility] Work Phone: Serum or plasma cholesterol in HDL measurement (mass/volume)on 12-14-2021 Cholesterol in HDL [Mass/Vol] 40 mg/dL >40 [facility] Work Phone: Comment on above: The drugs N-Acetylcy steine and Metamizole may falsely depress this assay. Reference Range HDL <40 mg/dL Low HDL Cholesterol HDL >or= 60 mg/dL High HDL Cholesterol Serum or plasma cholesterol in VLDL measurement (mass/volume)on 12-14-2021 Cholesterol in VLDL [Mass/Vol] 62 mg/dL 5-40 [facility] Work Phone: Serum or plasma creatinine m easurement (mass/volume)on 12-14-2021 Creatinine [Mass/Vol] 0.72 mg/dL 0.55-1.02 [facility] Work Phone: Comment on above: The validity of the calculated GFR & GFRAA in patients over 70 years has not been determined. Clinical correlation is essential. Serum or plasma low density lipoprotein (LDL) cholesterol measurement (mass/volume)on 12-14-2021 Cholesterol in LDL [Mass/Vol] 54 mg/dL 0-130 [facility] Work Phone: Serum or plasma urea nitroge n measurement (mass/volume)on 12-14-2021 Urea nitrogen [Mass/Vol] 18 mg/dL 7-18 [facility] Work Phone: Thin prep Papanicolaou smear with manual screeningon 12-14-2021 Thin prep Papanicolaou smear with manual screening 20 U/L 15-37 [facility] Work Phone: Thin prep Papanicolaou smear with manual screening 6 5-15 [facility] Work Phone: Basophil percentageon 2021 Basophil percentage < 0.9 mg/dL 0.55-1.02 [facility] Work Phone: No Panel Informationon 09-07 Bedside Estimated GFR (eGFR) > 60.0000 mL/min >60 [facility] Work Phone: US ELASTOGRAPHY LIVER [...] AM Sign Date: 09/11/2019 10:21:44 AM Ordering Provider:[place] [facility] ([place]) Lab Report: CEA Serial Monit oron 10-04-2016 CEA SM GRAPH . [facility] [employer] Work Phone: GE use only - for [employer] import when terms are not otherwise specified . Invalid Interpretation Code [facility] [employer] Work Phone: Replaced Document: (P) CEA S erial Monitoron 10-04-2016 Carcinoembryonic Ag mass conc 1.7 ng/mL Invalid Interpretation Code 0.0-4.7 [facility] [employer] Work Phone: Lab Report: CBC W/Diff, Auto matedon 10-02-2016 Basophils/100 leukocytes 1.1 % High 0-1 [facility] [employer] Work Phone: Basophils/100 WBC (Bld) 1.1 % High 0-1 [facility] [employer] Work Phone: Eosinophils/100 leukocytes 4.2 % Invalid Interpretation Code 0-5 [facility] [employer] Work Phone: Eosinophils/100 WBC (Bld) 4.2 % 0-5 [facility] [employer] Work Phone: Erythrocyte distribution width Ratio (RBC) 40.9 fL 35.1-43.9 [facility] [employer] Work Phone: Erythrocyte distribution width Ratio (RBC) 13.0 % 11.6-14.6 [facility] [employer] Work Phone: Erythrocytes (RBC) 4.55 10*6/uL Invalid Interpretation Code 4.2-5.4 [facility] [employer] Work Phone: [phone] Hematocrit (HCT) 40.0 % Invalid Interpretation Code 37-47 [facility] [employer] Work Phone: [phone] Hematocrit Volume Fraction (Bld) 40.0 % 37-47 [facility] [employer] Work Phone: [phone] Hemoglobin (HGB) 13.1 g/dL Invalid Interpretation Code 12.0-15.0 [facility] [employer] Work Phone: Immature granulocytes #/vol (Bld) 0.100 % 0.0-0.9 [facility] [employer] Work Phone: [phone] immature granulocytes, percentage of total cells, blood 0.100 % Invalid Interpretation Code 0.0-0.9 [facility] [employer] Work Phone: [phone] Lymphocytes 1.51 X10 3/UL Invalid Interpretation Code 0.83-4.51 [facility] [employer] Work Phone: [phone] Lymphocytes #/vol (Bld) 1.51 X10 3/UL 0.83-4.51 [facility] [employer] Work Phone: [phone] Lymphocytes/100 leukocytes 21.4 % Invalid Interpretation Code 1941 [facility] [employer] Work Phone: [phone] Lymphocytes/100 WBC (Bld) 21.4 % 19-41 [facility] [employer] Work Phone: [phone] MCH 28.8 pg Invalid Interpretation Code 27.0-32.0 [facility] [employer] Work Phone: [phone] MCH Entitic mass (RBC) 28.8 pg 27.0-32.0 [facility] [employer] Work Phone: [phone] MCHC 32.8 G/GL Invalid Interpretation Code 32-36 [facility] [employer] Work Phone: [phone] MCHC mass conc (RBC) 32.8 G/GL 32-36 [facility] [employer] Work Phone: [phone] MCV 87.9 fL Invalid Interpretation Code 81-99 [facility] [employer] Work Phone: [phone] MCV Entitic volume (RBC) 87.9 fL 81-99 [facility] [employer] Work Phone: Monocytes/100 leukocytes 8.2 % Invalid Interpretation Code 0-10 [facility] [employer] Work Phone: Monocytes/100 WBC (Bld) 8.2 % 0-10 [facility] [employer] Work Phone: neutrophil count, blood 4.6 X10 3/UL Invalid Interpretation Code 2.0-7.7 [facility] [employer] Work Phone: Neutrophils #/vol (Bld) 4.6 X10 3/UL 2.0-7.7 [facility] [employer] Work Phone: Neutrophils/100 leukocytes 65.0 % Invalid Interpretation Code 47-70 [facility] [employer] Work Phone: Neutrophils/100 WBC (Bld) 65.0 % 47-70 [facility] [employer] Work Phone: Platelet mean volume Entitic volume (Bld) 10.7 fL 6.2-12.0 [facility] [employer] Work Phone: Platelets 233 10*3/mm3 Invalid Interpretation Code 150-450 [facility] [employer] Work Phone: Platelets #/vol (Bld) 233 10*3/mm3 150-450 [facility] [employer] Work Phone: PMV by Emily 10.7 fL Invalid Interpretation Code 6.2-12.0 [facility] [employer] Work Phone: RBC #/vol (Bld) 4.55 10*6/uL 4.2-5.4 [facility] [employer] Work Phone: RDW-CA 13.0 % Invalid Interpretation Code 11.6-14.6 [facility] [employer] Work Phone: red blood cell distribution width, size density 40.9 fL Invalid Interpretation Code 35.1-43.9 [facility] [employer] Work Phone: WBC #/vol (Bld) 7.1 10*3/uL 4.4-11.0 [facility] [employer] Work Phone: WBC (Leukocytes) 7.1 10*3/uL Invalid Interpretation Code 4.4-11.0 [facility] [employer] Work Phone: Lab Report: Comprehensive Fl tabolic Profilon 10-02-2016 Alanine aminotransferase (ALT) 49 U/L Invalid Interpretation Code 12-78 [facility] [employer] Work Phone: Albumin 3.3 g/dL Low 3.4-5.0 [facility] [employer] Work Phone: Albumin/Globulin Ratio 0.9 {ratio} Invalid Interpretation Code 0.9-2.4 [facility] [employer] Work Phone: Alkaline phosphatase (ALP) 54 U/L Invalid Interpretation Code 45117 [facility] [employer] Work Phone: ALP enzyme act/vol (Bld) 54 U/L 45-117 [facility] [employer] Work Phone: Anion gap 8 mmol/L Invalid Interpretation Code 5-15 [facility] [employer] Work Phone: Anion gap molar conc 8 mmol/L 5-15 [facility] [employer] Work Phone: Aspartate aminotransferase (AST) 39 U/L High 15-37 [facility] [employer] Work Phone: Bilirubin (total) 0.40 mg/dL Invalid Interpretation Code 0.20-1.00 [facility] [employer] Work Phone: BUN/Creatinine Ratio 19.0 RATIO Invalid Interpretation Code 10-20 [facility] [employer] Work Phone: Calcium 8.7 mg/dL Invalid Interpretation Code 8.5-10.1 [facility] [employer] Work Phone: Chloride 109 mmol/L High 98-107 [facility] [employer] Work Phone: CO2 24.0 mmol/L Invalid Interpretation Code 21.0-32.0 [facility] [employer] Work Phone: CO2 ppres (BldV) 24.0 mmol/L 21.0-32.0 [facility] [employer] Work Phone: Creatinine 83.19 mL/min Invalid Interpretation Code [facility] [employer] Work Phone: Creatinine 0.58 mg/dL Invalid Interpretation Code 0.55-1.02 [facility] [employer] Work Phone: eGFR (non-black) 136 mL/min/{1.73_m2} Invalid Interpretation Code >60 [facility] [employer] Work Phone: eGFR (non-black) 112 mL/min/{1.73_m2} Invalid Interpretation Code >60 [facility] [employer] Work Phone: EST GFR - AA 136 mL/min >60 [facility] [employer] Work Phone: Globulin 3.5 g/dL Invalid Interpretation Code 2.3-3.5 [facility] [employer] Work Phone: Globulin mass conc (S) 3.5 g/dL 2.3-3.5 [facility] [employer] Work Phone: Glucose 104 mg/dL Invalid Interpretation Code 70-110 [facility] [employer] Work Phone: Glucose mass conc 104 mg/dL 70-110 [facility] [employer] Work Phone: Potassium 4.2 mmol/L Invalid Interpretation Code 3.5-5.1 [facility] [employer] Work Phone: Protein 6.8 g/dL Invalid Interpretation Code 6.4-8.2 [facility] [employer] Work Phone: Sodium 141 mmol/L Invalid Interpretation Code 136-145 [facility] [employer] Work Phone: Urea nitrogen 11 mg/dL Invalid Interpretation Code 7-18 [facility] [employer] Work Phone: Office Visit: Colonoscopy Co nsulton 07-26-2016 Dietary management education, guidance, and counseling (procedure) yes Invalid Interpretation Code [facility] [employer] Work Phone: Documentation of current medications (procedure) Done Invalid Interpretation Code [facility] [employer] Work Phone: Fall risk assessment No Invalid Interpretation Code [facility] [employer] Work Phone: Protein mass conc Done [facility] [employer] Work Phone: Tobacco smoking status NHIS Never Invalid Interpretation Code [facility] [employer] Work Phone: Tobacco smoking status NHIS Former smoker [facility] [employer] Work Phone: Tobacco use CPHS Former smoker Invalid Interpretation Code [facility] [employer] Work Phone: Office Visit: Colonoscopy Md nsulton 03-17-2013 General categories [interpretation] of Cervical or vaginal smear or scraping by Cyto stain Normal Invalid Interpretation Code [facility] [employer] Work Phone: Office Visit: Colonoscopy Co nsulton 03-19-2006 Colonoscopy (procedure) Colonoscopy (procedure) Invalid Interpretation Code [facility] [employer] Work Phone: Protein mass conc Colonoscopy (procedure) [facility] [employer] Work Phone: Vital Signs Date Time Vital Sign Value Performing Clinician Facility 10-09-2024 08:25-0400 Body height 157.[address] Phillip Novak MD Work Phone: [facility] 10-09-2024 08:25-0400 Body mass index (BMI) [Ratio] 40.2 kg/m2 Dr. Phillip Novak MD Work Phone: [facility] 10-09-2024 08:25-0400 Body weight 99.[address] Phillip Novak MD Work Phone: [facility] 10-02-2016 09:53-0400 Body surface area Derived from formula 83.19 mL/min Rae Lan MD [facility] [employer] Work Phone: 07-26-2016 13:54-0400 BMI (Body Mass Index) 41.27 kg/m2 Lorelei Narayan RN RN [facility] [employer] Work Phone: 07-26-2016 13:54-0400 Body Temperature 98 [degF] Lorelei Narayan RN RN [facility] [employer] Work Phone: 07-26-2016 13:54-0400 Body Temperature 98.01 [degF] Lorelei Narayan RN RN [facility] [employer] Work Phone: 07-26-2016 13:54-0400 BP Diastolic 87 mm[Hg] Lorelei Narayan RN RN [facility] [employer] Work Phone: 07-26-2016 13:54-0400 BP Systolic 138 mm[Hg] Lorelei Narayan RN RN [facility] Work Phone: 07-26-2016 13:54-0400 BSA (Body Surface Area) 2.07 m2 Lorelei Narayan RN RN [facility] Work Phone: 07-26-2016 13:54-0400 Height 160.02 cm Lorelei Narayan RN RN [facility] Work Phone: 07-26-2016 13:54-0400 Pulse (Heart Rate) 84 /min Lorelei Narayan RN RN [facility] Work Phone: 07-26-2016 13:54-0400 Pulse Oximetry 97 % Lorelei Narayan RN RN [facility] Surgical [facility] Work Phone: 07-26-2016 13:54-0400 Respiratory Rate 16 /min Lorelei Narayan RN RN [facility] Surgical [facility] Work Phone: 07-26-2016 13:54-0400 Weight 105.69 kg Lorelei Narayan RN RN [facility] Work Phone: Encounters Encounter Date Encounter Type Care Provider Facility Start: 01-26-2025 ambulatory Bunny Macedo Facility:[facility] Start: 01-21-2025 [facility] Start: 01-20-2025 ambulatory Phillip Chi Victor Hugo Facility:[facility] Start: 01-16-2025 End: 01-16-2025 ambulatory Phillip Chi Victor Hugo Facility:[facility] Start: 01-01-2025 End: 01-01-2025 ambulatory Phillip Chi Victor Hugo Facility:[facility] Start: 10-10-2024 End: 10-10-[address] Phillip Novak MD Work Phone: -Physical Therapy Start: 10-10-2024 End: 10-10-[address] Marco Xie MD -Physical Therapy Work Phone: Start: 10-09-2024 End: 10-09-[address] Bunny Macedo MD -[facility] Work Phone: Start: 10-09-2024 End: 10-09-[address] Phillip Novak MD Work Phone: [facility] Start: 10-06-[address] Marco Orozco i, MD -Physical Therapy Work Phone: Start: 09-10-[address] Marco Orozco i, MD -Physical Therapy Work Phone: Start: 09-09-2024 Non-patient / Non-visit Dr. Yola royal MD -[facility] Work Phone: Start: 09-08-2024 End: 09-08-[address] Phillip Novak MD Work Phone: -Laboratory Start: 09-08-2024 End: 09-08-[address] Phillip Novak MD -Laboratory Work Phone: Start: 09-08-2024 End: 09-08-2024 ambulatory Phillip Chi Victor Hugo Facility:[facility] Start: 05-02-2024 End: 05-02-2024 ambulatory Phillip Chi Victor Hugo Facility:[facility] Start: 04-29-2024 End: 04-29-2024 ambulatory Bunny Macedo Facility:[facility] Start: 04-11-2024 End: 04-11-2024 ambulatory Phillip Chi Victor Hugo Facility:[facility] Start: 04-10-2024 End: 04-10-2024 ambulatory Phillip Chi Victor Hugo Facility:[facility] Start: 02-26-2024 End: 02-26-2024 ambulatory Phillip Chi Victor Hugo Facility:[facility] Start: 02-21-2024 End: 02-21-2024 ambulatory Phillip Chi Victor Hugo Facility:[facility] Start: 02-23-2023 End: 02-23-2023 ambulatory [facility] Work Phone: Start: 02-23-2023 End: 02-23-2023 Patient encounter procedure [facility]-Ultrasound, [facility] Work Phone: Start: 02-22-2023 End: 02-22-2023 [facility] Start: 02-12-2023 End: 02-12-2023 ambulatory [facility] Work Phone: Start: 02-12-2023 End: 02-12-2023 [facility] Start: 07-06-2022 End: 07-06-2022 ambulatory [facility] Work Phone: Start: 07-06-2022 End: 07-06-2022 [facility] Start: 06-07-2022 End: 06-07-2022 ambulatory [facility] Work Phone: Start: 06-07-2022 End: 06-07-2022 Patient encounter procedure [facility] [place] Start: 02-13-2022 End: 02-13-[address] Phillip Novak Work Phone: [facility] Work Phone: Start: 02-13-2022 End: 02-13-[address] Phillip Novak Work Phone: [facility]-Outpatient Breast [facility] Start: 01-05-2022 End: 01-05-[address] Phillip Novak Work Phone: [facility] Work Phone: Start: 01-05-2022 End: 01-05-[address] [facility] Start: 12-14-2021 End: 12-14-[address] Phillip Novak Work Phone: [facility] Work Phone: Start: 12-14-2021 End: 12-14-[address] [facility] Start: 11-07-2021 End: 11-07-[address] Phillip Novak Work Phone: [facility] Start: 09-15-2021 End: 09-15-[address] Phillip Novak Work Phone: [facility] Start: 09-07-2021 End: 09-07-[address] Phillip Novak Work Phone: [facility] Start: 09-05-2021 End: 09-05-[address] Phillip Novak Work Phone: [facility] Start: 05-13-2018 End: 05-13-2018 Patient encounter procedure UNKNOWN PROVIDER Facility:[facility] Procedures Date Procedure Procedure Detail Performing [...] Activity Detail Author Start: 09-15-2021 Patient referral [facility] Work Phone: Start: 10-05-2016 End: 10-05-2016 Pet image w/ct, skull-thigh PET Tumor Base to Mid Thigh [facility] [employer] Work Phone: Start: 10-02-2016 End: 10-02-2016 Appointment Appointment [facility] [employer] Work Phone: Start: 10-02-2016 End: 10-02-2016 Appointment Appointment [facility] [employer] Work Phone: Start: 10-02-2016 End: 10-02-2016 Ct abdomen&pelvis w/contrast CT Abdomen and pelvis; with contrast material(s) [facility] [employer] Work Phone: Start: 10-02-2016 End: 10-02-2016 Ct angiography, chest CTA Chest, with contrast material(s) [facility] [employer] Work Phone: Start: 07-26-2016 End: 07-26-2016 Appointment Appointment [facility] [employer] Work Phone: Start: 07-26-2016 End: 07-26-2016 Diagnostic colonoscopy Colonoscopy [facility] [employer] Work Phone: Start: 07-26-2016 End: 07-26-2016 Follow Up Appt Other Follow Up Appt Other [facility] [employer] Work Phone: Patient Education WEIGHT%20MANAGEMENT [facility] [employer] Work Phone: Patient referral [facility] Work Phone: Payers Date Payer Category Payer Self-pay [id number] 2024 Unknown [id number] 2019 Medicare [id number] 2016 Unknown [id number] 1955 Unknown [id number] 2.16. [id number] Medicare MEDICARE PART A B [id number] Unknown [id number] 2.16.8 [id number] Unknown [id number] 2.16.8 [id number] Unknown [id number] 2.16.8 [id number] Unknown [id number] 2.16.8 [id number] Unknown [id number] 2.16.8 [id number] Unknown [id number] 2.16.8 [id number] Unknown [id number] 2.16.8 [id number] Unknown [id number] 2.16.8 [id number] Unknown [id number] 2.16.8 [id number] Unknown [id number] 2.16.8 [id number] Unknown [id number] 2.16.8 [id number] Unknown [id number] 2.16.8 [id number] Unknown [id number] 2.16.8 [id number] Unknown [id number] 2.16.8 [id number] Unknown [id number] 2.16.8 [id number] Social History Date Type Detail Facility Start: 11-07-2021 End: 09-01-2022 Tobacco smoking status NHIS Unknown if ever smoked [facility] Start: 02-18-2019 Non-smoker [facility] Start: 1955 Sex Assigned At Female [facility] Start: 02-29-2024 Tobacco smoking stat us NHIS Ex-smoker (finding) [facility] Medical Equipment Procedure Code Equipment [...] X3 TIB MARLYN INSERT-PS FDA Start: 05-02-2017 ([id number]) Ceramic femoral head prosthesis ()[id number] FDA Start: 12-14-2020 ([id number]) Coated hip femur prosthesis, modular ()[id number] FDA Start: 12-14-2020 ([id number]) Non-constrained polyethylene acetabular liner ()[id number] FDA Start: 12-14-2020 ([id number]) Acetabular shell ()[id number] FDA Start: 12-14-2020 ([id number]) Orthopaedic bone screw, non-bioabsorbable, sterile ()[id number] FDA Start: 12-14-2020 DOUGH,CEMENT [id number] FDA Start: [...] Note Date/Time October 10, 2024 7:0 0pm [facility] Physical Therapy [facility] [address] [facility]. [address] [place] [address] / REHABILITATION SERVICES DISCHARGE SUMMARY MR#: [id number] Acct: [id number] Name: CHELSIE HERNANDEZ Rep #: [id number] : 1955 69 From: Michelle Rojas MP T Referring Dr.: Dr. Marco Xie MD Status: REG RCR Insurance: MEDICARE PART A B [facility] Discharge Summary D/C summary: It has [...] please feel free to call me at [phone]. Thank you for the referral of thispatient. Sincerely, Michelle Rojas, ISIAH Balance/Gait/Functional tests Balance/Special Test Scores Oswestry Low Back Score: 18 Improvement % Improvement: 50 <Electronically signed by Michelle Rojas MPT> 10/10/24 0953 CC: Dr. Marco Xie MD; Dr. Phillip Novak MD ~ Signed [facility] Work Phone: Discharge summary 10-10-2024 Note Date & Type Note Facility 10-10-2024 Discharge summary [facility] Evaluation note 10-09-2024 Note Date [...] lumbar region acute October 09, 2024 8:24am [facility] Work Phone: Evaluation note Note Date & Type Note Facility Evaluation note Diagnosis Onset Date Lumbosacral radiculopathy at S1 acute Radiculitis acute Lumbosacral radiculopathy at S1 acute [facility] Work Phone: Evaluation note Note Date & Type Note Facility Evaluation note Diagnosis Onset Date Radiculitis acute Lumbosacral radiculopathy at S1 acute [facility] Work Phone: Evaluation note Note Date & Type Note Facility Evaluation note Diagnosis Onset Date Lumbosacral radiculopathy at S1 acute [facility] Work Phone: Evaluation note Note Date & Type Note Facility Evaluation note No assessment information availa ble [facility] Work Phone: Evaluation note Note [...] lumbar region acute October 09, 2024 8:24am [facility] Work Phone: Reason for referral (narrative) Note Date & Type Note Facility Reason for referral (narrative) No reason for referral information available [facility] Work Phone: Summary Purpose Family History No Family History Records Found Relationship Condition Age at Onset Recorded Date/T jeri father Cardiac disease Unknown Hypertension Unknown brother Cardiac disease Unknown sister Malignant neoplasm Unknown Cerebrovascular accident (CVA) Unknown mother Hypertension Unknown Advance Directives No Advanced Directives Records Found Advance Directive Response Recorded Date/ Time Living Will No March 31 4:47pm 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 Care Teams (unrecognized sec tion and [...] Status: Active Member Role/Relationship Status Dates Dr. Pihllip Novak MD Primary Care Provider Active Team [...] Inactive Member Role/Relationship Status Dates Dr. Phillip Nvoak MD Primary Care Provider Active Start: October [...] BE BASED ON THE PRIMARY CLINICAL RECORDS. [facility] [employer] [facility] provides no warranty or guarantee of the accuracy or completeness of information in this document.
[2025-01-28 03:49] VITALS: BP 130/70; PULSE 90; RESP 16; TEMP 36.3; O2SAT 99
--- NOTE | 2025-01-28 07:32 | DCINST_ITS ---
Discharge Instructions DC O2, CPAP, BIPAP needs Home O2 Discharge instructions: No Follow Up Care Test Results: Test results from this visit will be discussed in further detail at your follow- up appointment, if applicable. Discharge Plan Admission Admit Date/Time: 01/26/25 12:59 Attending Provider: Bunny Macedo Primary Care Provider: Phillip Gay Chi Consulting Providers: Mitchel Mchugh; Princess Lai Instructions Patient Instructions: Lumbar Fusion Dc Additional Instructions / Restrictions: Keep Tegaderm and gauze clean and dry. If Tegaderm is intact, okay to shower. After 5 days remove Tegaderm and gauze and cover with a Band-Aid. Replace Band- Aid daily thereafter. No bending lifting or twisting. Follow-up in clinic in 2 weeks. Discharge Orders/Prescriptions Prescriptions: New meloxicam 15 mg Tablet 15 mg PO DAILY Qty: 30 0RF Rx Instructions: take once a day methocarbamol 500 mg Tablet 750 mg PO TID PRN (Reason: pain/spasms) Qty: 30 0RF oxycodone 5 mg Tablet 2.5 - 5 mg PO Q6H PRN (Reason: pain) 7 Days Qty: 28 0RF sennosides-docusate sodium [Stimulant Laxative Plus] 8.6-50 mg Tablet 2 tab PO BID PRN (Reason: constipation) Qty: 14 0RF Continued cholecalciferol (vitamin D3) 2,000 unit capsule 2,000 unit PO DAILY multivitamin tablet 1 tab PO DAILY metoprolol tartrate 25 mg tablet 25 mg PO BID thistle weed 1 cap PO BID gabapentin 600 mg tablet 600 mg PO BID Patient Comments: [NO ORIGINAL SIG] pravastatin 40 MG tablet 40 mg PO QHS calcium carbonate 500 MG tablet 500 mg PO DAILY@0800 valsartan-hydrochlorothiazide 320-12.5 mg Tablet 1 tab PO DAILY Referrals / Follow Up: Phillip Gay Chi, MD [Primary Care Provider, Geriatrics] Disposition Disposition (needs filled in before D/C Order can be placed): Home, Self Care
[2025-01-28 08:41] VITALS: BP 150/74; PULSE 80; RESP 15; TEMP 36.8; O2SAT 94
[2025-01-28 08:48] VITALS: PULSE 80
[2025-01-28] MEDS: Senna/Docusate Sodium 1 Tablet 2 TABLET PO (08:48)
--- NOTE | 2025-01-28 10:01 | PHA.DC.MC.R ---
Pharmacy [facility] Counseling Pharmacy Service has performed discharge medication reconciliation and counseling for this patient. 1. MELOXICAM 15MG PO DAILY 2. METHOCARBAMOL 750MG PO TID PRN PAIN/SPASMS 3. OXYCODONE 2.5-5MG PO Q6H PRN PAIN 4. SENNA/DOCUSATE 2T PO BID PRN CONSTIPATION The patient's discharge medication list was reviewed for discrepancies and discrepancies were resolved. The patient was counseled on the following discharge medications and changes in medications for homegoing were reviewed. The Reason for Use, instructions for use, and potential side effects were reviewed for all new medications. The patient's questions regarding all of their medications were answered. The patient was able to verbally demonstrate an understanding of their discharge medications. Patient counseled by retail pharmacy managerSamm. Medications at Discharge Home Medications pravastatin 40 mg tablet 40 mg PO QHS CHOLESTEROL 09/26/16 cholecalciferol (vitamin D3) 50 mcg (2,000 unit) capsule 2,000 unit PO DAILY SUPPLEMENT 06/20/18 multivitamin 1 tab PO DAILY SUPPLEMENT 06/20/18 calcium carbonate 500 mg PO DAILY@0800 SUPPLEMENT 02/18/19 metoprolol tartrate 25 mg tablet 25 mg PO BID BP 11/01/20 valsartan 320 mg-hydrochlorothiazide 12.5 mg tablet 1 tab PO DAILY BP 11/30/20 thistle weed 1 cap PO BID SUPPLEMENT 09/05/21 gabapentin 600 mg tablet 600 mg PO BID NERVE PAIN 04/10/24 meloxicam 15 mg tablet 15 mg PO DAILY #30 tabs 01/27/25 methocarbamol 500 mg tablet 750 mg (1.5 x 500 mg) PO TID PRN pain/spasms #30 tabs 01/27/25 oxycodone 5 mg tablet 2.5 - 5 mg (0.5 - 1 x 5 mg) PO Q6H PRN pain 7 days #28 tabs 01/27/25 sennosides 8.6 mg-docusate sodium 50 mg tablet (Stimulant Laxative Plus) 2 tab PO BID PRN constipation #14 tabs 01/27/25
== END 2025-01-28 10:50 | disposition home or self-care (01) | DRG 402 ==
PROVIDERS: Anesthesiology; Student in an Organized Health Care Education/Training Program; Admitting Provider Orthopaedic Surgery Orthopaedic Surgery of the Spine; PCP Family Medicine Geriatric Medicine; Referring Provider Orthopaedic Surgery Orthopaedic Surgery of the Spine; Visit Provider Orthopaedic Surgery Orthopaedic Surgery of the Spine
PROC: 0SG00A0 Fusion of Lumbar Vertebral Joint with Interbody Fusion Device, Anterior Approach, Anterior Column, Open Approach (ICD-10-PCS; principal; 2025-01-26 07:00)
DX: M43.16 Spondylolisthesis, lumbar region (principal); Z68.41 Body mass index [BMI] 40.0-44.9, adult; E66.813 Obesity, class 3; I10 Essential (primary) hypertension; E78.5 Hyperlipidemia, unspecified; M48.062 Spinal stenosis, lumbar region with neurogenic claudication; M16.11 Unilateral primary osteoarthritis, right hip; G47.33 Obstructive sleep apnea (adult) (pediatric); M51.369 Other intervertebral disc degeneration, lumbar region without mention of lumbar back pain or lower extremity pain; R73.03 Prediabetes; Z98.1 Arthrodesis status; Z79.899 Other long term (current) drug therapy; Z90.49 Acquired absence of other specified parts of digestive tract; Z96.652 Presence of left artificial knee joint; Z96.642 Presence of left artificial hip joint; Z87.891 Personal history of nicotine dependence
CPT/HCPCS: 36415; 72100; 76000; 80048; 82962; 83036; 83735; 85025; 86850; 86900; 86901; 87081; 94668; 97162; 97165; C1713; A4216; J2405

== ENCOUNTER → 2025-03-11 | Outpatient (CLI) | payer MEDICARE, OTHER, SELFPAY ==
[2025-03-11 10:22] LABS: Hematocrit 37.9 % (37-47); Hemoglobin 12.7 g/dL (12.0-15.0); Immature Granulocytes Count 0.020 X10^3/uL (0.0-0.0); Mean Corp Hgb Conc 33.5 g/dL (32-36); Mean Corpuscular Volume 87.1 fL (81-99); Mean Platelet Vol. 10.6 fl (6.2-12.0); NRBC Flagged by Analyzer 0 % (0-5); Platelet Count 247 K/mm3 (150-450); RBC Distribution Width CV 12.1 % (11.6-14.6); RBC Distribution Width SD 38.7 fl (35.1-43.9); Red Blood Count 4.35 M/mm3 (4.2-5.4); White Blood Count 5.9 K/mm3 (4.4-11.0)
[2025-03-11 10:30] LABS: Prothrombin Time (Protime)PT. 12.6 SECONDS (11.7-14.9)
[2025-03-11 10:31] LABS: Partial Thromboplast Time 25.9 Seconds (24.1-36.2)
[2025-03-11 10:52] LABS: Bilirubin, Direct 0.13 mg/dL (0.00-0.30)
[2025-03-11 11:06] LABS: AST(SGOT) 39 U/L (<=31); Alanine Aminotransfer ALT/SGPT 30 U/L (<=34); Albumin, Serum 4.5 g/dL (3.4-4.8); Alkaline Phosphatase 61 U/L (35-104); Anion Gap 11 (7-18); BUN 22 mg/dL (4-19); BUN/Creat Ratio 31.2 RATIO (10-20); Calcium,Total 10.0 mg/dL (7.6-11.0); Carbon Dioxide 28.1 mmol/L (20.0-29.0); Chloride 100 mmol/L (96-106); Globulin 2.9 g/dL (2.2-4.2); Glucose 162 mg/dL (70-99); Potassium 3.8 mmol/L (3.5-5.1); Vitamin D,25 Hydroxy 57.0 ng/mL (30-100)
[2025-03-11 18:00] LABS: Xtra Tube Kwok EXTRA TUBE
== END | disposition home or self-care (01) ==
LOC: POLAB3 09:59
PROVIDERS: Internal Medicine Gastroenterology; PCP Family Medicine Geriatric Medicine; Visit Provider Family Medicine Geriatric Medicine
DX: R73.9 Hyperglycemia, unspecified (principal); K76.0 Fatty (change of) liver, not elsewhere classified; K74.00 Hepatic fibrosis, unspecified; E66.9 Obesity, unspecified; E55.9 Vitamin D deficiency, unspecified; I10 Essential (primary) hypertension
CPT/HCPCS: 36415; 80053; 82105; 82248; 82306; 83036; 84443; 85025; 85610; 85730